=== PATIENT | male | born 1950 | race Caucasian/White ===

== ENCOUNTER 2017-02-10 16:08 | Inpatient (IN) | payer MEDICARE, OTHER ==
[2017-02-10] MEDS ORDERED: Sodium Chloride 0.9% 1,000 ML IV ONE (16:38)
--- NOTE | 2017-02-10 16:38 | C.PDOC ---
History Of Present Illness 66 yr old male presents to the ER with 4 day history of productive cough, mild SOB and chills. Patient denies fever, nausea, vomiting, abdominal pain, diarrhea , constipation, weakness or numbness. Reports hx of HTN, DM and CHF and is compliant with "water pill" but does not known last echo. Time Seen by Provider: 02/10/17 16:22 Chief Complaint (Nursing): Chest Pain History Per: Patient History/Exam Limitations: no limitations Onset/Duration Of Symptoms: Days (4) Past Medical History Reviewed: Historical Data, Nursing Documentation, Vital Signs Vital Signs: Last Vital Signs Temp 99.6 F 02/10/17 16:13 Pulse 82 02/10/17 16:13 Resp 20 02/10/17 16:13 BP 148/71 02/10/17 16:13 Pulse Ox 96 02/10/17 17:35 - Medical History PMH: Asthma, HTN, Hypercholesterolemia Surgical History: Coronary Stent Family History: States: No Known Family Hx - Social History Hx Alcohol Use: No Hx Substance Use: No Review Of Systems Except As Marked, All Systems Reviewed And Found Negative. Constitutional: Positive for: Chills. Negative for: Fever Cardiovascular: Positive for: Chest Pain Respiratory: Positive for: Cough (Productive ), Shortness of Breath (Mild) Gastrointestinal: Negative for: Nausea, Vomiting, Abdominal Pain, Diarrhea, Constipation Neurological: Negative for: Weakness, Numbness Physical Exam - Physical Exam Appears: Non-toxic, No Acute Distress Skin: Warm, Dry, No Rash Head: Atraumatic, Normacephalic Oral Mucosa: Dry Throat: Normal, No Erythema, No Exudate, No Drooling Neck: Normal, Normal ROM, Supple Chest: Symmetrical, No Tenderness Cardiovascular: Rhythm Regular, No Murmur Respiratory: Normal Breath Sounds, No Rales, No Rhonchi, No Wheezing Gastrointestinal/Abdominal: Normal Exam, Soft, No Tenderness, No Guarding, No Rebound Extremity: Normal ROM, No Swelling Neurological/Psych: Oriented x3, Normal Speech ED Course And Treatment - Laboratory Results Result Diagrams: 02/10/17 17:09 02/10/17 17:09 O2 Sat by Pulse Oximetry: 96 (RA ) Pulse Ox Interpretation: Normal - Other Rad CXR X-Ray: Viewed By Me, Read By Radiologist Interpretation: HISTORY: fever, cough, chest pain. COMPARISON: None available. TECHNIQUE: Chest PA and lateral. FINDINGS: LUNGS: Moderate interstitial prominence may reflect infection or edema. No focal consolidation. PLEURA: No significant pleural effusion identified. No definite pneumothorax . CARDIOVASCULAR: Heart size appears within normal limits. OSSEOUS STRUCTURES : Degenerative changes. VISUALIZED UPPER ABDOMEN: Unremarkable. OTHER FINDINGS: None. IMPRESSION: Moderate interstitial prominence may reflect infection or edema. Medical Decision Making Medical Decision Making: PLAN: * CXR * VBG * Troponin * CBC * CMP * Aspirin PO * Toradol OVP * Sodium Chloride IV EKG shows NSR at 76bpm with 1st degree AV block, pacs, and t wave changes laterally, unchanged from 11/21/16 5:05PM Cxray concerning for pna ("Moderate interstitial prominence may reflect infection or edema") Patient has elevated wbc and lactate. Does not meet criteria for code sepsis due to no other SIRS criteria. (Normal vitals). Will cover with antibiotics. Will need slow hydration due to concern for edema already seen on cxray. P: trop and bnp. 5:34PM BNP elevated consistent with chf. There appears to be element of chf vs pna. Spoke to PMD Dr. Neumann and he is requesting admission to hospitalist. Spoke to Dr. Alvarado who accepted patient to his service. Disposition - Disposition Disposition: HOSPITALIZED Disposition Time: 17:34 Condition: FAIR Forms: [facility] (Georgian) - Clinical Impression Clinical Impression: Pneumonia, Congestive heart failure - Scribe Statement The provider has reviewed the documentation as recorded by the Kylee Jenkins Provider Attestation: All medical record entries made by the Blayneibevelio were at my direction and personally dictated by me. I have reviewed the chart and agree that the record accurately reflects my personal performance of the history, physical exam, medical decision making, and the department course for this patient. I have also personally directed, reviewed, and agree with the discharge instructions and disposition.
[2017-02-10] MEDS ORDERED: Sodium Chloride 0.9% 1,000 ML ONE (16:56)
--- NOTE | 2017-02-10 17:03 | RAD ---
HISTORY: fever, cough, chest pain COMPARISON: None available. TECHNIQUE: Chest PA and lateral FINDINGS: LUNGS: Moderate interstitial prominence may reflect infection or edema. No focal consolidation. PLEURA: No significant pleural effusion identified. No definite pneumothorax . CARDIOVASCULAR: Heart size appears within normal limits. OSSEOUS STRUCTURES: Degenerative changes. VISUALIZED UPPER ABDOMEN: Unremarkable. OTHER FINDINGS: None. IMPRESSION: Moderate interstitial prominence may reflect infection or edema.
[2017-02-10 17:16] LABS: VENOUS BLOOD GAS BASE EXCESS 1.5 mmol/L (0.0-2.0); VENOUS BLOOD GAS PCO2 46 mmHg (40-60); VENOUS BLOOD PH 7.38 (7.32-7.43)
[2017-02-10 17:18] LABS: BASO # 0.1 K/uL (0.0-0.2); BASO % 0.5 % (0.0-2.0); EOS # 0.1 K/uL (0.0-0.7); EOS % 0.6 % (0.0-4.0); HEMATOCRIT 39.7 % (35.0-51.0); LYMPH # 1.5 K/uL (1.0-4.3); LYMPH % 10.8 % (20.0-40.0); MEAN CORPUSCULAR HEMOGLOBIN 27.2 pg (27.0-31.0); MEAN CORPUSCULAR HGB CONC 32.4 g/dL (33.0-37.0); MEAN PLATELET VOLUME 9.3 fL (7.2-11.7); MONO # 1.2 K/uL (0.0-0.8); MONO % 8.9 % (0.0-10.0); RED CELL DISTRIBUTION WIDTH 14.6 % (11.5-14.5)
[2017-02-10] MEDS ORDERED: Azithromycin 500 MG in Sodium Chloride 0.9% 250 ML IVPB STA (17:23)
[2017-02-10 17:24] LABS: CHLORIDE 99 mmol/L (98-107)
[2017-02-10 17:25] LABS: SODIUM 136 mmol/L (132-148)
[2017-02-10 17:26] LABS: POTASSIUM 4.3 mmol/L (3.6-5.2)
[2017-02-10 17:28] LABS: ALKALINE PHOSPHATASE 73 U/L (38-126); ALT/SGPT 38 U/L (21-72); AST/SGOT 22 U/L (17-59); BILIRUBIN,TOTAL 4.1 mg/dL (0.2-1.3); BLOOD UREA NITROGEN 12 mg/dL (9-20); CARBON DIOXIDE 25 mmol/L (22-30); GFR AFRICAN-AMERICAN > 60; GLUCOSE,RANDOM 273 mg/dL (75-110); TOTAL PROTEIN 7.1 g/dL (6.3-8.3); WHITE BLOOD COUNT 13.7 K/uL (4.8-10.8)
[2017-02-10 17:29] LABS: CALCIUM 9.4 mg/dl (8.6-10.4)
[2017-02-10] MEDS ORDERED: Sodium Chloride 0.9% 500 ML IV ONE (17:32)
[2017-02-10 17:33] LABS: INR 1.3
[2017-02-10] MEDS ORDERED: Azithromycin 500mg/250ML NS 500 MG/250 ML BAG IVPB ONE (17:47)
[2017-02-10] MEDS ORDERED: cefTRIAXone IV 1 gm in Dextros 50 ML IVPB ONE (17:47)
--- NOTE | 2017-02-10 18:20 | CP.PCM.HP ---
<Ulises Kaye - Last Filed: 02/10/17 20:36> History of Present Illness - History of Present Illness History of Present Illness: CC: Cough, fever, short of breath HPI: Patient is a 66 year old male with a history of IDDM, HTN, hyperlipidemia , and asthma is here because he as been complaining of fever, chills, shortness of breath, productive cough for 3-4 days. He was seen by his primary care physician last Saturday and put medication for his stomach though he does not know what medication it is. The only medication he has with him are Amlodapine/ Valsartan combination and Bystolic. He takes insulin at home both during the morning and at night but does not remember the name. He says he has not taking any medication for his recent illness and did not check his temperature at home. He also says that his legs has some swelling but are not that swollen today, he denies any orthopnea. But he does have chest and upper back pain when he coughs. He says he has been coughing up white phlem for the past 3 days. He is mainly [place] speaking, retired, living with his daughter. PMH: see above PSH: cardiac cath over 10 years ago but no stent PFH: denies any family history of cancer or hear disease SH: Lives with daughter, speaks [place], retired, denies any smoking history, etoh use, or illicit drug use. Allergies: NKDA PMD: Dr. Neumann Present on Admission - Present on Admission Any Indicators Present on Admission: No History of DVT/PE: No History of Uncontrolled Diabetes: Yes Urinary Catheter: No Decubitus Ulcer Present: No History Surgical Site Infection Following: None Review of Systems - Review of Systems All systems: reviewed and no additional remarkable complaints except - Constitutional Constitutional: Chills, Fever, Malaise - EENT Eyes: absent: Change in Vision Ears: absent: Dizziness - Cardiovascular Cardiovascular: Chest Pain, Dyspnea, Radiating Pain. absent: Diaphoresis, Palpitations - Respiratory Respiratory: Cough, Dyspnea, Pain with Coughing. absent: Wheezing - Gastrointestinal Gastrointestinal: Bloating. absent: Abdominal Pain, Constipation, Diarrhea, Nausea, Vomiting - Genitourinary Genitourinary: absent: Dysuria - Musculoskeletal Musculoskeletal: absent: Numbness, Tingling - Integumentary Integumentary: Swelling. absent: Wounds, Jaundice - Neurological Neurological: absent: Numbness, Headaches - Endocrine Endocrine: absent: Fatigue, Palpitations Past Patient History - Past Social History Smoking Status: Never Smoked - CARDIAC Hx Hypercholesterolemia: Yes Hx Hypertension: Yes - PULMONARY Hx Asthma: Yes - ENDOCRINE/METABOLIC Hx Endocrine Disorders: Yes Hx Diabetes Mellitus Type 2: Yes - GENITOURINARY/GYNECOLOGICAL Hx Genitourinary Disorders: Yes Hx Prostate Cancer: Yes - PSYCHIATRIC Hx Substance Use: No - SURGICAL HISTORY Hx Coronary Stent: Yes - ANESTHESIA Hx Anesthesia: Yes Hx Anesthesia Reactions: No Meds Allergies/Adverse Reactions: Allergies Allergy/AdvReac Type Severity Reaction Status Date / Time No Known Allergies Allergy Verified 02/10/17 16:15 Physical Exam - Constitutional Appears: Non-toxic, No Acute Distress - Eye Exam Eye Exam: Normal appearance Pupil Exam: NORMAL ACCOMODATION - ENT Exam ENT Exam: Mucous Membranes Moist - Neck Exam Neck exam: Positive for: Normal Inspection - Respiratory Exam Respiratory Exam: Rales. absent: Chest Wall Tenderness, Clear to Auscultation Bilateral, Rhonchi, Wheezes - Cardiovascular Exam Cardiovascular Exam: REGULAR RHYTHM, JVD, RRR, +S1, +S2. absent: Diastolic murmur, Gallop, Rubs, Systolic Murmur - GI/Abdominal Exam GI & Abdominal Exam: Normal Bowel Sounds. absent: Soft, Tenderness - Extremities Exam Extremities exam: Positive for: pedal edema (plus 1 right greater than left). Negative for: calf tenderness, normal inspection - Back Exam Back exam: NORMAL INSPECTION. absent: CVA tenderness (L), CVA tenderness (R) - Neurological Exam Neurological exam: Alert, Oriented x3 - Psychiatric Exam Psychiatric exam: Normal Affect, Normal Mood - Skin Skin Exam: Diaphoretic, Warm Additional comments: Skin is hot Results - Vital Signs Recent Vital Signs: Last Vital Signs Temp 99.6 F 02/10/17 16:13 Pulse 79 02/10/17 18:06 Resp 26 H 02/10/17 18:06 BP 147/83 02/10/17 18:06 Pulse Ox 98 02/10/17 18:06 - Labs Result Diagrams: 02/10/17 17:09 02/10/17 17:09 Assessment & Plan (1) Pneumonia Assessment and Plan: Patient admitted to inpatient. He has an ifiltrate on CXR, with a white count of 13.7 with left shift He is septic with a lactic acid of 3.2. IV Rocepin and Zirthromax. Blood, urine, and sputum cultures. Repeat latic acid in 4 hours. Follow up morning cbc. Status: Acute Priority: High (2) Sepsis Assessment and Plan: Lactic acid of 3.2. he has a white count, tachypenic, and a source of infection. Repeat lactic acid in 4 hours. Tylenol 650mg given. Status: Acute (3) Congestive heart failure Assessment and Plan: Patient is also fluid overloaded with pitting edma, JVD, and BNP elevated at 3550. Will get an echo and also cardiac enzymes Q6H x2. Monitor patient on tele. He does have a history of HTN. Patient reports a echo 4-5 years ago that was normal. 20mg of IV lasix given. Status: Suspected Priority: High (4) HTN (hypertension) Assessment and Plan: continue Bystolic 20mg, Amlodapine 10mg, and will given Losartan 100mg daily. Status: Chronic Priority: Medium (5) IDDM (insulin dependent diabetes mellitus) Assessment and Plan: sliding scale insulin with accu checks, follow up Hbg 1C. Will call pharmacy tomorrow to get accurate medication list. Status: Chronic Priority: Medium (6) Hyperlipidemia Assessment and Plan: Call pharmacy to get accurate medication, follow up lipid panel. Status: Chronic Priority: Medium (7) Asthma Assessment and Plan: Duoneb 3ml Q6H Status: Chronic Priority: Medium (8) Prophylactic measure Assessment and Plan: Heparin 5000 units sc q12h no SCDs due to lower extremity swelling pepcid 20mg bid Status: Acute <Delano Alvarado - Last Filed: 02/18/17 14:18> Results - Vital Signs Recent Vital Signs: Last Vital Signs Temp 97.5 F L 02/14/17 08:04 Pulse 73 02/14/17 08:04 Resp 18 02/14/17 08:04 BP 159/73 H 02/14/17 08:04 Pulse Ox 100 02/14/17 08:04 - Labs Result Diagrams: 02/14/17 07:17 02/14/17 07:17 Attending/Attestation - Attestation I have personally seen and examined this patient.: Yes I have fully participated in the care of the patient.: Yes I have reviewed all pertinent clinical information: Yes Notes (Text): 02/18/17 14:18 Patient was seen and examined at bedside with the resident at the time of admission I discussed the plan of care with the resident I agree with the history and physical and assessment/plan documented by the resident.
[2017-02-10] MEDS ORDERED: Albuterol-Ipratrop 3 mg / 0.5 (3 ml) UD ONE (21:11)
[2017-02-10] MEDS: Albuterol-Ipratrop 3 mg / 0.5 (3 ml) UD INH SCH (21:14)
[2017-02-10] MEDS ORDERED: (Novolin R) Insulin Human Regular 100 units/ml vial ONE (22:03)
[2017-02-10] MEDS: (Novolin R) Insulin Human Regular 100 units/ml vial SC SCH (22:04)
[2017-02-11 03:42] LABS: BASO # 0.1 K/uL (0.0-0.2); BASO % 0.7 % (0.0-2.0); EOS # 0.2 K/uL (0.0-0.7); EOS % 1.1 % (0.0-4.0); HEMATOCRIT 40.5 % (35.0-51.0); LYMPH # 1.4 K/uL (1.0-4.3); LYMPH % 9.5 % (20.0-40.0); MEAN CELL VOLUME 83.8 fL (80.0-94.0); MEAN CORPUSCULAR HEMOGLOBIN 27.1 pg (27.0-31.0); MEAN CORPUSCULAR HGB CONC 32.4 g/dL (33.0-37.0); MEAN PLATELET VOLUME 9.1 fL (7.2-11.7); MONO # 1.3 K/uL (0.0-0.8); MONO % 8.5 % (0.0-10.0); PLATELET COUNT 250 K/uL (130-400); RED CELL DISTRIBUTION WIDTH 14.3 % (11.5-14.5); WHITE BLOOD COUNT 14.7 K/uL (4.8-10.8)
[2017-02-11 04:23] LABS: CHLORIDE 100 mmol/L (98-107)
[2017-02-11 04:24] LABS: POTASSIUM 3.5 mmol/L (3.6-5.2); SODIUM 137 mmol/L (132-148)
[2017-02-11 04:25] LABS: CHOLESTEROL 155 mg/dL (0-199)
[2017-02-11 04:26] LABS: ALKALINE PHOSPHATASE 76 U/L (38-126); ALT/SGPT 32 U/L (21-72); AST/SGOT 21 U/L (17-59); BILIRUBIN,TOTAL 3.7 mg/dL (0.2-1.3); BLOOD UREA NITROGEN 13 mg/dL (9-20); CARBON DIOXIDE 24 mmol/L (22-30); GFR AFRICAN-AMERICAN > 60; GLUCOSE,RANDOM 225 mg/dL (75-110); TOTAL PROTEIN 6.9 g/dL (6.3-8.3)
[2017-02-11 04:27] LABS: CALCIUM 9.1 mg/dl (8.6-10.4)
[2017-02-11 04:43] LABS: T4 6.28 ug/dL (5.5-11.0)
[2017-02-11 04:57] LABS: THYROID STIMULATING HORMONE 0.77 mIU/L (0.46-4.68)
[2017-02-11 06:02] LABS: EOSINOPHIL 1 % (0-4); NEUTROPHIL 78 % (50-75); TOTAL CELLS COUNTED 100
[2017-02-11] MEDS ORDERED: (Novolin R) Insulin Human Regular 100 units/ml vial ONE ×2 (09:40→11:41)
[2017-02-11] MEDS: (Novolin R) Insulin Human Regular 100 units/ml vial SC SCH ×4 (09:41→22:05)
[2017-02-11] MEDS ORDERED: Magnesium Oxide 400 mg Tab UD PO ONE (10:30)
[2017-02-11] MEDS ORDERED: cefTRIAXone IV 1 gm in Dextros 0 ML IVPB ONE (10:43)
[2017-02-11] MEDS: Albuterol-Ipratrop 3 mg / 0.5 (3 ml) UD INH SCH ×3 (10:50→22:42)
[2017-02-11] MEDS ORDERED: Albuterol-Ipratrop 3 mg / 0.5 (3 ml) UD ONE ×2 (10:58→13:54)
--- NOTE | 2017-02-11 11:28 | CP.PCM.PN ---
<Coleman Sr - Last Filed: 02/11/17 17:50> Subjective - Date & Time of Evaluation Date of Evaluation: 02/11/17 Time of Evaluation: 10:00 - Subjective Subjective: PGY-[address] Esau Cortes Patient seen and examined at bedside. Patient reports poor appetite not having eaten for the last two days as well as bloating and constipation. Patient has not had a BM since 3 days ago. Patient complaining of cough but denies subjective fevers, chills, headache, dizziness, chest pain, SOB, abdominal pain , dysuria. Objective - Vital Signs/Intake and Output Vital Signs (last 24 hours): Temp Pulse Resp BP Pulse Ox 99.6 F 75 15 142/68 95 02/10/17 16:13 02/11/17 09:33 02/11/17 09:33 02/11/17 09:33 02/11/17 09:33 - Medications Medications: Current Medications Acetaminophen (Tylenol 325mg Tab) 650 mg PO Q6 PRN PRN Reason: Fever >100.4 F Albuterol/Ipratropium (Duoneb 3 Mg/0.5 Mg (3 Ml) Ud) 3 ml INH RQ6 [facility] Last Admin: 02/10/17 21:14 Dose: 3 ml Amlodipine Besylate (Norvasc) 10 mg PO DAILY [facility] Last Admin: 02/11/17 10:50 Dose: 10 mg Docusate Sodium (Colace) 100 mg PO BID [facility] Last Admin: 02/11/17 10:50 Dose: 100 mg Famotidine (Pepcid) 20 mg PO BID [facility] Last Admin: 02/11/17 10:49 Dose: 20 mg Heparin Sodium (Porcine) (Heparin) 5,000 units SC Q12 [facility] Last Admin: 02/11/17 10:49 Dose: 5,000 units Azithromycin 500 mg/ Sodium (Chloride) 250 mls @ 250 mls/hr IVPB DAILY [facility] Ceftriaxone Sodium 1 gm/ (Sodium Chloride) 100 mls @ 100 mls/hr IVPB DAILY [facility] Last Admin: 02/11/17 10:50 Dose: 100 mls/hr Insulin Human Regular (Novolin R) 0 unit SC ACHS [facility] PRN Reason: Protocol Last Admin: 02/11/17 09:41 Dose: 4 unit Losartan Potassium (Cozaar) 50 mg PO DAILY [facility] Last Admin: 02/11/17 10:50 Dose: 50 mg Nebivolol (Bystolic) 20 mg PO DAILY [facility] Last Admin: 02/11/17 10:50 Dose: 20 mg - Labs Labs: 02/11/17 03:40 02/11/17 03:40 PT 14.2 SECONDS (9.7-12.2) H 02/10/17 17:09 INR 1.3 02/10/17 17:09 APTT 35 SECONDS (21-34) H 02/10/17 17:09 - Constitutional Appears: No Acute Distress - Head Exam Head Exam: ATRAUMATIC, NORMAL INSPECTION, NORMOCEPHALIC - Eye Exam Eye Exam: EOMI, PERRL - ENT Exam ENT Exam: Mucous Membranes Moist - Respiratory Exam Additional comments: Coarse breath sounds bilaterally - Cardiovascular Exam Cardiovascular Exam: REGULAR RHYTHM, +S1, +S2 - GI/Abdominal Exam GI & Abdominal Exam: Distended, Soft, Normal Bowel Sounds. absent: Tenderness - Extremities Exam Extremities Exam: absent: Pedal Edema, Tenderness Additional comments: Missing the thumb of his right hand - Neurological Exam Neurological Exam: Alert, Awake, Oriented x3 - Skin Skin Exam: Dry, Intact, Normal Color, Warm Assessment and Plan - Assessment and Plan (Free Text) Plan: Pneumonia He has an infiltrate on CXR, with a white count of 13.7 with left shift at time of admission. Also had a lactic acid of 3.2. IV Rocephin and Azithromycin. F/u blood, urine, and sputum cultures. Dr. Arriaga (ID) consulted. Help appreciated. Sepsis Lactic acid of 3.2. he has a white count, tachypenic, and a source of infection. Repeat Lactate 1.7 Tylenol 650mg prn Congestive heart failure BNP elevated at 3550. Given IV lasix in the ED Dr. Mae director advertising consulted. Help appreciated. Hypertension Bystolic 20mg PO daily Amlodapine 10mg PO daily Losartan 50 mg daily HCTZ 12.5 mg PO daily History of Coronary Artery Disease s/p stent placement Aspirin 81 mg PO daily Plavix 75 mg PO daily IDDM (insulin dependent diabetes mellitus) RISS Hgb 13.1 Hyperlipidemia Lipid Panel WNL Welchol not on formulary--converted to Questran packet PO BID Lipitor not on formulary--converted to Crestor 20 mg PO HS Asthma Duoneb 3ml Q6H prn History of Prostate Cancer Dr. Jamil follows outpatient. Most recent PSA 0.2 Flomax 0.4 mg PO daily Prophylactic measure Heparin 5000 units sc q12h no SCDs due to lower extremity swelling pepcid 20mg bid Home Medications per pharmacy: Protonix 40 mg PO daily Welchol 625 mg 3 tabs PO BID Asa 81 mg PO daily Plavix 75 mg PO daily HCTZ 12.5 mg PO daily Vitamin D 13123 Units once weekly ProaAir 2 puffs Q4H prn Lipitor 40 mg PO HS Levemir 40 units BID Humalog 24 units TID Flomax 0.4 mg PO daily Bystolic 20 mg PO daily Amlodipine/Valsartan 10/320 mg PO daily 02/11: Resident spoken with PMD Dr. Neumann. Patient has history of CAD s/p stent x1. Patient also has history of prostate cancer being managed by Dr. Jamil, though Dr. Neumann is unconcerned given the patient's most recent PSA of 0.[address] Ryan Sr PGY-1 <Esau Cortes - Last Filed: 02/11/17 19:50> Objective - Vital Signs/Intake and Output Vital Signs (last 24 hours): Temp Pulse Resp BP Pulse Ox 97.5 F L 78 20 115/57 L 100 02/11/17 16:36 02/11/17 16:36 02/11/17 16:36 02/11/17 16:36 02/11/17 16:36 - Medications Medications: Current Medications Acetaminophen (Tylenol 325mg Tab) 650 mg PO Q6 PRN PRN Reason: Fever >100.4 F Albuterol/Ipratropium (Duoneb 3 Mg/0.5 Mg (3 Ml) Ud) 3 ml INH RQ6 [facility] Last Admin: 02/11/17 14:00 Dose: 3 ml Amlodipine Besylate (Norvasc) 10 mg PO DAILY [facility] Aspirin (Aspirin Chewable) 81 mg PO DAILY [facility] Last Admin: 02/11/17 14:19 Dose: 81 mg Cholestyramine Resin (Questran) 4 gm PO BID [facility] Clopidogrel Bisulfate (Plavix) 75 mg PO DAILY [facility] Last Admin: 02/11/17 14:20 Dose: 75 mg Docusate Sodium (Colace) 100 mg PO BID [facility] Last Admin: 02/11/17 18:01 Dose: 100 mg Famotidine (Pepcid) 20 mg PO BID [facility] Last Admin: 02/11/17 18:01 Dose: 20 mg Heparin Sodium (Porcine) (Heparin) 5,000 units SC Q12 [facility] Last Admin: 02/11/17 10:49 Dose: 5,000 units Hydrochlorothiazide (Microzide) 12.5 mg PO DAILY [facility] Azithromycin 500 mg/ Sodium (Chloride) 250 mls @ 250 mls/hr IVPB DAILY [facility] Last Admin: 02/11/17 11:43 Dose: 250 mls/hr Ceftriaxone Sodium 1 gm/ (Sodium Chloride) 100 mls @ 100 mls/hr IVPB DAILY [facility] Last Admin: 02/11/17 10:50 Dose: 100 mls/hr Insulin Detemir (Levemir) 40 unit SC BID [facility] Last Admin: 02/11/17 18:05 Dose: 40 unit Insulin Human Regular (Novolin R) 0 unit SC ACHS [facility] PRN Reason: Protocol Last Admin: 02/11/17 18:01 Dose: 4 unit Losartan Potassium (Cozaar) 100 mg PO DAILY [facility] Nebivolol (Bystolic) 20 mg PO DAILY [facility] Pneumococcal Polyvalent Vaccine (Pneumovax 23 Vaccine) 0.5 ml IM .ONCE ONE Stop: 02/12/17 10:01 Rosuvastatin Calcium (Crestor) 20 mg PO HS [facility] Tamsulosin HCl (Flomax) 0.4 mg PO DAILY [facility] Last Admin: 02/11/17 16:14 Dose: 0.4 mg - Labs Labs: 02/11/17 03:40 02/11/17 03:40 PT 14.2 SECONDS (9.7-12.2) H 02/10/17 17:09 INR 1.3 02/10/17 17:09 APTT 35 SECONDS (21-34) H 02/10/17 17:09 Attending/Attestation - Attestation I have personally seen and examined this patient.: Yes I have fully participated in the care of the patient.: Yes I have reviewed all pertinent clinical information, including history, physical exam and plan: Yes Notes (Text): 02/11/17 19:50 Patient was seen and examined at 10 AM in the ER Bed #3 02/11/17 Exam, Assesment and Plan were thoroughly gone over with the Resident. Esau Cortes D.O.
[2017-02-11] MEDS: Azithromycin 500 MG in Sodium Chloride 0.9% 250 ML IVPB SCH (11:43)
--- NOTE | 2017-02-11 12:10 | CP.PCM.CON ---
History of Present Illness - History of Present Illness History of Present Illness: 66 year old male with a history of IDDM, HTN, hyperlipidemia, and asthma is here because he as been complaining of fever, chills, shortness of breath, productive cough for 3-4 days. He was seen by his primary care physician last Saturday and put medication for his stomach though he does not know what medication it is. The only medication he has with him are Amlodapine/Valsartan combination and Bystolic. He takes insulin at home both during the morning and at night but does not remember the name. He says he has not taking any medication for his recent illness and did not check his temperature at home. He also says that his legs has some swelling but are not that swollen today, he denies any orthopnea. But he does have chest and upper back pain when he coughs. He says he has been coughing up white phlem for the past 3 days. He is mainly French speaking, retired, living with his daughter. PMH: see above PSH: cardiac cath over 10 years ago but no stent PFH: denies any family history of cancer or hear disease SH: Lives with daughter, speaks French, retired, denies any smoking history, etoh use, or illicit drug use. Review of Systems - Constitutional Constitutional: As Per HPI - EENT Eyes: absent: As Per HPI, Blind Spots, Blurred Vision, Change in Vision, Decreased Night Vision, Diplopia, Discharge, Dry Eye, Exophthalmos, Floaters, Irritation, Itchy Eyes, Loss of Peripheral Vision, Pain, Photophobia, Requires Corrective Lenses, Sees Flashes, Spots in Vision, Tunnel Vision, Other Visual Disturbances, Loss of Vision, Other Ears: absent: As Per HPI, Decreased Hearing, Ear Discharge, Ear Pain, Tinnitus, Abnormal Hearing, Disequilibrium, Dizziness, Other Nose/Mouth/Throat: absent: As Per HPI, Epistaxis, Nasal Congestion, Nasal Discharge, Nasal Obstruction, Nasal Trauma, Nose Pain, Post Nasal Drip, Sinus Pain, Sinus Pressure, Bleeding Gums, Change in Voice, Dental Pain, Dry Mouth, Dysphagia, Halitosis, Hoarsness, Lip Swelling, Mouth Lesions, Mouth Pain, Odynophagia, Sore Throat, Throat Swelling, Tongue Swelling, Facial Pain, Neck Pain, Neck Mass, Other - Cardiovascular Cardiovascular: As Per HPI - Respiratory Respiratory: As Per HPI - Genitourinary Genitourinary: absent: As Per HPI, Change in Urinary Stream, Difficulty Urinating, Dysuria, Flank Pain, Hematuria, Pyuria, Nocturia, Urinary Incontinence, Urinary Frequency, Urinary Hesitance, Urinary Urgency, Voiding Freq/Small Amts, Freq UTI, Hx Renal/Bladder Calculi, Hx /Renal Surgery, Bladder Distension, Other - Musculoskeletal Musculoskeletal: absent: As Per HPI, Abnormal Gait, Arthralgias, Atrophy, Back Pain, Deformity, Joint Swelling, Limited Range of Motion, Loss of Height, Muscle Cramps, Muscle Weakness, Myalgias, Neck Pain, Numbness, Radiating Pain into Limb, Stiffness, Tingling, Other - Integumentary Integumentary: absent: As Per HPI, Acne, Alopecia, Bleeding Lesions, Change in Hair, Change in Nails, Change in Pigmentation, Changing Lesions, Dry Skin, Erythema, Furuncle, Hirsutism, Lesions, New Lesions, Non-Healing Lesions, Photosensitivity, Pruritus, Rash, Skin Pain, Skin Ulcer, Sores, Striae, Swelling , Unusual Bruising, Wounds, Jaundice, Other - Neurological Neurological: absent: As Per HPI, Abnormal Gait, Abnormal Hearing, Abnormal Movements, Abnormal Speech, Behavioral Changes, Burning Sensations, Confusion, Convulsions, Disequilibrium, Dizziness, Numbness, Focal Weakness, Frequent Falls , Headaches, Lack of Coordination, Loss of Vision, Memory Loss, Paresthesias, Radicular Pain, Restless Legs, Sensory Deficit, Syncope, Tingling, Tremor, Vertigo, Weakness, Other Visual Disturbances, Other - Psychiatric Psychiatric: absent: As Per HPI, Abnormal Sleep Pattern, Anhedonia, Anxiety, Auditory Hallucinations, Behavioral Changes, Change in Appetite, Change in Libido, Confusion, Depression, Difficulty Concentrating, Hallucinations, Homicidal Ideation, Hopelessness, Irritability, Memory Loss, Mood Swings, Panic Attacks, Paranoia, Suicidal Ideation, Visual Hallucinations, Tactile Hallucinations, Other - Endocrine Endocrine: absent: As Per HPI, Change in Body Appearance, Change in Libido, Cold Intolorance, Deepening of Voice, Excessive Sweating, Fatigue, Flushing, Heat Intolorance, Increase in Ring/Shoe/Hat Size, Palpitations, Polydipsia, Polyphagia, Polyuria, Other - Hematologic/Lymphatic Hematologic: absent: As Per HPI, Easy Bleeding, Easy Bruising, Lymphadenopathy, Other Past Patient History - Past Social History Smoking Status: Never Smoked - CARDIAC Hx Hypercholesterolemia: Yes Hx Hypertension: Yes - PULMONARY Hx Asthma: Yes - ENDOCRINE/METABOLIC Hx Endocrine Disorders: Yes Hx Diabetes Mellitus Type 2: Yes - GENITOURINARY/GYNECOLOGICAL Hx Genitourinary Disorders: Yes Hx Prostate Cancer: Yes - PSYCHIATRIC Hx Substance Use: No - SURGICAL HISTORY Hx Coronary Stent: Yes - ANESTHESIA Hx Anesthesia: Yes Hx Anesthesia Reactions: No Meds Allergies/Adverse Reactions: Allergies Allergy/AdvReac Type Severity Reaction Status Date / Time No Known Allergies Allergy Verified 02/10/17 16:15 - Medications Medications: Current Medications Acetaminophen (Tylenol 325mg Tab) 650 mg PO Q6 PRN PRN Reason: Fever >100.4 F Albuterol/Ipratropium (Duoneb 3 Mg/0.5 Mg (3 Ml) Ud) 3 ml INH RQ6 [facility] Last Admin: 02/10/17 21:14 Dose: 3 ml Amlodipine Besylate (Norvasc) 10 mg PO DAILY [facility] Last Admin: 02/11/17 10:50 Dose: 10 mg Docusate Sodium (Colace) 100 mg PO BID [facility] Last Admin: 02/11/17 10:50 Dose: 100 mg Famotidine (Pepcid) 20 mg PO BID [facility] Last Admin: 02/11/17 10:49 Dose: 20 mg Heparin Sodium (Porcine) (Heparin) 5,000 units SC Q12 [facility] Last Admin: 02/11/17 10:49 Dose: 5,000 units Azithromycin 500 mg/ Sodium (Chloride) 250 mls @ 250 mls/hr IVPB DAILY [facility] Last Admin: 02/11/17 11:43 Dose: 250 mls/hr Ceftriaxone Sodium 1 gm/ (Sodium Chloride) 100 mls @ 100 mls/hr IVPB DAILY [facility] Last Admin: 02/11/17 10:50 Dose: 100 mls/hr Insulin Human Regular (Novolin R) 0 unit SC ACHS [facility] PRN Reason: Protocol Last Admin: 02/11/17 11:38 Dose: 6 unit Losartan Potassium (Cozaar) 50 mg PO DAILY [facility] Last Admin: 02/11/17 10:50 Dose: 50 mg Nebivolol (Bystolic) 20 mg PO DAILY [facility] Last Admin: 02/11/17 10:50 Dose: 20 mg Physical Exam - Constitutional Appears: Non-toxic, Cachectic, Chronically Ill - Head Exam Head Exam: NORMOCEPHALIC - Eye Exam Eye Exam: PERRL. absent: Scleral icterus - ENT Exam ENT Exam: Mucous Membranes Dry, Normal External Ear Exam - Neck Exam Neck exam: Negative for: Lymphadenopathy - Respiratory Exam Respiratory Exam: Decreased Breath Sounds, Rhonchi - Cardiovascular Exam Cardiovascular Exam: REGULAR RHYTHM, +S1, +S2 - GI/Abdominal Exam GI & Abdominal Exam: Diminished Bowel Sounds, Soft. absent: Tenderness - Rectal Exam Rectal Exam: Deferred - Exam Exam: NORMAL INSPECTION - Back Exam Back exam: absent: CVA tenderness (L), CVA tenderness (R) - Neurological Exam Neurological exam: Alert, CN II-XII Intact, Oriented x3, Reflexes Normal - Psychiatric Exam Psychiatric exam: Normal Mood - Skin Skin Exam: Dry Results - Vital Signs Recent Vital Signs: Last Vital Signs Temp 99.6 F 02/10/17 16:13 Pulse 75 02/11/17 09:33 Resp 15 02/11/17 09:33 BP 142/68 02/11/17 09:33 Pulse Ox 95 02/11/17 09:33 - Labs Result Diagrams: 02/13/17 06:55 02/13/17 06:55 Labs: Laboratory Results - last 24 hr 02/10/17 02/10/17 02/10/17 18:29 21:17 21:17 WBC RBC Hgb Hct MCV MCH MCHC RDW Plt Count MPV Neut % (Auto) Lymph % (Auto) [place] % (Auto) Eos % (Auto) Baso % (Auto) Neut # Lymph # [place] # Eos # Baso # Neutrophils % (Manual) Band Neutrophils % Lymphocytes % (Manual) Monocytes % (Manual) Eosinophils % (Manual) Platelet Estimate Sodium Potassium Chloride Carbon Dioxide Anion Gap BUN Creatinine Est GFR ( Amer) Est GFR (Non-Af Amer) POC Glucose (mg/dL) Random Glucose Hemoglobin A1c Lactic Acid 1.7 Calcium Total Bilirubin AST ALT Alkaline Phosphatase Total Creatine Kinase 75 CK-MB (Mass) 1.37 Troponin I, Quant 0.0860 Total Protein Albumin Globulin Albumin/Globulin Ratio Triglycerides Cholesterol LDL Cholesterol Direct HDL Cholesterol Thyroxine (T4) TSH 3rd Generation Influenza Typ A,B (EIA) Negative for flu a/b Ur L.pneumophila Ag 02/10/17 02/11/17 02/11/17 21:23 03:31 03:40 WBC 14.7 H RBC 4.83 Hgb 13.1 Hct 40.5 MCV 83.8 MCH 27.1 MCHC 32.4 L RDW 14.3 Plt Count 250 MPV 9.1 Neut % (Auto) 80.2 H Lymph % (Auto) 9.5 L [place] % (Auto) 8.5 Eos % (Auto) 1.1 Baso % (Auto) 0.7 Neut # 11.8 H Lymph # 1.4 [place] # 1.3 H Eos # 0.2 Baso # 0.1 Neutrophils % (Manual) 78 H Band Neutrophils % 1 Lymphocytes % (Manual) 10 L Monocytes % (Manual) 10 Eosinophils % (Manual) 1 Platelet Estimate Normal Sodium Potassium Chloride Carbon Dioxide Anion Gap BUN Creatinine Est GFR ( Amer) Est GFR (Non-Af Amer) POC Glucose (mg/dL) 320 H Random Glucose Hemoglobin A1c Lactic Acid Calcium Total Bilirubin AST ALT Alkaline Phosphatase Total Creatine Kinase 93 CK-MB (Mass) 1.32 Troponin I, Quant 0.0850 Total Protein Albumin Globulin Albumin/Globulin Ratio Triglycerides Cholesterol LDL Cholesterol Direct HDL Cholesterol Thyroxine (T4) TSH 3rd Generation Influenza Typ A,B (EIA) Ur L.pneumophila Ag 02/11/17 02/11/17 02/11/17 03:40 06:00 07:13 WBC RBC Hgb Hct MCV MCH MCHC RDW Plt Count MPV Neut % (Auto) Lymph % (Auto) [place] % (Auto) Eos % (Auto) Baso % (Auto) Neut # Lymph # [place] # Eos # Baso # Neutrophils % (Manual) Band Neutrophils % Lymphocytes % (Manual) Monocytes % (Manual) Eosinophils % (Manual) Platelet Estimate Sodium 137 Potassium 3.5 L Chloride 100 Carbon Dioxide 24 Anion Gap 17 BUN 13 Creatinine 0.9 Est GFR ( Amer) > 60 Est GFR (Non-Af Amer) > 60 POC Glucose (mg/dL) Random Glucose 225 H Hemoglobin A1c 13.1 H Lactic Acid Calcium 9.1 Total Bilirubin 3.7 H AST 21 ALT 32 Alkaline Phosphatase 76 Total Creatine Kinase CK-MB (Mass) Troponin I, Quant Total Protein 6.9 Albumin 3.5 Globulin 3.5 Albumin/Globulin Ratio 1.0 Triglycerides 100 Cholesterol 155 LDL Cholesterol Direct 87 HDL Cholesterol 33 Thyroxine (T4) 6.28 TSH 3rd Generation 0.77 Influenza Typ A,B (EIA) Ur L.pneumophila Ag Negative 02/11/17 02/11/17 09:36 11:36 WBC RBC Hgb Hct MCV MCH MCHC RDW Plt Count MPV Neut % (Auto) Lymph % (Auto) [place] % (Auto) Eos % (Auto) Baso % (Auto) Neut # Lymph # [place] # Eos # Baso # Neutrophils % (Manual) Band Neutrophils % Lymphocytes % (Manual) Monocytes % (Manual) Eosinophils % (Manual) Platelet Estimate Sodium Potassium Chloride Carbon Dioxide Anion Gap BUN Creatinine Est GFR ( Amer) Est GFR (Non-Af Amer) POC Glucose (mg/dL) 258 H 330 H Random Glucose Hemoglobin A1c Lactic Acid Calcium Total Bilirubin AST ALT Alkaline Phosphatase Total Creatine Kinase CK-MB (Mass) Troponin I, Quant Total Protein Albumin Globulin Albumin/Globulin Ratio Triglycerides Cholesterol LDL Cholesterol Direct HDL Cholesterol Thyroxine (T4) TSH 3rd Generation Influenza Typ A,B (EIA) Ur L.pneumophila Ag Assessment & Plan (1) Pneumonia Status: Acute Priority: High (2) Sepsis Status: Acute (3) Asthma Status: Chronic Priority: Medium (4) IDDM (insulin dependent diabetes mellitus) Status: Chronic Priority: Medium
--- NOTE | 2017-02-11 15:00 | CARD ---
APPROVED REPORT EXAM: Two-dimensional and M-mode echocardiogram with Doppler and color Doppler. Other Information Quality : GoodRhythm : NSR INDICATION Dyspnea Diastolic Congestive Heart Failure pneumonia; feve; sepsis RISK FACTORS Hypertension 2D DIMENSIONS IVSd1.5 (0.7-1.1cm)Aortic Root (2D)3.3 (2.0-3.7cm) LVDd4.6 (3.9-5.9cm)LVOT Diameter2.2 (1.8-2.4cm) PWd1.0 (0.7-1.1cm)LVDs2.8 (2.5-4.0cm) FS (%) 38.5 %LVEF (%)68.9 (>50%) M-Mode DIMENSIONS RVDd2.85 (2.1-3.2cm)Left Atrium (MM)5.00 (2.5-4.0cm) IVSd1.35 (0.7-1.1cm)Aortic Root2.85 (2.2-3.7cm) LVDd4.62 (4.0-5.6cm)Aortic Cusp Exc.2.08 (1.5-2.0cm) PWd1.46 (0.7-1.1cm)FS (%) 36 % LVDs2.95 (2.0-3.8cm)LVEF (%)66 (>50%) Mitral Valve MV E Oqouivph95.3cm/sMV A Pcwwpgsi11.3cm/sE/A ratio1.3 TDI E/Lateral E'0.0E/Medial E'0.0 Tricuspid Valve TR Peak [id number]/sTR Peak [id number] LEFT VENTRICLE There is moderate concentric left ventricular hypertrophy. The left ventricular systolic function is normal. The left ventricular ejection fraction is within the normal range. There is normal LV segmental wall motion. Transmitral Doppler flow pattern is Grade II-pseudonormal filling dynamics. RIGHT VENTRICLE The right ventricle is normal size. The right ventricular systolic function is normal. ATRIA The left atrium is moderately dilated. The right atrium is mildly dilated. AORTIC VALVE The aortic valve is normal in structure. No aortic regurgitation is present. MITRAL VALVE The mitral valve is normal in structure. Mitral regurgitation is trace to mild. TRICUSPID VALVE The tricuspid valve is normal in structure. There is moderate tricuspid regurgitation. Right ventricular systolic pressure is estimated at 45-50 mmHg. There is moderate pulmonary hypertension. PULMONIC VALVE The pulmonary valve is normal in structure. There is mild pulmonic valvular regurgitation. GREAT VESSELS The aortic root is normal in size. The IVC is normal in size and collapses >50% with inspiration. PERICARDIAL EFFUSION There is no pericardial effusion. <Conclusion> There is moderate concentric left ventricular hypertrophy. The left ventricular systolic function is normal. Moderate left ventricular diastolic dysfuntion. Transmitral Doppler flow pattern is Grade II-pseudonormal filling dynamics. The right ventricular systolic function is normal. Bi-atrial enlargement. Mitral regurgitation is trace to mild. There is moderate pulmonary hypertension. Right ventricular systolic pressure is estimated at 45-50 mmHg. There is no pericardial effusion.
[2017-02-11] MEDS: Insulin Detemir 100 units/ml Vial (Levemir) SC SCH (18:05)
[2017-02-11] MEDS: Cholestyramine 4 gm/Pkt UD PO SCH (21:12)
--- NOTE | 2017-02-11 23:16 | CON ---
CARDIOLOGY CONSULTATION REASON FOR CONSULTATION: Abnormal EKG. HISTORY OF PRESENT ILLNESS: The patient is 66-year-old male who has history of hypertension and diabetes mellitus as well as hyperlipidemia and history of bronchial asthma. He presented because of fever, chills, shortness of breath, and productive cough for the past 4 days and was advised by his medical doctor to come to the emergency room. The patient reports occasional dizziness, but no syncope. The patient is unaware of any prior cardiac history in the past and he denies any chest pain at this time. The patient has questionable history of congestive heart failure and was on water pill for it. At this time, the patient does report generalized weakness. SOCIAL HISTORY: Nonsmoker, nondrinker. MEDICATIONS: Zithromax 500 mg intravenously daily, Bystolic 20 mg daily, Rocephin 1 g intravenously daily, Colace 100 mg twice a day, Cozaar 50 mg once a day, albuterol inhaler, heparin 5000 units subcutaneously twice a day, Norvasc 10 mg once a day, Pepcid 20 mg p.o. twice a day. HOME MEDICATIONS: Included Bystolic 20 mg daily. PHYSICAL EXAMINATION GENERAL: The patient is a middle-aged male, who does not appear to be in any distress. VITAL SIGNS: Blood pressure 142/68, heart rate 75, temperature 99.6. HEENT: Normocephalic. CHEST: Minimal rhonchi. HEART: S1, S2, regular. ABDOMEN: Soft. EXTREMITIES: No edema. LABORATORY DATA: SMA-7; sodium 137, potassium 3.5, chloride 100, CO2 of 24, glucose 225, BUN 13, creatinine 0.9. INR is 1.3, PTT 35. Hemoglobin and hematocrit 13.1 and 40.5, white count and platelet count of 14.7 and 250,000. EKG revealed sinus rhythm, Mobitz I second-degree AV block, heart rate is 65. Nonspecific lateral T-wave changes. Two sets of troponins are negative. ProBNP 3360. Venous Doppler of lower extremity was performed and report is still pending. Chest x-ray revealed mild CHF. No cardiomegaly noted. ASSESSMENT: 1. Mobitz I second-degree atrioventricular block could be related to the patient's beta reginaldo therapy actually he is taking at home. 2. Consider underlying and congestive heart failure. 3. Rule out bilateral pneumonia. 4. Uncontrolled diabetes mellitus. RECOMMENDATIONS: Discontinue Bystolic, continue IV Zithromax and Rocephin. The patient has received Lasix in the emergency room 20 mg intravenously. I will review echocardiograph study performed today and schedule the patient for 24 hours Holter monitor. Hayden Mae MD
[2017-02-12] MEDS: Albuterol-Ipratrop 3 mg / 0.5 (3 ml) UD INH SCH ×4 (01:01→19:56)
[2017-02-12 06:30] LABS: ALKALINE PHOSPHATASE 60 U/L (38-126); ALT/SGPT 32 U/L (21-72); AST/SGOT 19 U/L (17-59); BILIRUBIN,TOTAL 2.3 mg/dL (0.2-1.3); BLOOD UREA NITROGEN 14 mg/dL (9-20); CALCIUM 9.4 mg/dl (8.6-10.4); CARBON DIOXIDE 23 mmol/L (22-30); CHLORIDE 100 mmol/L (98-107); GFR AFRICAN-AMERICAN > 60; GLUCOSE,RANDOM 183 mg/dL (75-110); MAGNESIUM 1.9 mg/dL (1.6-2.3); PHOSPHOROUS 3.6 mg/dL (2.5-4.5); POTASSIUM 3.5 mmol/L (3.6-5.2); SODIUM 134 mmol/L (132-148); TOTAL PROTEIN 6.2 g/dL (6.3-8.3)
[2017-02-12 06:38] LABS: BASO % 0.4 % (0.0-2.0); EOS # 0.3 K/uL (0.0-0.7); EOS % 2.9 % (0.0-4.0); HEMATOCRIT 36.8 % (35.0-51.0); LYMPH # 1.9 K/uL (1.0-4.3); LYMPH % 18.7 % (20.0-40.0); MEAN CELL VOLUME 83.1 fL (80.0-94.0); MEAN CORPUSCULAR HEMOGLOBIN 27.7 pg (27.0-31.0); MEAN CORPUSCULAR HGB CONC 33.4 g/dL (33.0-37.0); MEAN PLATELET VOLUME 9.4 fL (7.2-11.7); MONO # 0.8 K/uL (0.0-0.8); MONO % 7.6 % (0.0-10.0); RED CELL DISTRIBUTION WIDTH 14.1 % (11.5-14.5); WHITE BLOOD COUNT 10.3 K/uL (4.8-10.8)
--- NOTE | 2017-02-12 07:46 | CP.PCM.PN ---
Subjective - Date & Time of Evaluation Date of Evaluation: 02/12/17 Time of Evaluation: 06:50 - Subjective Subjective: PGY-[address] Esau Cortes Patient seen and examined at bedside. Patient reports feeling better than yesterday. Patient still intermittently coughing up white phlegm. Patient complains of slight dizziness and weakness. Patient denies fevers, chills, headache, chest pain, SOB, abdominal pain, dysuria. Patient still has not had a BM as of this morning. Objective - Vital Signs/Intake and Output Vital Signs (last 24 hours): Temp Pulse Resp BP Pulse Ox 98.5 F 76 20 147/86 95 02/12/17 04:00 02/12/17 04:00 02/12/17 04:00 02/12/17 04:00 02/12/17 00:25 Intake and Output: 02/12/17 02/12/17 06:59 18:59 Intake Total 110 Output Total 600 Balance -490 - Medications Medications: Current Medications Acetaminophen (Tylenol 325mg Tab) 650 mg PO Q6 PRN PRN Reason: Fever >100.4 F Albuterol/Ipratropium (Duoneb 3 Mg/0.5 Mg (3 Ml) Ud) 3 ml INH RQ6 [facility] Last Admin: 02/12/17 07:24 Dose: 3 ml Amlodipine Besylate (Norvasc) 10 mg PO DAILY [facility] Aspirin (Aspirin Chewable) 81 mg PO DAILY [facility] Last Admin: 02/11/17 14:19 Dose: 81 mg Cholestyramine Resin (Questran) 4 gm PO BID [facility] Last Admin: 02/11/17 21:12 Dose: 4 gm Clopidogrel Bisulfate (Plavix) 75 mg PO DAILY [facility] Last Admin: 02/11/17 14:20 Dose: 75 mg Docusate Sodium (Colace) 100 mg PO BID [facility] Last Admin: 02/11/17 18:01 Dose: 100 mg Famotidine (Pepcid) 20 mg PO BID [facility] Last Admin: 02/11/17 18:01 Dose: 20 mg Heparin Sodium (Porcine) (Heparin) 5,000 units SC Q12 [facility] Last Admin: 02/11/17 21:12 Dose: 5,000 units Hydrochlorothiazide (Microzide) 12.5 mg PO DAILY [facility] Azithromycin 500 mg/ Sodium (Chloride) 250 mls @ 250 mls/hr IVPB DAILY [facility] Last Admin: 02/11/17 11:43 Dose: 250 mls/hr Ceftriaxone Sodium 1 gm/ (Sodium Chloride) 100 mls @ 100 mls/hr IVPB DAILY [facility] Last Admin: 02/11/17 10:50 Dose: 100 mls/hr Insulin Detemir (Levemir) 40 unit SC BID [facility] Last Admin: 02/11/17 18:05 Dose: 40 unit Insulin Human Regular (Novolin R) 0 unit SC ACHS [facility] PRN Reason: Protocol Last Admin: 02/11/17 22:05 Dose: Not Given Losartan Potassium (Cozaar) 100 mg PO DAILY [facility] Nebivolol (Bystolic) 20 mg PO DAILY [facility] Pneumococcal Polyvalent Vaccine (Pneumovax 23 Vaccine) 0.5 ml IM .ONCE ONE Stop: 02/12/17 10:01 Potassium Chloride (K-Dur 20 Meq Er Tab) 20 meq PO DAILY [facility] Rosuvastatin Calcium (Crestor) 20 mg PO HS [facility] Last Admin: 02/11/17 21:12 Dose: 20 mg Tamsulosin HCl (Flomax) 0.4 mg PO DAILY [facility] Last Admin: 02/11/17 16:14 Dose: 0.4 mg - Labs Labs: 02/12/17 06:12 02/12/17 06:12 PT 14.2 SECONDS (9.7-12.2) H 02/10/17 17:09 INR 1.3 02/10/17 17:09 APTT 35 SECONDS (21-34) H 02/10/17 17:09 - Constitutional Appears: No Acute Distress - Head Exam Head Exam: ATRAUMATIC, NORMAL INSPECTION, NORMOCEPHALIC - Eye Exam Eye Exam: EOMI, PERRL - ENT Exam ENT Exam: Mucous Membranes Moist - Respiratory Exam Respiratory Exam: Clear to Ausculation Bilateral. absent: Rales, Rhonchi, Wheezes - Cardiovascular Exam Cardiovascular Exam: Irregular Rhythm (dropped beats noted on auscultation and pulse checking), +S1, +S2 - GI/Abdominal Exam GI & Abdominal Exam: Distended, Soft, Normal Bowel Sounds. absent: Tenderness - Extremities Exam Extremities Exam: absent: Pedal Edema, Tenderness - Neurological Exam Neurological Exam: Alert, Awake, Oriented x3 - Skin Skin Exam: Dry, Intact, Normal Color, Warm Assessment and Plan - Assessment and Plan (Free Text) Plan: Pneumonia He has an infiltrate on CXR, with a white count of 13.7 with left shift at time of admission. Also had a lactic acid of 3.2. IV Rocephin and Azithromycin. F/u blood, urine, and sputum cultures. Dr. Arriaga (ID) consulted. Help appreciated. Sepsis Lactic acid of 3.2. he has a white count, tachypenic, and a source of infection. Repeat Lactate 1.7 Tylenol 650mg prn Congestive heart failure BNP elevated at 3550. 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 Help appreciated. Hypertension Bystolic 20mg PO daily Discontinued 02/12 Amlodapine 10mg PO daily Losartan 50 mg daily HCTZ 12.5 mg PO daily History of Coronary Artery Disease s/p stent placement Aspirin 81 mg PO daily Plavix 75 mg PO daily IDDM (insulin dependent diabetes mellitus) Uncontrolled diabetic per Dr. Neumann (PMD) RISS Home med-Levemir 40 units BID Hgb 13.1 Hyperlipidemia Lipid Panel WNL Welchol not on formulary--converted to Questran packet PO BID Lipitor not on formulary--converted to Crestor 20 mg PO HS Asthma Duoneb 3ml Q6H prn History of Prostate Cancer Dr. Jamil follows outpatient. Most recent PSA 0.2 Flomax 0.4 mg PO daily Prophylactic measure Heparin 5000 units sc q12h no SCDs due to lower extremity swelling pepcid 20mg bid 02/11: Resident spoken with PMD Dr. Neumann. Patient has history of CAD s/p stent x1. Patient also has history of prostate cancer being managed by Dr. Jamil, though Dr. Neumann is unconcerned given the patient's most recent PSA of 0.2 02/12: Resident noted bradycardia on telemetry for patient overnight. Patient's heart rate was running in the 40s with a couple of episodes where it dropped down to 38. Patient was sleeping during these times. Dr. Mae was made aware and recommended discontinuing home medication Bystolic. He will also schedule the patient for a 24 hour Holter monitor. Case DW Dr. Ryan Sr PGY-1
[2017-02-12] MEDS: (Novolin R) Insulin Human Regular 100 units/ml vial SC SCH ×4 (08:01→21:40)
[2017-02-12] MEDS: Insulin Detemir 100 units/ml Vial (Levemir) SC SCH ×2 (09:28→18:32)
[2017-02-12] MEDS: Potassium Chloride 20 mEq ER Tab PO SCH (09:28)
[2017-02-12] MEDS: Cholestyramine 4 gm/Pkt UD PO SCH ×2 (09:29→18:33)
[2017-02-12] MEDS: Azithromycin 500 MG in Sodium Chloride 0.9% 250 ML IVPB SCH (09:30)
[2017-02-12] MEDS ORDERED: Pneumococcal 23-Valent Vaccine IM ONE (10:00)
--- NOTE | 2017-02-12 12:06 | VASCLAB ---
PROCEDURE: Lower Extremity Venous Duplex Exam. HISTORY: Pain in limb, rule out dvt PRIORS: Last venous duplex exam 12/07/2011,normal. TECHNIQUE: Bilateral common femoral, femoral, popliteal and posterior tibial, peroneal and great saphenous veins were evaluated. Flow was assessed with color Doppler, compressibility, assessment of phasic flow and augmentation response. Report prepared by DELL Gayle FINDINGS: RIGHT: 1. Common Femoral Vein: 1.1. Compressibility - Fully compressible: Thrombus - None : Flow - Phasic: Augmentation -Normal: Reflux - None. 2. Femoral Vein: 2.1. Compressibility - Fully compressible: Thrombus - None : Flow - Phasic: Augmentation -Normal: Reflux - None. 3. Popliteal Vein: 3.1. Compressibility - Fully compressible: Thrombus - None : Flow - Phasic: Augmentation -Normal: Reflux - None. 4. Posterior Tibial Vein: 4.1. Compressibility - Fully compressible: Thrombus - None: Flow - Phasic: Augmentation -Normal: Reflux - None. 5. Peroneal Vein: 5.1. Compressibility - Fully compressible: Thrombus - None: Flow - Phasic: Augmentation -Normal: Reflux - None. 6. Great Saphenous Vein: 6.1. Compressibility - Fully compressible: Thrombus - None: Flow - Phasic: Augmentation - Normal: Reflux - None. LEFT: 1. Common Femoral Vein: 1.1. Compressibility - Fully compressible: Thrombus - None: Flow - Phasic: Augmentation -Normal: Reflux - None. 2. Femoral Vein: 2.1. Compressibility - Fully compressible: Thrombus - None: Flow - Phasic: Augmentation -Normal: Reflux - None. 3. Popliteal Vein: 3.1. Compressibility - Fully compressible: Thrombus - None : Flow - Phasic: Augmentation -Normal: Reflux - None. 4. Posterior Tibial Vein: 4.1. Compressibility - Fully compressible: Thrombus - None: Flow - Phasic: Augmentation -Normal: Reflux - None. 5. Peroneal Vein: 5.1. Compressibility - Fully compressible: Thrombus - None: Flow - Phasic: Augmentation -Normal: Reflux - None. 6. Great Saphenous Vein: 6.1. Compressibility - Fully compressible: Thrombus - None: Flow - Phasic: Augmentation - Normal: Reflux - None. OTHER FINDINGS: Right: None significant. Left: None significant. IMPRESSION: Right: No evidence of deep or superficial vein thrombosis of the right lower extremity. Normal valve function noted of the right side. Left: No evidence of deep or superficial vein thrombosis of the left lower extremity. Normal valve function noted of the left side.
--- NOTE | 2017-02-12 18:50 | CARD ---
APPROVED REPORT EKG Measurement Heart [id number] CT 336P31 [id number] <Conclusion> Sinus rhythm with blocked premature atrial complexes terminating 2nd degree AV block Type I in a group beating fashion. Left atrial enlargement. T wave abnormality, nonspecific. Abnormal ECG
--- NOTE | 2017-02-12 20:08 | CARD ---
APPROVED REPORT EKG Measurement Heart [id number] [place] 240P35 [id number] <Conclusion> Sinus rhythm with sinus arrhythmia with 1st degree AV block Nonspecific T wave abnormality Prolonged QT Abnormal ECG
--- NOTE | 2017-02-12 23:09 | PN ---
DATE: SUBJECTIVE: The patient is still complaining of weakness. He reports sharp right subcostal chest pain. PHYSICAL EXAMINATION: VITAL SIGNS: Blood pressure 142/77, heart rate 63, temperature 98.1, respirations 20. HEENT: Head is normocephalic. CHEST: Clear. HEART: S1 and S2 regular. EXTREMITIES: No edema. LABORATORY DATA: SMA-7 is within normal limits, except for glucose of 183 and potassium 3.5. White count, platelet count, hemoglobin, and hematocrit today are within normal limits. Blood culture is negative after 48 hours. Venous Doppler of lower extremities, no evidence for DVT. Echocardiography study revealed marked concentric LVH with normal systolic function, moderate diastolic dysfunction, biatrial enlargement, and moderate pulmonary hypertension. ASSESSMENT: 1. Mobitz I second-degree atrioventricular block. 2. Diabetes mellitus. 3. Consider underlying pneumonia, as well as right pleuritic chest pain. RECOMMENDATIONS: Case was discussed with chief medical technologist. Continue IV Zithromax and IV Rocephin. Continue aspirin 81 mg once a day, Cozaar 200 mg once a day, subcutaneous heparin 5000 units twice a day. Obtain repeat chest x-ray. Discontinue Bystolic. Hayden Mae MD
[2017-02-13] MEDS: Albuterol-Ipratrop 3 mg / 0.5 (3 ml) UD INH SCH ×4 (01:07→19:03)
[2017-02-13 07:14] LABS: BASO % 0.5 % (0.0-2.0); EOS # 0.3 K/uL (0.0-0.7); EOS % 5.2 % (0.0-4.0); HEMATOCRIT 37.5 % (35.0-51.0); LYMPH # 1.7 K/uL (1.0-4.3); LYMPH % 24.5 % (20.0-40.0); MEAN CELL VOLUME 83.8 fL (80.0-94.0); MEAN CORPUSCULAR HEMOGLOBIN 27.8 pg (27.0-31.0); MEAN CORPUSCULAR HGB CONC 33.1 g/dL (33.0-37.0); MEAN PLATELET VOLUME 8.9 fL (7.2-11.7); MONO # 0.6 K/uL (0.0-0.8); MONO % 9.1 % (0.0-10.0); NRBC % 0.1 % (0.0-2.0); RED CELL DISTRIBUTION WIDTH 14.5 % (11.5-14.5); WHITE BLOOD COUNT 6.7 K/uL (4.8-10.8)
[2017-02-13] MEDS: (Novolin R) Insulin Human Regular 100 units/ml vial SC SCH ×4 (07:43→23:27)
[2017-02-13 07:58] LABS: CHLORIDE 104 mmol/L (98-107); POTASSIUM 3.4 mmol/L (3.6-5.2); SODIUM 138 mmol/L (132-148)
[2017-02-13 08:00] LABS: BILIRUBIN,TOTAL 1.1 mg/dL (0.2-1.3); GFR AFRICAN-AMERICAN > 60
[2017-02-13 08:01] LABS: ALB/GLOB RATIO 0.9 (1.0-2.1); ALKALINE PHOSPHATASE 66 U/L (38-126); ALT/SGPT 31 U/L (21-72); AST/SGOT 25 U/L (17-59); BLOOD UREA NITROGEN 15 mg/dL (9-20); CARBON DIOXIDE 24 mmol/L (22-30); GLUCOSE,RANDOM 73 mg/dL (75-110); PHOSPHOROUS 5.4 mg/dL (2.5-4.5); TOTAL PROTEIN 6.5 g/dL (6.3-8.3)
[2017-02-13 08:02] LABS: CALCIUM 9.6 mg/dl (8.6-10.4)
[2017-02-13] MEDS: Potassium Chloride 20 mEq ER Tab PO SCH (09:31)
[2017-02-13] MEDS: Cholestyramine 4 gm/Pkt UD PO SCH ×2 (09:33→17:56)
[2017-02-13] MEDS: Azithromycin 500 MG in Sodium Chloride 0.9% 250 ML IVPB SCH (09:36)
[2017-02-13] MEDS ORDERED: Bisacodyl 5mg EC Tab PO ONE (10:22)
--- NOTE | 2017-02-13 10:27 | CP.PCM.PN ---
<Coleman Sr - Last Filed: 02/13/17 17:21> Subjective - Date & Time of Evaluation Date of Evaluation: 02/13/17 Time of Evaluation: 07:10 - Subjective Subjective: PGY-[address] Esau Cortes Patient seen and examined at bedside. Patient complaining of feeling weak. Patient is still coughing intermittently but says that it has improved. Patient' s breathing has also improved. Patient denies fevers, chills, headache, dizziness, chest pain, SOB, abdominal pain, dysuria. Patient is still constipated. Objective - Vital Signs/Intake and Output Vital Signs (last 24 hours): Temp Pulse Resp BP Pulse Ox 97.7 F 68 18 121/69 100 02/13/17 08:16 02/13/17 08:16 02/13/17 08:16 02/13/17 08:16 02/13/17 08:16 Intake and Output: 02/13/17 02/13/17 06:59 18:59 Intake Total 120 Output Total 400 Balance -280 - Medications Medications: Current Medications Acetaminophen (Tylenol 325mg Tab) 650 mg PO Q6 PRN PRN Reason: Fever >100.4 F Last Admin: 02/12/17 21:26 Dose: 650 mg Albuterol/Ipratropium (Duoneb 3 Mg/0.5 Mg (3 Ml) Ud) 3 ml INH RQ6 [facility] Last Admin: 02/13/17 07:05 Dose: 3 ml Amlodipine Besylate (Norvasc) 10 mg PO DAILY [facility] Last Admin: 02/13/17 09:32 Dose: 10 mg Aspirin (Aspirin Chewable) 81 mg PO DAILY [facility] Last Admin: 02/13/17 09:32 Dose: 81 mg Bisacodyl (Dulcolax) 5 mg PO ONCE ONE Stop: 02/13/17 10:23 Cholestyramine Resin (Questran) 4 gm PO BID [facility] Last Admin: 02/13/17 09:33 Dose: 4 gm Clopidogrel Bisulfate (Plavix) 75 mg PO DAILY [facility] Last Admin: 02/13/17 09:31 Dose: 75 mg Docusate Sodium (Colace) 100 mg PO BID [facility] Last Admin: 02/13/17 09:31 Dose: 100 mg Famotidine (Pepcid) 20 mg PO BID [facility] Last Admin: 02/13/17 09:37 Dose: 20 mg Heparin Sodium (Porcine) (Heparin) 5,000 units SC Q12 [facility] Last Admin: 02/13/17 09:32 Dose: 5,000 units Hydrochlorothiazide (Microzide) 12.5 mg PO DAILY [facility] Last Admin: 02/13/17 09:31 Dose: 12.5 mg Azithromycin 500 mg/ Sodium (Chloride) 250 mls @ 250 mls/hr IVPB DAILY [facility] Last Admin: 02/13/17 09:36 Dose: 250 mls/hr Ceftriaxone Sodium 1 gm/ (Sodium Chloride) 100 mls @ 100 mls/hr IVPB DAILY [facility] Last Admin: 02/13/17 09:36 Dose: 100 mls/hr Insulin Detemir (Levemir) 40 unit SC BID [facility] Last Admin: 02/12/17 18:32 Dose: 40 unit Insulin Human Regular (Novolin R) 0 unit SC ACHS [facility] PRN Reason: Protocol Last Admin: 02/13/17 07:43 Dose: Not Given Losartan Potassium (Cozaar) 100 mg PO DAILY [facility] Last Admin: 02/13/17 09:31 Dose: 100 mg Potassium Chloride (K-Dur 20 Meq Er Tab) 20 meq PO DAILY [facility] Last Admin: 02/13/17 09:31 Dose: 20 meq Rosuvastatin Calcium (Crestor) 20 mg PO HS [facility] Last Admin: 02/12/17 21:27 Dose: 20 mg Tamsulosin HCl (Flomax) 0.4 mg PO DAILY [facility] Last Admin: 02/13/17 09:31 Dose: 0.4 mg - Labs Labs: 02/13/17 06:55 02/13/17 06:55 PT 14.2 SECONDS (9.7-12.2) H 02/10/17 17:09 INR 1.3 02/10/17 17:09 APTT 35 SECONDS (21-34) H 02/10/17 17:09 - Constitutional Appears: No Acute Distress - Head Exam Head Exam: ATRAUMATIC, NORMAL INSPECTION, NORMOCEPHALIC - Eye Exam Eye Exam: EOMI, PERRL - ENT Exam ENT Exam: Mucous Membranes Moist - Respiratory Exam Respiratory Exam: Clear to Ausculation Bilateral. absent: Rales, Rhonchi, Wheezes - Cardiovascular Exam Cardiovascular Exam: REGULAR RHYTHM, +S1, +S2 - GI/Abdominal Exam GI & Abdominal Exam: Soft, Normal Bowel Sounds. absent: Tenderness - Extremities Exam Extremities Exam: absent: Pedal Edema, Tenderness Additional comments: Missing the thumb of his right hand - Neurological Exam Neurological Exam: Alert, Awake, Oriented x3 - Skin Skin Exam: Dry, Intact, Normal Color, Warm Assessment and Plan - Assessment and Plan (Free Text) Plan: Pneumonia He has an infiltrate on CXR, with a white count of 13.7 with left shift at time of admission. Also had a lactic acid of 3.2. IV Rocephin and Azithromycin. F/u blood, urine, and sputum cultures. Dr. Arriaga (ID) consulted. Help appreciated. Sepsis Lactic acid of 3.2. he has a white count, tachypenic, and a source of infection. Repeat Lactate 1.7 Tylenol 650mg prn Congestive heart failure BNP elevated at 3550. Given IV lasix in the ED Dr. Mae buildings and grounds coordinator consulted. Help appreciated. He noted Mobitz type 2 heart block on EKG. Hypertension Bystolic 20mg PO daily Discontinued 02/12 Amlodapine 10mg PO daily Losartan 50 mg daily HCTZ 12.5 mg PO daily History of Coronary Artery Disease s/p stent placement Aspirin 81 mg PO daily Plavix 75 mg PO daily IDDM (insulin dependent diabetes mellitus) Uncontrolled diabetic per Dr. Neumann (PMD) RISS Home med-Levemir 40 units BID Hgb 13.1 Hyperlipidemia Lipid Panel WNL Welchol not on formulary--converted to Questran packet PO BID Lipitor not on formulary--converted to Crestor 20 mg PO HS Asthma Duoneb 3ml Q6H prn History of Prostate Cancer Dr. Jamil follows outpatient. Most recent PSA 0.2 Flomax 0.4 mg PO daily Prophylactic measure Heparin 5000 units sc q12h no SCDs due to lower extremity swelling pepcid 20mg bid 02/11: Resident spoken with PMD Dr. Neumann. Patient has history of CAD s/p stent x1. Patient also has history of prostate cancer being managed by Dr. Jamil, though Dr. Neumann is unconcerned given the patient's most recent PSA of 0.2 02/12: Resident noted bradycardia on telemetry for patient overnight. Patient's heart rate was running in the 40s with a couple of episodes where it dropped down to 38. Patient was sleeping during these times. Dr. Mae was made aware and recommended discontinuing home medication Bystolic. He will also schedule the patient for a 24 hour Holter monitor. 02/13: Patient had BM after given 1 time dose of Dulcolax. Patient continues to be afebrile and cultures continue to be negative so far. Case DW Dr. Ryan Sr PGY-1 <Esau Cortes - Last Filed: 02/13/17 19:03> Objective - Vital Signs/Intake and Output Vital Signs (last 24 hours): Temp Pulse Resp BP Pulse Ox 98.3 F 68 20 147/79 98 02/13/17 15:30 02/13/17 15:30 02/13/17 15:30 02/13/17 15:30 02/13/17 15:30 Intake and Output: 02/13/17 02/13/17 06:59 18:59 Intake Total 120 Output Total 400 Balance -280 - Medications Medications: Current Medications Acetaminophen (Tylenol 325mg Tab) 650 mg PO Q6 PRN PRN Reason: Fever >100.4 F Last Admin: 02/12/17 21:26 Dose: 650 mg Albuterol/Ipratropium (Duoneb 3 Mg/0.5 Mg (3 Ml) Ud) 3 ml INH RQ6 [facility] Last Admin: 02/13/17 13:25 Dose: 3 ml Amlodipine Besylate (Norvasc) 10 mg PO DAILY [facility] Last Admin: 02/13/17 09:32 Dose: 10 mg Aspirin (Aspirin Chewable) 81 mg PO DAILY [facility] Last Admin: 02/13/17 09:32 Dose: 81 mg Cholestyramine Resin (Questran) 4 gm PO BID [facility] Last Admin: 02/13/17 17:56 Dose: 4 gm Clopidogrel Bisulfate (Plavix) 75 mg PO DAILY [facility] Last Admin: 02/13/17 09:31 Dose: 75 mg Docusate Sodium (Colace) 100 mg PO BID [facility] Last Admin: 02/13/17 17:56 Dose: 100 mg Famotidine (Pepcid) 20 mg PO BID [facility] Last Admin: 02/13/17 09:37 Dose: 20 mg Heparin Sodium (Porcine) (Heparin) 5,000 units SC Q12 [facility] Last Admin: 02/13/17 09:32 Dose: 5,000 units Azithromycin 500 mg/ Sodium (Chloride) 250 mls @ 250 mls/hr IVPB DAILY [facility] Last Admin: 02/13/17 09:36 Dose: 250 mls/hr Ceftriaxone Sodium 1 gm/ (Sodium Chloride) 100 mls @ 100 mls/hr IVPB DAILY [facility] Last Admin: 02/13/17 09:36 Dose: 100 mls/hr Insulin Detemir (Levemir) 40 unit SC BID [facility] Last Admin: 02/13/17 17:56 Dose: 40 unit Insulin Human Regular (Novolin R) 0 unit SC ACHS [facility] PRN Reason: Protocol Last Admin: 02/13/17 17:57 Dose: Not Given Losartan Potassium (Cozaar) 100 mg PO DAILY [facility] Last Admin: 02/13/17 09:31 Dose: 100 mg Potassium Chloride (K-Dur 20 Meq Er Tab) 20 meq PO DAILY [facility] Last Admin: 02/13/17 09:31 Dose: 20 meq Rosuvastatin Calcium (Crestor) 20 mg PO HS [facility] Last Admin: 02/12/17 21:27 Dose: 20 mg Tamsulosin HCl (Flomax) 0.4 mg PO DAILY [facility] Last Admin: 02/13/17 09:31 Dose: 0.4 mg - Labs Labs: 02/13/17 06:55 02/13/17 06:55 PT 14.2 SECONDS (9.7-12.2) H 02/10/17 17:09 INR 1.3 02/10/17 17:09 APTT 35 SECONDS (21-34) H 02/10/17 17:09 Attending/Attestation - Attestation I have personally seen and examined this patient.: Yes I have fully participated in the care of the patient.: Yes I have reviewed all pertinent clinical information, including history, physical exam and plan: Yes Notes (Text): Patient was seen and examined at 2 PM 02/13/17 Upon FULL ROS: Moved his bowels today after the Dulcolax Right Upper Back pain from laying in the hospital bed In addition to the Exam above: Respiratory: faint bibasilar rails on inspiration Assessements: RLL Pneumonia: Azithromycing, Ceftriaxone Sepsis likely secondary to Pneumonia: Blood Culture 02/10/17 is negative to date , Sputum Culture 02/10/17 is negative Diastolic Heart Failure: as per 2D Echo (please see full report), Venous Dopplers LE negative Mobitz Type I Heart Block: will need outpatient Holter Monitor. Home medication of Bystolic was discontinued Hx CAD S/P Stent: ASA, Plavix HTN: Losartan, Norvasc, HCTZ IDDM: Levemir 40 units SC AM and PM, RISS ACHS HLD: Cholestyramine, Crestor Asthma: Duoneb PRN Hx BPH with Prostate CA: Flomax, F/U Dr. Jamil upon discharge Hx Low Vitamin D: follow up level 02/14/17 Constipation: had a bowel movement today with Dulcolax Hypokalemia: 40 mEQ KCl x 1 dose given today 02/13/17. Medicine Team will likely discharge patient morning 02/14/17 as long as no fevers and blood culture continues to be negative. Esau Cortes D.O.
[2017-02-13] MEDS: Insulin Detemir 100 units/ml Vial (Levemir) SC SCH ×2 (10:29→17:56)
--- NOTE | 2017-02-13 10:53 | RAD ---
HISTORY: pneumonia COMPARISON: Chest radiographs 02/10/2017 TECHNIQUE: Chest PA and lateral FINDINGS: LUNGS: Technique is different without prominence of the reticular markings previously shown. Limited atelectasis or infiltrate seen at the inferior right lung zone with a small nodular density or nipple shadow seen in the left base. No left-sided infiltrate. No pleural effusion bilaterally. Cardiomediastinal silhouette appears unremarkable including tracheal position. No pulmonary vascular derangement. No pneumothorax. PLEURA: As above. CARDIOVASCULAR: Normal. OSSEOUS STRUCTURES: No significant abnormalities. VISUALIZED UPPER ABDOMEN: Normal. OTHER FINDINGS: None. IMPRESSION: Limited patchy density or atelectasis seen at the inferior right lung zone medially with none on the left. No pleural effusion bilaterally. Small nodular densities seen at the inferior left lung zone versus nipple shadow at the 8th intercostal space. Repeat chest radiograph with nipple markers is advised or chest CT.
[2017-02-13] MEDS ORDERED: Potassium Chloride 20 mEq ER Tab PO ONE (13:00)
--- NOTE | 2017-02-13 14:06 | CARD ---
APPROVED REPORT EKG Measurement Heart [id number] [place] 312P44 [id number] <Conclusion> Sinus rhythm with 1st degree AV block with blocked premature atrial complexes T wave abnormality, consider lateral ischemia Abnormal ECG
[2017-02-13] MEDS ORDERED: Iodixanol 320 MG/ML 100 ML BOTTLE IV ONE (16:41)
--- NOTE | 2017-02-13 19:04 | CP.PCM.PN ---
Subjective - Date & Time of Evaluation Date of Evaluation: 02/13/17 Time of Evaluation: 07:00 - Subjective Subjective: LESS COUGH NO FEVER Objective - Vital Signs/Intake and Output Vital Signs (last 24 hours): Temp Pulse Resp BP Pulse Ox 98.3 F 68 20 147/79 98 02/13/17 15:30 02/13/17 15:30 02/13/17 15:30 02/13/17 15:30 02/13/17 15:30 - Medications Medications: Current Medications Acetaminophen (Tylenol 325mg Tab) 650 mg PO Q6 PRN PRN Reason: Fever >100.4 F Last Admin: 02/12/17 21:26 Dose: 650 mg Albuterol/Ipratropium (Duoneb 3 Mg/0.5 Mg (3 Ml) Ud) 3 ml INH RQ6 [facility] Last Admin: 02/13/17 13:25 Dose: 3 ml Amlodipine Besylate (Norvasc) 10 mg PO DAILY [facility] Last Admin: 02/13/17 09:32 Dose: 10 mg Aspirin (Aspirin Chewable) 81 mg PO DAILY [facility] Last Admin: 02/13/17 09:32 Dose: 81 mg Cholestyramine Resin (Questran) 4 gm PO BID [facility] Last Admin: 02/13/17 17:56 Dose: 4 gm Clopidogrel Bisulfate (Plavix) 75 mg PO DAILY [facility] Last Admin: 02/13/17 09:31 Dose: 75 mg Docusate Sodium (Colace) 100 mg PO BID [facility] Last Admin: 02/13/17 17:56 Dose: 100 mg Famotidine (Pepcid) 20 mg PO BID [facility] Last Admin: 02/13/17 09:37 Dose: 20 mg Heparin Sodium (Porcine) (Heparin) 5,000 units SC Q12 [facility] Last Admin: 02/13/17 09:32 Dose: 5,000 units Azithromycin 500 mg/ Sodium (Chloride) 250 mls @ 250 mls/hr IVPB DAILY [facility] Last Admin: 02/13/17 09:36 Dose: 250 mls/hr Ceftriaxone Sodium 1 gm/ (Sodium Chloride) 100 mls @ 100 mls/hr IVPB DAILY [facility] Last Admin: 02/13/17 09:36 Dose: 100 mls/hr Insulin Detemir (Levemir) 40 unit SC BID [facility] Last Admin: 02/13/17 17:56 Dose: 40 unit Insulin Human Regular (Novolin R) 0 unit SC ACHS [facility] PRN Reason: Protocol Last Admin: 02/13/17 17:57 Dose: Not Given Losartan Potassium (Cozaar) 100 mg PO DAILY [facility] Last Admin: 02/13/17 09:31 Dose: 100 mg Potassium Chloride (K-Dur 20 Meq Er Tab) 20 meq PO DAILY [facility] Last Admin: 02/13/17 09:31 Dose: 20 meq Rosuvastatin Calcium (Crestor) 20 mg PO HS [facility] Last Admin: 02/12/17 21:27 Dose: 20 mg Tamsulosin HCl (Flomax) 0.4 mg PO DAILY [facility] Last Admin: 02/13/17 09:31 Dose: 0.4 mg - Labs Labs: 02/13/17 06:55 02/13/17 06:55 PT 14.2 SECONDS (9.7-12.2) H 02/10/17 17:09 INR 1.3 02/10/17 17:09 APTT 35 SECONDS (21-34) H 02/10/17 17:09 - Constitutional Appears: Non-toxic - Head Exam Head Exam: NORMOCEPHALIC - Eye Exam Eye Exam: PERRL - ENT Exam ENT Exam: Mucous Membranes Dry - Neck Exam Neck Exam: absent: Lymphadenopathy - Respiratory Exam Respiratory Exam: Decreased Breath Sounds - Cardiovascular Exam Cardiovascular Exam: REGULAR RHYTHM - GI/Abdominal Exam GI & Abdominal Exam: Distended, Soft - Rectal Exam Rectal Exam: Deferred - Exam Exam: NORMAL INSPECTION - Extremities Exam Extremities Exam: absent: Pedal Edema - Back Exam Back Exam: absent: CVA tenderness (L), CVA tenderness (R) Assessment and Plan (1) Pneumonia Status: Acute (2) Sepsis Status: Acute
--- NOTE | 2017-02-13 21:19 | CT ---
EXAM: CT Angiography Chest With Intravenous Contrast CLINICAL HISTORY: 66 years old, male; Pain and signs and symptoms; Shortness of breath and tachypnea; Chest pain and chest pressure; Type not specified; Additional info: R/O pe TECHNIQUE: Axial computed tomographic angiography images of the chest with intravenous contrast using pulmonary embolism protocol. All CT scans at this facility use one or more dose reduction techniques, viz.: automated exposure control; ma/kV adjustment per patient size (including targeted exams where dose is matched to indication; i.e. head); or iterative reconstruction technique. MIP reconstructed images were created and reviewed. Coronal and sagittal reformatted images were created and reviewed. CONTRAST: 100 mL of visipaque 320 administered intravenously. COMPARISON: No relevant prior studies available. FINDINGS: Pulmonary arteries: Contrast timing is not adequate for complete assessment for pulmonary arterial embolism. No central pulmonary arterial thrombus visualized. Aorta: Atherosclerosis. No acute findings. No thoracic aortic aneurysm. Lungs: No mass. No consolidation. Pleural space: Moderate right effusion. Small left effusion. Bilateral atelectasis. No pneumothorax. Heart: No cardiomegaly. Fluid in pericardial recess. No evidence of RV dysfunction. Bones: No acute fracture. Degenerative changes. Lymph nodes: Shotty nodes. Thickening of the distal esophageal wall/minimal hiatal hernia. Gynecomastia. IMPRESSION: Moderate right effusion. Small left effusion. Bilateral atelectasis. Contrast timing is not adequate for complete assessment for pulmonary arterial embolism. No central pulmonary arterial thrombus visualized. Thickening of the distal esophageal wall/minimal hiatal hernia. Gynecomastia. Additional details/findings as above. Correlate clinically. Followup as warranted.
[2017-02-14] MEDS: Albuterol-Ipratrop 3 mg / 0.5 (3 ml) UD INH SCH ×3 (01:02→13:30)
--- NOTE | 2017-02-14 04:27 | PN ---
DATE: SUBJECTIVE: The patient feels better today. He is experiencing sharp right-sided lower chest pain. PHYSICAL EXAMINATION: VITAL SIGNS: Blood pressure 121/69, heart rate 68, temperature 97.7, respirations 18. HEENT: Normocephalic. CHEST: Clear. HEART: S1 and S2. Regular. EXTREMITIES: No edema. LABORATORY DATA: White count, hemoglobin, hematocrit, and platelet count are within normal limits today. SMA-7 is within normal limit except for potassium 3.4 and glucose of 73. Today's chest x-rays unremarkable except for prominent bronchovascular markings bilaterally. EKG yesterday revealed sinus rhythm with sinus arrhythmia and first degree AV block. Blood culture is negative after 48 hours. ASSESSMENT: 1. Sharp right-sided chest pain, rule out pulmonary infection. 2. Hypertension. 3. Diabetes mellitus. 4. Improved second degree AV block. The patient is currently on first degree AV block. RECOMMENDATIONS: Continue current IV Rocephin, IV Zithromax. Continue Cozaar, Crestor, subcutaneous heparin and K-Dur. Discontinue hydrochlorothiazide. Obtain chest CT angio to rule pulmonary embolism. Hayden Mae MD
[2017-02-14 07:48] LABS: BASO # 0.1 K/uL (0.0-0.2); BASO % 1.1 % (0.0-2.0); EOS # 0.4 K/uL (0.0-0.7); HEMATOCRIT 35.4 % (35.0-51.0); LYMPH # 1.2 K/uL (1.0-4.3); LYMPH % 19.1 % (20.0-40.0); MEAN CELL VOLUME 83.2 fL (80.0-94.0); MEAN CORPUSCULAR HEMOGLOBIN 27.7 pg (27.0-31.0); MEAN CORPUSCULAR HGB CONC 33.3 g/dL (33.0-37.0); MONO # 0.5 K/uL (0.0-0.8); RED CELL DISTRIBUTION WIDTH 14.2 % (11.5-14.5); WHITE BLOOD COUNT 6.5 K/uL (4.8-10.8)
[2017-02-14 08:06] VITALS: BP 159/73; PULSE 73; RESP 18; TEMP 97.5; O2SAT 100
[2017-02-14 08:11] LABS: CHLORIDE 105 mmol/L (98-107)
[2017-02-14 08:12] LABS: POTASSIUM 4.2 mmol/L (3.6-5.2); SODIUM 138 mmol/L (132-148)
[2017-02-14 08:14] LABS: ALB/GLOB RATIO 0.9 (1.0-2.1); ALKALINE PHOSPHATASE 72 U/L (38-126); ALT/SGPT 30 U/L (21-72); AST/SGOT 23 U/L (17-59); BILIRUBIN,TOTAL 0.7 mg/dL (0.2-1.3); BLOOD UREA NITROGEN 15 mg/dL (9-20); CARBON DIOXIDE 22 mmol/L (22-30); GFR AFRICAN-AMERICAN > 60; GLUCOSE,RANDOM 103 mg/dL (75-110); PHOSPHOROUS 4.6 mg/dL (2.5-4.5); TOTAL PROTEIN 6.7 g/dL (6.3-8.3)
[2017-02-14 08:15] LABS: CALCIUM 9.9 mg/dl (8.6-10.4)
[2017-02-14] MEDS: (Novolin R) Insulin Human Regular 100 units/ml vial SC SCH ×2 (08:20→12:46)
[2017-02-14] MEDS: Cholestyramine 4 gm/Pkt UD PO SCH (10:03)
[2017-02-14] MEDS: Potassium Chloride 20 mEq ER Tab PO SCH (10:04)
[2017-02-14] MEDS: Insulin Detemir 100 units/ml Vial (Levemir) SC SCH (10:09)
--- NOTE | 2017-02-14 10:58 | CP.PCM.PN ---
Subjective - Date & Time of Evaluation Date of Evaluation: 02/14/17 Time of Evaluation: 10:30 - Subjective Subjective: Patient was seen and examined at 10:30 AM 02/14/17 Upon FULL ROS: Moved his bowels yesterday after the Dulcolax Right Upper Back pain from laying in the hospital bed but this is better after having him walk 10 laps around the hospital floor every 2 hours while awake since yesterday In addition to the Exam above: Respiratory: faint bibasilar rails on inspiration Assessements: RLL Pneumonia: Azithromycing, Ceftriaxone and will discharge on Avelox 400 mg PO 1x/day for 7 more days Sepsis likely secondary to Pneumonia: Blood Culture 02/10/17 is negative to date , Sputum Culture 02/10/17 is negative Diastolic Heart Failure: as per 2D Echo (please see full report), Venous Dopplers LE negative Mobitz Type I Heart Block: will need outpatient Holter Monitor. Home medication of Bystolic was discontinued Hx CAD S/P Stent: ASA, Plavix HTN: Losartan, Norvasc, HCTZ IDDM: Levemir 40 units SC AM and PM, RISS ACHS HLD: Cholestyramine, Crestor Asthma: Duoneb PRN Hx BPH with Prostate CA: Flomax, F/U Dr. Jamil upon discharge Hx Low Vitamin D: level is 44 therefore his 50,000 units will be discontinued Constipation: had a bowel movement today with Dulcolax Hypokalemia: resolved Patient has no fever. Vitals are stable. He feels better than when he came in. Cultures are negative to date. He is stable for discharge. The following instructions will need to be provided to patient in Swedish upon discharge: 1). Please schedule follow up with your Primary Care Physician Dr. Neumann to take place in the next [address] Neumann you will need the following: Referral for [employer] so that you can have a Holter Monitor placed for further evaluation of your Mobitz Type I Heart Rhythm Referral for Urologist Dr. Jamil for your history of Prostate Cancer 2). DO NOT TAKE the following home medications: Bystolic Vitamin D 3). You were given prescriptions for the following medication and please use as directed: Avelox 400 mg, 1 tablet by mouth 1x/day, Disp #7, NO refills Plavix 75 mg, 1 tablet by mouth 1x/day, Disp #30, NO refills Valsartan/Amlodipine 10/320 mg , 1 tablet by mouth 1x/day (dinner), Disp #30, NO refills HCTZ 12.5 mg, 1 tablet by mouth 1x/day (breakfast), Disp #30, NO refills Levemir 40 Units subcutaneous 2x/day (breakfast and dinner), Disp 10 ml vial, NO refills Humalog 24 Units subcutaneous 3x/day with meals (breakfast, lunch, dinner), Disp 10 ml vial, NO refills Welchol 625 mg, 3 tablets by mouth 2x/day (breakfast and dinner), Disp #60, NO refills Flomax 0.4 mg, 1 tablet by mouth 1x/day, Disp #30, NO refills Atorvastatin 40 mg, 1 tablet by mouth 1x/day (dinner), Disp #30, NO refills Colace 100 mg, 1 tablet by mouth 2x/day, Disp #60, NO refills Dulcolax 5 mg, 1 tablet by mouth 1x/day ONLY NEEDED if no bowel movement in 3 days, Disp #10, NO refills 4). You may purchase the following medications without a prescription and please take as directed: Aspirin 81 mg, 1 tablet by mouth 1x/day Multivitamin 1 tablet by mouth 1x/day 5). Please take care and be well. Esau gao D.O. Objective - Vital Signs/Intake and Output Vital Signs (last 24 hours): Temp Pulse Resp BP Pulse Ox 97.5 F L 73 18 159/73 H 100 02/14/17 08:04 02/14/17 08:04 02/14/17 08:04 02/14/17 08:04 02/14/17 08:04 Intake and Output: 02/14/17 02/14/17 06:59 18:59 Output Total 600 Balance -600 - Medications Medications: Current Medications Acetaminophen (Tylenol 325mg Tab) 650 mg PO Q6 PRN PRN Reason: Fever >100.4 F Last Admin: 02/13/17 20:56 Dose: 650 mg Albuterol/Ipratropium (Duoneb 3 Mg/0.5 Mg (3 Ml) Ud) 3 ml INH RQ6 [facility] Last Admin: 02/14/17 06:57 Dose: 3 ml Amlodipine Besylate (Norvasc) 10 mg PO DAILY [facility] Last Admin: 02/14/17 10:03 Dose: 10 mg Aspirin (Aspirin Chewable) 81 mg PO DAILY [facility] Last Admin: 02/14/17 10:03 Dose: 81 mg Cholestyramine Resin (Questran) 4 gm PO BID [facility] Last Admin: 02/14/17 10:03 Dose: 4 gm Clopidogrel Bisulfate (Plavix) 75 mg PO DAILY [facility] Last Admin: 02/14/17 10:03 Dose: 75 mg Docusate Sodium (Colace) 100 mg PO BID [facility] Last Admin: 02/14/17 10:04 Dose: 100 mg Famotidine (Pepcid) 20 mg PO BID [facility] Last Admin: 02/14/17 10:04 Dose: 20 mg Heparin Sodium (Porcine) (Heparin) 5,000 units SC Q12 [facility] Last Admin: 02/14/17 10:04 Dose: 5,000 units Azithromycin 500 mg/ Sodium (Chloride) 250 mls @ 250 mls/hr IVPB DAILY [facility] Last Admin: 02/13/17 09:36 Dose: 250 mls/hr Ceftriaxone Sodium 1 gm/ (Sodium Chloride) 100 mls @ 100 mls/hr IVPB DAILY [facility] Last Admin: 02/14/17 10:02 Dose: 100 mls/hr Insulin Detemir (Levemir) 40 unit SC BID [facility] Last Admin: 02/14/17 10:09 Dose: 40 unit Insulin Human Regular (Novolin R) 0 unit SC ACHS [facility] PRN Reason: Protocol Last Admin: 02/14/17 08:20 Dose: Not Given Losartan Potassium (Cozaar) 100 mg PO DAILY [facility] Last Admin: 02/14/17 10:08 Dose: 100 mg Potassium Chloride (K-Dur 20 Meq Er Tab) 20 meq PO DAILY [facility] Last Admin: 02/14/17 10:04 Dose: 20 meq Rosuvastatin Calcium (Crestor) 20 mg PO HS [facility] Last Admin: 02/13/17 21:00 Dose: 20 mg Tamsulosin HCl (Flomax) 0.4 mg PO DAILY [facility] Last Admin: 02/14/17 10:04 Dose: 0.4 mg - Labs Labs: 02/14/17 07:17 02/14/17 07:17 PT 14.2 SECONDS (9.7-12.2) H 02/10/17 17:09 INR 1.3 02/10/17 17:09 APTT 35 SECONDS (21-34) H 02/10/17 17:09
--- NOTE | 2017-02-14 11:27 | CP.PCM.DIS ---
Provider - Provider Date of Admission: 02/10/17 18:22 Attending physician: Delano Alvarado MD Time Spent in preparation of Discharge (in minutes): 31 Hospital Course - Lab Results Lab Results: Micro Results 02/10/17 20:26 Sputum Gram Stain - Final 02/10/17 20:26 Sputum Sputum Culture - Final NORMAL ORAL DAVID Most Recent Lab Values WBC 6.5 K/uL (4.8-10.8) 02/14/17 07:17 RBC 4.26 Mil/uL (4.40-5.90) L 02/14/17 07:17 Hgb 11.8 g/dL (12.0-18.0) L 02/14/17 07:17 Hct 35.4 % (35.0-51.0) 02/14/17 07:17 MCV 83.2 fL (80.0-94.0) 02/14/17 07:17 MCH 27.7 pg (27.0-31.0) 02/14/17 07: MCHC 33.3 g/dL (33.0-37.0) 02/14/17 07:17 RDW 14.2 % (11.5-14.5) 02/14/17 07:17 Plt Count 323 K/uL (130-400) 02/14/17 07:17 MPV 9.0 fL (7.2-11.7) 02/14/17 07:17 Neut % (Auto) 65.8 % (50.0-75.0) 02/14/17 07:17 Lymph % (Auto) 19.1 % (20.0-40.0) L 02/14/17 07:17 Knott % (Auto) 8.0 % (0.0-10.0) 02/14/17 07:17 Eos % (Auto) 6.0 % (0.0-4.0) H 02/14/17 07:17 Baso % (Auto) 1.1 % (0.0-2.0) 02/14/17 07:17 Neut # 4.3 K/uL (1.8-7.0) 02/14/17 07:17 Lymph # 1.2 K/uL (1.0-4.3) 02/14/17 07:17 Knott # 0.5 K/uL (0.0-0.8) 02/14/17 07:17 Eos # 0.4 K/uL (0.0-0.7) 02/14/17 07:17 Baso # 0.1 K/uL (0.0-0.2) 02/14/17 07:17 Neutrophils % (Manual) 78 % (50-75) H 02/11/17 03:40 Band Neutrophils % 1 % (0-2) 02/11/17 03:40 Lymphocytes % (Manual) 10 % (20-40) L 02/11/17 03:40 Monocytes % (Manual) 10 % (0-10) 02/11/17 03:40 Eosinophils % (Manual) 1 % (0-4) 02/11/17 03:40 Platelet Estimate Normal (NORMAL) 02/11/17 03:40 PT 14.2 SECONDS (9.7-12.2) H 02/10/17 17:09 INR 1.3 02/10/17 17:09 APTT 35 SECONDS (21-34) H 02/10/17 17:09 pO2 19 mm/Hg (30-55) L 02/10/17 17:10 VBG pH 7.38 (7.32-7.43) 02/10/17 17:10 VBG pCO2 46 mmHg (40-60) 02/10/17 17:10 VBG HCO3 24.2 mmol/L 02/10/17 17:10 VBG Total CO2 28.6 mmol/L (22-28) H 02/10/17 17:10 VBG O2 Sat (Calc) 33.0 % (40-65) L 02/10/17 17:10 VBG Base Excess 1.5 mmol/L (0.0-2.0) 02/10/17 17:10 VBG Potassium 3.9 mmol/L (3.6-5.2) 02/10/17 17:10 Sodium 138.0 mmol/l (132-148) 02/10/17 17:10 Chloride 102.0 mmol/L (98-107) 02/10/17 17:10 Glucose 294 mg/dl (75-110) H 02/10/17 17:10 Lactate 3.2 mmol/L (0.7-2.1) H 02/10/17 17:10 FiO2 21.0 % 02/10/17 17:10 Sodium 138 mmol/L (132-148) 02/14/17 07:17 Potassium 4.2 mmol/L (3.6-5.2) 02/14/17 07:17 Chloride 105 mmol/L (98-107) 02/14/17 07:17 Carbon Dioxide 22 mmol/L (22-30) 02/14/17 07:17 Anion Gap 15 (10-20) 02/14/17 07:17 BUN 15 mg/dL (9-20) 02/14/17 07:17 Creatinine 1.0 MG/DL (0.8-1.5) 02/14/17 07:17 Est GFR ( Amer) > 60 02/14/17 07:17 Est GFR (Non-Af Amer) > 60 02/14/17 07:17 POC Glucose (mg/dL) 113 mg/dL (65-110) H 02/14/17 06:14 Random Glucose 103 mg/dL (75-110) 02/14/17 07:17 Hemoglobin A1c 13.1 % (4.2-6.5) H 02/11/17 07:13 Lactic Acid 1.7 mmol/L (0.7-2.1) 02/10/17 21:17 Calcium 9.9 mg/dl (8.6-10.4) 02/14/17 07:17 Phosphorus 4.6 mg/dL (2.5-4.5) H 02/14/17 07:17 Magnesium 2.0 mg/dL (1.6-2.3) 02/14/17 07:17 Total Bilirubin 0.7 mg/dL (0.2-1.3) 02/14/17 07:17 AST 23 U/L (17-59) 02/14/17 07:17 ALT 30 U/L (21-72) 02/14/17 07:17 Alkaline Phosphatase 72 U/L (38-126) 02/14/17 07:17 Total Creatine Kinase 93 U/L (55-170) 02/11/17 03:31 CK-MB (Mass) 1.32 ng/mL (0.0-3.38) 02/11/17 03:31 Troponin I 0.0770 ng/mL (0.00-0.120) 02/10/17 17:09 Troponin I, Quant 0.0850 ng/mL (0.00-0.120) 02/11/17 03:31 NT-Pro-B Natriuret Pep 3350 pg/mL (0-900) H 02/10/17 17:09 Total Protein 6.7 g/dL (6.3-8.3) 02/14/17 07:17 Albumin 3.2 g/dL (3.5-5.0) L 02/14/17 07:17 Globulin 3.5 gm/dL (2.2-3.9) 02/14/17 07:17 Albumin/Globulin Ratio 0.9 (1.0-2.1) L 02/14/17 07:17 Triglycerides 100 mg/dL (0-149) 02/11/17 03:40 Cholesterol 155 mg/dL (0-199) 02/11/17 03:40 LDL Cholesterol Direct 87 mg/dL (0-129) 02/11/17 03:40 HDL Cholesterol 33 mg/dL (30-70) 02/11/17 03:40 25-OH Vitamin D Total 44.5 NG/ML (30.0-100.0) 02/14/17 07:17 Thyroxine (T4) 6.28 ug/dL (5.5-11.0) 02/11/17 03:40 TSH 3rd Generation 0.77 mIU/L (0.46-4.68) 02/11/17 03:40 Venous Blood Potassium 3.9 mmol/L (3.6-5.2) 02/10/17 17:10 Influenza Typ A,B (EIA) Negative for flu a/b (NEGATIVE) 02/10/17 18:29 Ur L.pneumophila Ag Negative (NEGATIVE) 02/11/17 06:00 Mycoplasma pneumon IgM Negative (NEGATIVE) 02/10/17 18:22 - Hospital Course Hospital Course: On admission: "Patient is a 66 year old male with a history of IDDM, HTN, hyperlipidemia, and asthma is here because he as been complaining of fever, chills, shortness of breath, productive cough for 3-4 days. He was seen by his primary care physician last Saturday and put medication for his stomach though he does not know what medication it is. The only medication he has with him are Amlodapine/ Valsartan combination and Bystolic. He takes insulin at home both during the morning and at night but does not remember the name. He says he has not taking any medication for his recent illness and did not check his temperature at home. He also says that his legs has some swelling but are not that swollen today, he denies any orthopnea. But he does have chest and upper back pain when he coughs. He says he has been coughing up white phlem for the past 3 days. He is mainly British speaking, retired, living with his daughter." Hospital Course: Patient admitted for pneumonia and met SIRS criteria on admission. Dr. Mae (regulator operator) consulted for history of CHF. BNP was elevated 3350. Dr. Mae determined based on EKG that the patient had a Mobitz Type 1 Heart Block. This will need to be monitored as an outpatient. Echocardiogram revealed LVEF 68%. There is Diastolic dysfunction. Patient had community acquired pneumonia and was treated with Azithromycin and Rocephin. Patient discharged on Avelox 400 mg PO daily for 7 days. Patient was constipated but finally had BM on the day prior to discharge. PT recommended Home PT but patient refused. 1). Please schedule follow up with your Primary Care Physician Dr. Neumann to take place in the next [address] Neumann you will need the following: Referral for [employer] so that you can have a Holter Monitor placed for further evaluation of your Mobitz Type I Heart Rhythm Referral for Urologist Dr. Jamil for your history of Prostate Cancer 2). DO NOT TAKE the following home medications: Bystolic Vitamin D 3). You were given prescriptions for the following medication and please use as directed: Avelox 400 mg, 1 tablet by mouth 1x/day, Disp #7, NO refills Plavix 75 mg, 1 tablet by mouth 1x/day, Disp #30, NO refills Valsartan/Amlodipine 10/320 mg , 1 tablet by mouth 1x/day (dinner), Disp #30, NO refills HCTZ 12.5 mg, 1 tablet by mouth 1x/day (breakfast), Disp #30, NO refills Levemir 40 Units subcutaneous 2x/day (breakfast and dinner), Disp 10 ml vial, NO refills Humalog 24 Units subcutaneous 3x/day with meals (breakfast, lunch, dinner), Disp 10 ml vial, NO refills Welchol 625 mg, 3 tablets by mouth 2x/day (breakfast and dinner), Disp #60, NO refills Flomax 0.4 mg, 1 tablet by mouth 1x/day, Disp #30, NO refills Atorvastatin 40 mg, 1 tablet by mouth 1x/day (dinner), Disp #30, NO refills Colace 100 mg, 1 tablet by mouth 2x/day, Disp #60, NO refills Dulcolax 5 mg, 1 tablet by mouth 1x/day ONLY NEEDED if no bowel movement in 3 days, Disp #10, NO refills 4). You may purchase the following medications without a prescription and please take as directed: Aspirin 81 mg, 1 tablet by mouth 1x/day Multivitamin 1 tablet by mouth 1x/day 5) If there are any emergency symptoms, please return to the emergency room. 6). Please take care and be well. 1). Por favor, programe el seguimiento con boyd Mdico de Atencin Primaria Dr. Neumann que tendr lugar en los prximos [address] A travs del [address] Neumann necesitar lo siguiente: Referencia para Cardilogo para que usted pueda tener un Monitor Holter colocado para john evaluacin adicional de boyd Mobitz Tipo I ritmo cardaco Referencia para el urlogo Dr. Jamil por boyd historia de cncer de prstata 2). NO DANIELITO los siguientes medicamentos en el hogar: Bystolic Vitamina D 3). Le dieron recetas para el siguiente medicamento y por favor use vern se le indic: Avelox 400 mg, 1 comprimido por va oral 1x / da, Disp # 7, NO recambios Plavix 75 mg, 1 comprimido por va oral 1x / da, Disp # 30, NO recambios Valsartan / Amlodipine 10/320 mg, 1 tableta por va oral 1x / da (machine leather trimmer), Disp # 30, NO recambios HCTZ 12,5 mg, 1 comprimido por va oral 1x / da (desayuno), Disp # 30, NO recambios Levemir 40 Unidades subcutnea 2x / da (desayuno y zeeshan), Disp vial de 10 ml, NO recambios Humalog 24 Unidades subcutnea 3x / da con las comidas (desayuno, almuerzo, machine leather trimmer), Disp vial de 10 ml, NO recambios Welchol 625 mg, 3 tabletas por va oral 2x / da (desayuno y zeeshan), Disp # 60, NO recambios Flomax 0,4 mg, 1 comprimido por va oral 1x / da, Disp # 30, NO recambios Atorvastatina 40 mg, 1 tableta por va oral 1x / da (zeeshan), Disp # 30, NO recambios Colace 100 mg, 1 tableta por va oral 2x / da, Disp # 60, NO recambios Dulcolax 5 mg, 1 tableta por va oral 1x / da SOLAMENTE VERN SE NECESITA si no hay evacuacin intestinal en 3 huggins, Disp # 10, NO recambios 4). Usted puede comprar los siguientes medicamentos sin receta y por favor tome vern se indica: Aspirina 81 mg, 1 comprimido por va oral 1x / da Multivitamin 1 tabletas por va oral 1x / da 5) Si hay algn sntoma de emergencia, por favor regrese a la eric de emergencias. 6). Por favor, cudate y mary ananda. - Date & Time of H&P Date of H&P: 02/14/17 Time of H&P: 10:00 Discharge Exam - Head Exam Head Exam: ATRAUMATIC, NORMAL INSPECTION, NORMOCEPHALIC - Eye Exam Eye Exam: EOMI, PERRL - ENT Exam ENT Exam: Mucous Membranes Moist - Respiratory Exam Respiratory Exam: Clear to PA & Lateral. absent: Rales, Rhonchi, Wheezes - Cardiovascular Exam Cardiovascular Exam: REGULAR RHYTHM, +S1, +S2 - GI/Abdominal Exam GI & Abdominal Exam: Normal Bowel Sounds, Soft. absent: Tenderness - Extremities Exam Extremities exam: pedal pulses present - Neurological Exam Neurological exam: Alert, CN II-XII Intact, Oriented x3 - Skin Skin Exam: Dry, Intact, Normal Color, Warm Discharge Plan - Discharge Medications Prescriptions: Albuterol Sulfate [Proair Hfa] 2 puff IH Q4 PRN #1 inh PRN Reason: Shortness Of Breath Amlodipine/Valsartan [Amlodipine-Valsartan 10-320 mg] 1 tab PO DAILY #30 Aspirin [Ecotrin] 81 mg PO DAILY #30 Atorvastatin [Lipitor] 40 mg PO DAILY #30 Bisacodyl [Dulcolax] 5 mg PO ONCE PRN #10 ect PRN Reason: Constipation Clopidogrel [Plavix] 75 mg PO DAILY #30 Colesevelam HCl [Welchol] 625 mg PO DAILY #180 Docusate [Colace] 100 mg PO BID #30 cap Hydrochlorothiazide [Microzide] 12.5 mg PO DAILY 30 Days Insulin Detemir [Levemir] 40 unit SC BID #1 vial Insulin Lispro [Humalog (Insulin Lispro)] 24 unit SQ TIDAC #1 vial Moxifloxacin [Avelox] 400 mg PO DAILY #7 tab Tamsulosin [Flomax] 0.4 mg PO DAILY 30 Days - Follow Up Plan Condition: STABLE Disposition: HOME/ ROUTINE Instructions: Moxifloxacin (By mouth), Heart Failure (DC), Asthma (DC), Heart Healthy Diet (DC), Diabetic Foot Care (DC), Basic Carbohydrate Counting (DC), Meal Planning with the Plate Method (DC), Meal Planning with Diabetes Exchanges (DC), Sepsis (GEN), Hypertension (DC), Pneumonia (DC), Hyperlipidemia (DC) Additional Instructions: 1). Please schedule follow up with your Primary Care Physician Dr. Neumann to take place in the next [address] Neumann you will need the following: Referral for [employer] so that you can have a Holter Monitor placed for further evaluation of your Mobitz Type I Heart Rhythm Referral for Urologist Dr. Jamil for your history of Prostate Cancer 2). DO NOT TAKE the following home medications: Bystolic Vitamin D 3). You were given prescriptions for the following medication and please use as directed: Avelox 400 mg, 1 tablet by mouth 1x/day, Disp #7, NO refills Plavix 75 mg, 1 tablet by mouth 1x/day, Disp #30, NO refills Valsartan/Amlodipine 10/320 mg , 1 tablet by mouth 1x/day (dinner), Disp #30, NO refills HCTZ 12.5 mg, 1 tablet by mouth 1x/day (breakfast), Disp #30, NO refills Levemir 40 Units subcutaneous 2x/day (breakfast and dinner), Disp 10 ml vial, NO refills Humalog 24 Units subcutaneous 3x/day with meals (breakfast, lunch, dinner), Disp 10 ml vial, NO refills Welchol 625 mg, 3 tablets by mouth 2x/day (breakfast and dinner), Disp #60, NO refills Flomax 0.4 mg, 1 tablet by mouth 1x/day, Disp #30, NO refills Atorvastatin 40 mg, 1 tablet by mouth 1x/day (dinner), Disp #30, NO refills Colace 100 mg, 1 tablet by mouth 2x/day, Disp #60, NO refills Dulcolax 5 mg, 1 tablet by mouth 1x/day ONLY NEEDED if no bowel movement in 3 days, Disp #10, NO refills 4). You may purchase the following medications without a prescription and please take as directed: Aspirin 81 mg, 1 tablet by mouth 1x/day Multivitamin 1 tablet by mouth 1x/day 5) If there are any emergency symptoms, please return to the emergency room. 6). Please take care and be well. 1). Por favor, programe el seguimiento con boyd Mdico de Atencin Primaria Dr. Neumann que tendr lugar en los prximos [address] A travs del [address] Neumann necesitar lo siguiente: Referencia para Cardilogo para que usted pueda tener un Monitor Holter colocado para john evaluacin adicional de boyd Mobitz Tipo I ritmo cardaco Referencia para el urlogo Dr. Jamil por boyd historia de cncer de prstata 2). NO DANIELITO los siguientes medicamentos en el hogar: Bystolic Vitamina D 3). Le dieron recetas para el siguiente medicamento y por favor use vern se le indic: Avelox 400 mg, 1 comprimido por va oral 1x / da, Disp # 7, NO recambios Plavix 75 mg, 1 comprimido por va oral 1x / da, Disp # 30, NO recambios Valsartan / Amlodipine 10/320 mg, 1 tableta por va oral 1x / da (machine leather trimmer), Disp # 30, NO recambios HCTZ 12,5 mg, 1 comprimido por va oral 1x / da (desayuno), Disp # 30, NO recambios Levemir 40 Unidades subcutnea 2x / da (desayuno y machine leather trimmer), Disp vial de 10 ml, NO recambios Humalog 24 Unidades subcutnea 3x / da con las comidas (desayuno, almuerzo, zeeshan), Disp vial de 10 ml, NO recambios Welchol 625 mg, 3 tabletas por va oral 2x / da (desayuno y machine leather trimmer), Disp # 60, NO recambios Flomax 0,4 mg, 1 comprimido por va oral 1x / da, Disp # 30, NO recambios Atorvastatina 40 mg, 1 tableta por va oral 1x / da (zeeshan), Disp # 30, NO recambios Colace 100 mg, 1 tableta por va oral 2x / da, Disp # 60, NO recambios Dulcolax 5 mg, 1 tableta por va oral 1x / da SOLAMENTE VERN SE NECESITA si no hay evacuacin intestinal en 3 huggins, Disp # 10, NO recambios 4). Usted puede comprar los siguientes medicamentos sin receta y por favor tome vern se indica: Aspirina 81 mg, 1 comprimido por va oral 1x / da Multivitamin 1 tabletas por va oral 1x / da 5) Si hay algn sntoma de emergencia, por favor regrese a la eric de emergencias. 6). Por favor, cudate y mary ananda. Referrals: Bob Neumann MD [Staff Provider] -
[2017-02-14] MEDS: Azithromycin 500 MG in Sodium Chloride 0.9% 250 ML IVPB SCH (12:05)
--- NOTE | 2017-02-14 16:29 | PCM.HF ---
Heart Failure Core Measure - Heart Failure Ejection Fraction: 40 % or Greater LETI Inhibitor Prescribed: No Contraindication/Reason for not providing: ARB provided instead Beta-Nato Prescribed: None (Mobitz Type 1 Heart Block) Contraindication/Reason for not providing: Mobitz Type 1 Heart Block Angiotensin II Receptor Nato Prescribed: Yes
--- NOTE | 2017-02-15 03:15 | PN ---
DATE: SUBJECTIVE: The patient's shortness of breath and right-sided pleuritic chest pain has improved. PHYSICAL EXAMINATION: VITAL SIGNS: Blood pressure 159/73, heart rate 73, temperature 97.5, and respirations 18. HEENT: Normocephalic. CHEST: Symmetrical breath sounds over the right base. HEART: S1 and S2 regular. EXTREMITIES: No edema. LABORATORY DATA: A 24-hours Holter monitor report reveals sinus rhythm with first-degree A-V block and blocked APCs. Chest x-ray performed yesterday, limited patchy density or atelectasis at the inferior right lung zone. No pleural effusion bilaterally. Small nodular densities seen in the inferior left lung zone versus nipple shadow. Repeat chest radiograph with nipple markers identifies old chest CT. ASSESSMENT: 1. Pleuritic chest pain. 2. Mobitz I second-degree atriovenous block, which has resolved. 3. Uncontrolled diabetes mellitus. RECOMMENDATIONS: Continue current IV Rocephin and IV Zithromax. Continue Cozaar, Crestor, and subcutaneous heparin. Chest CT angio, there is a small left effusion, no further cardiac workup is indicated. Hayden Mae MD
--- NOTE | 2017-02-18 16:46 | PCM.HF ---
Heart Failure Core Measure - Heart Failure Ejection Fraction: 40 % or Greater Left Ventricular Function to be assessed after discharge: No LETI Inhibitor Prescribed: No Contraindication/Reason for not providing: ARB instead Beta-Nato Prescribed: None Contraindication/Reason for not providing: Mobitz type 1 heart block Angiotensin II Receptor Nato Prescribed: Yes AnticoagulationTherapy for Atrial Fibrillation/Atrialflutter: No Contraindication/Reason for not providing: not in Afib/flutter Aldosterone Antagonist Prescribed: No Contraindication/Reason for not providing: not in active CHF Hydralazine Nitrate Prescribed: No Contraindication/Reason for not providing: unwarranted. not in active CHF Implantable Cardioverter Defibrillator Therapy: No Contraindication/Reason for not providing: not indicated at present time. cleared for discharge by cardiology. Cardiac Resynchronization Therapy Prescribed: No Contraindication/Reason for not providing: not indicated. - Follow up Will be discharged to: Home Follow Up Date (must be within 7 days from discharge): 02/21/17 (Follow up with PMD within 7 days. This date is the upper limit of the 7 days. Follow up is supposed to be before the date listed here.) Follow Up Time: 09:00
--- NOTE | 2017-03-09 18:47 | PN ---
DATE: I was notified about the echo results by Dr. Heber Nogueira that the patient has Mobitz I with at times periods of 2:1 conduction. I did review the Holter study, which was completed on 02/14/2017, the minimum heart rate was 35, maximum heart rate was 87, average heart rate 63. The periods of 2:1 were noticed on the last strip. It happened into ventricular beats after 4 atrial beats. The heart rate at that time was 65. My last note on 02/17/2017, which was after the completion of the Holter study, I recommended Mobitz 2nd degree block, which had resolved by then. At this time, no further action is taken. The patient was taken off beta-reginaldo therapy at that time. Hayden Mae MD
== END 2017-02-14 15:50 | disposition home or self-care (01) | DRG 871 ==
LOC: C.ER 16:08 → C.9E 17:45 → OBSVTOIN 18:22 → C.6T 02-11 14:13
PROVIDERS: ADMIT Internal Medicine; ATTEND Internal Medicine
DX: A41.9 Sepsis, unspecified organism (principal); J18.9 Pneumonia, unspecified organism; I11.0 Hypertensive heart disease with heart failure; I50.9 Heart failure, unspecified; E11.65 Type 2 diabetes mellitus with hyperglycemia; I44.1 Atrioventricular block, second degree; J45.909 Unspecified asthma, uncomplicated; E78.00 Pure hypercholesterolemia, unspecified; E87.6 Hypokalemia; I25.10 Atherosclerotic heart disease of native coronary artery without angina pectoris; N40.0 Benign prostatic hyperplasia without lower urinary tract symptoms; Z79.4 Long term (current) use of insulin; Z79.82 Long term (current) use of aspirin; Z85.46 Personal history of malignant neoplasm of prostate; Z95.5 Presence of coronary angioplasty implant and graft

== ENCOUNTER 2017-09-06 11:07 | Emergency (ER) | payer MEDICARE, OTHER ==
[2017-09-06 11:12] VITALS: BMI 29.2
--- NOTE | 2017-09-06 11:45 | C.PDOC ---
History Of Present Illness 67-year-old male, PMHx includes Diabetes, Hypertension, Hypercholesterolemia and Asthma, presents to the emergency department with complaints of shortness of breath x4 days. Patient states he is using his nebulizer treatment at home with minimal relief. Patient reports pain in back with coughing. Denies vomiting , fever, chills, dizziness, headache, chest pain or any other associated symptoms. No other complaints at this time. Time Seen by Provider: 09/06/17 11:33 Chief Complaint (Nursing): Cough, Cold, Congestion History Per: Patient History/Exam Limitations: no limitations Onset/Duration Of Symptoms: Days (4) Current Symptoms Are (Timing): Still Present Past Medical History Reviewed: Historical Data, Nursing Documentation, Vital Signs Vital Signs: Last Vital Signs Temp 97.4 F L 09/06/17 13:56 Pulse 51 L 09/06/17 13:56 Resp 20 09/06/17 13:56 BP 167/73 H 09/06/17 13:56 Pulse Ox 99 09/06/17 23:00 - Medical History PMH: Asthma, HTN, Hypercholesterolemia Surgical History: Coronary Stent Family History: States: No Known Family Hx - Social History Hx Alcohol Use: No Hx Substance Use: No - Immunization History Hx Tetanus Toxoid Vaccination: No Hx Influenza Vaccination: Yes Hx Pneumococcal Vaccination: No Review Of Systems Except As Marked, All Systems Reviewed And Found Negative. Constitutional: Negative for: Fever, Chills, Malaise Cardiovascular: Negative for: Chest Pain, Palpitations Respiratory: Positive for: Cough, Shortness of Breath. Negative for: Wheezing Musculoskeletal: Positive for: Back Pain Skin: Negative for: Rash Physical Exam - Physical Exam Appears: Non-toxic, No Acute Distress Skin: Normal Color, Warm, Dry, No Rash Head: Atraumatic, Normacephalic Eye(s): bilateral: PERRL Nose: Normal, No Flaring, No Discharge Oral Mucosa: Moist Lips: Normal Appearing Neck: Normal ROM, Supple Chest: Symmetrical Cardiovascular: Rhythm Regular, No Murmur Respiratory: No Decreased Breath Sounds, No Accessory Muscle Use, No Rales, Rhonchi (Scattered), No Wheezing, Other (Speaking in full sentences. Intemrittent cough) Gastrointestinal/Abdominal: Normal Exam, Soft, No Tenderness Back: Normal Inspection, No CVA Tenderness Extremity: Normal ROM, No Deformity, No Swelling Neurological/Psych: Oriented x3, Normal Speech, Normal Motor, Normal Sensation Gait: Steady ED Course And Treatment O2 Sat by Pulse Oximetry: 99 (RA) Pulse Ox Interpretation: Normal Medical Decision Making Medical Decision Making: On re-exam the patient reports improvement of symptoms. Lungs are CTA, heart is RRR, abdomen is soft, non-tender and tolerating PO well. Ambulatory in the ED with steady gait. Follow up with the medical doctor within 1-2 days. Return if worsened. Disposition - Disposition Referrals: Bob Neumann MD [Staff Provider] - Disposition: HOME/ ROUTINE Disposition Time: 13:53 Condition: FAIR Additional Instructions: Follow up with the medical doctor within 1-2 days. Return if worsened. Prescriptions: Azithromycin [Zithromax] 250 mg PO DAILY #4 tab Loratadine [Claritin] 10 mg PO DAILY #10 tab predniSONE [Prednisone] 20 mg PO BID #10 tab Instructions: Acute Bronchitis Forms: [facility] (Upper Sorbian) Print Language: BELARUSIAN - Clinical Impression Clinical Impression: Bronchitis - Scribe Statement The provider has reviewed the documentation as recorded by the Scribe (Jessa Orona) All medical record entries made by the Scribe were at my direction and personally dictated by me. I have reviewed the chart and agree that the record accurately reflects my personal performance of the history, physical exam, medical decision making, and the department course for this patient. I have also personally directed, reviewed, and agree with the discharge instructions and disposition.
[2017-09-06] MEDS: Albuterol-Ipratrop 3 mg / 0.5 (3 ml) UD IH SCH ×2 (12:22→12:43)
[2017-09-06] MEDS ORDERED: Albuterol-Ipratrop 3 mg / 0.5 (3 ml) UD ONE (12:28)
--- NOTE | 2017-09-06 13:43 | RAD ---
HISTORY: cough, fever COMPARISON: Chest x-ray performed 02/13/17 TECHNIQUE: Chest PA and lateral FINDINGS: LUNGS: Patchy right lower lobe pneumonia. Please note that chest x-ray has limited sensitivity for the detection of pulmonary masses. PLEURA: No significant pleural effusion identified. No definite pneumothorax . CARDIOVASCULAR: Heart size appears top normal. Atherosclerotic calcifications. OSSEOUS STRUCTURES: Degenerative changes. VISUALIZED UPPER ABDOMEN: Unremarkable. OTHER FINDINGS: None. IMPRESSION: Patchy right lower lobe pneumonia.
[2017-09-06 13:56] VITALS: BP 167/73; PULSE 51; RESP 20; TEMP 97.4
[2017-09-06 14:05] VITALS: O2SAT 99
== END 2017-09-06 14:11 | disposition home or self-care (01) ==
LOC: C.ER 11:07
DX: J40 Bronchitis, not specified as acute or chronic (principal)

== ENCOUNTER 2017-09-10 12:01 | Observation (INO) | payer MEDICARE, OTHER ==
[2017-09-10 12:02] VITALS: BMI 29.2
[2017-09-10] MEDS ORDERED: ceFAZolin IV 1 gm in Dextrose 1 GM/50 ML BAG IVPB ONE (13:41)
[2017-09-10] MEDS ORDERED: Thrombin Topical 5,000 Int Units Spray Kit ONE (13:41)
[2017-09-10] MEDS ORDERED: Lidocaine 2% Inj (20ml) ONE ×2 (13:41→15:46)
--- NOTE | 2017-09-10 13:54 | C.PDOC ---
History Of Present Illness [id number], is sent to the emergency department by Dr Keenan secondary to abnormal heart rhythm. Patient admits to intermittent dizziness. Denies chest pain, nausea/vomiting, shortness of breath. Patients EKG in office revealed a complete heart block. Time Seen by Provider: 09/10/17 13:35 Chief Complaint (Nursing): Chest Pain History Per: Patient History/Exam Limitations: no limitations Onset/Duration Of Symptoms: Days Current Symptoms Are (Timing): Still Present Past Medical History Reviewed: Historical Data, Nursing Documentation, Vital Signs Vital Signs: Last Vital Signs Temp 98.3 F 09/10/17 16:30 Pulse 62 09/10/17 18:00 Resp 13 09/10/17 18:00 BP 139/73 09/10/17 18:00 Pulse Ox 100 09/10/17 18:21 - Medical History PMH: Asthma, HTN, Hypercholesterolemia Surgical History: Coronary Stent Family History: States: No Known Family Hx - Social History Hx Alcohol Use: No Hx Substance Use: No - Immunization History Hx Tetanus Toxoid Vaccination: No Hx Influenza Vaccination: Yes Hx Pneumococcal Vaccination: No Review Of Systems Except As Marked, All Systems Reviewed And Found Negative. Constitutional: Negative for: Fever Cardiovascular: Negative for: Chest Pain, Palpitations Respiratory: Negative for: Shortness of Breath Gastrointestinal: Negative for: Nausea, Vomiting Musculoskeletal: Negative for: Neck Pain, Back Pain Neurological: Positive for: Dizziness. Negative for: Weakness, Numbness, Headache Physical Exam - Physical Exam Appears: Non-toxic, No Acute Distress Skin: Normal Color, Warm, Dry, No Diaphoretic, No Rash Head: Normacephalic Eye(s): bilateral: PERRL Nose: Normal Oral Mucosa: Moist Lips: Normal Appearing Neck: Normal ROM Chest: Symmetrical Cardiovascular: Rhythm Irregular, Murmur (2/6 diastolic) Respiratory: Normal Breath Sounds, No Accessory Muscle Use Gastrointestinal/Abdominal: Normal Exam, Bowel Sounds Extremity: Normal ROM, No Deformity, No Swelling Neurological/Psych: Oriented x3, Normal Speech ED Course And Treatment - Laboratory Results Result Diagrams: 09/10/17 13:51 09/10/17 14:46 O2 Sat by Pulse Oximetry: 100 (RA) Pulse Ox Interpretation: Normal Medical Decision Making Medical Decision Making: Case discussed with Dr Neumann, who states to admit patient to Dr Ryan Cortes, notified. Case discussed with Dr Keenan and Dr Rogers. Dr Rogers states he will take patient to admit for pacemaker insertion. Disposition Discussed With Dr.: Esau Cortes Doctor Will See Patient In The: Hospital Counseled Patient/Family Regarding: Studies Performed, Diagnosis - Disposition Disposition: HOSPITALIZED Disposition Time: 13:50 Condition: FAIR - Clinical Impression Clinical Impression: Heart block atrioventricular - Scribe Statement The provider has reviewed the documentation as recorded by the Scribe (Jessa Orona) All medical record entries made by the Scribe were at my direction and personally dictated by me. I have reviewed the chart and agree that the record accurately reflects my personal performance of the history, physical exam, medical decision making, and the department course for this patient. I have also personally directed, reviewed, and agree with the discharge instructions and disposition.
[2017-09-10 13:57] LABS: BASO # 0.1 K/uL (0.0-0.2); BASO % 1.1 % (0.0-2.0); EOS # 0.3 K/uL (0.0-0.7); EOS % 2.6 % (0.0-4.0); HEMOGLOBIN 13.3 g/dL (12.0-18.0); LYMPH # 2.3 K/uL (1.0-4.3); LYMPH % 21.7 % (20.0-40.0); MEAN CELL VOLUME 85.7 fL (80.0-94.0); MEAN CORPUSCULAR HEMOGLOBIN 27.8 pg (27.0-31.0); MEAN CORPUSCULAR HGB CONC 32.4 g/dL (33.0-37.0); MEAN PLATELET VOLUME 9.3 fL (7.2-11.7); MONO # 1.1 K/uL (0.0-0.8); MONO % 10.5 % (0.0-10.0); NEUT # 6.9 K/uL (1.8-7.0); NEUT % 64.1 % (50.0-75.0); NRBC % 0.1 % (0.0-2.0); RBC 4.77 Mil/uL (4.40-5.90); RED CELL DISTRIBUTION WIDTH 14.2 % (11.5-14.5); WHITE BLOOD COUNT 10.7 K/uL (4.8-10.8)
--- NOTE | 2017-09-10 14:02 | RAD ---
PROCEDURE: CHEST RADIOGRAPH, 1 VIEW HISTORY: Chest pain COMPARISON: 09/06/2017. FINDINGS: LUNGS: The lungs are well inflated and clear. No focal consolidation. PLEURA: No pneumothorax or pleural fluid seen. CARDIOVASCULAR: Normal. OSSEOUS STRUCTURES: No significant abnormalities. VISUALIZED UPPER ABDOMEN: Normal. OTHER FINDINGS: None. IMPRESSION: No active pulmonary disease.
[2017-09-10 14:05] LABS: INR 1.2; PROTHROMBIN TIME 13.5 SECONDS (9.7-12.2)
--- NOTE | 2017-09-10 14:32 | CP.PCM.HP ---
History of Present Illness - History of Present Illness History of Present Illness: HPI 67M presents to ER because he saw Dr. Keenan one week ago and had some tests done. Patient said Dr. Rogers called patient and stated patient needed to go to the ER. Patient went directly to OR from ER for pacemaker placement because of third degree heart block. Patient denies chest pain, shortness of breath, diarrhea, constipation. Patient was placed on Holter monitor 2 weeks ago and wore the holter for 1 week. Patient was found to have 3rd degree heart block noted on holter monitor. In ED patient showed 2nd degree heart block, Type 2. Patient seen again in PACU post procedure and patient states he does not have an advanced directive. Family members were spoken to at bedside and stated they don't know why he's taking prednisone or claritin and does not know his code status. Patient's family states he missed a step and broke his right leg yesterday. They're unsure of what kind of fracture, but they stated he needs to follow up on October 04. witnessed walking and weight bearing on the right foot but is aware that he was instructed not to weight bear on this right lower extremity. PMH: HTN, IDDM, hyperlipidemia, and asthma, CAD with stent placement (see previous discharge summary) PSH: none Family History: Denies family history of cancer of heart disease. Social history: Lives with daughter, speaks [place] Citizen, retired, denies any smoking history, ETOH use, or illicit drug use. PMD: Dr. Neumann Code status: unknown Present on Admission - Present on Admission Any Indicators Present on Admission: No History of DVT/PE: No History of Uncontrolled Diabetes: No Urinary Catheter: No Decubitus Ulcer Present: No Past Patient History - Infectious Disease Hx of Infectious Diseases: None - Past Social History Smoking Status: Never Smoked - CARDIAC Hx Hypercholesterolemia: Yes Hx Hypertension: Yes - PULMONARY Hx Asthma: Yes - HEENT Hx Cataracts: Yes Hx Glaucoma: Yes - ENDOCRINE/METABOLIC Hx Endocrine Disorders: Yes Hx Diabetes Mellitus Type 2: Yes - MUSCULOSKELETAL/RHEUMATOLOGICAL Hx Falls: No - GENITOURINARY/GYNECOLOGICAL Hx Genitourinary Disorders: Yes Hx Prostate Cancer: Yes - PSYCHIATRIC Hx Substance Use: No - SURGICAL HISTORY Hx Coronary Stent: Yes - ANESTHESIA Hx Anesthesia: Yes Hx Anesthesia Reactions: No Meds Allergies/Adverse Reactions: Allergies Allergy/AdvReac Type Severity Reaction Status Date / Time No Known Allergies Allergy Verified 09/10/17 12:28 Physical Exam - Head Exam Head Exam: ATRAUMATIC, NORMAL INSPECTION, NORMOCEPHALIC - Eye Exam Eye Exam: EOMI, Normal appearance Pupil Exam: NORMAL ACCOMODATION, PERRL - ENT Exam ENT Exam: Mucous Membranes Moist, Normal Exam - Neck Exam Neck exam: Positive for: Full Rom. Negative for: Thyromegaly - Respiratory Exam Respiratory Exam: Clear to Auscultation Bilateral, NORMAL BREATHING PATTERN - Cardiovascular Exam Cardiovascular Exam: Bradycardia, +S1, +S2 - GI/Abdominal Exam GI & Abdominal Exam: Normal Bowel Sounds, Soft. absent: Organomegaly - Extremities Exam Extremities exam: Positive for: normal capillary refill. Negative for: full ROM , pedal edema Additional comments: patient has a broken right leg which he broke yesterday when he fell his right leg was wrapped below the knee. Sridhar wrapped bandage is dirty and signs of weight bearing is noted on soles of right foot. - Back Exam Back exam: FULL ROM, NORMAL INSPECTION - Neurological Exam Neurological exam: CN II-XII Intact, Oriented x3 Additional comments: patient has a broken right leg which he broke yesterday when he fell Results - Vital Signs Recent Vital Signs: Last Vital Signs Temp 98.0 F 09/10/17 14:11 Pulse 76 09/10/17 14:11 Resp 18 09/10/17 14:11 BP 176/89 H 09/10/17 14:11 Pulse Ox 100 09/10/17 14:29 - Labs Result Diagrams: 09/10/17 13:51 09/10/17 14:46 Labs: Laboratory Results - last 24 hr 09/10/17 09/10/17 13:51 13:51 WBC 10.7 D RBC 4.77 Hgb 13.3 Hct 40.9 MCV 85.7 D MCH 27.8 MCHC 32.4 L RDW 14.2 Plt Count 343 MPV 9.3 Neut % (Auto) 64.1 Lymph % (Auto) 21.7 [place] % (Auto) 10.5 H Eos % (Auto) 2.6 Baso % (Auto) 1.1 Neut # (Auto) 6.9 Lymph # (Auto) 2.3 [place] # (Auto) 1.1 H Eos # (Auto) 0.3 Baso # (Auto) 0.1 PT 13.5 H INR 1.2 APTT 33 Assessment & Plan - Assessment and Plan (Free Text) Assessment: Third Degree AV Block s/p pacemaker placement s/p pacemaker POD #0, 09/10/17 Cefzolin 1gm x [address] Sue Keenan Recent Right leg fracture CAD with Stent ASA Plavix DM2 Lispro 24 u ACHS Levemir 40u SC BID Accucheck ACHS hypoglycemic protocol History of HTN HCTZ 12.5mg POQD amlodipine 10mg PO QD Valsartan 320mg POQD Hx hyperlipidemia Welchol 625mg POQD, not available in pharmacy Crestor 20mg POQD Hx asthma albuterol Hx of BPH and Prostate CA Flomax 0.4mg POQD Hx of low Vitamin D Prophylaxis Pepcid 20mg BID Heparin 5000 u SC Q12H Heart Healthy Diet 2gm Na Low Carb diet Yandy Storey DO PGY1 - Date & Time Date: 09/10/17 Time: 15:53
[2017-09-10] MEDS ORDERED: (Novolin R) Insulin Human Regular 100 units/ml vial SC ONE (14:42)
[2017-09-10] MEDS ORDERED: (Novolin R) Insulin Human Regular 100 units/ml vial IV ONE (14:44)
--- NOTE | 2017-09-10 14:55 | CP.PCM.CON ---
<Yobani Ortega - Last Filed: 09/10/17 16:42> History of Present Illness - History of Present Illness History of Present Illness: PGY2 Cardiology Consult Note for Dr. Keenan This 67yo Male with PMHx of IDDM, HTN, hyperlipidemia, asthma, BPH - presents to the ED after being diagnosed with 3rd degree heart block on Holter Monitor by Dr. Bernstein / Dr. Keenan. He was instructed to come to the ED, for emergent placement of PPM with Dr. Rogers in the OR. While in the ED, his EKG showed a 2nd Degree Type2 Heart block. Patient admits to intermittent dizziness. He denies f/c, chest pain, SOB, n/v, d/c, or any additional acute complaints. He is a poor historian and could not confirm which medications he takes at home. I reviewed his medications as documented in the EMR from prior visits, and he could not confirm doses. His sister was at bedside during our conversation. PMD: Dr. Neumann Cardio: Dr. Bernstein PMHx: IDDM, HTN, hyperlipidemia, asthma, BPH, CHF (diastolic) PSHx: cardiac cath over 10 years ago but no stent Meds: see EMR (pt does not recal meds, states he is on "many") FamHx: denies any family history of cancer or hear disease SocHx: Lives with daughter, speaks Portuguese, retired, denies any smoking history , etoh use, or illicit drug use. Review of Systems: -Gen: No fever, No chills, No headache, No lethargy, No weakness. -HEENT: +dizziness (intermittent), No change in vision, No change in hearing, No sore throat, No dysphagia, No nasal congestion, No mucous. -Cardio: No chest pain, No palpitations, No lower extremity edema, No orthopnea. -Resp: No cough, No dyspnea, No hemoptysis, No wheezing, No pain on inspiration. -GI: No abdominal pain, No nausea/vomiting, No diarrhea/constipation, No hematochezia, No hematemesis. -: No dysuria, +urinary freq (BPH), No incontinence, No hematuria, No change in urinary stream. -MSK: No back pain, No muscle weakness, No radiating pain. -Skin: No itching, No rash, No lesions. -Neuro: No confusion, No numbness, No tingling, No focal weakness, No radicular pain, No syncope. -Psych: No anxiety, No depression, No H/I, No S/I, No hallucinations. Past Patient History - Infectious Disease Hx of Infectious Diseases: None - Past Social History Smoking Status: Never Smoked - CARDIAC Hx Hypercholesterolemia: Yes Hx Hypertension: Yes - PULMONARY Hx Asthma: Yes - HEENT Hx Cataracts: Yes Hx Glaucoma: Yes - ENDOCRINE/METABOLIC Hx Endocrine Disorders: Yes Hx Diabetes Mellitus Type 2: Yes - MUSCULOSKELETAL/RHEUMATOLOGICAL Hx Falls: No - GENITOURINARY/GYNECOLOGICAL Hx Genitourinary Disorders: Yes Hx Prostate Cancer: Yes - PSYCHIATRIC Hx Substance Use: No - SURGICAL HISTORY Hx Coronary Stent: Yes - ANESTHESIA Hx Anesthesia: Yes Hx Anesthesia Reactions: No Meds Allergies/Adverse Reactions: Allergies Allergy/AdvReac Type Severity Reaction Status Date / Time No Known Allergies Allergy Verified 09/10/17 12:28 - Medications Medications: Current Medications Bacitracin 50,000 unit/ Sodium (Chloride) 1,000 mls @ 1,000 mls/hr IR .Q1H [place] PRN Reason: Protocol Stop: 09/10/17 14:59 Insulin Aspart (Novolog) 24 unit SC TIDAC [facility] Insulin Detemir (Levemir) 40 unit SC BID [facility] Insulin Human Regular (Novolin R) 6 unit IV ONCE ONE Stop: 09/10/17 14:45 Tamsulosin HCl (Flomax) 0.4 mg PO DAILY [facility] Physical Exam - Additional Findings Additional findings: - Constitutional Appears: Non-toxic, No Acute Distress - Eye Exam Eye Exam: Normal appearance Pupil Exam: NORMAL ACCOMODATION - ENT Exam ENT Exam: Mucous Membranes Moist - Neck Exam Neck exam: Positive for: Normal Inspection - Respiratory Exam Respiratory Exam: Clear to Auscultation Bilateral. absent: Chest Wall Tenderness, Rhonchi, Wheezes - Cardiovascular Exam Cardiovascular Exam: REGULAR RHYTHM, +S1, +S2. absent: Diastolic murmur, Gallop , Rubs, Systolic Murmur - GI/Abdominal Exam GI & Abdominal Exam: Normal Bowel Sounds. absent: Soft, Tenderness - Extremities Exam Extremities exam: Negative for: calf tenderness, pedal edema Note: R leg wrapped below the knee 2/2 fracture yesterday s/p fall - Back Exam Back exam: NORMAL INSPECTION. absent: CVA tenderness (L), CVA tenderness (R) - Neurological Exam Neurological exam: Alert, Oriented x3 - Psychiatric Exam Psychiatric exam: Normal Affect, Normal Mood - Skin Skin Exam: Dry, Intact, Warm Results - Vital Signs Recent Vital Signs: Last Vital Signs Temp 98.0 F 09/10/17 14:11 Pulse 76 09/10/17 14:11 Resp 18 09/10/17 14:11 BP 176/89 H 09/10/17 14:11 Pulse Ox 100 09/10/17 14:41 - Labs Result Diagrams: 09/10/17 13:51 09/10/17 14:46 Labs: Laboratory Results - last 24 hr 09/10/17 09/10/17 09/10/17 13:43 13:51 13:51 WBC 10.7 D RBC 4.77 Hgb 13.3 Hct 40.9 MCV 85.7 D MCH 27.8 MCHC 32.4 L RDW 14.2 Plt Count 343 MPV 9.3 Neut % (Auto) 64.1 Lymph % (Auto) 21.7 [place] % (Auto) 10.5 H Eos % (Auto) 2.6 Baso % (Auto) 1.1 Neut # (Auto) 6.9 Lymph # (Auto) 2.3 [place] # (Auto) 1.1 H Eos # (Auto) 0.3 Baso # (Auto) 0.1 PT 13.5 H INR 1.2 APTT 33 POC Glucose (mg/dL) 335 H Assessment & Plan - Assessment and Plan (Free Text) Assessment: 3rd Degree Heart Block 09/10: s/p PPM with atrial/ventricular pacing - POD #0 (09/10/17) Patient stopped home Plavix 75mg 6 days ago in anticipation of the procedure -Pt placed on Holter moniotr 2 weeks ago, worn for 1 week. -3rd degree heart block noted on holter monitor -in ED, patient in 2nd degree heart block, Type 2 -Scheduled for OR with Dr. Rogers for PPM Hypertension BP 209/86 -> 176/89. He did not take any medications this morning. Resume home HTN medications as needed, although pt unsure of his current meds Patient previously discharged on the following medications on 02/14/17: Valsartan/Amlodipine 10/320 mg PO qD (PM) HCTZ 12.5 mg PO qD (AM) Case Discussed with Dr. Shlomo Ortega, PGY2 - Date & Time Date: 09/10/17 Time: 14:51 <Maximino Keenan - Last Filed: 09/11/17 09:06> Meds - Medications Medications: Current Medications Albuterol (Ventolin Hfa 90 Mcg/Actuation (8 G)) 2 puff IH Q4 PRN PRN Reason: Shortness of Breath Amlodipine Besylate (Norvasc) 10 mg PO DAILY [facility] Aspirin (Ecotrin) 81 mg PO DAILY [facility] Clopidogrel Bisulfate (Plavix) 75 mg PO DAILY [facility] Famotidine (Pepcid) 20 mg PO DAILY [facility] Heparin Sodium (Porcine) (Heparin) 5,000 units SC Q12 [facility] Last Admin: 09/10/17 22:23 Dose: 5,000 units Hydrochlorothiazide (Microzide) 12.5 mg PO DAILY [facility] Cefazolin Sodium/Dextrose (Ancef Iv 1 Gm Duplex) 1 gm in 50 mls @ 100 mls/hr IVPB Q8H [place] PRN Reason: Protocol Stop: 09/11/17 14:29 Last Admin: 09/11/17 06:10 Dose: 100 mls/hr Insulin Aspart (Novolog) 24 unit SC TIDAC [facility] Last Admin: 09/11/17 07:58 Dose: Not Given Insulin Detemir (Levemir) 40 unit SC Q12 [facility] Last Admin: 09/10/17 22:24 Dose: 40 unit Losartan Potassium (Cozaar) 100 mg PO DAILY [facility] Oxycodone/Acetaminophen (Percocet 5/325 Mg Tab) 2 tab PO Q6H PRN PRN Reason: Pain, moderate (4-7) Stop: 09/13/17 16:49 Rosuvastatin Calcium (Crestor) 20 mg PO HS [facility] Last Admin: 09/10/17 22:37 Dose: 20 mg Tamsulosin HCl (Flomax) 0.4 mg PO DAILY [facility] Results - Vital Signs Recent Vital Signs: Last Vital Signs Temp 98.1 F 09/11/17 08:09 Pulse 74 09/11/17 08:09 Resp 20 09/11/17 08:09 BP 179/87 H 09/11/17 08:09 Pulse Ox 97 09/11/17 08:09 - Labs Result Diagrams: 09/10/17 13:51 03/20/18 14:46 Labs: Laboratory Results - last 24 hr 09/10/17 09/10/17 09/10/17 13:43 13:51 13:51 WBC 10.7 D RBC 4.77 Hgb 13.3 Hct 40.9 MCV 85.7 D MCH 27.8 MCHC 32.4 L RDW 14.2 Plt Count 343 MPV 9.3 Neut % (Auto) 64.1 Lymph % (Auto) 21.7 [place] % (Auto) 10.5 H Eos % (Auto) 2.6 Baso % (Auto) 1.1 Neut # (Auto) 6.9 Lymph # (Auto) 2.3 [place] # (Auto) 1.1 H Eos # (Auto) 0.3 Baso # (Auto) 0.1 PT 13.5 H INR 1.2 APTT 33 Sodium Potassium Chloride Carbon Dioxide Anion Gap BUN Creatinine Est GFR ( Amer) Est GFR (Non-Af Amer) POC Glucose (mg/dL) 335 H Random Glucose Calcium 09/10/17 09/10/17 09/10/17 14:46 16:32 21:31 WBC RBC Hgb Hct MCV MCH MCHC RDW Plt Count MPV Neut % (Auto) Lymph % (Auto) [place] % (Auto) Eos % (Auto) Baso % (Auto) Neut # (Auto) Lymph # (Auto) [place] # (Auto) Eos # (Auto) Baso # (Auto) PT INR APTT Sodium 136 Potassium 3.9 Chloride 99 Carbon Dioxide 23 Anion Gap 18 BUN 16 Creatinine 0.9 Est GFR ( Amer) > 60 Est GFR (Non-Af Amer) > 60 POC Glucose (mg/dL) 333 H 226 H Random Glucose 419 H* D Calcium 9.4 09/11/17 06:38 WBC RBC Hgb Hct MCV MCH MCHC RDW Plt Count MPV Neut % (Auto) Lymph % (Auto) [place] % (Auto) Eos % (Auto) Baso % (Auto) Neut # (Auto) Lymph # (Auto) [place] # (Auto) Eos # (Auto) Baso # (Auto) PT INR APTT Sodium Potassium Chloride Carbon Dioxide Anion Gap BUN Creatinine Est GFR ( Amer) Est GFR (Non-Af Amer) POC Glucose (mg/dL) 130 H Random Glucose Calcium Assessment & Plan - Assessment and Plan (Free Text) Plan: Patient seen and evaluated personally by me Plan of care d/w the resident and as documented
[2017-09-10 15:10] LABS: BLOOD UREA NITROGEN 16 mg/dL (9-20); CALCIUM 9.4 mg/dl (8.6-10.4); GFR AFRICAN-AMERICAN > 60; GFR NON-AFRICAN AMERICAN > 60
[2017-09-10] MEDS: Bacitracin 50,000 UNIT in Sodium Chloride 0.9% Irrig 1,000 ML IR SCH ×2 (15:30→15:50)
[2017-09-10] MEDS ORDERED: Iohexol 240 (50 ml) ONE (15:39)
--- NOTE | 2017-09-10 16:39 | PCM.OP ---
Operative Report - Operative Report Date of Surgery/Procedure: 09/10/17 Time of Surgery/Procedure: 16:25 Surgeon: gustavo riley Anesthesia/Sedation: MAC Pre-Operative Diagnosis: High grade AV block Post-Operative Diagnosis: High grade AV block Indication for Surgery: Symptomatic AV block Operative Findings: Mr. Griggs was referred from Dr. Espinoza Office for a possible pacemaker. Seen by Dr. Keenan in the ER and an EP consult was called in for a possible permanent pacemaker. Holter monitor at Dr. Espinoza office for dizziness documented second degree high grade and intermittent third degree AV block. Past medical history significant for hypertension diabetes coronary artery disease. EKG this AM showed a second degree AV block. Procedures options and risks were discussed with patient via a [place] interpretor (RN); he verbalized understanding and expressed assent. Procedure/Operation Description: He was brought to the OR in a post-absorptive state. 2 gram cefazolin was administred for prophylaxis. The left pectoral region was prepped and cleansed in the usual fashion. R2 pacing pads oxygen and blood pressure and rhythm were monitored. The axillary vein was cannulated adn guide wires placed, twice after 1% lidocaine was administred 2 cm inferior to the clavicle. A pocket was then created with blunt dissection. Next 6 Fr. sheaths were placed over the guide wires and a [address] Anand ([id number]) and a [address] Anand (2088TC-52) pacing leads were placed in the right atrial appendage and the right ventricular apex respectively. Next the leads were sutured to the pectoral muscle and the pocket was cleansed with antibiotic solution and hemostasis ensured. Next the pacemaker generator ([employer] Anand [id number] serial [id number] ) was introduced in the field connected to the leads and placed in the pocket. The pocket was then closed in layers with 2 O vicryl and skin oneyda. The skin was dressed with Telfa and tegaderm. Pressure dressing and a sling were then placed. Estimated Blood Loss: 5 cc Complications: None Discharge & Condition: Stable. would continue with ancef 1 gm eight hourly x three doses. Chest X-ray to rule out pneumothorax. Continue with arm sling x 3 days. DC home in AM if stable. Wound check on saturday
[2017-09-10] MEDS ORDERED: Oxycodone/Acetaminophen 5/325 mg Tab PO PRN (16:48)
--- NOTE | 2017-09-10 17:07 | RAD ---
PROCEDURE: Intraoperative Fluoroscopy. HISTORY: THIRD DEGREE HEARTBLOCK FINDINGS: Fluoroscopic assistance was provided for pacemaker placement. Please refer to the operative report from OMAR Mayer, , MD KASSY. Total exam DLP: (mGy) 56.70
[2017-09-10] MEDS ORDERED: Albuterol HFA 90 mcg/actuation (8 g) IH PRN (17:48)
[2017-09-10] MEDS: ceFAZolin IV 1 gm in Dextrose 1 GM/50 ML BAG IVPB SCH (22:21)
[2017-09-10] MEDS: Insulin Detemir 100 units/ml Vial (Levemir) SC SCH (22:24)
[2017-09-11] MEDS: ceFAZolin IV 1 gm in Dextrose 1 GM/50 ML BAG IVPB SCH ×2 (06:10→14:22)
[2017-09-11] MEDS: (Novolog) Insulin Aspart, Recombinant 100 u/ml 10 ml vial SC SCH ×3 (07:58→17:00)
--- NOTE | 2017-09-11 08:31 | RAD ---
HISTORY: S/P PACEMAKER INSERTION COMPARISON: 09/10/2017 FINDINGS: LUNGS: The lungs are well inflated. There is mild pulmonary venous congestion. PLEURA: No significant pleural effusion identified, no pneumothorax apparent. CARDIOVASCULAR: There is interval placement of a left-sided dual lead transvenous permanent pacing device with leads terminating in the right atrium and right ventricle. There is persistent mild cardiomegaly. OSSEOUS STRUCTURES: No significant abnormalities. VISUALIZED UPPER ABDOMEN: Normal. OTHER FINDINGS: None. IMPRESSION: Interval placement of left-sided dual lead transvenous permanent pacing device with leads terminating in the right atrium and right ventricle. Persistent mild cardiomegaly and pulmonary venous congestion.
--- NOTE | 2017-09-11 08:50 | CP.PCM.PN ---
Objective - Vital Signs/Intake and Output Vital Signs (last 24 hours): Temp Pulse Resp BP Pulse Ox 98.1 F 74 20 179/87 H 97 09/11/17 08:09 09/11/17 08:09 09/11/17 08:09 09/11/17 08:09 09/11/17 08:09 Intake and Output: 09/11/17 09/11/17 06:59 18:59 Intake Total 170 Output Total 750 Balance -580 - Medications Medications: Current Medications Albuterol (Ventolin Hfa 90 Mcg/Actuation (8 G)) 2 puff IH Q4 PRN PRN Reason: Shortness of Breath Amlodipine Besylate (Norvasc) 10 mg PO DAILY [facility] Aspirin (Ecotrin) 81 mg PO DAILY [facility] Clopidogrel Bisulfate (Plavix) 75 mg PO DAILY [facility] Famotidine (Pepcid) 20 mg PO DAILY [facility] Heparin Sodium (Porcine) (Heparin) 5,000 units SC Q12 [facility] Last Admin: 09/10/17 22:23 Dose: 5,000 units Hydrochlorothiazide (Microzide) 12.5 mg PO DAILY [facility] Cefazolin Sodium/Dextrose (Ancef Iv 1 Gm Duplex) 1 gm in 50 mls @ 100 mls/hr IVPB Q8H [facility] PRN Reason: Protocol Stop: 09/11/17 14:29 Last Admin: 09/11/17 06:10 Dose: 100 mls/hr Insulin Aspart (Novolog) 24 unit SC TIDAC [facility] Last Admin: 09/11/17 07:58 Dose: Not Given Insulin Detemir (Levemir) 40 unit SC Q12 [facility] Last Admin: 09/10/17 22:24 Dose: 40 unit Losartan Potassium (Cozaar) 100 mg PO DAILY [facility] Oxycodone/Acetaminophen (Percocet 5/325 Mg Tab) 2 tab PO Q6H PRN PRN Reason: Pain, moderate (4-7) Stop: 09/13/17 16:49 Rosuvastatin Calcium (Crestor) 20 mg PO HS [facility] Last Admin: 09/10/17 22:37 Dose: 20 mg Tamsulosin HCl (Flomax) 0.4 mg PO DAILY [facility] - Labs Labs: 09/10/17 13:51 09/10/17 14:46 PT 13.5 SECONDS (9.7-12.2) H 09/10/17 13:51 INR 1.2 09/10/17 13:51 APTT 33 SECONDS (21-34) 09/10/17 13:51 Assessment and Plan - Assessment and Plan (Free Text) Assessment: Third Degree AV Block s/p pacemaker placement EP Dr. Rogers consulted s/p pacemaker POD #1, 09/10/17 * Discharge in AM 09/11/17 if stable * Wound check on Saturday09/16/[address] Keenan consulted Cefazolin 1gm x 3 bags Percocet 2 tab PO Q6H PRN for pain relief CXR post procedure shows NO pneumothorax. Shows pacing device. Mild cardiomegaly and pulmonary venous congestion. Recent Right leg fracture CAD with Stent ASA 81mg PO QD Plavix 75mg PO QD Crestor 20mg PO HS DM2 Lispro 24 u ACHS Levemir 40u SC BID Accucheck ACHS hypoglycemic protocol Hx HTN HCTZ 12.5mg PO QD amlodipine 10mg PO QD Valsartan 320mg PO QD (giving Losartan 100mg PO QD as substitute) Hx hyperlipidemia Welchol 625mg PO QD, not available in pharmacy Crestor 20mg PO QD Hx asthma albuterol HFA 2 puff IH Q4H PRN Hx of BPH and Prostate CA Flomax 0.4mg PO QD Hx of low Vitamin D Prophylaxis Pepcid 20mg BID Heparin 5000 u SC Q12H Heart Healthy Diet 2gm Na Low Carb diet
[2017-09-11] MEDS: Insulin Detemir 100 units/ml Vial (Levemir) SC SCH ×2 (09:27→21:49)
[2017-09-11] MEDS ORDERED: COLESEVELAM HCL 625 MG PO SCH (10:00)
[2017-09-11 11:05] LABS: BASO % 0.4 % (0.0-2.0); EOS # 0.3 K/uL (0.0-0.7); EOS % 3.4 % (0.0-4.0); HEMOGLOBIN 12.4 g/dL (12.0-18.0); LYMPH # 2.1 K/uL (1.0-4.3); LYMPH % 22.2 % (20.0-40.0); MEAN CELL VOLUME 85.5 fL (80.0-94.0); MEAN CORPUSCULAR HGB CONC 32.8 g/dL (33.0-37.0); MEAN PLATELET VOLUME 9.1 fL (7.2-11.7); MONO # 0.9 K/uL (0.0-0.8); MONO % 9.7 % (0.0-10.0); NEUT % 64.3 % (50.0-75.0); RBC 4.41 Mil/uL (4.40-5.90); RED CELL DISTRIBUTION WIDTH 14.1 % (11.5-14.5); WHITE BLOOD COUNT 9.3 K/uL (4.8-10.8)
[2017-09-11 11:30] LABS: ALBUMIN 3.2 g/dL (3.5-5.0); ALT/SGPT 56 U/L (21-72); AST/SGOT 26 U/L (17-59); BLOOD UREA NITROGEN 14 mg/dL (9-20); CALCIUM 8.9 mg/dl (8.6-10.4); GFR AFRICAN-AMERICAN > 60; GFR NON-AFRICAN AMERICAN > 60
--- NOTE | 2017-09-11 11:48 | CP.PCM.PN ---
<Yobani Ortega - Last Filed: 09/11/17 11:44> Subjective - Date & Time of Evaluation Date of Evaluation: 09/11/17 Time of Evaluation: 07:30 - Subjective Subjective: PGY2 Cardiology Progress Note for Dr. Keenan Patient seen and examined at bedside. No acute distress. Spoke with patient at length. Plan is for him to followup with Dr. Bernstein, his mounted police, this Saturday morning. Dr. Keenan will speak with Dr. Bernstein. Otherwise, the pt denies any chest pain, SOB, dizziness, n/v, or any additional complaints. Objective - Vital Signs/Intake and Output Vital Signs (last 24 hours): Temp Pulse Resp BP Pulse Ox 98.1 F 76 20 177/86 H 97 09/11/17 08:09 09/11/17 09:24 09/11/17 08:09 09/11/17 09:24 09/11/17 08:09 Intake and Output: 09/11/17 09/11/17 06:59 18:59 Intake Total 170 Output Total 750 Balance -580 - Medications Medications: Current Medications Albuterol (Ventolin Hfa 90 Mcg/Actuation (8 G)) 2 puff IH Q4 PRN PRN Reason: Shortness of Breath Amlodipine Besylate (Norvasc) 10 mg PO DAILY [facility] Last Admin: 09/11/17 09:26 Dose: 10 mg Aspirin (Ecotrin) 81 mg PO DAILY [facility] Last Admin: 09/11/17 09:26 Dose: 81 mg Clopidogrel Bisulfate (Plavix) 75 mg PO DAILY [facility] Last Admin: 09/11/17 09:26 Dose: 75 mg Famotidine (Pepcid) 20 mg PO DAILY [facility] Last Admin: 09/11/17 09:26 Dose: 20 mg Heparin Sodium (Porcine) (Heparin) 5,000 units SC Q12 [facility] Last Admin: 09/11/17 09:30 Dose: 5,000 units Hydrochlorothiazide (Microzide) 12.5 mg PO DAILY [facility] Last Admin: 09/11/17 09:26 Dose: 12.5 mg Cefazolin Sodium/Dextrose (Ancef Iv 1 Gm Duplex) 1 gm in 50 mls @ 100 mls/hr IVPB Q8H [facility] PRN Reason: Protocol Stop: 09/11/17 14:29 Last Admin: 09/11/17 06:10 Dose: 100 mls/hr Insulin Aspart (Novolog) 24 unit SC TIDAC [facility] Last Admin: 09/11/17 07:58 Dose: Not Given Insulin Detemir (Levemir) 40 unit SC Q12 [facility] Last Admin: 09/11/17 09:27 Dose: Not Given Losartan Potassium (Cozaar) 100 mg PO DAILY [facility] Last Admin: 09/11/17 09:26 Dose: 100 mg Oxycodone/Acetaminophen (Percocet 5/325 Mg Tab) 2 tab PO Q6H PRN PRN Reason: Pain, moderate (4-7) Stop: 09/13/17 16:49 Rosuvastatin Calcium (Crestor) 20 mg PO HS [facility] Last Admin: 09/10/17 22:37 Dose: 20 mg Tamsulosin HCl (Flomax) 0.4 mg PO DAILY [facility] Last Admin: 09/11/17 09:26 Dose: 0.4 mg - Labs Labs: 09/11/17 11:00 09/11/17 11:00 PT 13.5 SECONDS (9.7-12.2) H 09/10/17 13:51 INR 1.2 09/10/17 13:51 APTT 33 SECONDS (21-34) 09/10/17 13:51 - Additional Findings Additional findings: - Constitutional Appears: Non-toxic, No Acute Distress - Eye Exam Eye Exam: Normal appearance Pupil Exam: NORMAL ACCOMODATION - ENT Exam ENT Exam: Mucous Membranes Moist - Neck Exam Neck exam: Positive for: Normal Inspection - Respiratory Exam Respiratory Exam: Clear to Auscultation Bilateral. absent: Chest Wall Tenderness, Rhonchi, Wheezes - Cardiovascular Exam Cardiovascular Exam: REGULAR RHYTHM, +S1, +S2. absent: Diastolic murmur, Gallop , Rubs, Systolic Murmur Note: L chest wall bandages CDI, PPM in place. - GI/Abdominal Exam GI & Abdominal Exam: Normal Bowel Sounds. absent: Soft, Tenderness - Extremities Exam Extremities exam: Negative for: calf tenderness, pedal edema Note: R leg wrapped below the knee 2/2 fracture yesterday s/p fall R thump amputation - Back Exam Back exam: NORMAL INSPECTION. absent: CVA tenderness (L), CVA tenderness (R) - Neurological Exam Neurological exam: Alert, Oriented x3 - Psychiatric Exam Psychiatric exam: Normal Affect, Normal Mood - Skin Skin Exam: Dry, Intact, Warm Assessment and Plan - Assessment and Plan (Free Text) Assessment: 3rd Degree Heart Block 09/11: s/p PPM with atrial/ventricular pacing - POD #1 (09/10/17) Patient will followup with his mounted police, Dr. Bernstein, this Saturday in the AM. -Patient stopped home Plavix 75mg 6 days ago in anticipation of the procedure -Pt placed on Holter moniotr 2 weeks ago, worn for 1 week. -3rd degree heart block noted on holter monitor -in ED, patient in 2nd degree heart block, Type 2 -Scheduled for OR with Dr. Rogers for PPM Hypertension 09/11: BP elevated at 179/87. Resume home meds Norvasc 10mg PO qD; Losartan 100mg PO qD; HCTZ 12.5mg PO qD BP 209/86 -> 176/89. He did not take any medications this morning. Resume home HTN medications as needed, although pt unsure of his current meds Patient previously discharged on the following medications on 02/14/17: Valsartan/Amlodipine 320/10 mg PO qD (PM) HCTZ 12.5 mg PO qD (AM) Case Discussed with Dr. Shlomo Ortega, PGY2 <Maximino Keenan - Last Filed: 09/11/17 19:49> Objective - Vital Signs/Intake and Output Vital Signs (last 24 hours): Temp Pulse Resp BP Pulse Ox 98.7 F 75 18 168/88 H 96 09/11/17 15:31 09/11/17 17:30 09/11/17 15:31 09/11/17 15:31 09/11/17 15:31 Intake and Output: 09/11/17 09/12/17 18:59 06:59 Intake Total 250 Output Total 250 Balance 0 - Medications Medications: Current Medications Albuterol (Ventolin Hfa 90 Mcg/Actuation (8 G)) 2 puff IH Q4 PRN PRN Reason: Shortness of Breath Amlodipine Besylate (Norvasc) 10 mg PO DAILY [facility] Last Admin: 09/11/17 09:26 Dose: 10 mg Aspirin (Ecotrin) 81 mg PO DAILY [facility] Last Admin: 09/11/17 09:26 Dose: 81 mg Clopidogrel Bisulfate (Plavix) 75 mg PO DAILY [facility] Last Admin: 09/11/17 09:26 Dose: 75 mg Famotidine (Pepcid) 20 mg PO DAILY [facility] Last Admin: 09/11/17 09:26 Dose: 20 mg Heparin Sodium (Porcine) (Heparin) 5,000 units SC Q12 [facility] Last Admin: 09/11/17 09:30 Dose: 5,000 units Hydrochlorothiazide (Microzide) 12.5 mg PO DAILY [facility] Last Admin: 09/11/17 09:26 Dose: 12.5 mg Insulin Aspart (Novolog) 24 unit SC TIDAC [facility] Last Admin: 09/11/17 17:00 Dose: Not Given Insulin Detemir (Levemir) 40 unit SC Q12 [facility] Last Admin: 09/11/17 09:27 Dose: Not Given Losartan Potassium (Cozaar) 100 mg PO DAILY [facility] Last Admin: 09/11/17 09:26 Dose: 100 mg Oxycodone/Acetaminophen (Percocet 5/325 Mg Tab) 2 tab PO Q6H PRN PRN Reason: Pain, moderate (4-7) Stop: 09/13/17 16:49 Rosuvastatin Calcium (Crestor) 20 mg PO HS [facility] Last Admin: 09/10/17 22:37 Dose: 20 mg Tamsulosin HCl (Flomax) 0.4 mg PO DAILY [facility] Last Admin: 09/11/17 09:26 Dose: 0.4 mg - Labs Labs: 09/11/17 11:00 09/11/17 11:00 PT 13.5 SECONDS (9.7-12.2) H 09/10/17 13:51 INR 1.2 09/10/17 13:51 APTT 33 SECONDS (21-34) 09/10/17 13:51 Assessment and Plan - Assessment and Plan (Free Text) Plan: Patient s/p PPM for Complete Heart Block Stable F/U Dr. Bernstein in 1 week for cardiology
[2017-09-11] MEDS ORDERED: Potassium Chloride 20 mEq ER Tab PO ONE (12:45)
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
--- NOTE | 2017-09-11 23:31 | CARD ---
APPROVED REPORT EKG Measurement Heart [id number] <Conclusion> Sinus rhythm with 2nd degree AV block (Mobitz II) Nonspecific T wave abnormality Abnormal ECG
[2017-09-12 00:41] VITALS: RESP 20
[2017-09-12 07:20] LABS: BASO # 0.1 K/uL (0.0-0.2); BASO % 0.7 % (0.0-2.0); EOS # 0.4 K/uL (0.0-0.7); EOS % 4.3 % (0.0-4.0); HEMOGLOBIN 13.4 g/dL (12.0-18.0); LYMPH % 22.7 % (20.0-40.0); MEAN CELL VOLUME 84.4 fL (80.0-94.0); MEAN CORPUSCULAR HEMOGLOBIN 28.4 pg (27.0-31.0); MEAN CORPUSCULAR HGB CONC 33.6 g/dL (33.0-37.0); MEAN PLATELET VOLUME 8.5 fL (7.2-11.7); MONO # 0.9 K/uL (0.0-0.8); MONO % 10.6 % (0.0-10.0); NEUT # 5.4 K/uL (1.8-7.0); NEUT % 61.7 % (50.0-75.0); NRBC % 0.1 % (0.0-2.0); RBC 4.73 Mil/uL (4.40-5.90); RED CELL DISTRIBUTION WIDTH 13.8 % (11.5-14.5); WHITE BLOOD COUNT 8.8 K/uL (4.8-10.8)
[2017-09-12] MEDS: (Novolog) Insulin Aspart, Recombinant 100 u/ml 10 ml vial SC SCH (07:29)
[2017-09-12 07:38] LABS: ALBUMIN 3.3 g/dL (3.5-5.0); ALT/SGPT 44 U/L (21-72); AST/SGOT 24 U/L (17-59); BLOOD UREA NITROGEN 12 mg/dL (9-20); CALCIUM 9.1 mg/dl (8.6-10.4); GFR AFRICAN-AMERICAN > 60; GFR NON-AFRICAN AMERICAN > 60
--- NOTE | 2017-09-12 08:18 | CP.PCM.PCO ---
Physician Communication Note - Physician Communication Note Physician Communication Note: Please see above
[2017-09-12 08:20] VITALS: BP 180/87; TEMP 98.1; O2SAT 99
[2017-09-12] MEDS: Insulin Detemir 100 units/ml Vial (Levemir) SC SCH (10:23)
[2017-09-12 11:34] VITALS: PULSE 86
== END 2017-09-12 11:10 | disposition home or self-care (01) ==
LOC: C.ER 12:01 → C.6T 13:48
PROVIDERS: ADMIT Family Medicine; ATTEND Family Medicine
DX: I44.2 Atrioventricular block, complete (principal); I25.10 Atherosclerotic heart disease of native coronary artery without angina pectoris; I11.0 Hypertensive heart disease with heart failure; I50.32 Chronic diastolic (congestive) heart failure; E78.5 Hyperlipidemia, unspecified; N40.0 Benign prostatic hyperplasia without lower urinary tract symptoms; E11.59 Type 2 diabetes mellitus with other circulatory complications; Z79.4 Long term (current) use of insulin; Z85.46 Personal history of malignant neoplasm of prostate; Z95.5 Presence of coronary angioplasty implant and graft
CPT/HCPCS: 33208; 36415; 71045; 80048; 80053; 82948; 83735; 84100; 85025; 85610; 85730; 93005; 96372; 97116; 97162; 99285; C1785; C1898; G0378; G8978; G8979; J0360; J0690; J1644; J3010

== ENCOUNTER 2017-09-22 08:01 | Inpatient (IN) | payer MEDICARE, OTHER ==
[2017-09-22 08:01] VITALS: BMI 29.2
[2017-09-22] MEDS: Albuterol-Ipratrop 3 mg / 0.5 (3 ml) UD IH SCH ×2 (08:50→09:15)
[2017-09-22 09:11] LABS: BASO # 0.1 K/uL (0.0-0.2); BASO % 0.6 % (0.0-2.0); EOS # 0.2 K/uL (0.0-0.7); EOS % 1.9 % (0.0-4.0); HEMOGLOBIN 12.7 g/dL (12.0-18.0); LYMPH # 0.8 K/uL (1.0-4.3); MEAN CELL VOLUME 85.3 fL (80.0-94.0); MEAN CORPUSCULAR HEMOGLOBIN 28.2 pg (27.0-31.0); MEAN CORPUSCULAR HGB CONC 33.1 g/dL (33.0-37.0); MEAN PLATELET VOLUME 8.8 fL (7.2-11.7); MONO # 0.7 K/uL (0.0-0.8); MONO % 6.7 % (0.0-10.0); NEUT # 8.3 K/uL (1.8-7.0); NEUT % 82.8 % (50.0-75.0); PLATELET COUNT 275 K/uL (130-400); RED CELL DISTRIBUTION WIDTH 13.6 % (11.5-14.5)
[2017-09-22] MEDS ORDERED: Albuterol-Ipratrop 3 mg / 0.5 (3 ml) UD ONE (09:17)
--- NOTE | 2017-09-22 09:18 | C.PDOC ---
History Of Present Illness 67-year-old male, PMHx includes CAD, Hypertension, Asthma, presents to the emergency department with complaints of cough. Patient reports that over the past week has been experiencing cough associated with yellow/green sputum and shortness of breath intermittently. Patient reports two day duration of increasing dyspnea on exertion and associated subjective fever. Patient was recently discharged from hospital and diagnosed with third degree heart block, and had a pacemaker placed. Denies nausea, vomiting, diarrhea, abdominal pain, back pain, travel. Time Seen by Provider: 09/22/17 08:13 Chief Complaint (Nursing): Cough, Cold, Congestion History Per: Patient History/Exam Limitations: no limitations Onset/Duration Of Symptoms: Days Current Symptoms Are (Timing): Still Present Severity: Moderate Past Medical History Reviewed: Historical Data, Nursing Documentation, Vital Signs Vital Signs: Last Vital Signs Temp 98.1 F 09/22/17 12:16 Pulse 90 09/22/17 13:08 Resp 20 09/22/17 12:51 BP 172/86 H 09/22/17 12:35 Pulse Ox 96 09/22/17 13:16 - Medical History PMH: Asthma, HTN, Hypercholesterolemia Surgical History: Coronary Stent (x4), Pacemaker Family History: States: No Known Family Hx - Social History Hx Alcohol Use: No Hx Substance Use: No - Immunization History Hx Tetanus Toxoid Vaccination: No Hx Influenza Vaccination: Yes Hx Pneumococcal Vaccination: No Review Of Systems Except As Marked, All Systems Reviewed And Found Negative. Constitutional: Positive for: Fever Respiratory: Positive for: Cough, Shortness of Breath, SOB with Excertion Gastrointestinal: Negative for: Vomiting Musculoskeletal: Negative for: Back Pain Skin: Negative for: Rash Neurological: Negative for: Weakness, Numbness, Headache, Dizziness Physical Exam - Physical Exam Appears: Non-toxic, No Acute Distress Skin: Normal Color, Warm, Dry, No Rash Head: Normacephalic Eye(s): bilateral: PERRL Nose: Normal Oral Mucosa: Moist Lips: Normal Appearing Throat: No Erythema, No Exudate Neck: Normal ROM Chest: Symmetrical, No Tenderness, Other (Left upper chest, pacemaker) Cardiovascular: Rhythm Regular, No Murmur Respiratory: No Decreased Breath Sounds, No Accessory Muscle Use Gastrointestinal/Abdominal: Bowel Sounds, Soft, No Tenderness, No Guarding, No Rebound, No Hernia Back: Normal Inspection, No CVA Tenderness Extremity: Normal ROM, No Tenderness, No Swelling Neurological/Psych: Oriented x3, Normal Speech, Normal Motor Gait: Steady ED Course And Treatment - Laboratory Results Result Diagrams: 09/22/17 09:04 09/22/17 09:04 O2 Sat by Pulse Oximetry: 96 (RA) Pulse Ox Interpretation: Normal Medical Decision Making Medical Decision Making: Old records reviewed, the patient was last seen in the Ed on 08/31/17 for irregular heart beat, diagnosed with heart block, and a pacemaker was placed. Plan: * EKG * CMP * CBC * Chest X-Ray * Duoneb On re-exam, the patient reports that he feels the same. Pulse ox is 92-94% on RA which is low normal. CXr shows infiltrate on the right mid-lower lobes. Blood cultures ordered and sent. The case was discussed with Dr. Roberson ( hospitalist) who agrees to admit the patient to telemetry Disposition - Disposition Disposition: HOSPITALIZED Disposition Time: 10:30 Condition: STABLE - Clinical Impression Clinical Impression: Pneumonia - Scribe Statement The provider has reviewed the documentation as recorded by the Scribe (Jessa Orona) All medical record entries made by the Scribe were at my direction and personally dictated by me. I have reviewed the chart and agree that the record accurately reflects my personal performance of the history, physical exam, medical decision making, and the department course for this patient. I have also personally directed, reviewed, and agree with the discharge instructions and disposition.
[2017-09-22 09:47] LABS: ALBUMIN 3.7 g/dL (3.5-5.0); ALT/SGPT 67 U/L (21-72); AST/SGOT 41 U/L (17-59); BLOOD UREA NITROGEN 18 mg/dL (9-20); CALCIUM 9.6 mg/dl (8.6-10.4); GFR AFRICAN-AMERICAN > 60; GFR NON-AFRICAN AMERICAN > 60
[2017-09-22] MEDS ORDERED: Sodium Chloride 0.9% 1,000 ML IV ONE (09:56)
[2017-09-22 10:11] LABS: EOSINOPHIL 1 % (0-4); LYMPHOCYTE 12 % (20-40); MONOCYTE 8 % (0-10); NEUTROPHIL 79 % (50-75); PLATELET ESTIMATE NORMAL (NORMAL); TOTAL CELLS COUNTED 100
[2017-09-22] MEDS ORDERED: cefTRIAXone IV 1 gm in Dextros 50 ML IV ONE (10:23)
[2017-09-22] MEDS ORDERED: Cefepime 1 GM in Sodium Chloride 0.9% 50 ML IVPB ONE (10:25)
[2017-09-22] MEDS ORDERED: Piperacillin/Tazobact 3.375 gm 100 ML IV STA (10:26)
[2017-09-22] MEDS ORDERED: Vancomycin 1 GM 1 GM/250 ML BAG IV SCH (10:30)
[2017-09-22] MEDS ORDERED: Iodixanol 320 MG/ML 100 ML BOTTLE IV ONE (10:33)
[2017-09-22] MEDS ORDERED: Piperacillin/Tazobact 3.375 gm 100 ML IVPB ONE (10:39)
[2017-09-22 10:40] LABS: INR 1.1; PROTHROMBIN TIME 12.6 SECONDS (9.7-12.2)
[2017-09-22] MEDS ORDERED: Cefepime IV 1 gm in Dextrose 1 GM/50 ML BAG IVPB ONE (10:45)
--- NOTE | 2017-09-22 11:01 | CP.PCM.PN ---
Subjective - Date & Time of Evaluation Date of Evaluation: 09/22/17 Time of Evaluation: 10:58 - Subjective Subjective: CC: cough and fever H&P Patient presents to ED for productive cough x3 days and fever x 1 day. Per Daughter at bedside, patient hasn't been walking around because he has a broken right leg which he is to follow up with Ortho 10/04. Patient also states he feels shortness of breath when he tries to move around (non-weightbearing). Patient denies sick contacts. Patient admits to dizziness, sinus pressure, headache, SOB. Patient denies sore throat, hemoptysis, hearing changes, tinnitus , ear pain, chest pain, diarrhea, constipation, numbness, weakness. PMH: HTN, IDDM, hyperlipidemia, and asthma, CAD with stent placement (see previous discharge summary), Pacemaker (09/10/17, last visit) PSH: none Family History: Denies family history of cancer of heart disease. Social history: Lives with daughter, speaks Macedonian, retired, denies any smoking history, ETOH use, or illicit drug use. PMD: Dr. Neumann Code status: unknown Objective - Vital Signs/Intake and Output Vital Signs (last 24 hours): Temp Pulse Resp BP Pulse Ox 98.2 F 92 H 16 173/82 H 96 09/22/17 08:06 09/22/17 10:07 09/22/17 10:07 09/22/17 10:07 09/22/17 10:28 - Medications Medications: Current Medications Vancomycin HCl (Vancomycin 1gm In Normal Saline Addvantage) 1 gm in 250 mls @ 166.667 mls/hr IV STAT NORMAN PRN Reason: Protocol Cefepime HCl (Maxipime Iv 1 Gm Premix) 1 gm in 50 mls @ 100 mls/hr IVPB ONCE ONE PRN Reason: Protocol Stop: 09/22/17 11:14 Last Admin: 09/22/17 10:54 Dose: 100 mls/hr - Labs Labs: 09/22/17 09:04 09/22/17 09:04 PT 12.6 SECONDS (9.7-12.2) H 09/22/17 10:28 INR 1.1 09/22/17 10:28 APTT 33 SECONDS (21-34) 09/22/17 10:28
--- NOTE | 2017-09-22 11:45 | CP.PCM.HP ---
<Yandy Storey - Last Filed: 09/22/17 16:00> History of Present Illness - History of Present Illness History of Present Illness: CC: cough and fever H&P Patient presents to ED for productive cough x3 days and fever x 1 day. Per Daughter at bedside, patient hasn't been walking around because he has a broken right leg which he is to follow up with Ortho 10/04. Patient was admitted 09/10 for pacemaker placement because of third degree heart block. Patient had no issues after leaving the hospital until 3 days ago. Patient also states he feels shortness of breath when he tries to move around (Patient remains non- weightbearing but has to maneuver to go to the bathroom). Patient denies sick contacts. Patient admits to dizziness, sinus pressure, headache, SOB. Patient denies sore throat, hemoptysis, hearing changes, tinnitus, ear pain, chest pain , diarrhea, constipation, numbness, weakness. PMH: HTN, IDDM, hyperlipidemia, and asthma, CAD with stent placement (see previous discharge summary), Pacemaker d/t third degree heart block (09/10/17, last visit) PSH: none Family History: Denies family history of cancer of heart disease. Social history: Lives with daughter, speaks Georgian, retired, denies any smoking history, ETOH use, or illicit drug use. PMD: Dr. Neumann Code status: unknown Present on Admission - Present on Admission Any Indicators Present on Admission: No History of DVT/PE: No History of Uncontrolled Diabetes: No Urinary Catheter: No Decubitus Ulcer Present: No Review of Systems - Constitutional Constitutional: As Per HPI, Fever. absent: Anorexia, Chills, Weight Gain, Weight Loss - EENT Eyes: absent: Blurred Vision, Change in Vision, Dry Eye, Loss of Vision Ears: Dizziness. absent: Decreased Hearing, Ear Discharge, Ear Pain, Tinnitus, Abnormal Hearing Nose/Mouth/Throat: Sinus Pain. absent: Epistaxis, Nasal Congestion, Nasal Discharge, Mouth Pain, Odynophagia, Sore Throat, Neck Mass - Cardiovascular Cardiovascular: absent: Chest Pain, Chest Pain at Rest, Chest Pain with Activity , Pedal Edema, Radiating Pain - Respiratory Respiratory: Cough, Dyspnea, Dyspnea on Exertion. absent: Hemoptysis, Wheezing , Snoring, Stridor - Gastrointestinal Gastrointestinal: absent: Abdominal Pain, Change in Bowel Habits, Fecal Incontinence, Hematemesis, Hematochezia, Loose Stools, Melena - Genitourinary Genitourinary: As Per HPI. absent: Difficulty Urinating, Dysuria, Hematuria, Nocturia - Musculoskeletal Musculoskeletal: Abnormal Gait (right leg fracture), Limited Range of Motion. absent: Back Pain, Loss of Height - Neurological Neurological: absent: Abnormal Hearing, Abnormal Movements, Tremor, Vertigo, Weakness - Psychiatric Psychiatric: As Per HPI. absent: Abnormal Sleep Pattern, Anxiety - Endocrine Endocrine: absent: Fatigue, Flushing, Palpitations, Polydipsia, Polyphagia, Polyuria - Hematologic/Lymphatic Hematologic: absent: Easy Bleeding, Easy Bruising Past Patient History - Infectious Disease Hx of Infectious Diseases: None - Past Social History Smoking Status: Never Smoked - CARDIAC Hx Hypercholesterolemia: Yes Hx Hypertension: Yes Hx Pacemaker: Yes - PULMONARY Hx Asthma: Yes - HEENT Hx HEENT Problems: Yes Hx Cataracts: Yes Hx Glaucoma: Yes - ENDOCRINE/METABOLIC Hx Endocrine Disorders: Yes Hx Diabetes Mellitus Type 2: Yes - MUSCULOSKELETAL/RHEUMATOLOGICAL Hx Falls: No - GENITOURINARY/GYNECOLOGICAL Hx Genitourinary Disorders: Yes Hx Prostate Cancer: Yes - PSYCHIATRIC Hx Substance Use: No - SURGICAL HISTORY Hx Coronary Stent: Yes (x4) - ANESTHESIA Hx Anesthesia: Yes Hx Anesthesia Reactions: No Meds Allergies/Adverse Reactions: Allergies Allergy/AdvReac Type Severity Reaction Status Date / Time No Known Allergies Allergy Verified 09/10/17 12:28 Physical Exam - Constitutional Appears: Well, No Acute Distress - Head Exam Head Exam: ATRAUMATIC, NORMAL INSPECTION, NORMOCEPHALIC - Eye Exam Eye Exam: EOMI, Normal appearance Pupil Exam: NORMAL ACCOMODATION, PERRL - ENT Exam ENT Exam: Mucous Membranes Moist, Normal Exam - Neck Exam Neck exam: Positive for: Full Rom. Negative for: Tenderness, Thyromegaly - Respiratory Exam Respiratory Exam: Clear to Auscultation Bilateral, Rales, NORMAL BREATHING PATTERN. absent: Decreased Breath Sounds - Cardiovascular Exam Cardiovascular Exam: REGULAR RHYTHM, +S1, +S2. absent: Bradycardia, Tachycardia - GI/Abdominal Exam GI & Abdominal Exam: Normal Bowel Sounds, Soft. absent: Tenderness - Extremities Exam Extremities exam: Negative for: pedal edema Additional comments: right leg in cast no pitting edema noted on visible right lower extremity no pitting edema of left lower extremity - Back Exam Back exam: FULL ROM, NORMAL INSPECTION. absent: paraspinal tenderness, vertebral tenderness - Neurological Exam Neurological exam: Alert, CN II-XII Intact, Normal Gait, Oriented x3 - Psychiatric Exam Psychiatric exam: Normal Affect, Normal Mood - Skin Skin Exam: Dry, Normal Color, Warm Additional comments: left anterior chest has site of pacemaker placement Results - Vital Signs Recent Vital Signs: Last Vital Signs Temp 99.8 F H 09/22/17 11:26 Pulse 95 H 09/22/17 11:26 Resp 16 09/22/17 11:26 BP 145/90 09/22/17 11:26 Pulse Ox 96 09/22/17 11:41 - Labs Result Diagrams: 09/22/17 09:04 09/22/17 09:04 Labs: Laboratory Results - last 24 hr 09/22/17 09/22/17 09/22/17 09:04 09:04 10:16 WBC 10.0 RBC 4.50 Hgb 12.7 Hct 38.4 MCV 85.3 MCH 28.2 MCHC 33.1 RDW 13.6 Plt Count 275 MPV 8.8 Neut % (Auto) 82.8 H Lymph % (Auto) 8.0 L [place] % (Auto) 6.7 Eos % (Auto) 1.9 Baso % (Auto) 0.6 Neut # (Auto) 8.3 H Lymph # (Auto) 0.8 L [place] # (Auto) 0.7 Eos # (Auto) 0.2 Baso # (Auto) 0.1 Neutrophils % (Manual) 79 H Lymphocytes % (Manual) 12 L Monocytes % (Manual) 8 Eosinophils % (Manual) 1 Platelet Estimate Normal RBC Morphology Normal PT INR APTT D-Dimer, Quantitative Sodium 136 Potassium 4.2 Chloride 97 L Carbon Dioxide 25 Anion Gap 19 BUN 18 Creatinine 0.9 Est GFR ( Amer) > 60 Est GFR (Non-Af Amer) > 60 Random Glucose 416 H* D Calcium 9.6 Total Bilirubin 1.5 H AST 41 ALT 67 Alkaline Phosphatase 114 Troponin I Total Protein 7.3 Albumin 3.7 Globulin 3.6 Albumin/Globulin Ratio 1.0 Influenza Typ A,B (EIA) Negative for flu a/b 09/22/17 09/22/17 10:28 10:28 WBC RBC Hgb Hct MCV MCH MCHC RDW Plt Count MPV Neut % (Auto) Lymph % (Auto) [place] % (Auto) Eos % (Auto) Baso % (Auto) Neut # (Auto) Lymph # (Auto) [place] # (Auto) Eos # (Auto) Baso # (Auto) Neutrophils % (Manual) Lymphocytes % (Manual) Monocytes % (Manual) Eosinophils % (Manual) Platelet Estimate RBC Morphology PT 12.6 H INR 1.1 APTT 33 D-Dimer, Quantitative 504 H Sodium Potassium Chloride Carbon Dioxide Anion Gap BUN Creatinine Est GFR ( Amer) Est GFR (Non-Af Amer) Random Glucose Calcium Total Bilirubin AST ALT Alkaline Phosphatase Troponin I 0.0850 Total Protein Albumin Globulin Albumin/Globulin Ratio Influenza Typ A,B (EIA) Assessment & Plan - Assessment and Plan (Free Text) Assessment: HAP PNA v CHF CTA Chest no PE, bilateral pleural effusion and atelectasis f/u legionella Ag Urine f/u Mycoplasma Pneumonia f/u Rapid Strep f/u BNP f/u doppler b/L LE ddimer 504 Lasix 40mg IVP BID duoneb 2 puff IH Q4H PRN Vancomycin 1gm Q12H Zosyn 3.375 gm Q6H history of Third Degree AV Block s/p pacemaker placement 09/10/[address] Rogers, Dr. Keenan saw patient last visit telemetry Recent Right leg fracture Follow up on [place] 04 with [place] [facility] [place] with Stent ASA 81mg PO QD Plavix 75mg PO QD Crestor 20mg PO HS DM2 Levemir 40u SC BID Lispro 24 u SQ TIDAC Accucheck ACHS hypoglycemic protocol Hx HTN Apresoline 10mg POQID HCTZ 12.5mg PO QD amlodipine 10mg PO QD Valsartan 320mg PO QD (giving Losartan 100mg PO QD as substitute) Hx hyperlipidemia Welchol 625mg PO QD, not available in pharmacy Rosuvastatin Calcium 20mg PO QHS Hx asthma duoneb 2 puff IH Q4H PRN Claritin 10mg PO QD Hx of BPH and Prostate CA Flomax 0.4mg PO QD Hx of low Vitamin D Prophylaxis Pepcid 20mg BID Heparin 5000 u SC Q8H Heart Healthy Diet Low Carb diet Fever: Tylenol Bedside commode PT/OT discussed with Dr. Roberson - Date & Time Date: 09/22/17 Time: 13:43 <Borker,Alea V - Last Filed: 09/22/17 16:23> Results - Vital Signs Recent Vital Signs: Last Vital Signs Temp 98.1 F 09/22/17 12:16 Pulse 90 09/22/17 13:08 Resp 20 09/22/17 12:51 BP 172/86 H 09/22/17 12:35 Pulse Ox 96 09/22/17 13:20 - Labs Result Diagrams: 09/22/17 09:04 09/22/17 09:04 Labs: Laboratory Results - last 24 hr 09/22/17 09/22/17 09/22/17 09:04 09:04 10:16 WBC 10.0 RBC 4.50 Hgb 12.7 Hct 38.4 MCV 85.3 MCH 28.2 MCHC 33.1 RDW 13.6 Plt Count 275 MPV 8.8 Neut % (Auto) 82.8 H Lymph % (Auto) 8.0 L [place] % (Auto) 6.7 Eos % (Auto) 1.9 Baso % (Auto) 0.6 Neut # (Auto) 8.3 H Lymph # (Auto) 0.8 L [place] # (Auto) 0.7 Eos # (Auto) 0.2 Baso # (Auto) 0.1 Neutrophils % (Manual) 79 H Lymphocytes % (Manual) 12 L Monocytes % (Manual) 8 Eosinophils % (Manual) 1 Platelet Estimate Normal RBC Morphology Normal PT INR APTT D-Dimer, Quantitative Sodium 136 Potassium 4.2 Chloride 97 L Carbon Dioxide 25 Anion Gap 19 BUN 18 Creatinine 0.9 Est GFR ( Amer) > 60 Est GFR (Non-Af Amer) > 60 Random Glucose 416 H* D Calcium 9.6 Total Bilirubin 1.5 H AST 41 ALT 67 Alkaline Phosphatase 114 Troponin I NT-Pro-B Natriuret Pep 2710 H Total Protein 7.3 Albumin 3.7 Globulin 3.6 Albumin/Globulin Ratio 1.0 Influenza Typ A,B (EIA) Negative for flu a/b 09/22/17 09/22/17 10:28 10:28 WBC RBC Hgb Hct MCV MCH MCHC RDW Plt Count MPV Neut % (Auto) Lymph % (Auto) [place] % (Auto) Eos % (Auto) Baso % (Auto) Neut # (Auto) Lymph # (Auto) [place] # (Auto) Eos # (Auto) Baso # (Auto) Neutrophils % (Manual) Lymphocytes % (Manual) Monocytes % (Manual) Eosinophils % (Manual) Platelet Estimate RBC Morphology PT 12.6 H INR 1.1 APTT 33 D-Dimer, Quantitative 504 H Sodium Potassium Chloride Carbon Dioxide Anion Gap BUN Creatinine Est GFR ( Amer) Est GFR (Non-Af Amer) Random Glucose Calcium Total Bilirubin AST ALT Alkaline Phosphatase Troponin I 0.0850 NT-Pro-B Natriuret Pep Total Protein Albumin Globulin Albumin/Globulin Ratio Influenza Typ A,B (EIA) Attending/Attestation - Attestation I have personally seen and examined this patient.: Yes I have fully participated in the care of the patient.: Yes I have reviewed all pertinent clinical information: Yes Notes (Text): Patient seen, examined and case discussed with day-time resident. Patient reports 3 day history of productive, white phylgem cough, shortness of breathe which did not improve which prompted him to come to the hospital. patient was recently hospitalized for abnormal Holter noting 3rd degree heart block, prompting pacemaker placement about two weeks ago. Patient could not take his medications this morning including his hypertensive medications and insulin but the coughing woke him up this morning. Discussed with ED, order for d-dimer, probnp, ruled out for flu, and for CT angio. Patient's Well criteria: 4 (immobilization from right leg fracture, recent surgery procedure), PE is plausible choice, and d-dimer was elevated. Reviewed CT Chest negative for PE, noting bilateral pleural effusion and atelectasis (official report available in the chart). Discussed admitting orders with the resident including: Cardiology: patient sees Dr Bernstein as outpatient was followed by Dr Keenan last admission Assessment/Plan 1) Pneumona, healthcare associated pneumonia * Monitor on telemetry * Risk factor: recently in the hospital in the past 90 days * Ordered for Legionella, Mycoplasma Pneumonaie, Rapid Strep * Ruled out influenza * elevated probnp * Dimer 504 * Start Lasix 40mg IVP BID * Duoneb 2 puff IH Q4H scheduled * Start Vancomycin 1gm Q12H and Zosyn 3.375 gm Q6H for empiric antibiotic coverage * CT Chest (09/22/17): no evidence of acute central pulmonary embolus. Nodular opacities seen throughout the upper lobes bilaterally as well as right middle lobe. Bilateral effusions and bibasilar atelectasis right greater than left. * Incentive spirometry 2) Diastolic Heart Failure Pulmonary Hypertension History of Third Degree AV Block s/p pacemaker placement * 09/10/[address] Rogers, Dr. Keenan saw patient last visit * Site: no erythema, no pain on palpation, mild swelling * Echocardiogram (02/11/17): moderate concentric left ventricular hypertrophy. left ventricular systolic function is normal. Moderate left ventricular diastolic dysfunction. Grade II-pseudonormal filling dynamics. Right ventricular systolic function is normal. b-atrial enlargement. mild regurgitation is trace to mild. Moderate pulmonary hypertension. Right ventricular systolic presssure is estimated at 4-550mmg Hg. No percardial effusion. * Will recheck echo * elevated probnp 3) Recent Right leg fracture * [place] [facility] [place], leg was casted in the ED and he was told ollow up on October 04 with [place]o [place] [facility] [place] Patient reports he was told not to walk, which he has except when he needs to go to the bathroom 4) CAD with Stent * ASA 81mg PO QDaily * Plavix 75mg PO QDaily * Crestor 20mg PO HS 5) History of DM2 * Elevated sugar this morning-->he missed his morning dose. * Levemir 40u SC BID * Lispro 24 u SQ TIDAC * Accucheck ACHS * hypoglycemic protocol * check a1c, and lipid panel 6) History of Hypertension * Hydralazine 10mg PO QID * HCTZ 12.5mg PO QDaily * Amlodipine 10mg PO QDaily * Valsartan 320mg PO QDaily not available on hospital formulary (giving Losartan 100mg PO QD as substitute) 7) Hx hyperlipidemia * Welchol 625mg PO QD, not available in pharmacy * Rosuvastatin Calcium 20mg PO QHS 8) Hx asthma * duoneb 2 puff IH Q4H scheduled * Claritin 10mg PO QD 9) Hx of BPH and Prostate CA * Flomax 0.4mg PO QD 10)Hx of low Vitamin D 11) Prophylaxis * Pepcid 20mg BID * Heparin 5000 u SC Q8H * Heart Healthy Diet Low Carb diet * Fever: Tylenol * Bedside commode * PT/OT eval
--- NOTE | 2017-09-22 11:47 | RAD ---
PROCEDURE: CHEST RADIOGRAPH, 1 VIEW HISTORY: Cough and fever COMPARISON: Comparison chest dated 09/10/2017. FINDINGS: LUNGS: Mild central pulmonary vascular congestive changes are again seen with more confluent opacities in the lower lung zones felt to represent representing alveolar-type infiltrates PLEURA: Tiny bilateral effusions not excluded. CARDIOVASCULAR: Heart appears upper limits of normal/borderline enlarged. No change bipolar pacemaker/defibrillator re- demonstrated are metallic clips overlying the left upper thorax adjacent to the superior margin of the pacemaker. OSSEOUS STRUCTURES: No significant abnormalities. VISUALIZED UPPER ABDOMEN: Normal. OTHER FINDINGS: None. IMPRESSION: Mild central pulmonary vascular congestive changes are again seen with more confluent opacities in the lower lung zones felt to represent representing alveolar-type infiltrates. Questionable tiny bilateral effusions See above discussion for additional details and findings
[2017-09-22] MEDS ORDERED: Albuterol-Ipratrop 3 mg / 0.5 (3 ml) UD INH STA (11:58)
[2017-09-22] MEDS ORDERED: Dextrose 50% SYRINGE Inj (50 ml) IV PRN (12:09)
[2017-09-22] MEDS ORDERED: Glucagon Recombinant 1 mg Inj IM PRN (12:09)
--- NOTE | 2017-09-22 12:48 | CT ---
PROCEDURE: CT Chest with contrast (Pulmonary Angiogram) HISTORY: SOB, cough, r/o PE COMPARISON: Comparison made with CTA chest 02/13/2017 TECHNIQUE: Axial computed tomography images were obtained of the chest in the pulmonary arterial phase of enhancement. Coronal and sagittal reformatted images were created and reviewed. Intravenous contrast dose: 100 cc Visipaque contrast material. Radiation dose: Total exam DLP = 549.85 mGy-cm. This CT exam was performed using one or more of the following dose reduction techniques: Automated exposure control, adjustment of the mA and/or kV according to patient size, and/or use of iterative reconstruction technique. FINDINGS: PULMONARY ARTERIES: The visualized pulmonary trunk, right and left main, lobar, segmental and proximal appear patent. No definitive large central filling defects seen to suggest acute central pulmonary embolus. Note that the distal branches are poorly seen particularly in the lower lung garcia due to bilateral effusions and bibasilar atelectasis right greater than left. Pulmonary trunk measures approximately 2.9 cm. AORTA: Ascending thoracic aorta measures approximately 3.0 cm and descending thoracic aorta measures approximately 2.5 cm. LUNGS: Small bilateral effusions and bibasilar atelectasis right greater than left. Nodular opacities are seen throughout the left upper and right upper lobes as well as middle lobe. PLEURAL SPACES: Unremarkable. No effusion or pneumothorax the and. HEART: Heart size is upper limits of normal. No significant pericardial effusion. The right atrium appears dilated. LYMPH NODES: Few small nonspecific mediastinal and hilar lymph nodes are present. Central airways are midline and patent. No large central endoluminal lesions. There is a small hiatal hernia. BONES, CHEST WALL: Minor multilevel degenerative spondylosis of the thoracic spine. Minor bilateral gynecomastia changes are present. . OTHER FINDINGS: There appears to be a tiny calcification along the anterior superior margin of the hepatic surface. IMPRESSION: No evidence of acute central pulmonary embolus. Nodular opacities seen throughout the upper lobes bilaterally as well as right middle lobe. Bilateral effusions and bibasilar atelectasis right greater than left. At
[2017-09-22] MEDS: Albuterol-Ipratrop 3 mg / 0.5 (3 ml) UD INH SCH ×3 (13:03→19:45)
[2017-09-22 14:20] LABS: B-TYPE NATRIURETIC PEPTIDE 2710 pg/mL (0-900)
[2017-09-22] MEDS: (Novolog) Insulin Aspart, Recombinant 100 u/ml 10 ml vial SC SCH (16:32)
[2017-09-22] MEDS: Piperacill/Tazo 3.375gm in Dex 3.375 GM/50 ML BAG IVPB SCH ×2 (16:32→21:27)
[2017-09-22 17:16] LABS: CK-MB 0.89 ng/mL (0.0-3.38); TROPONIN I 0.111 ng/mL (0.00-0.120)
[2017-09-22] MEDS: guaiFENesin 600 mg ER Tab PO SCH (17:17)
[2017-09-22] MEDS: Saccharomyces Boulardi 250 mg Cap PO SCH (17:17)
[2017-09-22] MEDS: Insulin Detemir 100 units/ml Vial (Levemir) SC SCH (17:18)
[2017-09-22 17:24] LABS: LEGIONELLA AG URINE NEGATIVE (NEGATIVE)
[2017-09-22 17:31] LABS: MYCOPLASMA PNEUMONIAE IGM NEGATIVE (NEGATIVE)
[2017-09-22] MEDS ORDERED: MethylPREDNISolone 40 mg Vial IVP STA (17:39)
[2017-09-22] MEDS: (Novolin R) Insulin Human Regular 100 units/ml vial SC SCH (21:28)
[2017-09-22] MEDS: Vancomycin 1 gm/NS 200 ml 1 GM/200 ML BAG IVPB SCH (23:06)
[2017-09-22 23:24] LABS: CK-MB 0.95 ng/mL (0.0-3.38); TROPONIN I 0.141 ng/mL (0.00-0.120)
--- NOTE | 2017-09-22 23:27 | CP.PCM.CON ---
History of Present Illness - History of Present Illness History of Present Illness: Patient seen and evaluated H/O heart block s/p PPM Admitted for pneumonia PPM site healthy Will follow Past Patient History - Infectious Disease Hx of Infectious Diseases: None - Past Medical History & Family History Past Medical History?: Yes - Past Social History Smoking Status: Never Smoked - CARDIAC Hx Hypercholesterolemia: Yes Hx Hypertension: Yes Hx Pacemaker: Yes - PULMONARY Hx Asthma: Yes - NEUROLOGICAL Hx Neurological Disorder: No - HEENT Hx HEENT Problems: Yes Hx Cataracts: Yes Hx Glaucoma: Yes - RENAL Hx Chronic Kidney Disease: No - ENDOCRINE/METABOLIC Hx Endocrine Disorders: Yes Hx Diabetes Mellitus Type 2: Yes - HEMATOLOGICAL/ONCOLOGICAL Hx Blood Disorders: No - INTEGUMENTARY Hx Dermatological Problems: No - MUSCULOSKELETAL/RHEUMATOLOGICAL Hx Falls: No - GASTROINTESTINAL Hx Gastrointestinal Disorders: No - GENITOURINARY/GYNECOLOGICAL Hx Genitourinary Disorders: Yes Hx Prostate Cancer: Yes - PSYCHIATRIC Hx Substance Use: No - SURGICAL HISTORY Hx Coronary Stent: Yes (x4) - ANESTHESIA Hx Anesthesia: Yes Hx Anesthesia Reactions: No Meds Allergies/Adverse Reactions: Allergies Allergy/AdvReac Type Severity Reaction Status Date / Time No Known Allergies Allergy Verified 09/10/17 12:28 - Medications Medications: Current Medications Acetaminophen (Tylenol 325mg Tab) 650 mg PO Q6 PRN PRN Reason: Fever >100.4 F Last Admin: 09/22/17 17:16 Dose: 650 mg Albuterol/Ipratropium (Duoneb 3 Mg/0.5 Mg (3 Ml) Ud) 3 ml INH RQ4 [facility] Last Admin: 09/22/17 19:45 Dose: 3 ml Amlodipine Besylate (Norvasc) 10 mg PO DAILY [facility] Aspirin (Ecotrin) 81 mg PO DAILY [facility] Last Admin: 09/22/17 12:44 Dose: 81 mg Clopidogrel Bisulfate (Plavix) 75 mg PO DAILY [facility] Last Admin: 09/22/17 12:44 Dose: 75 mg Dextrose (Dextrose 50% Inj) 0 ml IV STAT PRN; Protocol PRN Reason: Hypoglycemia Protocol Dextrose (Glutose 15) 0 gm PO ONCE PRN; Protocol PRN Reason: Hypoglycemia Protocol Famotidine (Pepcid) 20 mg PO BID [facility] Last Admin: 09/22/17 17:17 Dose: 20 mg Furosemide (Lasix) 40 mg IVP BID [facility] Last Admin: 09/22/17 17:18 Dose: 40 mg Glucagon (Glucagen Diagnostic Kit) 0 mg IM STAT PRN; Protocol PRN Reason: Hypoglycemia Protocol Guaifenesin (Mucinex La) 600 mg PO BID [facility] Last Admin: 09/22/17 17:17 Dose: 600 mg Heparin Sodium (Porcine) (Heparin) 5,000 units SC Q8 [facility] Last Admin: 09/22/17 21:27 Dose: 5,000 units Hydralazine HCl (Apresoline) 10 mg PO QID [facility] Last Admin: 09/22/17 21:26 Dose: 10 mg Hydrochlorothiazide (Microzide) 12.5 mg PO DAILY [facility] Vancomycin HCl (Vancomycin 1gm In Normal Saline Addvantage) 1 gm in 250 mls @ 166.667 mls/hr IV STAT [facility] PRN Reason: Protocol Piperacillin Sod/Tazobactam Sod (Zosyn 3.375 Gm Iv Premix) 3.375 gm in 50 mls @ 100 mls/hr IVPB Q6H [facility] PRN Reason: Protocol Stop: 09/29/17 16:01 Last Admin: 09/22/17 21:27 Dose: 100 mls/hr Vancomycin/Sodium Chloride (Vancomycin 1 Gm/Ns 200 Ml) 1 gm in 200 mls @ 133 mls/hr IVPB Q12H [facility] PRN Reason: Protocol Stop: 09/29/17 22:31 Last Admin: 09/22/17 23:06 Dose: 133 mls/hr Dextrose (Dextrose 5% In Water 1000 Ml) 1,000 mls @ 0 mls/hr IV .Q0M PRN; Protocol; Per Protocol PRN Reason: Hypoglycemia Protocol Insulin Aspart (Novolog) 24 unit SC TIDAC [facility] Last Admin: 09/22/17 16:32 Dose: 24 unit Insulin Detemir (Levemir) 40 unit SC BID [facility] Last Admin: 09/22/17 17:18 Dose: 40 unit Insulin Human Regular (Novolin R) 0 unit SC ACHS [facility] PRN Reason: Protocol Last Admin: 09/22/17 21:28 Dose: Not Given Loratadine (Claritin) 10 mg PO DAILY [facility] Losartan Potassium (Cozaar) 100 mg PO DAILY [facility] Rosuvastatin Calcium (Crestor) 20 mg PO HS [facility] Last Admin: 09/22/17 21:26 Dose: 20 mg Saccharomyces Boulardii (Florastor) 250 mg PO BID [facility] Last Admin: 09/22/17 17:17 Dose: 250 mg Tamsulosin HCl (Flomax) 0.4 mg PO DAILY [facility] Results - Vital Signs Recent Vital Signs: Last Vital Signs Temp 99.1 F 09/22/17 18:16 Pulse 101 H 09/22/17 15:55 Resp 20 09/22/17 15:05 BP 168/77 H 09/22/17 17:18 Pulse Ox 97 09/22/17 15:05 - Labs Result Diagrams: 09/22/17 09:04 09/22/17 09:04 Labs: Laboratory Results - last 24 hr 09/22/17 09/22/17 09/22/17 09:04 09:04 10:16 WBC 10.0 RBC 4.50 Hgb 12.7 Hct 38.4 MCV 85.3 MCH 28.2 MCHC 33.1 RDW 13.6 Plt Count 275 MPV 8.8 Neut % (Auto) 82.8 H Lymph % (Auto) 8.0 L [place] % (Auto) 6.7 Eos % (Auto) 1.9 Baso % (Auto) 0.6 Neut # (Auto) 8.3 H Lymph # (Auto) 0.8 L [place] # (Auto) 0.7 Eos # (Auto) 0.2 Baso # (Auto) 0.1 Neutrophils % (Manual) 79 H Lymphocytes % (Manual) 12 L Monocytes % (Manual) 8 Eosinophils % (Manual) 1 Platelet Estimate Normal RBC Morphology Normal PT INR APTT D-Dimer, Quantitative Sodium 136 Potassium 4.2 Chloride 97 L Carbon Dioxide 25 Anion Gap 19 BUN 18 Creatinine 0.9 Est GFR ( Amer) > 60 Est GFR (Non-Af Amer) > 60 POC Glucose (mg/dL) Random Glucose 416 H* D Calcium 9.6 Total Bilirubin 1.5 H AST 41 ALT 67 Alkaline Phosphatase 114 Total Creatine Kinase CK-MB (Mass) Troponin I NT-Pro-B Natriuret Pep 2710 H Total Protein 7.3 Albumin 3.7 Globulin 3.6 Albumin/Globulin Ratio 1.0 Influenza Typ A,B (EIA) Negative for flu a/b Ur L.pneumophila Ag Mycoplasma pneumon IgM Grp A Beta Strep Ag 09/22/17 09/22/17 09/22/17 10:28 10:28 16:20 WBC RBC Hgb Hct MCV MCH MCHC RDW Plt Count MPV Neut % (Auto) Lymph % (Auto) [place] % (Auto) Eos % (Auto) Baso % (Auto) Neut # (Auto) Lymph # (Auto) [place] # (Auto) Eos # (Auto) Baso # (Auto) Neutrophils % (Manual) Lymphocytes % (Manual) Monocytes % (Manual) Eosinophils % (Manual) Platelet Estimate RBC Morphology PT 12.6 H INR 1.1 APTT 33 D-Dimer, Quantitative 504 H Sodium Potassium Chloride Carbon Dioxide Anion Gap BUN Creatinine Est GFR ( Amer) Est GFR (Non-Af Amer) POC Glucose (mg/dL) 498 H* Random Glucose Calcium Total Bilirubin AST ALT Alkaline Phosphatase Total Creatine Kinase CK-MB (Mass) Troponin I 0.0850 NT-Pro-B Natriuret Pep Total Protein Albumin Globulin Albumin/Globulin Ratio Influenza Typ A,B (EIA) Ur L.pneumophila Ag Mycoplasma pneumon IgM Grp A Beta Strep Ag 09/22/17 09/22/17 09/22/17 16:22 16:41 16:43 WBC RBC Hgb Hct MCV MCH MCHC RDW Plt Count MPV Neut % (Auto) Lymph % (Auto) [place] % (Auto) Eos % (Auto) Baso % (Auto) Neut # (Auto) Lymph # (Auto) [place] # (Auto) Eos # (Auto) Baso # (Auto) Neutrophils % (Manual) Lymphocytes % (Manual) Monocytes % (Manual) Eosinophils % (Manual) Platelet Estimate RBC Morphology PT INR APTT D-Dimer, Quantitative Sodium Potassium Chloride Carbon Dioxide Anion Gap BUN Creatinine Est GFR ( Amer) Est GFR (Non-Af Amer) POC Glucose (mg/dL) 403 H* Random Glucose Calcium Total Bilirubin AST ALT Alkaline Phosphatase Total Creatine Kinase 134 CK-MB (Mass) 0.89 Troponin I 0.1110 NT-Pro-B Natriuret Pep Total Protein Albumin Globulin Albumin/Globulin Ratio Influenza Typ A,B (EIA) Ur L.pneumophila Ag Negative Mycoplasma pneumon IgM Negative Grp A Beta Strep Ag 09/22/17 09/22/17 17:36 22:53 WBC RBC Hgb Hct MCV MCH MCHC RDW Plt Count MPV Neut % (Auto) Lymph % (Auto) [place] % (Auto) Eos % (Auto) Baso % (Auto) Neut # (Auto) Lymph # (Auto) [place] # (Auto) Eos # (Auto) Baso # (Auto) Neutrophils % (Manual) Lymphocytes % (Manual) Monocytes % (Manual) Eosinophils % (Manual) Platelet Estimate RBC Morphology PT INR APTT D-Dimer, Quantitative Sodium Potassium Chloride Carbon Dioxide Anion Gap BUN Creatinine Est GFR ( Amer) Est GFR (Non-Af Amer) POC Glucose (mg/dL) Random Glucose Calcium Total Bilirubin AST ALT Alkaline Phosphatase Total Creatine Kinase 254 H CK-MB (Mass) 0.95 Troponin I 0.1410 H* NT-Pro-B Natriuret Pep Total Protein Albumin Globulin Albumin/Globulin Ratio Influenza Typ A,B (EIA) Ur L.pneumophila Ag Mycoplasma pneumon IgM Grp A Beta Strep Ag Negative
[2017-09-23] MEDS: Albuterol-Ipratrop 3 mg / 0.5 (3 ml) UD INH SCH ×6 (01:42→19:56)
[2017-09-23] MEDS: Piperacill/Tazo 3.375gm in Dex 3.375 GM/50 ML BAG IVPB SCH ×4 (03:59→22:41)
[2017-09-23 08:07] LABS: BASO % 0.1 % (0.0-2.0); HEMOGLOBIN 12.8 g/dL (12.0-18.0); LYMPH # 0.6 K/uL (1.0-4.3); LYMPH % 5.7 % (20.0-40.0); MEAN CELL VOLUME 85.1 fL (80.0-94.0); MEAN CORPUSCULAR HEMOGLOBIN 28.4 pg (27.0-31.0); MEAN CORPUSCULAR HGB CONC 33.4 g/dL (33.0-37.0); MEAN PLATELET VOLUME 9.1 fL (7.2-11.7); MONO # 0.3 K/uL (0.0-0.8); MONO % 2.9 % (0.0-10.0); NEUT # 10.2 K/uL (1.8-7.0); NEUT % 91.3 % (50.0-75.0); PLATELET COUNT 305 K/uL (130-400); RBC 4.51 Mil/uL (4.40-5.90); RED CELL DISTRIBUTION WIDTH 13.5 % (11.5-14.5); WHITE BLOOD COUNT 11.2 K/uL (4.8-10.8)
[2017-09-23 08:10] LABS: ALBUMIN 3.4 g/dL (3.5-5.0); ALT/SGPT 55 U/L (21-72); AST/SGOT 38 U/L (17-59); BLOOD UREA NITROGEN 19 mg/dL (9-20); CALCIUM 9.4 mg/dl (8.6-10.4); GFR AFRICAN-AMERICAN > 60; GFR NON-AFRICAN AMERICAN > 60; HDL CHOLESTEROL 38 mg/dL (30-70)
[2017-09-23] MEDS: (Novolog) Insulin Aspart, Recombinant 100 u/ml 10 ml vial SC SCH ×3 (08:33→17:49)
[2017-09-23] MEDS: (Novolin R) Insulin Human Regular 100 units/ml vial SC SCH ×4 (08:33→22:40)
[2017-09-23 08:45] LABS: LDL CHOLESTEROL 136 mg/dL (0-129)
[2017-09-23] MEDS: Insulin Detemir 100 units/ml Vial (Levemir) SC SCH ×2 (09:38→18:00)
[2017-09-23] MEDS: guaiFENesin 600 mg ER Tab PO SCH ×2 (09:39→17:48)
[2017-09-23 09:57] LABS: BANDS 5 % (0-2); LYMPHOCYTE 7 % (20-40); MONOCYTE 1 % (0-10); NEUTROPHIL 87 % (50-75); PLATELET ESTIMATE NORMAL (NORMAL); TOTAL CELLS COUNTED 100
[2017-09-23 09:58] LABS: OVALOCYTES SLIGHT
[2017-09-23] MEDS: Saccharomyces Boulardi 250 mg Cap PO SCH ×2 (11:51→17:47)
[2017-09-23] MEDS: Vancomycin 1 gm/NS 200 ml 1 GM/200 ML BAG IVPB SCH ×2 (11:51→22:42)
--- NOTE | 2017-09-23 11:54 | CARD ---
APPROVED REPORT EKG Measurement Heart [id number] <Conclusion> Atrial-sensed ventricular-paced rhythm with prolonged AV conduction Abnormal ECG
--- NOTE | 2017-09-23 13:49 | CP.PCM.PN ---
<Yobani Ortega - Last Filed: 09/23/17 16:06> Subjective - Date & Time of Evaluation Date of Evaluation: 09/23/17 Time of Evaluation: 09:45 - Subjective Subjective: PGY2 Cardiology progress note for Dr. Keenan Patient seen and examined at bedside. Patient recently hospitalized on 09/10 for 3rd degree heart block s/p PPM insertion with Dr. Rogers. Currently c/o cough 2/ 2 pneumonia. Denies chest pain, SOB, LE edema, or dizziness. R foot is wrapped 2 /2 recent fracture. 12-point ROS otherwise negative. Objective - Vital Signs/Intake and Output Vital Signs (last 24 hours): Temp Pulse Resp BP Pulse Ox 97.6 F 116 H 20 163/85 H 98 09/23/17 08:42 09/23/17 08:42 09/23/17 08:42 09/23/17 10:08 09/23/17 08:42 Intake and Output: 09/23/17 09/23/17 06:59 18:59 Intake Total 50 Balance 50 - Medications Medications: Current Medications Acetaminophen (Tylenol 325mg Tab) 650 mg PO Q6 PRN PRN Reason: Fever >100.4 F Last Admin: 09/22/17 17:16 Dose: 650 mg Albuterol/Ipratropium (Duoneb 3 Mg/0.5 Mg (3 Ml) Ud) 3 ml INH RQ4 [facility] Last Admin: 09/23/17 13:09 Dose: 3 ml Amlodipine Besylate (Norvasc) 10 mg PO DAILY [facility] Last Admin: 09/23/17 09:29 Dose: 10 mg Aspirin (Ecotrin) 81 mg PO DAILY [facility] Last Admin: 09/23/17 09:38 Dose: 81 mg Clopidogrel Bisulfate (Plavix) 75 mg PO DAILY [facility] Last Admin: 09/23/17 09:38 Dose: 75 mg Dextrose (Dextrose 50% Inj) 0 ml IV STAT PRN; Protocol PRN Reason: Hypoglycemia Protocol Dextrose (Glutose 15) 0 gm PO ONCE PRN; Protocol PRN Reason: Hypoglycemia Protocol Famotidine (Pepcid) 20 mg PO BID [facility] Last Admin: 09/23/17 09:39 Dose: 20 mg Furosemide (Lasix) 40 mg IVP BID [facility] Last Admin: 09/23/17 10:08 Dose: 40 mg Glucagon (Glucagen Diagnostic Kit) 0 mg IM STAT PRN; Protocol PRN Reason: Hypoglycemia Protocol Guaifenesin (Mucinex La) 600 mg PO BID [facility] Last Admin: 09/23/17 09:39 Dose: 600 mg Heparin Sodium (Porcine) (Heparin) 5,000 units SC Q8 [facility] Last Admin: 09/23/17 05:19 Dose: 5,000 units Hydralazine HCl (Apresoline) 10 mg PO QID [facility] Last Admin: 09/23/17 09:38 Dose: 10 mg Hydrochlorothiazide (Microzide) 12.5 mg PO DAILY [facility] Last Admin: 09/23/17 09:39 Dose: 12.5 mg Piperacillin Sod/Tazobactam Sod (Zosyn 3.375 Gm Iv Premix) 3.375 gm in 50 mls @ 100 mls/hr IVPB Q6H [facility] PRN Reason: Protocol Stop: 09/29/17 16:01 Last Admin: 09/23/17 09:37 Dose: 100 mls/hr Vancomycin/Sodium Chloride (Vancomycin 1 Gm/Ns 200 Ml) 1 gm in 200 mls @ 133 mls/hr IVPB Q12H [facility] PRN Reason: Protocol Stop: 09/29/17 22:31 Last Admin: 09/23/17 11:51 Dose: 133 mls/hr Dextrose (Dextrose 5% In Water 1000 Ml) 1,000 mls @ 0 mls/hr IV .Q0M PRN; Protocol; Per Protocol PRN Reason: Hypoglycemia Protocol Insulin Aspart (Novolog) 24 unit SC TIDAC [facility] Last Admin: 09/23/17 11:48 Dose: Not Given Insulin Detemir (Levemir) 40 unit SC BID [facility] Last Admin: 09/23/17 09:38 Dose: 40 unit Insulin Human Regular (Novolin R) 0 unit SC ACHS [facility] PRN Reason: Protocol Last Admin: 09/23/17 11:48 Dose: Not Given Loratadine (Claritin) 10 mg PO DAILY [facility] Last Admin: 09/23/17 09:39 Dose: 10 mg Losartan Potassium (Cozaar) 100 mg PO DAILY [facility] Last Admin: 09/23/17 09:39 Dose: 100 mg Rosuvastatin Calcium (Crestor) 20 mg PO HS [facility] Last Admin: 09/22/17 21:26 Dose: 20 mg Saccharomyces Boulardii (Florastor) 250 mg PO BID [facility] Last Admin: 09/23/17 11:51 Dose: 250 mg Tamsulosin HCl (Flomax) 0.4 mg PO DAILY [facility] Last Admin: 09/23/17 09:38 Dose: 0.4 mg - Labs Labs: 09/23/17 08:13 09/23/17 07:47 PT 12.6 SECONDS (9.7-12.2) H 09/22/17 10:28 INR 1.1 09/22/17 10:28 APTT 33 SECONDS (21-34) 09/22/17 10:28 - Additional Findings Additional findings: - Constitutional Appears: Well, No Acute Distress - Head Exam Head Exam: ATRAUMATIC, NORMAL INSPECTION - Eye Exam Eye Exam: EOMI, Normal appearance - ENT Exam ENT Exam: Mucous Membranes Moist, Normal Exam - Neck Exam Neck exam: Positive for: Full Rom. Negative for: Tenderness, Thyromegaly - Respiratory Exam Respiratory Exam: Clear to Auscultation Bilateral, Rales (mild), NORMAL BREATHING PATTERN. absent: Decreased Breath Sounds - Cardiovascular Exam Cardiovascular Exam: REGULAR RHYTHM, +S1, +S2. absent: Bradycardia, Tachycardia Note: Left chest wall, PPM site is CDI - GI/Abdominal Exam GI & Abdominal Exam: Normal Bowel Sounds, Soft. absent: Tenderness - Extremities Exam Extremities exam: Negative for: pedal edema Additional comments: right leg in cast, no pitting edema evident - Neurological Exam Neurological exam: Alert, CN II-XII Intact, Normal Gait, Oriented x3 - Psychiatric Exam Psychiatric exam: Normal Affect, Normal Mood - Skin Skin Exam: Dry, Normal Color, Warm Assessment and Plan - Assessment and Plan (Free Text) Assessment: 3rd Degree Heart Block s/p PPM PPM placed on 09/[address] Rogers Admitted for pneumonia PPM site healthy, CDI CAD with Stent ASA 81mg PO QD Plavix 75mg PO QD Crestor 20mg PO HS Hx HTN Apresoline 10mg POQID HCTZ 12.5mg PO QD amlodipine 10mg PO QD Valsartan 320mg PO QD (giving Losartan 100mg PO QD as substitute) Hx hyperlipidemia Welchol 625mg PO QD, not available in pharmacy Rosuvastatin Calcium 20mg PO QHS Case discussed with Dr. Shlomo Ortega, PGY2 <Maximino Keenan - Last Filed: 09/23/17 23:00> Objective - Vital Signs/Intake and Output Vital Signs (last 24 hours): Temp Pulse Resp BP Pulse Ox 98.1 F 91 H 20 160/94 H 95 09/23/17 15:00 09/23/17 17:30 09/23/17 15:00 09/23/17 17:48 09/23/17 15:00 Intake and Output: 09/23/17 09/24/17 18:59 06:59 Intake Total 580 Balance 580 - Medications Medications: Current Medications Acetaminophen (Tylenol 325mg Tab) 650 mg PO Q6 PRN PRN Reason: Fever >100.4 F Last Admin: 09/22/17 17:16 Dose: 650 mg Albuterol/Ipratropium (Duoneb 3 Mg/0.5 Mg (3 Ml) Ud) 3 ml INH RQ4 [facility] Last Admin: 09/23/17 19:56 Dose: 3 ml Amlodipine Besylate (Norvasc) 10 mg PO DAILY [facility] Last Admin: 09/23/17 09:29 Dose: 10 mg Aspirin (Ecotrin) 81 mg PO DAILY [facility] Last Admin: 09/23/17 09:38 Dose: 81 mg Clopidogrel Bisulfate (Plavix) 75 mg PO DAILY [facility] Last Admin: 09/23/17 09:38 Dose: 75 mg Dextrose (Dextrose 50% Inj) 0 ml IV STAT PRN; Protocol PRN Reason: Hypoglycemia Protocol Dextrose (Glutose 15) 0 gm PO ONCE PRN; Protocol PRN Reason: Hypoglycemia Protocol Famotidine (Pepcid) 20 mg PO BID [facility] Last Admin: 09/23/17 17:49 Dose: 20 mg Furosemide (Lasix) 40 mg IVP BID [facility] Last Admin: 09/23/17 17:48 Dose: 40 mg Glucagon (Glucagen Diagnostic Kit) 0 mg IM STAT PRN; Protocol PRN Reason: Hypoglycemia Protocol Guaifenesin (Mucinex La) 600 mg PO BID [facility] Last Admin: 09/23/17 17:48 Dose: 600 mg Heparin Sodium (Porcine) (Heparin) 5,000 units SC Q8 [facility] Last Admin: 09/23/17 22:02 Dose: 5,000 units Hydralazine HCl (Apresoline) 10 mg PO QID [facility] Last Admin: 09/23/17 22:02 Dose: 10 mg Hydrochlorothiazide (Microzide) 12.5 mg PO DAILY [facility] Last Admin: 09/23/17 09:39 Dose: 12.5 mg Piperacillin Sod/Tazobactam Sod (Zosyn 3.375 Gm Iv Premix) 3.375 gm in 50 mls @ 100 mls/hr IVPB Q6H [facility] PRN Reason: Protocol Stop: 09/29/17 16:01 Last Admin: 09/23/17 22:41 Dose: 100 mls/hr Vancomycin/Sodium Chloride (Vancomycin 1 Gm/Ns 200 Ml) 1 gm in 200 mls @ 133 mls/hr IVPB Q12H [facility] PRN Reason: Protocol Stop: 09/29/17 22:31 Last Admin: 09/23/17 22:42 Dose: 133 mls/hr Dextrose (Dextrose 5% In Water 1000 Ml) 1,000 mls @ 0 mls/hr IV .Q0M PRN; Protocol; Per Protocol PRN Reason: Hypoglycemia Protocol Insulin Aspart (Novolog) 24 unit SC TIDAC [facility] Last Admin: 09/23/17 17:49 Dose: Not Given Insulin Detemir (Levemir) 40 unit SC BID [facility] Last Admin: 09/23/17 18:00 Dose: Not Given Insulin Human Regular (Novolin R) 0 unit SC ACHS [facility] PRN Reason: Protocol Last Admin: 09/23/17 22:40 Dose: Not Given Loratadine (Claritin) 10 mg PO DAILY [facility] Last Admin: 09/23/17 09:39 Dose: 10 mg Losartan Potassium (Cozaar) 100 mg PO DAILY [facility] Last Admin: 09/23/17 09:39 Dose: 100 mg Rosuvastatin Calcium (Crestor) 20 mg PO HS [facility] Last Admin: 09/23/17 22:01 Dose: 20 mg Saccharomyces Boulardii (Florastor) 250 mg PO BID [facility] Last Admin: 09/23/17 17:47 Dose: 250 mg Tamsulosin HCl (Flomax) 0.4 mg PO DAILY [facility] Last Admin: 09/23/17 09:38 Dose: 0.4 mg - Labs Labs: 09/23/17 08:13 09/23/17 07:47 PT 12.6 SECONDS (9.7-12.2) H 09/22/17 10:28 INR 1.1 09/22/17 10:28 APTT 33 SECONDS (21-34) 09/22/17 10:28 Assessment and Plan - Assessment and Plan (Free Text) Plan: Patient seen and evaluated personally by me Plan of care d/w the resident and as documented
--- NOTE | 2017-09-23 15:57 | VASCLAB ---
PROCEDURE: Lower Extremity Venous Duplex Exam. HISTORY: Dyspnea PRIORS: None. TECHNIQUE: Bilateral common femoral, femoral, popliteal and posterior tibial, peroneal and great saphenous veins were evaluated. Flow was assessed with color Doppler, compressibility, assessment of phasic flow and augmentation response. Report prepared by BETTY Jin, RVT FINDINGS: RIGHT: 1. Common Femoral Vein: 1.1. Compressibility - Fully compressible: Thrombus - None : Flow - Phasic: Augmentation -Normal: Reflux - None. 2. Femoral Vein: 2.1. Compressibility - Fully compressible: Thrombus - None : Flow - Phasic: Augmentation -Normal: Reflux - None. 3. Popliteal Vein: 3.1. Compressibility - Fully compressible: Thrombus - None : Flow - Phasic: Augmentation -Normal: Reflux - None. 4. Posterior Tibial Vein: 4.1. Compressibility - : Thrombus - : Flow - : Augmentation -: Reflux - . 5. Peroneal Vein: 5.1. Compressibility - : Thrombus - : Flow - : Augmentation -: Reflux - . 6. Great Saphenous Vein: 6.1. Compressibility - Fully compressible: Thrombus - None: Flow - Phasic: Augmentation - Normal: Reflux - None. LEFT: 1. Common Femoral Vein: 1.1. Compressibility - Fully compressible: Thrombus - None: Flow - Phasic: Augmentation -Normal: Reflux - None. 2. Femoral Vein: 2.1. Compressibility - Fully compressible: Thrombus - None: Flow - Phasic: Augmentation -Normal: Reflux - None. 3. Popliteal Vein: 3.1. Compressibility - Fully compressible: Thrombus - None : Flow - Phasic: Augmentation -Normal: Reflux - None. 4. Posterior Tibial Vein: 4.1. Compressibility - Fully compressible: Thrombus - None: Flow - Phasic: Augmentation -Normal: Reflux - None. 5. Peroneal Vein: 5.1. Compressibility - Fully compressible: Thrombus - None: Flow - Phasic: Augmentation -Normal: Reflux - None. 6. Great Saphenous Vein: 6.1. Compressibility - Fully compressible: Thrombus - None: Flow - Phasic: Augmentation - Normal: Reflux - None. OTHER FINDINGS: Right: Due cast on the lower leg, the peroneal and posterior tibial vein are not visualized. Left: None significant. IMPRESSION: Right: No evidence of deep or superficial vein thrombosis of the right lower extremity. Normal valve function noted of the right side. Left: No evidence of deep or superficial vein thrombosis of the left lower extremity. Normal valve function noted of the left side.
--- NOTE | 2017-09-23 16:37 | CP.PCM.PN ---
Subjective - Date & Time of Evaluation Date of Evaluation: 09/23/17 Time of Evaluation: 16:34 - Subjective Subjective: PGY-[address] Arita. No acute events noted overnight. Patient was resting comfortably in bed. Right foot still in case. He denied chest pain and shortness of breath. He stated he had cough with yellow sputum production. Otherwise he did not offer any complaints. Objective - Vital Signs/Intake and Output Vital Signs (last 24 hours): Temp Pulse Resp BP Pulse Ox 97.6 F 80 20 146/72 98 09/23/17 08:42 09/23/17 14:18 09/23/17 08:42 09/23/17 14:18 09/23/17 08:42 Intake and Output: 09/23/17 09/23/17 06:59 18:59 Intake Total 50 580 Balance 50 580 - Medications Medications: Current Medications Acetaminophen (Tylenol 325mg Tab) 650 mg PO Q6 PRN PRN Reason: Fever >100.4 F Last Admin: 09/22/17 17:16 Dose: 650 mg Albuterol/Ipratropium (Duoneb 3 Mg/0.5 Mg (3 Ml) Ud) 3 ml INH RQ4 [facility] Last Admin: 09/23/17 16:06 Dose: 3 ml Amlodipine Besylate (Norvasc) 10 mg PO DAILY [facility] Last Admin: 09/23/17 09:29 Dose: 10 mg Aspirin (Ecotrin) 81 mg PO DAILY [facility] Last Admin: 09/23/17 09:38 Dose: 81 mg Clopidogrel Bisulfate (Plavix) 75 mg PO DAILY [facility] Last Admin: 09/23/17 09:38 Dose: 75 mg Dextrose (Dextrose 50% Inj) 0 ml IV STAT PRN; Protocol PRN Reason: Hypoglycemia Protocol Dextrose (Glutose 15) 0 gm PO ONCE PRN; Protocol PRN Reason: Hypoglycemia Protocol Famotidine (Pepcid) 20 mg PO BID [facility] Last Admin: 09/23/17 09:39 Dose: 20 mg Furosemide (Lasix) 40 mg IVP BID [facility] Last Admin: 09/23/17 10:08 Dose: 40 mg Glucagon (Glucagen Diagnostic Kit) 0 mg IM STAT PRN; Protocol PRN Reason: Hypoglycemia Protocol Guaifenesin (Mucinex La) 600 mg PO BID [facility] Last Admin: 09/23/17 09:39 Dose: 600 mg Heparin Sodium (Porcine) (Heparin) 5,000 units SC Q8 [facility] Last Admin: 09/23/17 14:19 Dose: 5,000 units Hydralazine HCl (Apresoline) 10 mg PO QID [facility] Last Admin: 09/23/17 14:19 Dose: 10 mg Hydrochlorothiazide (Microzide) 12.5 mg PO DAILY [facility] Last Admin: 09/23/17 09:39 Dose: 12.5 mg Piperacillin Sod/Tazobactam Sod (Zosyn 3.375 Gm Iv Premix) 3.375 gm in 50 mls @ 100 mls/hr IVPB Q6H [facility] PRN Reason: Protocol Stop: 09/29/17 16:01 Last Admin: 09/23/17 09:37 Dose: 100 mls/hr Vancomycin/Sodium Chloride (Vancomycin 1 Gm/Ns 200 Ml) 1 gm in 200 mls @ 133 mls/hr IVPB Q12H [facility] PRN Reason: Protocol Stop: 09/29/17 22:31 Last Admin: 09/23/17 11:51 Dose: 133 mls/hr Dextrose (Dextrose 5% In Water 1000 Ml) 1,000 mls @ 0 mls/hr IV .Q0M PRN; Protocol; Per Protocol PRN Reason: Hypoglycemia Protocol Insulin Aspart (Novolog) 24 unit SC TIDAC [facility] Last Admin: 09/23/17 11:48 Dose: Not Given Insulin Detemir (Levemir) 40 unit SC BID [facility] Last Admin: 09/23/17 09:38 Dose: 40 unit Insulin Human Regular (Novolin R) 0 unit SC ACHS [facility] PRN Reason: Protocol Last Admin: 09/23/17 11:48 Dose: Not Given Loratadine (Claritin) 10 mg PO DAILY [facility] Last Admin: 09/23/17 09:39 Dose: 10 mg Losartan Potassium (Cozaar) 100 mg PO DAILY [facility] Last Admin: 09/23/17 09:39 Dose: 100 mg Rosuvastatin Calcium (Crestor) 20 mg PO HS [facility] Last Admin: 09/22/17 21:26 Dose: 20 mg Saccharomyces Boulardii (Florastor) 250 mg PO BID [facility] Last Admin: 09/23/17 11:51 Dose: 250 mg Tamsulosin HCl (Flomax) 0.4 mg PO DAILY [facility] Last Admin: 09/23/17 09:38 Dose: 0.4 mg - Labs Labs: 09/23/17 08:13 09/23/17 07:47 PT 12.6 SECONDS (9.7-12.2) H 09/22/17 10:28 INR 1.1 09/22/17 10:28 APTT 33 SECONDS (21-34) 09/22/17 10:28 - Additional Findings Additional findings: - Constitutional Appears: Well, No Acute Distress - Head Exam Head Exam: ATRAUMATIC, NORMAL INSPECTION, NORMOCEPHALIC - Eye Exam Eye Exam: EOMI, Normal appearance Pupil Exam: NORMAL ACCOMODATION, PERRL - ENT Exam ENT Exam: Mucous Membranes Moist, Normal Exam - Neck Exam Neck exam: Positive for: Full Rom. Negative for: Tenderness, Thyromegaly - Respiratory Exam Respiratory Exam: Rales, NORMAL BREATHING PATTERN. absent: Decreased Breath Sounds - Cardiovascular Exam Cardiovascular Exam: REGULAR RHYTHM, +S1, +S2. absent: Bradycardia, Tachycardia - GI/Abdominal Exam GI & Abdominal Exam: Normal Bowel Sounds, Soft. absent: Tenderness - Extremities Exam Extremities exam: Negative for: pedal edema Additional comments: right leg in cast no pitting edema noted on visible right lower extremity no pitting edema of left lower extremity - Back Exam Back exam: FULL ROM, NORMAL INSPECTION. absent: paraspinal tenderness, vertebral tenderness - Neurological Exam Neurological exam: Alert, CN II-XII Intact, Normal Gait, Oriented x3 - Psychiatric Exam Psychiatric exam: Normal Affect, Normal Mood - Skin Skin Exam: Dry, Normal Color, Warm Additional comments: left anterior chest has site of pacemaker placement Assessment and Plan - Assessment and Plan (Free Text) Assessment: 1) Pneumona, healthcare associated pneumonia * Monitor on telemetry * Risk factor: recently in the hospital in the past 90 days * Ordered for Legionella, Mycoplasma Pneumonaie, Rapid Strep * Ruled out influenza * elevated probnp * Dimer 504 * Start Lasix 40mg IVP BID * Duoneb 2 puff IH Q4H scheduled * Start Vancomycin 1gm Q12H and Zosyn 3.375 gm Q6H for empiric antibiotic coverage * CT Chest (09/22/17): no evidence of acute central pulmonary embolus. Nodular opacities seen throughout the upper lobes bilaterally as well as right middle lobe. Bilateral effusions and bibasilar atelectasis right greater than left. * Incentive spirometry 2) Diastolic Heart Failure Pulmonary Hypertension History of Third Degree AV Block s/p pacemaker placement * 09/10/[address] Rogers, Dr. Keenan saw patient last visit * Site: no erythema, no pain on palpation, mild swelling * Echocardiogram (02/11/17): moderate concentric left ventricular hypertrophy. left ventricular systolic function is normal. Moderate left ventricular diastolic dysfunction. Grade II-pseudonormal filling dynamics. Right ventricular systolic function is normal. b-atrial enlargement. mild regurgitation is trace to mild. Moderate pulmonary hypertension. Right ventricular systolic presssure is estimated at 4-550mmg Hg. No percardial effusion. * Will recheck echo * elevated probnp 3) Recent Right leg fracture * [place] [facility], leg was casted in the ED and he was told ollow up on October 04 with ortho at [facility] * Patient reports he was told not to walk, which he has except when he needs to go to the bathroom 4) CAD with Stent * ASA 81mg PO QDaily * Plavix 75mg PO QDaily * Crestor 20mg PO HS 5) History of DM2 * Elevated sugar this morning-->he missed his morning dose. * Levemir 40u SC BID * Lispro 24 u SQ TIDAC * Accucheck ACHS * hypoglycemic protocol * check a1c, and lipid panel 6) History of Hypertension * Hydralazine 10mg PO QID * HCTZ 12.5mg PO QDaily * Amlodipine 10mg PO QDaily * Valsartan 320mg PO QDaily not available on hospital formulary (giving Losartan 100mg PO QD as substitute) 7) Hx hyperlipidemia * Welchol 625mg PO QD, not available in pharmacy * Rosuvastatin Calcium 20mg PO QHS 8) Hx asthma * duoneb 2 puff IH Q4H scheduled * Claritin 10mg PO QD 9) Hx of BPH and Prostate CA * Flomax 0.4mg PO QD 10)Hx of low Vitamin D 11) Prophylaxis * Pepcid 20mg BID * Heparin 5000 u SC Q8H * Heart Healthy Diet Low Carb diet * Fever: Tylenol * Bedside commode * PT/OT eval
[2017-09-24] MEDS: Albuterol-Ipratrop 3 mg / 0.5 (3 ml) UD INH SCH ×6 (00:41→19:50)
[2017-09-24] MEDS: Piperacill/Tazo 3.375gm in Dex 3.375 GM/50 ML BAG IVPB SCH ×4 (03:39→21:43)
[2017-09-24 07:12] LABS: BASO % 0.5 % (0.0-2.0); EOS % 0.3 % (0.0-4.0); HEMOGLOBIN 12.5 g/dL (12.0-18.0); LYMPH # 1.9 K/uL (1.0-4.3); LYMPH % 24.5 % (20.0-40.0); MEAN CELL VOLUME 84.7 fL (80.0-94.0); MEAN CORPUSCULAR HEMOGLOBIN 27.9 pg (27.0-31.0); MEAN CORPUSCULAR HGB CONC 32.9 g/dL (33.0-37.0); MEAN PLATELET VOLUME 8.9 fL (7.2-11.7); MONO # 0.6 K/uL (0.0-0.8); MONO % 7.2 % (0.0-10.0); NEUT # 5.3 K/uL (1.8-7.0); NEUT % 67.5 % (50.0-75.0); RBC 4.5 Mil/uL (4.40-5.90); RED CELL DISTRIBUTION WIDTH 13.6 % (11.5-14.5); WHITE BLOOD COUNT 7.9 K/uL (4.8-10.8)
[2017-09-24 07:52] LABS: ALBUMIN 3.3 g/dL (3.5-5.0); ALT/SGPT 41 U/L (21-72); AST/SGOT 64 U/L (17-59); BLOOD UREA NITROGEN 21 mg/dL (9-20); CALCIUM 9.1 mg/dl (8.6-10.4); GFR AFRICAN-AMERICAN > 60; GFR NON-AFRICAN AMERICAN 51
[2017-09-24] MEDS: (Novolin R) Insulin Human Regular 100 units/ml vial SC SCH ×4 (07:58→21:01)
[2017-09-24] MEDS: (Novolog) Insulin Aspart, Recombinant 100 u/ml 10 ml vial SC SCH ×3 (07:59→17:09)
[2017-09-24] MEDS: Saccharomyces Boulardi 250 mg Cap PO SCH ×2 (09:33→18:18)
[2017-09-24] MEDS: guaiFENesin 600 mg ER Tab PO SCH ×2 (09:34→18:18)
[2017-09-24] MEDS: Insulin Detemir 100 units/ml Vial (Levemir) SC SCH ×2 (09:34→17:09)
[2017-09-24] MEDS: Potassium Chloride 20 mEq/15 ml LIQ UD PO SCH ×2 (10:55→13:18)
--- NOTE | 2017-09-24 11:14 | CARD ---
APPROVED REPORT EKG Measurement Heart [id number] <Conclusion> Atrial-sensed ventricular-paced rhythm Abnormal ECG
--- NOTE | 2017-09-24 11:38 | CP.PCM.PN ---
<Yobani Ortega - Last Filed: 09/24/17 15:56> Subjective - Date & Time of Evaluation Date of Evaluation: 09/24/17 Time of Evaluation: 07:30 - Subjective Subjective: PGY2 Cardiology progress note for Dr. Keenan Patient seen and examined at bedside. Patient recently hospitalized on 09/10 for 3rd degree heart block s/p PPM insertion with Dr. Rogers. C/o persistent cough 2/ 2 pneumonia. Denies chest pain, SOB, LE edema, or dizziness. R foot is wrapped 2 /2 recent fracture. 12-point ROS otherwise negative. Objective - Vital Signs/Intake and Output Vital Signs (last 24 hours): Temp Pulse Resp BP Pulse Ox 97.7 F 79 20 157/83 H 97 09/24/17 08:28 09/24/17 08:28 09/24/17 08:28 09/24/17 09:33 09/24/17 08:28 - Medications Medications: Current Medications Acetaminophen (Tylenol 325mg Tab) 650 mg PO Q6 PRN PRN Reason: Fever >100.4 F Last Admin: 09/24/17 00:31 Dose: 650 mg Albuterol/Ipratropium (Duoneb 3 Mg/0.5 Mg (3 Ml) Ud) 3 ml INH RQ4 [facility] Last Admin: 09/24/17 07:19 Dose: 3 ml Amlodipine Besylate (Norvasc) 10 mg PO DAILY [facility] Last Admin: 09/24/17 09:34 Dose: 10 mg Aspirin (Ecotrin) 81 mg PO DAILY [facility] Last Admin: 09/24/17 09:33 Dose: 81 mg Clopidogrel Bisulfate (Plavix) 75 mg PO DAILY [facility] Last Admin: 09/24/17 09:33 Dose: 75 mg Dextrose (Dextrose 50% Inj) 0 ml IV STAT PRN; Protocol PRN Reason: Hypoglycemia Protocol Dextrose (Glutose 15) 0 gm PO ONCE PRN; Protocol PRN Reason: Hypoglycemia Protocol Famotidine (Pepcid) 20 mg PO BID [facility] Last Admin: 09/24/17 09:34 Dose: 20 mg Furosemide (Lasix) 40 mg IVP BID [facility] Last Admin: 09/24/17 09:33 Dose: 40 mg Glucagon (Glucagen Diagnostic Kit) 0 mg IM STAT PRN; Protocol PRN Reason: Hypoglycemia Protocol Guaifenesin (Mucinex La) 600 mg PO BID [facility] Last Admin: 09/24/17 09:34 Dose: 600 mg Heparin Sodium (Porcine) (Heparin) 5,000 units SC Q8 [facility] Last Admin: 09/24/17 05:31 Dose: 5,000 units Hydralazine HCl (Apresoline) 10 mg PO QID [facility] Last Admin: 09/24/17 09:31 Dose: 10 mg Hydrochlorothiazide (Microzide) 12.5 mg PO DAILY [facility] Last Admin: 09/24/17 09:34 Dose: 12.5 mg Piperacillin Sod/Tazobactam Sod (Zosyn 3.375 Gm Iv Premix) 3.375 gm in 50 mls @ 100 mls/hr IVPB Q6H [facility] PRN Reason: Protocol Stop: 09/29/17 16:01 Last Admin: 09/24/17 10:55 Dose: 100 mls/hr Vancomycin/Sodium Chloride (Vancomycin 1 Gm/Ns 200 Ml) 1 gm in 200 mls @ 133 mls/hr IVPB Q12H [facility] PRN Reason: Protocol Stop: 09/29/17 22:31 Last Admin: 09/23/17 22:42 Dose: 133 mls/hr Dextrose (Dextrose 5% In Water 1000 Ml) 1,000 mls @ 0 mls/hr IV .Q0M PRN; Protocol; Per Protocol PRN Reason: Hypoglycemia Protocol Potassium Chloride (Potassium Chloride 10 Meq/100 Ml) 10 meq in 100 mls @ 100 mls/hr IVPB ONCE ONE Stop: 09/24/17 13:59 Insulin Aspart (Novolog) 24 unit SC TIDAC [facility] Last Admin: 09/24/17 07:59 Dose: 24 unit Insulin Detemir (Levemir) 40 unit SC BID [facility] Last Admin: 09/24/17 09:34 Dose: 40 unit Insulin Human Regular (Novolin R) 0 unit SC ACHS [facility] PRN Reason: Protocol Last Admin: 09/24/17 07:58 Dose: 3 unit Loratadine (Claritin) 10 mg PO DAILY [facility] Last Admin: 09/24/17 09:32 Dose: 10 mg Losartan Potassium (Cozaar) 100 mg PO DAILY [facility] Last Admin: 09/24/17 09:33 Dose: 100 mg Potassium Chloride (Potassium Chloride Oral Soln) 40 meq PO Q4H [facility] Stop: 09/24/17 13:46 Last Admin: 09/24/17 10:55 Dose: 40 meq Rosuvastatin Calcium (Crestor) 20 mg PO HS [facility] Last Admin: 09/23/17 22:01 Dose: 20 mg Saccharomyces Boulardii (Florastor) 250 mg PO BID [facility] Last Admin: 09/24/17 09:33 Dose: 250 mg Tamsulosin HCl (Flomax) 0.4 mg PO DAILY [facility] Last Admin: 09/24/17 09:33 Dose: 0.4 mg - Labs Labs: 09/24/17 06:58 09/24/17 06:58 PT 12.6 SECONDS (9.7-12.2) H 09/22/17 10:28 INR 1.1 09/22/17 10:28 APTT 33 SECONDS (21-34) 09/22/17 10:28 - Additional Findings Additional findings: - Constitutional Appears: Well, No Acute Distress - Head Exam Head Exam: ATRAUMATIC, NORMAL INSPECTION - Eye Exam Eye Exam: EOMI, Normal appearance - ENT Exam ENT Exam: Mucous Membranes Moist, Normal Exam - Neck Exam Neck exam: Positive for: Full Rom. Negative for: Tenderness, Thyromegaly - Respiratory Exam Respiratory Exam: Rales (diffuse), Wheezes, NORMAL BREATHING PATTERN. absent: Decreased Breath Sounds, Rhonchi - Cardiovascular Exam Cardiovascular Exam: REGULAR RHYTHM, +S1, +S2. absent: Bradycardia, Tachycardia Note: Left chest wall, PPM site is CDI - GI/Abdominal Exam GI & Abdominal Exam: Normal Bowel Sounds, Soft. absent: Tenderness - Extremities Exam Extremities exam: Negative for: pedal edema Additional comments: right leg in cast, no pitting edema evident - Neurological Exam Neurological exam: Alert, CN II-XII Intact, Normal Gait, Oriented x3 - Psychiatric Exam Psychiatric exam: Normal Affect, Normal Mood - Skin Skin Exam: Dry, Normal Color, Warm Assessment and Plan - Assessment and Plan (Free Text) Assessment: 3rd Degree Heart Block s/p PPM 09/24: patient is stable, no chest pain or SOB. PPM placed on 09/[address] Rogers Admitted for pneumonia PPM site healthy, CDI CAD with Stent ASA 81mg PO QD Plavix 75mg PO QD Crestor 20mg PO HS Hx HTN /: BP fluctuates 130's/60 to 170's/80. Currently 142/65 If BP continues to cross into 160's, increase to Hydralazine 20mg PO QID Apresoline 10mg POQID HCTZ 12.5mg PO QD amlodipine 10mg PO QD Valsartan 320mg PO QD (giving Losartan 100mg PO QD as substitute) Hx hyperlipidemia Welchol 625mg PO QD, not available in pharmacy Rosuvastatin Calcium 20mg PO QHS Case discussed with Dr. Shlomo Ortega, PGY2 <Maximino Keenan - Last Filed: 09/24/17 23:45> Objective - Vital Signs/Intake and Output Vital Signs (last 24 hours): Temp Pulse Resp BP Pulse Ox 97.2 F L 82 20 149/83 98 09/24/17 15:00 09/24/17 21:43 09/24/17 15:00 09/24/17 21:43 09/24/17 15:00 Intake and Output: 09/24/17 09/25/17 18:59 06:59 Intake Total 500 Balance 500 - Medications Medications: Current Medications Acetaminophen (Tylenol 325mg Tab) 650 mg PO Q6 PRN PRN Reason: Fever >100.4 F Last Admin: 09/24/17 00:31 Dose: 650 mg Albuterol/Ipratropium (Duoneb 3 Mg/0.5 Mg (3 Ml) Ud) 3 ml INH RQ4 [facility] Last Admin: 09/24/17 19:50 Dose: 3 ml Amlodipine Besylate (Norvasc) 10 mg PO DAILY [facility] Last Admin: 09/24/17 09:34 Dose: 10 mg Aspirin (Ecotrin) 81 mg PO DAILY [facility] Last Admin: 09/24/17 09:33 Dose: 81 mg Clopidogrel Bisulfate (Plavix) 75 mg PO DAILY [facility] Last Admin: 09/24/17 09:33 Dose: 75 mg Dextrose (Dextrose 50% Inj) 0 ml IV STAT PRN; Protocol PRN Reason: Hypoglycemia Protocol Dextrose (Glutose 15) 0 gm PO ONCE PRN; Protocol PRN Reason: Hypoglycemia Protocol Famotidine (Pepcid) 20 mg PO BID [facility] Last Admin: 09/24/17 18:18 Dose: 20 mg Furosemide (Lasix) 40 mg IVP BID [facility] Last Admin: 09/24/17 18:19 Dose: 40 mg Glucagon (Glucagen Diagnostic Kit) 0 mg IM STAT PRN; Protocol PRN Reason: Hypoglycemia Protocol Guaifenesin (Mucinex La) 600 mg PO BID [facility] Last Admin: 09/24/17 18:18 Dose: 600 mg Heparin Sodium (Porcine) (Heparin) 5,000 units SC Q8 [facility] Last Admin: 09/24/17 21:44 Dose: 5,000 units Hydralazine HCl (Apresoline) 10 mg PO QID [facility] Last Admin: 09/24/17 21:44 Dose: 10 mg Hydrochlorothiazide (Microzide) 12.5 mg PO DAILY [facility] Last Admin: 09/24/17 09:34 Dose: 12.5 mg Piperacillin Sod/Tazobactam Sod (Zosyn 3.375 Gm Iv Premix) 3.375 gm in 50 mls @ 100 mls/hr IVPB Q6H [facility] PRN Reason: Protocol Stop: 09/29/17 16:01 Last Admin: 09/24/17 21:43 Dose: 100 mls/hr Dextrose (Dextrose 5% In Water 1000 Ml) 1,000 mls @ 0 mls/hr IV .Q0M PRN; Protocol; Per Protocol PRN Reason: Hypoglycemia Protocol Insulin Aspart (Novolog) 12 unit SC TIDAC [facility] Insulin Detemir (Levemir) 20 unit SC BID [facility] Insulin Human Regular (Novolin R) 0 unit SC ACHS [facility] PRN Reason: Protocol Last Admin: 09/24/17 21:01 Dose: Not Given Loratadine (Claritin) 10 mg PO DAILY [facility] Last Admin: 09/24/17 09:32 Dose: 10 mg Losartan Potassium (Cozaar) 100 mg PO DAILY [facility] Last Admin: 09/24/17 09:33 Dose: 100 mg Rosuvastatin Calcium (Crestor) 20 mg PO HS [facility] Last Admin: 09/24/17 21:44 Dose: 20 mg Saccharomyces Boulardii (Florastor) 250 mg PO BID [facility] Last Admin: 09/24/17 18:18 Dose: 250 mg Tamsulosin HCl (Flomax) 0.4 mg PO DAILY [facility] Last Admin: 09/24/17 09:33 Dose: 0.4 mg - Labs Labs: 09/24/17 06:58 09/24/17 06:58 PT 12.6 SECONDS (9.7-12.2) H 09/22/17 10:28 INR 1.1 09/22/17 10:28 APTT 33 SECONDS (21-34) 09/22/17 10:28 Assessment and Plan - Assessment and Plan (Free Text) Plan: Patient seen and evaluated Plan of care d/w the front loader residential driver and as documented
[2017-09-24] MEDS: Vancomycin 1 gm/NS 200 ml 1 GM/200 ML BAG IVPB SCH (12:30)
[2017-09-24 14:29] LABS: ARTERIAL BLOOD GAS HCO3 24.4 mmol/L (21-28); ARTERIAL BLOOD GAS HEMOGLOBIN 12.1 g/dL (11.7-17.4); ARTERIAL BLOOD GAS PCO2 34 mm/Hg (35-45); ARTERIAL BLOOD GAS PH 7.44 (7.35-7.45); ARTERIAL BLOOD GAS PO2 75 mm/Hg (80-100)
[2017-09-24 14:30] LABS: ARTERIAL BLOOD GAS O2 SAT 97.6 % (95-98); ARTERIAL BLOOD GAS TCO2 24.1 mmol/L (22-28)
[2017-09-24 14:31] LABS: ABG ALLEN TEST POS; ARTERIAL BLOOD GAS FIO2 28 %
[2017-09-24] MEDS ORDERED: Dextrose 50% VIAL Inj (50 ml) IV ONE (15:20)
[2017-09-24] MEDS ORDERED: Dextrose 50% SYRINGE Inj (50 ml) IV STA (15:23)
--- NOTE | 2017-09-24 16:26 | CP.PCM.CON ---
History of Present Illness - History of Present Illness History of Present Illness: reason for consultation: cough and shortness of breath 67-year-old male with hypertension, diabetes, asthma, coronary artery disease status post stent placement, status post permanent pacemaker for third degree heart block placed recently presented to emergency room with productive cough and fever. CAT scan of the chest showed small bilateral pleural effusions and atelectasis. Patient admits to dizziness, sinus pressure, headache, SOB. Patient denies sore throat, hemoptysis, hearing changes, tinnitus, ear pain, chest pain, diarrhea, constipation, numbness, weakness. PMH: HTN, IDDM, hyperlipidemia, and asthma, CAD with stent placement (see previous discharge summary), Pacemaker d/t third degree heart block (09/10/17, last visit) PSH: none Family History: Denies family history of cancer of heart disease. Social history: Lives with daughter, speaks Czech, retired, denies any smoking history, ETOH use, or illicit drug use. Review of Systems - Review of Systems All systems: reviewed and no additional remarkable complaints except (cough and fever) Past Patient History - Infectious Disease Hx of Infectious Diseases: None - Past Medical History & Family History Past Medical History?: Yes - Past Social History Smoking Status: Never Smoked - CARDIAC Hx Cardiac Disorders: Yes (CAD,PACEMAKER) Hx Hypercholesterolemia: Yes Hx Hypertension: Yes - PULMONARY Hx Asthma: Yes - NEUROLOGICAL Hx Neurological Disorder: No - HEENT Hx HEENT Problems: Yes Hx Cataracts: Yes Hx Glaucoma: Yes - RENAL Hx Chronic Kidney Disease: No - ENDOCRINE/METABOLIC Hx Diabetes Mellitus Type 2: Yes - HEMATOLOGICAL/ONCOLOGICAL Hx Blood Disorders: No - INTEGUMENTARY Hx Dermatological Problems: No - MUSCULOSKELETAL/RHEUMATOLOGICAL Hx Falls: No - GASTROINTESTINAL Hx Gastrointestinal Disorders: No - GENITOURINARY/GYNECOLOGICAL Hx Genitourinary Disorders: Yes Hx Prostate Cancer: Yes - PSYCHIATRIC Hx Substance Use: No - SURGICAL HISTORY Hx Coronary Stent: Yes (x4) - ANESTHESIA Hx Anesthesia: Yes Hx Anesthesia Reactions: No Meds Allergies/Adverse Reactions: Allergies Allergy/AdvReac Type Severity Reaction Status Date / Time No Known Allergies Allergy Verified 09/10/17 12:28 - Medications Medications: Current Medications Acetaminophen (Tylenol 325mg Tab) 650 mg PO Q6 PRN PRN Reason: Fever >100.4 F Last Admin: 09/24/17 00:31 Dose: 650 mg Albuterol/Ipratropium (Duoneb 3 Mg/0.5 Mg (3 Ml) Ud) 3 ml INH RQ4 [facility] Last Admin: 09/24/17 11:51 Dose: 3 ml Amlodipine Besylate (Norvasc) 10 mg PO DAILY [facility] Last Admin: 09/24/17 09:34 Dose: 10 mg Aspirin (Ecotrin) 81 mg PO DAILY [facility] Last Admin: 09/24/17 09:33 Dose: 81 mg Clopidogrel Bisulfate (Plavix) 75 mg PO DAILY [facility] Last Admin: 09/24/17 09:33 Dose: 75 mg Dextrose (Dextrose 50% Inj) 0 ml IV STAT PRN; Protocol PRN Reason: Hypoglycemia Protocol Dextrose (Glutose 15) 0 gm PO ONCE PRN; Protocol PRN Reason: Hypoglycemia Protocol Famotidine (Pepcid) 20 mg PO BID [facility] Last Admin: 09/24/17 09:34 Dose: 20 mg Furosemide (Lasix) 40 mg IVP BID [facility] Last Admin: 09/24/17 09:33 Dose: 40 mg Glucagon (Glucagen Diagnostic Kit) 0 mg IM STAT PRN; Protocol PRN Reason: Hypoglycemia Protocol Guaifenesin (Mucinex La) 600 mg PO BID [facility] Last Admin: 09/24/17 09:34 Dose: 600 mg Heparin Sodium (Porcine) (Heparin) 5,000 units SC Q8 [facility] Last Admin: 09/24/17 13:16 Dose: 5,000 units Hydralazine HCl (Apresoline) 10 mg PO QID [facility] Last Admin: 09/24/17 13:16 Dose: 10 mg Hydrochlorothiazide (Microzide) 12.5 mg PO DAILY [facility] Last Admin: 09/24/17 09:34 Dose: 12.5 mg Piperacillin Sod/Tazobactam Sod (Zosyn 3.375 Gm Iv Premix) 3.375 gm in 50 mls @ 100 mls/hr IVPB Q6H [facility] PRN Reason: Protocol Stop: 09/29/17 16:01 Last Admin: 09/24/17 10:55 Dose: 100 mls/hr Vancomycin/Sodium Chloride (Vancomycin 1 Gm/Ns 200 Ml) 1 gm in 200 mls @ 133 mls/hr IVPB Q12H [facility] PRN Reason: Protocol Stop: 09/29/17 22:31 Last Admin: 04/03/18 12:30 Dose: 133 mls/hr Dextrose (Dextrose 5% In Water 1000 Ml) 1,000 mls @ 0 mls/hr IV .Q0M PRN; Protocol; Per Protocol PRN Reason: Hypoglycemia Protocol Insulin Aspart (Novolog) 24 unit SC TIDAC [facility] Last Admin: 09/24/17 12:30 Dose: 24 unit Insulin Detemir (Levemir) 40 unit SC BID [facility] Last Admin: 09/24/17 09:34 Dose: 40 unit Insulin Human Regular (Novolin R) 0 unit SC ACHS [facility] PRN Reason: Protocol Last Admin: 09/24/17 12:29 Dose: Not Given Loratadine (Claritin) 10 mg PO DAILY [facility] Last Admin: 09/24/17 09:32 Dose: 10 mg Losartan Potassium (Cozaar) 100 mg PO DAILY [facility] Last Admin: 09/24/17 09:33 Dose: 100 mg Rosuvastatin Calcium (Crestor) 20 mg PO HS [facility] Last Admin: 09/23/17 22:01 Dose: 20 mg Saccharomyces Boulardii (Florastor) 250 mg PO BID [facility] Last Admin: 09/24/17 09:33 Dose: 250 mg Tamsulosin HCl (Flomax) 0.4 mg PO DAILY [facility] Last Admin: 09/24/17 09:33 Dose: 0.4 mg Physical Exam - Head Exam Head Exam: ATRAUMATIC, NORMOCEPHALIC - Eye Exam Eye Exam: Normal appearance - ENT Exam ENT Exam: Mucous Membranes Moist - Neck Exam Neck exam: Positive for: Normal Inspection - Respiratory Exam Respiratory Exam: Clear to Auscultation Bilateral - Cardiovascular Exam Cardiovascular Exam: REGULAR RHYTHM Results - Vital Signs Recent Vital Signs: Last Vital Signs Temp 97.2 F L 09/24/17 15:00 Pulse 93 H 09/24/17 15:00 Resp 20 09/24/17 15:00 BP 142/65 09/24/17 15:00 Pulse Ox 98 09/24/17 15:00 - Labs Result Diagrams: 09/24/17 06:58 09/24/17 06:58 Labs: Laboratory Results - last 24 hr 09/22/17 09/23/17 09/23/17 10:40 16:24 21:08 WBC RBC Hgb Hct MCV MCH MCHC RDW Plt Count MPV Neut % (Auto) Lymph % (Auto) Miller % (Auto) Eos % (Auto) Baso % (Auto) Neut # (Auto) Lymph # (Auto) Miller # (Auto) Eos # (Auto) Baso # (Auto) pCO2 34 L pO2 75 L HCO3 24.4 ABG pH 7.44 ABG Total CO2 24.1 ABG O2 Saturation 97.6 ABG Base Excess -0.6 ABG Hemoglobin 12.1 ABG Carboxyhemoglobin 2.0 H Robert Test Pos Hgb O2 Saturation 97.6 FiO2 28 Crit Value Called To Gillian burnett Crit Value Called By Jonas cm manager of care Crit Value Read Back Gillian burnett Blood Gas Notified Time 1042 Sodium Potassium Chloride Carbon Dioxide Anion Gap BUN Creatinine Est GFR ( Amer) Est GFR (Non-Af Amer) POC Glucose (mg/dL) 197 H 237 H Random Glucose Calcium Phosphorus Magnesium Total Bilirubin AST ALT Alkaline Phosphatase Total Protein Albumin Globulin Albumin/Globulin Ratio Procalcitonin Vancomycin Trough HIV 1&2 Antibody Screen 09/23/17 09/24/17 09/24/17 22:49 06:34 06:58 WBC 7.9 RBC 4.50 Hgb 12.5 Hct 38.1 MCV 84.7 MCH 27.9 MCHC 32.9 L RDW 13.6 Plt Count 311 MPV 8.9 Neut % (Auto) 67.5 Lymph % (Auto) 24.5 Miller % (Auto) 7.2 Eos % (Auto) 0.3 Baso % (Auto) 0.5 Neut # (Auto) 5.3 Lymph # (Auto) 1.9 Miller # (Auto) 0.6 Eos # (Auto) 0.0 Baso # (Auto) 0.0 pCO2 pO2 HCO3 ABG pH ABG Total CO2 ABG O2 Saturation ABG Base Excess ABG Hemoglobin ABG Carboxyhemoglobin Robert Test Hgb O2 Saturation FiO2 Crit Value Called To Crit Value Called By Crit Value Read Back Blood Gas Notified Time Sodium Potassium Chloride Carbon Dioxide Anion Gap BUN Creatinine Est GFR ( Amer) Est GFR (Non-Af Amer) POC Glucose (mg/dL) 237 H Random Glucose Calcium Phosphorus Magnesium Total Bilirubin AST ALT Alkaline Phosphatase Total Protein Albumin Globulin Albumin/Globulin Ratio Procalcitonin Vancomycin Trough 13.9 H HIV 1&2 Antibody Screen 09/24/17 09/24/17 09/24/17 06:58 06:58 11:54 WBC RBC Hgb Hct MCV MCH MCHC RDW Plt Count MPV Neut % (Auto) Lymph % (Auto) Miller % (Auto) Eos % (Auto) Baso % (Auto) Neut # (Auto) Lymph # (Auto) Miller # (Auto) Eos # (Auto) Baso # (Auto) pCO2 pO2 HCO3 ABG pH ABG Total CO2 ABG O2 Saturation ABG Base Excess ABG Hemoglobin ABG Carboxyhemoglobin Robert Test Hgb O2 Saturation FiO2 Crit Value Called To Crit Value Called By Crit Value Read Back Blood Gas Notified Time Sodium 137 Potassium 3.2 L Chloride 99 Carbon Dioxide 27 Anion Gap 15 BUN 21 H Creatinine 1.4 Est GFR ( Amer) > 60 Est GFR (Non-Af Amer) 51 POC Glucose (mg/dL) 111 H Random Glucose 242 H Calcium 9.1 Phosphorus 4.9 H Magnesium 2.2 Total Bilirubin 1.2 AST 64 H D ALT 41 Alkaline Phosphatase 85 Total Protein 6.6 Albumin 3.3 L Globulin 3.3 Albumin/Globulin Ratio 1.0 Procalcitonin 0.10 L Vancomycin Trough HIV 1&2 Antibody Screen 09/24/17 09/24/17 09/24/17 13:54 15:16 15:22 WBC RBC Hgb Hct MCV MCH MCHC RDW Plt Count MPV Neut % (Auto) Lymph % (Auto) Miller % (Auto) Eos % (Auto) Baso % (Auto) Neut # (Auto) Lymph # (Auto) Miller # (Auto) Eos # (Auto) Baso # (Auto) pCO2 pO2 HCO3 ABG pH ABG Total CO2 ABG O2 Saturation ABG Base Excess ABG Hemoglobin ABG Carboxyhemoglobin Robert Test Hgb O2 Saturation FiO2 Crit Value Called To Crit Value Called By Crit Value Read Back Blood Gas Notified Time Sodium Potassium Chloride Carbon Dioxide Anion Gap BUN Creatinine Est GFR ( Amer) Est GFR (Non-Af Amer) POC Glucose (mg/dL) 23 L* 198 H Random Glucose Calcium Phosphorus Magnesium Total Bilirubin AST ALT Alkaline Phosphatase Total Protein Albumin Globulin Albumin/Globulin Ratio Procalcitonin Vancomycin Trough HIV 1&2 Antibody Screen Negative Assessment & Plan (1) Bronchitis Status: Acute Comment: pneumonia unlikely. Normal pro calcitonin level and chest x-ray consistent with bibasilar small effusions and atelectasis. Continue antibiotics. Consider to stop vancomycin. Nebulizer treatment. Cardiology workup (2) Congestive heart failure Status: Suspected Priority: High
--- NOTE | 2017-09-24 17:30 | CP.PCM.PN ---
Subjective - Date & Time of Evaluation Date of Evaluation: 09/24/17 Time of Evaluation: 17:19 - Subjective Subjective: PGY-[address] Arita. Febrile overnight responded to tylenol. Patient stated he did not feel well - he stated he had fever overnight and that he felt fatigued. Right foot still in case. He denied chest pain and shortness of breath. He stated he had cough with yellow sputum production. Otherwise he did not offer any complaints. Objective - Vital Signs/Intake and Output Vital Signs (last 24 hours): Temp Pulse Resp BP Pulse Ox 97.2 F L 74 20 142/65 98 09/24/17 15:00 09/24/17 16:00 09/24/17 15:00 09/24/17 15:00 09/24/17 15:00 - Medications Medications: Current Medications Acetaminophen (Tylenol 325mg Tab) 650 mg PO Q6 PRN PRN Reason: Fever >100.4 F Last Admin: 09/24/17 00:31 Dose: 650 mg Albuterol/Ipratropium (Duoneb 3 Mg/0.5 Mg (3 Ml) Ud) 3 ml INH RQ4 [facility] Last Admin: 09/24/17 16:24 Dose: 3 ml Amlodipine Besylate (Norvasc) 10 mg PO DAILY [facility] Last Admin: 09/24/17 09:34 Dose: 10 mg Aspirin (Ecotrin) 81 mg PO DAILY [facility] Last Admin: 09/24/17 09:33 Dose: 81 mg Clopidogrel Bisulfate (Plavix) 75 mg PO DAILY [facility] Last Admin: 09/24/17 09:33 Dose: 75 mg Dextrose (Dextrose 50% Inj) 0 ml IV STAT PRN; Protocol PRN Reason: Hypoglycemia Protocol Dextrose (Glutose 15) 0 gm PO ONCE PRN; Protocol PRN Reason: Hypoglycemia Protocol Famotidine (Pepcid) 20 mg PO BID [facility] Last Admin: 09/24/17 09:34 Dose: 20 mg Furosemide (Lasix) 40 mg IVP BID [facility] Last Admin: 09/24/17 09:33 Dose: 40 mg Glucagon (Glucagen Diagnostic Kit) 0 mg IM STAT PRN; Protocol PRN Reason: Hypoglycemia Protocol Guaifenesin (Mucinex La) 600 mg PO BID [facility] Last Admin: 09/24/17 09:34 Dose: 600 mg Heparin Sodium (Porcine) (Heparin) 5,000 units SC Q8 [facility] Last Admin: 09/24/17 13:16 Dose: 5,000 units Hydralazine HCl (Apresoline) 10 mg PO QID [facility] Last Admin: 09/24/17 13:16 Dose: 10 mg Hydrochlorothiazide (Microzide) 12.5 mg PO DAILY [facility] Last Admin: 09/24/17 09:34 Dose: 12.5 mg Piperacillin Sod/Tazobactam Sod (Zosyn 3.375 Gm Iv Premix) 3.375 gm in 50 mls @ 100 mls/hr IVPB Q6H [facility] PRN Reason: Protocol Stop: 09/29/17 16:01 Last Admin: 09/24/17 10:55 Dose: 100 mls/hr Vancomycin/Sodium Chloride (Vancomycin 1 Gm/Ns 200 Ml) 1 gm in 200 mls @ 133 mls/hr IVPB Q12H [facility] PRN Reason: Protocol Stop: 09/29/17 22:31 Last Admin: 09/24/17 12:30 Dose: 133 mls/hr Dextrose (Dextrose 5% In Water 1000 Ml) 1,000 mls @ 0 mls/hr IV .Q0M PRN; Protocol; Per Protocol PRN Reason: Hypoglycemia Protocol Insulin Aspart (Novolog) 24 unit SC TIDAC [facility] Last Admin: 09/24/17 17:09 Dose: Not Given Insulin Detemir (Levemir) 40 unit SC BID [facility] Last Admin: 09/24/17 17:09 Dose: Not Given Insulin Human Regular (Novolin R) 0 unit SC ACHS [facility] PRN Reason: Protocol Last Admin: 09/24/17 17:09 Dose: Not Given Loratadine (Claritin) 10 mg PO DAILY [facility] Last Admin: 09/24/17 09:32 Dose: 10 mg Losartan Potassium (Cozaar) 100 mg PO DAILY [facility] Last Admin: 09/24/17 09:33 Dose: 100 mg Rosuvastatin Calcium (Crestor) 20 mg PO HS [facility] Last Admin: 09/23/17 22:01 Dose: 20 mg Saccharomyces Boulardii (Florastor) 250 mg PO BID [facility] Last Admin: 09/24/17 09:33 Dose: 250 mg Tamsulosin HCl (Flomax) 0.4 mg PO DAILY [facility] Last Admin: 09/24/17 09:33 Dose: 0.4 mg - Labs Labs: 09/24/17 06:58 09/24/17 06:58 PT 12.6 SECONDS (9.7-12.2) H 09/22/17 10:28 INR 1.1 09/22/17 10:28 APTT 33 SECONDS (21-34) 09/22/17 10:28 - Additional Findings Additional findings: - Constitutional Appears: Well, No Acute Distress - Head Exam Head Exam: ATRAUMATIC, NORMAL INSPECTION, NORMOCEPHALIC - Eye Exam Eye Exam: EOMI, Normal appearance Pupil Exam: NORMAL ACCOMODATION, PERRL - ENT Exam ENT Exam: Mucous Membranes Moist, Normal Exam - Neck Exam Neck exam: Positive for: Full Rom. Negative for: Tenderness, Thyromegaly - Respiratory Exam Respiratory Exam: Rales, NORMAL BREATHING PATTERN. absent: Decreased Breath Sounds - Cardiovascular Exam Cardiovascular Exam: REGULAR RHYTHM, +S1, +S2. absent: Bradycardia, Tachycardia - GI/Abdominal Exam GI & Abdominal Exam: Normal Bowel Sounds, Soft. absent: Tenderness - Extremities Exam Extremities exam: Negative for: pedal edema Additional comments: right leg in cast no pitting edema noted on visible right lower extremity no pitting edema of left lower extremity - Back Exam Back exam: FULL ROM, NORMAL INSPECTION. absent: paraspinal tenderness, vertebral tenderness - Neurological Exam Neurological exam: Alert, CN II-XII Intact, Normal Gait, Oriented x3 - Psychiatric Exam Psychiatric exam: Normal Affect, Normal Mood - Skin Skin Exam: Dry, Normal Color, Warm Additional comments: left anterior chest has site of pacemaker placement Assessment and Plan - Assessment and Plan (Free Text) Assessment: 1) Pneumona, healthcare associated pneumonia * Pulmonary consult, Dr Beach * pneumonia unlikely. Normal pro calcitonin level and chest x-ray consistent with bibasilar small effusions and atelectasis. Continue antibiotics. Consider to stop vancomycin. Nebulizer treatment. Cardiology workup * Monitor on telemetry * Risk factor: recently in the hospital in the past 90 days * Legionella, Mycoplasma Pneumonaie, Rapid Strep, procalcitonin, HIV, Group A Beta Strep, Flu, all NEGATIVE * F/U quantiferon Gold * elevated probnp 2710 * Dimer 504 * Start Lasix 40mg IVP BID * Duoneb 2 puff IH Q4H scheduled * Zosyn 3.375 gm Q6H for empiric antibiotic coverage * DISCONTINUED Vancomycin 1gm Q12H and * CT Chest (09/22/17): no evidence of acute central pulmonary embolus. Nodular opacities seen throughout the upper lobes bilaterally as well as right middle lobe. Bilateral effusions and bibasilar atelectasis right greater than left. * Incentive spirometry 2) Diastolic Heart Failure Pulmonary Hypertension History of Third Degree AV Block s/p pacemaker placement * 09/10/[address] Rogers, Dr. Keenan saw patient last visit * Site: no erythema, no pain on palpation, mild swelling * Echocardiogram (02/11/17): moderate concentric left ventricular hypertrophy. left ventricular systolic function is normal. Moderate left ventricular diastolic dysfunction. Grade II-pseudonormal filling dynamics. Right ventricular systolic function is normal. b-atrial enlargement. mild regurgitation is trace to mild. Moderate pulmonary hypertension. Right ventricular systolic presssure is estimated at 4-550mmg Hg. No percardial effusion. * Will recheck echo, pending offical read * elevated probnp 2710 3) Recent Right leg fracture * Patient was seen and evaluated at [facility] for initial encounter in the ED, leg was casted in the ED and he was told ollow up on October 04 with ortho [address] [facility] * Patient reports he was told not to walk, which he has except when he needs to go to the bathroom 4) CAD with Stent * ASA 81mg PO QDaily * Plavix 75mg PO QDaily * Crestor 20mg PO HS 5) History of DM2 * Elevated sugar this morning-->he missed his morning dose. * Levemir 40u SC BID * Lispro 24 u SQ TIDAC * Accucheck ACHS * hypoglycemic protocol * check a1c, and * lipid panel - LDL 136, Cholesterol 202, otherwise normal 6) History of Hypertension * Hydralazine 10mg PO QID * HCTZ 12.5mg PO QDaily * Amlodipine 10mg PO QDaily * Valsartan 320mg PO QDaily not available on hospital formulary (giving Losartan 100mg PO QD as substitute) 7) Hx hyperlipidemia * Welchol 625mg PO QD, not available in pharmacy * Rosuvastatin Calcium 20mg PO QHS 8) Hx asthma * duoneb 2 puff IH Q4H scheduled * Claritin 10mg PO QD 9) Hx of BPH and Prostate CA * Flomax 0.4mg PO QD 10)Hx of low Vitamin D 11) Prophylaxis * Pepcid 20mg BID * Heparin 5000 u SC Q8H * Heart Healthy Diet Low Carb diet * Fever: Tylenol * Bedside commode * PT/OT eval
[2017-09-25] MEDS: Albuterol-Ipratrop 3 mg / 0.5 (3 ml) UD INH SCH ×7 (00:38→23:59)
[2017-09-25] MEDS: Piperacill/Tazo 3.375gm in Dex 3.375 GM/50 ML BAG IVPB SCH ×4 (04:05→21:51)
[2017-09-25 06:52] LABS: BASO % 0.6 % (0.0-2.0); EOS # 0.3 K/uL (0.0-0.7); EOS % 4.5 % (0.0-4.0); HEMOGLOBIN 12.7 g/dL (12.0-18.0); LYMPH # 2.2 K/uL (1.0-4.3); LYMPH % 33.1 % (20.0-40.0); MEAN CELL VOLUME 84.7 fL (80.0-94.0); MEAN CORPUSCULAR HEMOGLOBIN 28.5 pg (27.0-31.0); MEAN CORPUSCULAR HGB CONC 33.6 g/dL (33.0-37.0); MEAN PLATELET VOLUME 8.5 fL (7.2-11.7); MONO # 0.7 K/uL (0.0-0.8); MONO % 10.5 % (0.0-10.0); NEUT # 3.4 K/uL (1.8-7.0); NEUT % 51.3 % (50.0-75.0); RBC 4.47 Mil/uL (4.40-5.90); RED CELL DISTRIBUTION WIDTH 13.5 % (11.5-14.5); WHITE BLOOD COUNT 6.6 K/uL (4.8-10.8)
[2017-09-25 07:17] LABS: ALB/GLOB RATIO 0.9 (1.0-2.1); ALBUMIN 3.2 g/dL (3.5-5.0); ALT/SGPT 49 U/L (21-72); AST/SGOT 58 U/L (17-59); BLOOD UREA NITROGEN 17 mg/dL (9-20); CALCIUM 9.3 mg/dl (8.6-10.4); GFR AFRICAN-AMERICAN > 60; GFR NON-AFRICAN AMERICAN 55
--- NOTE | 2017-09-25 08:45 | CP.PCM.PN ---
Subjective - Date & Time of Evaluation Date of Evaluation: 09/25/17 Time of Evaluation: 08:33 - Subjective Subjective: PGY-[address] Arita. No acute events noted overnight. He remained afebrile overnight. He was seen this AM receiving a nebulizer treatment. He stated he felt better compared to yesterday (when he felt extremely fatigued). He stated he was still short of breath but there was some improvement. He offered no other specific complaints. Objective - Vital Signs/Intake and Output Vital Signs (last 24 hours): Temp Pulse Resp BP Pulse Ox 97.8 F 79 20 145/86 98 09/24/17 23:30 09/25/17 00:00 09/24/17 23:30 09/24/17 23:30 09/24/17 23:30 Intake and Output: 09/25/17 09/25/17 06:59 18:59 Intake Total 760 Output Total 600 Balance 160 - Medications Medications: Current Medications Acetaminophen (Tylenol 325mg Tab) 650 mg PO Q6 PRN PRN Reason: Fever >100.4 F Last Admin: 09/24/17 00:31 Dose: 650 mg Albuterol/Ipratropium (Duoneb 3 Mg/0.5 Mg (3 Ml) Ud) 3 ml INH RQ4 [facility] Last Admin: 09/25/17 05:10 Dose: Not Given Amlodipine Besylate (Norvasc) 10 mg PO DAILY [facility] Last Admin: 09/24/17 09:34 Dose: 10 mg Aspirin (Ecotrin) 81 mg PO DAILY [facility] Last Admin: 09/24/17 09:33 Dose: 81 mg Clopidogrel Bisulfate (Plavix) 75 mg PO DAILY [facility] Last Admin: 09/24/17 09:33 Dose: 75 mg Dextrose (Dextrose 50% Inj) 0 ml IV STAT PRN; Protocol PRN Reason: Hypoglycemia Protocol Dextrose (Glutose 15) 0 gm PO ONCE PRN; Protocol PRN Reason: Hypoglycemia Protocol Famotidine (Pepcid) 20 mg PO BID [facility] Last Admin: 09/24/17 18:18 Dose: 20 mg Furosemide (Lasix) 40 mg IVP BID [facility] Last Admin: 09/24/17 18:19 Dose: 40 mg Glucagon (Glucagen Diagnostic Kit) 0 mg IM STAT PRN; Protocol PRN Reason: Hypoglycemia Protocol Guaifenesin (Mucinex La) 600 mg PO BID [facility] Last Admin: 09/24/17 18:18 Dose: 600 mg Heparin Sodium (Porcine) (Heparin) 5,000 units SC Q8 [facility] Last Admin: 09/25/17 05:22 Dose: 5,000 units Hydralazine HCl (Apresoline) 10 mg PO QID [facility] Last Admin: 09/24/17 21:44 Dose: 10 mg Hydrochlorothiazide (Microzide) 12.5 mg PO DAILY [facility] Last Admin: 09/24/17 09:34 Dose: 12.5 mg Piperacillin Sod/Tazobactam Sod (Zosyn 3.375 Gm Iv Premix) 3.375 gm in 50 mls @ 100 mls/hr IVPB Q6H [facility] PRN Reason: Protocol Stop: 09/29/17 16:01 Last Admin: 09/25/17 04:05 Dose: 100 mls/hr Dextrose (Dextrose 5% In Water 1000 Ml) 1,000 mls @ 0 mls/hr IV .Q0M PRN; Protocol; Per Protocol PRN Reason: Hypoglycemia Protocol Insulin Aspart (Novolog) 12 unit SC TIDAC [facility] Insulin Detemir (Levemir) 20 unit SC BID [facility] Insulin Human Regular (Novolin R) 0 unit SC ACHS [facility] PRN Reason: Protocol Last Admin: 09/24/17 21:01 Dose: Not Given Loratadine (Claritin) 10 mg PO DAILY [facility] Last Admin: 09/24/17 09:32 Dose: 10 mg Losartan Potassium (Cozaar) 100 mg PO DAILY [facility] Last Admin: 09/24/17 09:33 Dose: 100 mg Rosuvastatin Calcium (Crestor) 20 mg PO HS [facility] Last Admin: 09/24/17 21:44 Dose: 20 mg Saccharomyces Boulardii (Florastor) 250 mg PO BID [facility] Last Admin: 09/24/17 18:18 Dose: 250 mg Tamsulosin HCl (Flomax) 0.4 mg PO DAILY [facility] Last Admin: 09/24/17 09:33 Dose: 0.4 mg - Labs Labs: 09/25/17 06:45 09/25/17 06:45 PT 12.6 SECONDS (9.7-12.2) H 09/22/17 10:28 INR 1.1 09/22/17 10:28 APTT 33 SECONDS (21-34) 09/22/17 10:28 - Additional Findings Additional findings: - Constitutional Appears: Well, No Acute Distress - Head Exam Head Exam: ATRAUMATIC, NORMAL INSPECTION, NORMOCEPHALIC - Eye Exam Eye Exam: EOMI, Normal appearance Pupil Exam: NORMAL ACCOMODATION, PERRL - ENT Exam ENT Exam: Mucous Membranes Moist, Normal Exam - Neck Exam Neck exam: Positive for: Full Rom. Negative for: Tenderness, Thyromegaly - Respiratory Exam Respiratory Exam: Rales, NORMAL BREATHING PATTERN. absent: Decreased Breath Sounds - Cardiovascular Exam Cardiovascular Exam: REGULAR RHYTHM, +S1, +S2. absent: Bradycardia, Tachycardia - GI/Abdominal Exam GI & Abdominal Exam: Normal Bowel Sounds, Soft. absent: Tenderness - Extremities Exam Extremities exam: Negative for: pedal edema Additional comments: right leg in cast no pitting edema noted on visible right lower extremity no pitting edema of left lower extremity - Back Exam Back exam: FULL ROM, NORMAL INSPECTION. absent: paraspinal tenderness, vertebral tenderness - Neurological Exam Neurological exam: Alert, CN II-XII Intact, Normal Gait, Oriented x3 - Psychiatric Exam Psychiatric exam: Normal Affect, Normal Mood - Skin Skin Exam: Dry, Normal Color, Warm Additional comments: left anterior chest has site of pacemaker placement Assessment and Plan - Assessment and Plan (Free Text) Assessment: 1) Pneumona, healthcare associated pneumonia * Pulmonary consult, Dr Beach * pneumonia unlikely. Normal pro calcitonin level and chest x-ray consistent with bibasilar small effusions and atelectasis. Continue antibiotics. Consider to stop vancomycin. Nebulizer treatment. Cardiology workup. * Monitor on telemetry * Risk factor: recently in the hospital in the past 90 days * Legionella, Mycoplasma Pneumonaie, Rapid Strep, procalcitonin, HIV, Group A Beta Strep, Flu, ALL NEGATIVE * Blood Cultures 09/22/17 NEGATIVE up to date * F/U quantiferon Gold * elevated probnp 2710 * Dimer 504 * Start Lasix 40mg IVP BID * Duoneb 2 puff IH Q4H scheduled * Zosyn 3.375 gm Q6H for empiric antibiotic coverage * DISCONTINUED Vancomycin 1gm Q12H 09/24/17 * CT Chest (09/22/17): no evidence of acute central pulmonary embolus. Nodular opacities seen throughout the upper lobes bilaterally as well as right middle lobe. Bilateral effusions and bibasilar atelectasis right greater than left. * Incentive spirometry 2) Diastolic Heart Failure Pulmonary Hypertension History of Third Degree AV Block s/p pacemaker placement * 09/10/[address] Rogers, Dr. Keenan saw patient last visit * Site: no erythema, no pain on palpation, mild swelling * Echocardiogram (02/11/17): moderate concentric left ventricular hypertrophy. left ventricular systolic function is normal. Moderate left ventricular diastolic dysfunction. Grade II-pseudonormal filling dynamics. Right ventricular systolic function is normal. b-atrial enlargement. mild regurgitation is trace to mild. Moderate pulmonary hypertension. Right ventricular systolic presssure is estimated at 4-550mmg Hg. No percardial effusion. * Will recheck echo, pending offical read * elevated probnp 2710 3) Recent Right leg fracture * Patient was seen and evaluated at [facility] for initial encounter in the ED, leg was casted in the ED and he was told follow up on October 04 with ortho at [facility] * Patient reports he was told not to walk, which he has except when he needs to go to the bathroom 4) CAD with Stent * ASA 81mg PO QDaily * Plavix 75mg PO QDaily * Crestor 20mg PO HS 5) History of DM2 * Had a hypoglycemic episode 09/24/17 (due to decreased appetite) -> blood sugar 23 -> adjusted short acting and long acting insulin and started on glucerna shake * Levemir 40u SC BID -> 20u SC BID (due to hypoglycemic episode) * Lispro 24 u SQ TIDAC -> 12u SQ TIDAC (due to hypoglycemic episode) * Accucheck ACHS * hypoglycemic protocol * a1c ELEVATED 10.8 * lipid panel - LDL 136, Cholesterol 202, otherwise normal 6) History of Hypertension * Hydralazine 10mg PO QID * HCTZ 12.5mg PO QDaily * Amlodipine 10mg PO QDaily * Valsartan 320mg PO QDaily not available on hospital formulary (giving Losartan 100mg PO QD as substitute) 7) Hx hyperlipidemia * Welchol 625mg PO QD, not available in pharmacy * Rosuvastatin Calcium 20mg PO QHS 8) Hx asthma * duoneb 2 puff IH Q4H scheduled * Claritin 10mg PO QD 9) Hx of BPH and Prostate CA * Flomax 0.4mg PO QD 10)Hx of low Vitamin D 11) Prophylaxis * Pepcid 20mg BID * Heparin 5000 u SC Q8H * Heart Healthy Diet Low Carb diet * Fever: Tylenol * Bedside commode * PT/OT eval
[2017-09-25] MEDS: (Novolin R) Insulin Human Regular 100 units/ml vial SC SCH ×4 (08:52→22:16)
[2017-09-25] MEDS: (Novolog) Insulin Aspart, Recombinant 100 u/ml 10 ml vial SC SCH ×3 (08:54→17:25)
[2017-09-25] MEDS: Insulin Detemir 100 units/ml Vial (Levemir) SC SCH ×2 (09:09→17:24)
[2017-09-25] MEDS: Saccharomyces Boulardi 250 mg Cap PO SCH ×2 (09:10→18:01)
[2017-09-25] MEDS: guaiFENesin 600 mg ER Tab PO SCH ×2 (12:32→18:01)
--- NOTE | 2017-09-25 13:10 | CP.PCM.PN ---
Subjective - Date & Time of Evaluation Date of Evaluation: 09/25/17 Time of Evaluation: 10:00 - Subjective Subjective: Patient seen and examined at bedside. Shortness of breath is slightly improved Wheezing is still present but slightly improved. Afebrile 1. Bronchitis - CXR consistent with bibasilar small effusions and atelectasis - no group A strep - blood cultures prelim no growth - continue abx - normal Pro-calc - continue empiric zosyn - vancomycin discontinued 2. CHF - HCTZ - Lasix Objective - Vital Signs/Intake and Output Vital Signs (last 24 hours): Temp Pulse Resp BP Pulse Ox 98.4 F 81 20 142/83 96 09/25/17 08:47 09/25/17 08:47 09/25/17 08:47 09/25/17 09:13 09/25/17 08:47 Intake and Output: 09/25/17 09/25/17 06:59 18:59 Intake Total 760 Output Total 600 Balance 160 - Medications Medications: Current Medications Acetaminophen (Tylenol 325mg Tab) 650 mg PO Q6 PRN PRN Reason: Fever >100.4 F Last Admin: 09/24/17 00:31 Dose: 650 mg Albuterol/Ipratropium (Duoneb 3 Mg/0.5 Mg (3 Ml) Ud) 3 ml INH RQ4 [facility] Last Admin: 09/25/17 11:16 Dose: 3 ml Amlodipine Besylate (Norvasc) 10 mg PO DAILY [facility] Last Admin: 09/25/17 09:11 Dose: 10 mg Aspirin (Ecotrin) 81 mg PO DAILY [facility] Last Admin: 09/25/17 09:10 Dose: 81 mg Clopidogrel Bisulfate (Plavix) 75 mg PO DAILY [facility] Last Admin: 09/25/17 09:11 Dose: 75 mg Dextrose (Dextrose 50% Inj) 0 ml IV STAT PRN; Protocol PRN Reason: Hypoglycemia Protocol Dextrose (Glutose 15) 0 gm PO ONCE PRN; Protocol PRN Reason: Hypoglycemia Protocol Famotidine (Pepcid) 20 mg PO BID [facility] Last Admin: 09/25/17 09:12 Dose: 20 mg Furosemide (Lasix) 40 mg IVP BID [facility] Last Admin: 09/25/17 09:13 Dose: 40 mg Glucagon (Glucagen Diagnostic Kit) 0 mg IM STAT PRN; Protocol PRN Reason: Hypoglycemia Protocol Guaifenesin (Mucinex La) 600 mg PO BID [facility] Last Admin: 09/25/17 12:32 Dose: Not Given Heparin Sodium (Porcine) (Heparin) 5,000 units SC Q8 [facility] Last Admin: 09/25/17 05:22 Dose: 5,000 units Hydralazine HCl (Apresoline) 10 mg PO QID [facility] Last Admin: 09/25/17 09:11 Dose: 10 mg Hydrochlorothiazide (Microzide) 12.5 mg PO DAILY [facility] Last Admin: 09/25/17 09:11 Dose: 12.5 mg Piperacillin Sod/Tazobactam Sod (Zosyn 3.375 Gm Iv Premix) 3.375 gm in 50 mls @ 100 mls/hr IVPB Q6H [facility] PRN Reason: Protocol Stop: 09/29/17 16:01 Last Admin: 09/25/17 09:16 Dose: 100 mls/hr Dextrose (Dextrose 5% In Water 1000 Ml) 1,000 mls @ 0 mls/hr IV .Q0M PRN; Protocol; Per Protocol PRN Reason: Hypoglycemia Protocol Insulin Aspart (Novolog) 12 unit SC TIDAC [facility] Last Admin: 09/25/17 12:29 Dose: 12 unit Insulin Detemir (Levemir) 20 unit SC BID [facility] Last Admin: 09/25/17 09:09 Dose: 20 unit Insulin Human Regular (Novolin R) 0 unit SC ACHS [facility] PRN Reason: Protocol Last Admin: 09/25/17 12:29 Dose: 3 unit Loratadine (Claritin) 10 mg PO DAILY [facility] Last Admin: 09/25/17 09:10 Dose: 10 mg Losartan Potassium (Cozaar) 100 mg PO DAILY [facility] Last Admin: 09/25/17 09:11 Dose: 100 mg Rosuvastatin Calcium (Crestor) 20 mg PO HS [facility] Last Admin: 09/24/17 21:44 Dose: 20 mg Saccharomyces Boulardii (Florastor) 250 mg PO BID [facility] Last Admin: 09/25/17 09:10 Dose: 250 mg Tamsulosin HCl (Flomax) 0.4 mg PO DAILY [facility] Last Admin: 09/25/17 09:11 Dose: 0.4 mg - Labs Labs: 09/25/17 06:45 09/25/17 06:45 PT 12.6 SECONDS (9.7-12.2) H 09/22/17 10:28 INR 1.1 09/22/17 10:28 APTT 33 SECONDS (21-34) 09/22/17 10:28 Assessment and Plan (1) Bronchitis Status: Acute (2) Congestive heart failure Status: Suspected
--- NOTE | 2017-09-25 23:28 | CP.PCM.PN ---
Subjective - Date & Time of Evaluation Date of Evaluation: 09/25/17 Time of Evaluation: 08:05 - Subjective Subjective: Patient seen and evaluated Denies chest pain and dyspnea Objective - Vital Signs/Intake and Output Vital Signs (last 24 hours): Temp Pulse Resp BP Pulse Ox 98.0 F 85 20 133/78 99 09/25/17 15:15 09/25/17 16:00 09/25/17 15:15 09/25/17 18:01 09/25/17 15:15 Intake and Output: 09/25/17 09/26/17 18:59 06:59 Intake Total 350 Output Total 400 Balance -50 - Medications Medications: Current Medications Acetaminophen (Tylenol 325mg Tab) 650 mg PO Q6 PRN PRN Reason: Fever >100.4 F Last Admin: 09/24/17 00:31 Dose: 650 mg Albuterol/Ipratropium (Duoneb 3 Mg/0.5 Mg (3 Ml) Ud) 3 ml INH RQ4 [facility] Last Admin: 09/25/17 20:15 Dose: 3 ml Amlodipine Besylate (Norvasc) 10 mg PO DAILY [facility] Last Admin: 09/25/17 09:11 Dose: 10 mg Aspirin (Ecotrin) 81 mg PO DAILY [facility] Last Admin: 09/25/17 09:10 Dose: 81 mg Clopidogrel Bisulfate (Plavix) 75 mg PO DAILY [facility] Last Admin: 09/25/17 09:11 Dose: 75 mg Dextrose (Dextrose 50% Inj) 0 ml IV STAT PRN; Protocol PRN Reason: Hypoglycemia Protocol Dextrose (Glutose 15) 0 gm PO ONCE PRN; Protocol PRN Reason: Hypoglycemia Protocol Famotidine (Pepcid) 20 mg PO BID [facility] Last Admin: 09/25/17 18:00 Dose: 20 mg Furosemide (Lasix) 40 mg IVP BID [facility] Last Admin: 09/25/17 18:01 Dose: 40 mg Glucagon (Glucagen Diagnostic Kit) 0 mg IM STAT PRN; Protocol PRN Reason: Hypoglycemia Protocol Guaifenesin (Mucinex La) 600 mg PO BID [facility] Last Admin: 09/25/17 18:01 Dose: 600 mg Heparin Sodium (Porcine) (Heparin) 5,000 units SC Q8 [facility] Last Admin: 09/25/17 21:50 Dose: 5,000 units Hydralazine HCl (Apresoline) 10 mg PO QID [facility] Last Admin: 09/25/17 21:50 Dose: 10 mg Hydrochlorothiazide (Microzide) 12.5 mg PO DAILY [facility] Last Admin: 09/25/17 09:11 Dose: 12.5 mg Piperacillin Sod/Tazobactam Sod (Zosyn 3.375 Gm Iv Premix) 3.375 gm in 50 mls @ 100 mls/hr IVPB Q6H [facility] PRN Reason: Protocol Stop: 09/29/17 16:01 Last Admin: 09/25/17 21:51 Dose: 100 mls/hr Dextrose (Dextrose 5% In Water 1000 Ml) 1,000 mls @ 0 mls/hr IV .Q0M PRN; Protocol; Per Protocol PRN Reason: Hypoglycemia Protocol Insulin Aspart (Novolog) 12 unit SC TIDAC [facility] Last Admin: 09/25/17 17:25 Dose: Not Given Insulin Detemir (Levemir) 20 unit SC BID [facility] Last Admin: 09/25/17 17:24 Dose: Not Given Insulin Human Regular (Novolin R) 0 unit SC ACHS [facility] PRN Reason: Protocol Last Admin: 09/25/17 22:16 Dose: Not Given Loratadine (Claritin) 10 mg PO DAILY [facility] Last Admin: 09/25/17 09:10 Dose: 10 mg Losartan Potassium (Cozaar) 100 mg PO DAILY [facility] Last Admin: 09/25/17 09:11 Dose: 100 mg Rosuvastatin Calcium (Crestor) 20 mg PO HS [facility] Last Admin: 09/25/17 21:50 Dose: 20 mg Saccharomyces Boulardii (Florastor) 250 mg PO BID [facility] Last Admin: 09/25/17 18:01 Dose: 250 mg Tamsulosin HCl (Flomax) 0.4 mg PO DAILY [facility] Last Admin: 09/25/17 09:11 Dose: 0.4 mg - Labs Labs: 09/25/17 06:45 09/25/17 06:45 PT 12.6 SECONDS (9.7-12.2) H 09/22/17 10:28 INR 1.1 09/22/17 10:28 APTT 33 SECONDS (21-34) 09/22/17 10:28
[2017-09-26] MEDS: Albuterol-Ipratrop 3 mg / 0.5 (3 ml) UD INH SCH ×4 (03:25→15:48)
[2017-09-26] MEDS: Piperacill/Tazo 3.375gm in Dex 3.375 GM/50 ML BAG IVPB SCH ×4 (04:45→22:27)
[2017-09-26 07:09] LABS: BASO % 0.5 % (0.0-2.0); EOS # 0.4 K/uL (0.0-0.7); EOS % 5.5 % (0.0-4.0); HEMOGLOBIN 12.9 g/dL (12.0-18.0); LYMPH # 1.9 K/uL (1.0-4.3); LYMPH % 28.7 % (20.0-40.0); MEAN CELL VOLUME 83.6 fL (80.0-94.0); MEAN CORPUSCULAR HEMOGLOBIN 28.2 pg (27.0-31.0); MEAN CORPUSCULAR HGB CONC 33.8 g/dL (33.0-37.0); MEAN PLATELET VOLUME 8.6 fL (7.2-11.7); MONO # 0.7 K/uL (0.0-0.8); MONO % 10.1 % (0.0-10.0); NEUT # 3.7 K/uL (1.8-7.0); NEUT % 55.2 % (50.0-75.0); RBC 4.55 Mil/uL (4.40-5.90); RED CELL DISTRIBUTION WIDTH 13.5 % (11.5-14.5); WHITE BLOOD COUNT 6.7 K/uL (4.8-10.8)
[2017-09-26] MEDS: (Novolin R) Insulin Human Regular 100 units/ml vial SC SCH ×4 (07:30→22:57)
[2017-09-26] MEDS: (Novolog) Insulin Aspart, Recombinant 100 u/ml 10 ml vial SC SCH ×3 (07:30→22:55)
--- NOTE | 2017-09-26 07:35 | CP.PCM.PN ---
Subjective - Date & Time of Evaluation Date of Evaluation: 09/26/17 Time of Evaluation: 07:00 - Subjective Subjective: PGY-[address] Cortes Patient seen and examined at bedside. No acute events overnight. Patient still complains of coughs and associated shortness of breath. Patient denies having fever, chills, headache, chest pain, abdominal pain, nausea, or vomiting. Objective - Vital Signs/Intake and Output Vital Signs (last 24 hours): Temp Pulse Resp BP Pulse Ox 97.6 F 92 H 20 130/59 L 97 09/25/17 23:05 09/26/17 04:07 09/25/17 23:05 09/25/17 23:05 09/25/17 23:05 Intake and Output: 09/26/17 09/26/17 06:59 18:59 Intake Total 350 Output Total 400 Balance -50 - Medications Medications: Current Medications Acetaminophen (Tylenol 325mg Tab) 650 mg PO Q6 PRN PRN Reason: Fever >100.4 F Last Admin: 09/24/17 00:31 Dose: 650 mg Albuterol/Ipratropium (Duoneb 3 Mg/0.5 Mg (3 Ml) Ud) 3 ml INH RQ4 [facility]S [facility] 234 BEDS AT [facility] Last Admin: 09/26/17 07:24 Dose: 3 ml Amlodipine Besylate (Norvasc) 10 mg PO DAILY [facility]S INCLUDE 234 BEDS AT THE [facility] Last Admin: 09/25/17 09:11 Dose: 10 mg Aspirin (Ecotrin) 81 mg PO DAILY [facility]CLUDE 234 BEDS AT THE [facility] Last Admin: 09/25/17 09:10 Dose: 81 mg Clopidogrel Bisulfate (Plavix) 75 mg PO DAILY [facility]CLUDE 234 BEDS AT THE [facility] Last Admin: 09/25/17 09:11 Dose: 75 mg Dextrose (Dextrose 50% Inj) 0 ml IV STAT PRN; Protocol PRN Reason: Hypoglycemia Protocol Dextrose (Glutose 15) 0 gm PO ONCE PRN; Protocol PRN Reason: Hypoglycemia Protocol Famotidine (Pepcid) 20 mg PO BID [facility]S INCLUDE 234 BEDS AT [facility] Last Admin: 09/25/17 18:00 Dose: 20 mg Furosemide (Lasix) 40 mg IVP BID [facility]S INCLUDE 234 BEDS AT [facility] Last Admin: 09/25/17 18:01 Dose: 40 mg Glucagon (Glucagen Diagnostic Kit) 0 mg IM STAT PRN; Protocol PRN Reason: Hypoglycemia Protocol Guaifenesin (Mucinex La) 600 mg PO BID [facility]S INCLUDE 234 BEDS AT THE [facility] Last Admin: 09/25/17 18:01 Dose: 600 mg Heparin Sodium (Porcine) (Heparin) 5,000 units SC Q8 [facility]S INCLUDE 234 BEDS AT THE [facility] Last Admin: 09/26/17 05:30 Dose: 5,000 units Hydralazine HCl (Apresoline) 10 mg PO QID COUNTS INCLUDE 234 BEDS AT THE [facility] Last Admin: 09/25/17 21:50 Dose: 10 mg Hydrochlorothiazide (Microzide) 12.5 mg PO DAILY [facility]S INCLUDE 234 BEDS AT [facility] Last Admin: 09/25/17 09:11 Dose: 12.5 mg Piperacillin Sod/Tazobactam Sod (Zosyn 3.375 Gm Iv Premix) 3.375 gm in 50 mls @ 100 mls/hr IVPB Q6H COUNTS INCLUDE 234 BEDS AT THE [facility] PRN Reason: Protocol Stop: 09/29/17 16:01 Last Admin: 09/26/17 04:45 Dose: 100 mls/hr Dextrose (Dextrose 5% In Water 1000 Ml) 1,000 mls @ 0 mls/hr IV .Q0M PRN; Protocol; Per Protocol PRN Reason: Hypoglycemia Protocol Insulin Aspart (Novolog) 12 unit SC TIDAC COUNTS INCLUDE 234 BEDS AT [facility] Last Admin: 09/25/17 17:25 Dose: Not Given Insulin Detemir (Levemir) 20 unit SC BID [facility]S INCLUDE 234 BEDS AT [facility] Last Admin: 09/25/17 17:24 Dose: Not Given Insulin Human Regular (Novolin R) 0 unit SC ACHS COUNTS INCLUDE 234 BEDS AT THE [facility] PRN Reason: Protocol Last Admin: 09/25/17 22:16 Dose: Not Given Loratadine (Claritin) 10 mg PO DAILY COUNTS INCLUDE 234 BEDS AT THE [facility] Last Admin: 09/25/17 09:10 Dose: 10 mg Losartan Potassium (Cozaar) 100 mg PO DAILY [facility]S INCLUDE 234 BEDS AT [facility] Last Admin: 09/25/17 09:11 Dose: 100 mg Rosuvastatin Calcium (Crestor) 20 mg PO HS COUNTS INCLUDE 234 BEDS AT THE [facility] Last Admin: 09/25/17 21:50 Dose: 20 mg Saccharomyces Boulardii (Florastor) 250 mg PO BID COUNTS INCLUDE 234 BEDS AT THE [facility] Last Admin: 09/25/17 18:01 Dose: 250 mg Tamsulosin HCl (Flomax) 0.4 mg PO DAILY COUNTS INCLUDE 234 BEDS AT THE [facility] Last Admin: 09/25/17 09:11 Dose: 0.4 mg - Labs Labs: 09/26/17 06:57 09/25/17 06:45 PT 12.6 SECONDS (9.7-12.2) H 09/22/17 10:28 INR 1.1 09/22/17 10:28 APTT 33 SECONDS (21-34) 09/22/17 10:28 - Additional Findings Additional findings: - Constitutional Appears: Well, No Acute Distress - Head Exam Head Exam: ATRAUMATIC, NORMAL INSPECTION, NORMOCEPHALIC - Eye Exam Eye Exam: EOMI, Normal appearance Pupil Exam: NORMAL ACCOMODATION, PERRL - ENT Exam ENT Exam: Mucous Membranes Moist, Normal Exam - Neck Exam Neck exam: Positive for: Full Rom. Negative for: Tenderness, Thyromegaly - Respiratory Exam Respiratory Exam: Rales, NORMAL BREATHING PATTERN. absent: Decreased Breath Sounds - Cardiovascular Exam Cardiovascular Exam: REGULAR RHYTHM, +S1, +S2. absent: Bradycardia, Tachycardia - GI/Abdominal Exam GI & Abdominal Exam: Normal Bowel Sounds, Soft. absent: Tenderness - Extremities Exam Extremities exam: Negative for: pedal edema Additional comments: right leg in cast no pitting edema noted on visible right lower extremity no pitting edema of left lower extremity - Back Exam Back exam: FULL ROM, NORMAL INSPECTION. absent: paraspinal tenderness, vertebral tenderness - Neurological Exam Neurological exam: Alert, CN II-XII Intact, Normal Gait, Oriented x3 - Psychiatric Exam Psychiatric exam: Normal Affect, Normal Mood - Skin Skin Exam: Dry, Normal Color, Warm Additional comments: left anterior chest has site of pacemaker placement Assessment and Plan - Assessment and Plan (Free Text) Assessment: 1) Pneumona, healthcare associated pneumonia * Pulmonary consult, Dr Beach * Likely bronchitits. Normal pro calcitonin level and chest x-ray consistent with bibasilar small effusions and atelectasis. Continue Zosyn. Discontinue vancomycin 09/24/17 * Monitor on telemetry * Risk factor: recently in the hospital in the past 90 days * Legionella, Mycoplasma Pneumonaie, Rapid Strep, procalcitonin, HIV, Group A Beta Strep, Flu, ALL NEGATIVE * Blood Cultures 09/22/17 NEGATIVE up to date * F/U quantiferon Gold, strep pneumoniae Ag * elevated probnp 2710 * Dimer 504 * Duoneb 2 puff IH Q4H scheduled * Tessalon 100mg PO TID * CT Chest (09/22/17): no evidence of acute central pulmonary embolus. Nodular opacities seen throughout the upper lobes bilaterally as well as right middle lobe. Bilateral effusions and bibasilar atelectasis right greater than left. * Incentive spirometry 2) Diastolic Heart Failure Pulmonary Hypertension History of Third Degree AV Block s/p pacemaker placement * 09/10/[address] Rogers, Dr. Keenan saw patient last visit * Site: no erythema, no pain on palpation, mild swelling * Echocardiogram (02/11/17): moderate concentric left ventricular hypertrophy. left ventricular systolic function is normal. Moderate left ventricular diastolic dysfunction. Grade II-pseudonormal filling dynamics. Right ventricular systolic function is normal. b-atrial enlargement. mild regurgitation is trace to mild. Moderate pulmonary hypertension. Right ventricular systolic presssure is estimated at 4-550mmg Hg. No percardial effusion. * Will recheck echo, pending offical read * elevated probnp 2710 * continue HCTZ and lasix 3) Recent Right leg fracture * Patient was seen and evaluated at [facility] for initial encounter in the ED, leg was casted in the ED and he was told follow up on October 04 with ortho at [facility] * Patient reports he was told not to walk, which he has except when he needs to go to the bathroom 4) CAD with Stent * ASA 81mg PO QDaily * Plavix 75mg PO QDaily * Crestor 20mg PO HS 5) History of DM2 * Had a hypoglycemic episode 09/24/17 (due to decreased appetite) -> blood sugar 23 -> adjusted short acting and long acting insulin and started on glucerna shake * Levemir 40u SC BID -> 20u SC BID (due to hypoglycemic episode)-> 30u SC BID * Lispro 24 u SQ TIDAC -> 12u SQ TIDAC (due to hypoglycemic episode) * Accucheck ACHS * hypoglycemic protocol * a1c ELEVATED 10.8 * lipid panel - LDL 136, Cholesterol 202, otherwise normal 6) History of Hypertension * Hydralazine 10mg PO QID * HCTZ 12.5mg PO QDaily * Amlodipine 10mg PO QDaily * Valsartan 320mg PO QDaily not available on hospital formulary (giving Losartan 100mg PO QD as substitute) 7) Hx hyperlipidemia * Welchol 625mg PO QD, not available in pharmacy * Rosuvastatin Calcium 20mg PO QHS 8) Hx asthma * duoneb 2 puff IH Q4H scheduled * Claritin 10mg PO QD 9) Hx of BPH and Prostate CA * Flomax 0.4mg PO QD 10)Hx of low Vitamin D * Outpatient management 11) Prophylaxis * Pepcid 20mg BID * Heparin 5000 u SC Q8H * Heart Healthy Diet Low Carb diet * Fever: Tylenol * Bedside commode * PT/OT eval
[2017-09-26 07:37] LABS: ALB/GLOB RATIO 0.9 (1.0-2.1); ALBUMIN 3.3 g/dL (3.5-5.0); ALT/SGPT 52 U/L (21-72); AST/SGOT 50 U/L (17-59); BLOOD UREA NITROGEN 18 mg/dL (9-20); CALCIUM 9.3 mg/dl (8.6-10.4); GFR AFRICAN-AMERICAN > 60; GFR NON-AFRICAN AMERICAN 55
[2017-09-26] MEDS: guaiFENesin 600 mg ER Tab PO SCH ×2 (09:21→18:05)
[2017-09-26] MEDS: Saccharomyces Boulardi 250 mg Cap PO SCH ×2 (09:21→18:06)
[2017-09-26] MEDS: Insulin Detemir 100 units/ml Vial (Levemir) SC SCH ×3 (09:32→22:27)
[2017-09-26 15:58] LABS: TB ANTIGEN MINUS NIL 0.41 IU/mL
--- NOTE | 2017-09-26 18:13 | CP.PCM.CON ---
History of Present Illness - History of Present Illness History of Present Illness: Patient presents to ED for productive cough x3 days and fever x 1 day. Patient was admitted 09/10 for pacemaker placement because of third degree heart block. Patient had no issues after leaving the hospital until 3 days ago. referred for ID eval for + CXR and + Quant for TB places on Iso- fauzia afb smears cont IV rx for pneumonia PMH: HTN, IDDM, hyperlipidemia, and asthma, CAD with stent placement (see previous discharge summary), Pacemaker d/t third degree heart block (09/10/17, last visit) PSH: none Family History: Denies family history of cancer of heart disease. Social history: Lives with daughter, speaks Greek, retired, denies any smoking history, ETOH use, or illicit drug use. PMD: Dr. Neumann Past Patient History - Infectious Disease Hx of Infectious Diseases: None - Past Medical History & Family History Past Medical History?: Yes - Past Social History Smoking Status: Never Smoked - CARDIAC Hx Cardiac Disorders: Yes (CAD,PACEMAKER) Hx Hypercholesterolemia: Yes Hx Hypertension: Yes - PULMONARY Hx Asthma: Yes - NEUROLOGICAL Hx Neurological Disorder: No - HEENT Hx HEENT Problems: Yes Hx Cataracts: Yes Hx Glaucoma: Yes - RENAL Hx Chronic Kidney Disease: No - ENDOCRINE/METABOLIC Hx Diabetes Mellitus Type 2: Yes - HEMATOLOGICAL/ONCOLOGICAL Hx Blood Disorders: No - INTEGUMENTARY Hx Dermatological Problems: No - MUSCULOSKELETAL/RHEUMATOLOGICAL Hx Falls: No - GASTROINTESTINAL Hx Gastrointestinal Disorders: No - GENITOURINARY/GYNECOLOGICAL Hx Genitourinary Disorders: Yes Hx Prostate Cancer: Yes - PSYCHIATRIC Hx Substance Use: No - SURGICAL HISTORY Hx Coronary Stent: Yes (x4) - ANESTHESIA Hx Anesthesia: Yes Hx Anesthesia Reactions: No Meds Allergies/Adverse Reactions: Allergies Allergy/AdvReac Type Severity Reaction Status Date / Time No Known Allergies Allergy Verified 09/10/17 12:28 - Medications Medications: Current Medications Acetaminophen (Tylenol 325mg Tab) 650 mg PO Q6 PRN PRN Reason: Fever >100.4 F Last Admin: 09/24/17 00:31 Dose: 650 mg Albuterol/Ipratropium (Duoneb 3 Mg/0.5 Mg (3 Ml) Ud) 3 ml INH RQ4 [facility] Last Admin: 09/26/17 15:48 Dose: 3 ml Amlodipine Besylate (Norvasc) 10 mg PO DAILY [facility] Last Admin: 09/26/17 09:21 Dose: 10 mg Aspirin (Ecotrin) 81 mg PO DAILY [facility] Last Admin: 09/26/17 09:22 Dose: 81 mg Benzonatate (Tessalon Perles) 100 mg PO TID [facility] Last Admin: 09/26/17 18:05 Dose: 100 mg Clopidogrel Bisulfate (Plavix) 75 mg PO DAILY [facility] Last Admin: 09/26/17 09:21 Dose: 75 mg Dextrose (Dextrose 50% Inj) 0 ml IV STAT PRN; Protocol PRN Reason: Hypoglycemia Protocol Dextrose (Glutose 15) 0 gm PO ONCE PRN; Protocol PRN Reason: Hypoglycemia Protocol Famotidine (Pepcid) 20 mg PO BID [facility] Last Admin: 09/26/17 18:05 Dose: 20 mg Furosemide (Lasix) 40 mg IVP BID [facility] Last Admin: 09/26/17 18:05 Dose: 40 mg Glucagon (Glucagen Diagnostic Kit) 0 mg IM STAT PRN; Protocol PRN Reason: Hypoglycemia Protocol Guaifenesin (Mucinex La) 600 mg PO BID [facility] Last Admin: 09/26/17 18:05 Dose: 600 mg Heparin Sodium (Porcine) (Heparin) 5,000 units SC Q8 [facility] Last Admin: 09/26/17 13:21 Dose: 5,000 units Hydralazine HCl (Apresoline) 10 mg PO QID [facility] Last Admin: 09/26/17 18:06 Dose: 10 mg Hydrochlorothiazide (Microzide) 12.5 mg PO DAILY [facility] Last Admin: 09/26/17 09:21 Dose: 12.5 mg Piperacillin Sod/Tazobactam Sod (Zosyn 3.375 Gm Iv Premix) 3.375 gm in 50 mls @ 100 mls/hr IVPB Q6H [facility] PRN Reason: Protocol Stop: 09/29/17 16:01 Last Admin: 09/26/17 16:55 Dose: 100 mls/hr Dextrose (Dextrose 5% In Water 1000 Ml) 1,000 mls @ 0 mls/hr IV .Q0M PRN; Protocol; Per Protocol PRN Reason: Hypoglycemia Protocol Insulin Aspart (Novolog) 12 unit SC TIDAC [facility] Last Admin: 09/26/17 11:40 Dose: 12 unit Insulin Detemir (Levemir) 30 unit SC Q12 [facility] Last Admin: 09/26/17 16:18 Dose: Not Given Insulin Human Regular (Novolin R) 0 unit SC ACHS [facility] PRN Reason: Protocol Last Admin: 09/26/17 16:18 Dose: Not Given Loratadine (Claritin) 10 mg PO DAILY [facility] Last Admin: 09/26/17 09:22 Dose: 10 mg Losartan Potassium (Cozaar) 100 mg PO DAILY [facility] Last Admin: 09/26/17 09:21 Dose: 100 mg Rosuvastatin Calcium (Crestor) 20 mg PO HS [facility] Last Admin: 09/25/17 21:50 Dose: 20 mg Saccharomyces Boulardii (Florastor) 250 mg PO BID [facility] Last Admin: 09/26/17 18:06 Dose: 250 mg Tamsulosin HCl (Flomax) 0.4 mg PO DAILY [facility] Last Admin: 09/26/17 09:22 Dose: 0.4 mg Results - Vital Signs Recent Vital Signs: Last Vital Signs Temp 97.2 F L 09/26/17 15:16 Pulse 84 09/26/17 15:16 Resp 20 09/26/17 15:16 BP 115/72 09/26/17 18:05 Pulse Ox 96 09/26/17 15:16 - Labs Result Diagrams: 09/26/17 06:57 09/26/17 06:57 Labs: Laboratory Results - last 24 hr 09/24/17 09/25/17 09/25/17 13:54 19:28 21:17 WBC RBC Hgb Hct MCV MCH MCHC RDW Plt Count MPV Neut % (Auto) Lymph % (Auto) [place] % (Auto) Eos % (Auto) Baso % (Auto) Neut # (Auto) Lymph # (Auto) [place] # (Auto) Eos # (Auto) Baso # (Auto) Sodium Potassium Chloride Carbon Dioxide Anion Gap BUN Creatinine Est GFR ( Amer) Est GFR (Non-Af Amer) POC Glucose (mg/dL) 200 H Random Glucose Calcium Phosphorus Magnesium Total Bilirubin AST ALT Alkaline Phosphatase Total Protein Albumin Globulin Albumin/Globulin Ratio Vancomycin Trough 8.0 TB Test (QFT) Nil 0.31 TB Test Mitogen - Nil 6.53 TB Test TB - Nil 0.41 TB Test (QFT) Positive H 09/26/17 09/26/17 09/26/17 02:18 06:47 06:57 WBC 6.7 RBC 4.55 Hgb 12.9 Hct 38.1 MCV 83.6 MCH 28.2 MCHC 33.8 RDW 13.5 Plt Count 332 MPV 8.6 Neut % (Auto) 55.2 Lymph % (Auto) 28.7 [place] % (Auto) 10.1 H Eos % (Auto) 5.5 H Baso % (Auto) 0.5 Neut # (Auto) 3.7 Lymph # (Auto) 1.9 [place] # (Auto) 0.7 Eos # (Auto) 0.4 Baso # (Auto) 0.0 Sodium Potassium Chloride Carbon Dioxide Anion Gap BUN Creatinine Est GFR ( Amer) Est GFR (Non-Af Amer) POC Glucose (mg/dL) 260 H 251 H Random Glucose Calcium Phosphorus Magnesium Total Bilirubin AST ALT Alkaline Phosphatase Total Protein Albumin Globulin Albumin/Globulin Ratio Vancomycin Trough TB Test (QFT) Nil TB Test Mitogen - Nil TB Test TB - Nil TB Test (QFT) 09/26/17 09/26/17 09/26/17 06:57 08:07 11:41 WBC RBC Hgb Hct MCV MCH MCHC RDW Plt Count MPV Neut % (Auto) Lymph % (Auto) [place] % (Auto) Eos % (Auto) Baso % (Auto) Neut # (Auto) Lymph # (Auto) [place] # (Auto) Eos # (Auto) Baso # (Auto) Sodium 135 Potassium 3.6 Chloride 97 L Carbon Dioxide 28 Anion Gap 15 BUN 18 Creatinine 1.3 Est GFR ( Amer) > 60 Est GFR (Non-Af Amer) 55 POC Glucose (mg/dL) 261 H 239 H Random Glucose 279 H Calcium 9.3 Phosphorus 4.3 Magnesium 2.2 Total Bilirubin 0.7 AST 50 ALT 52 Alkaline Phosphatase 84 Total Protein 6.9 Albumin 3.3 L Globulin 3.5 Albumin/Globulin Ratio 0.9 L Vancomycin Trough TB Test (QFT) Nil TB Test Mitogen - Nil TB Test TB - Nil TB Test (QFT) 09/26/17 15:58 WBC RBC Hgb Hct MCV MCH MCHC RDW Plt Count MPV Neut % (Auto) Lymph % (Auto) [place] % (Auto) Eos % (Auto) Baso % (Auto) Neut # (Auto) Lymph # (Auto) [place] # (Auto) Eos # (Auto) Baso # (Auto) Sodium Potassium Chloride Carbon Dioxide Anion Gap BUN Creatinine Est GFR ( Amer) Est GFR (Non-Af Amer) POC Glucose (mg/dL) 101 Random Glucose Calcium Phosphorus Magnesium Total Bilirubin AST ALT Alkaline Phosphatase Total Protein Albumin Globulin Albumin/Globulin Ratio Vancomycin Trough TB Test (QFT) Nil TB Test Mitogen - Nil TB Test TB - Nil TB Test (QFT)
--- NOTE | 2017-09-26 18:20 | CP.PCM.PN ---
Subjective - Date & Time of Evaluation Date of Evaluation: 09/26/17 Time of Evaluation: 08:40 - Subjective Subjective: Patient seen and examined at bedside. Shortness of breath is slightly improved Wheezing is still present but slightly improved. Afebrile. Patient states he is due to have his surgical oneyda removed. 1. Bronchitis - CXR consistent with bibasilar small effusions and atelectasis - negative group A strep, flu, legionella, mycoplasma or HIV - blood cultures prelim no growth - pro-calcitonin /: not elevated - claritin - continue empiric zosyn - vancomycin discontinued 2. CHF - HCTZ - Lasix Objective - Vital Signs/Intake and Output Vital Signs (last 24 hours): Temp Pulse Resp BP Pulse Ox 97.2 F L 84 20 115/72 96 09/26/17 15:16 09/26/17 15:16 09/26/17 15:16 09/26/17 18:05 09/26/17 15:16 Intake and Output: 09/26/17 09/26/17 06:59 18:59 Intake Total 350 430 Output Total 400 Balance -50 430 - Medications Medications: Current Medications Acetaminophen (Tylenol 325mg Tab) 650 mg PO Q6 PRN PRN Reason: Fever >100.4 F Last Admin: 09/24/17 00:31 Dose: 650 mg Albuterol/Ipratropium (Duoneb 3 Mg/0.5 Mg (3 Ml) Ud) 3 ml INH RQ4 [facility] Last Admin: 09/26/17 15:48 Dose: 3 ml Amlodipine Besylate (Norvasc) 10 mg PO DAILY [facility] Last Admin: 09/26/17 09:21 Dose: 10 mg Aspirin (Ecotrin) 81 mg PO DAILY [facility] Last Admin: 09/26/17 09:22 Dose: 81 mg Benzonatate (Tessalon Perles) 100 mg PO TID [facility] Last Admin: 09/26/17 18:05 Dose: 100 mg Clopidogrel Bisulfate (Plavix) 75 mg PO DAILY [facility] Last Admin: 09/26/17 09:21 Dose: 75 mg Dextrose (Dextrose 50% Inj) 0 ml IV STAT PRN; Protocol PRN Reason: Hypoglycemia Protocol Dextrose (Glutose 15) 0 gm PO ONCE PRN; Protocol PRN Reason: Hypoglycemia Protocol Famotidine (Pepcid) 20 mg PO BID [facility] Last Admin: 09/26/17 18:05 Dose: 20 mg Furosemide (Lasix) 40 mg IVP BID [facility] Last Admin: 09/26/17 18:05 Dose: 40 mg Glucagon (Glucagen Diagnostic Kit) 0 mg IM STAT PRN; Protocol PRN Reason: Hypoglycemia Protocol Guaifenesin (Mucinex La) 600 mg PO BID [facility] Last Admin: 09/26/17 18:05 Dose: 600 mg Heparin Sodium (Porcine) (Heparin) 5,000 units SC Q8 [facility] Last Admin: 09/26/17 13:21 Dose: 5,000 units Hydralazine HCl (Apresoline) 10 mg PO QID [facility] Last Admin: 09/26/17 18:06 Dose: 10 mg Hydrochlorothiazide (Microzide) 12.5 mg PO DAILY [facility] Last Admin: 09/26/17 09:21 Dose: 12.5 mg Piperacillin Sod/Tazobactam Sod (Zosyn 3.375 Gm Iv Premix) 3.375 gm in 50 mls @ 100 mls/hr IVPB Q6H [facility] PRN Reason: Protocol Stop: 09/29/17 16:01 Last Admin: 09/26/17 16:55 Dose: 100 mls/hr Dextrose (Dextrose 5% In Water 1000 Ml) 1,000 mls @ 0 mls/hr IV .Q0M PRN; Protocol; Per Protocol PRN Reason: Hypoglycemia Protocol Insulin Aspart (Novolog) 12 unit SC TIDAC [facility] Last Admin: 09/26/17 11:40 Dose: 12 unit Insulin Detemir (Levemir) 30 unit SC Q12 [facility] Last Admin: 09/26/17 16:18 Dose: Not Given Insulin Human Regular (Novolin R) 0 unit SC ACHS [facility] PRN Reason: Protocol Last Admin: 09/26/17 16:18 Dose: Not Given Loratadine (Claritin) 10 mg PO DAILY [facility] Last Admin: 09/26/17 09:22 Dose: 10 mg Losartan Potassium (Cozaar) 100 mg PO DAILY [facility] Last Admin: 09/26/17 09:21 Dose: 100 mg Rosuvastatin Calcium (Crestor) 20 mg PO HS [facility] Last Admin: 09/25/17 21:50 Dose: 20 mg Saccharomyces Boulardii (Florastor) 250 mg PO BID [facility] Last Admin: 09/26/17 18:06 Dose: 250 mg Tamsulosin HCl (Flomax) 0.4 mg PO DAILY [facility] Last Admin: 09/26/17 09:22 Dose: 0.4 mg - Labs Labs: 09/26/17 06:57 09/26/17 06:57 PT 12.6 SECONDS (9.7-12.2) H 09/22/17 10:28 INR 1.1 09/22/17 10:28 APTT 33 SECONDS (21-34) 09/22/17 10:28 Assessment and Plan (1) Bronchitis Status: Acute (2) Congestive heart failure Status: Suspected
--- NOTE | 2017-09-26 20:27 | CP.PCM.PN ---
Subjective - Date & Time of Evaluation Date of Evaluation: 09/26/17 Time of Evaluation: 14:10 - Subjective Subjective: Patient seen and examined at bedside. Patient recently hospitalized on 09/10 for 3rd degree heart block s/p PPM insertion with Dr. Rogers. C/o persistent cough 2/ 2 pneumonia. Denies chest pain, SOB, LE edema, or dizziness. R foot is wrapped 2 /2 recent fracture. 12-point ROS otherwise negative. Physical Examination - Additional Findings Additional findings: - Constitutional Appears: Well, No Acute Distress - Head Exam Head Exam: ATRAUMATIC, NORMAL INSPECTION - Eye Exam Eye Exam: EOMI, Normal appearance - ENT Exam ENT Exam: Mucous Membranes Moist, Normal Exam - Neck Exam Neck exam: Positive for: Full Rom. Negative for: Tenderness, Thyromegaly - Respiratory Exam Respiratory Exam: Rales (diffuse), Wheezes, NORMAL BREATHING PATTERN. absent: Decreased Breath Sounds, Rhonchi - Cardiovascular Exam Cardiovascular Exam: REGULAR RHYTHM, +S1, +S2. absent: Bradycardia, Tachycardia Note: Left chest wall, PPM site is CDI - GI/Abdominal Exam GI & Abdominal Exam: Normal Bowel Sounds, Soft. absent: Tenderness - Extremities Exam Extremities exam: Negative for: pedal edema Additional comments: right leg in cast, no pitting edema evident - Neurological Exam Neurological exam: Alert, CN II-XII Intact, Normal Gait, Oriented x3 - Psychiatric Exam Psychiatric exam: Normal Affect, Normal Mood - Skin Skin Exam: Dry, Normal Color, Warm Objective - Vital Signs/Intake and Output Vital Signs (last 24 hours): Temp Pulse Resp BP Pulse Ox 97.2 F L 84 20 115/72 96 09/26/17 15:16 09/26/17 15:16 09/26/17 15:16 09/26/17 18:05 09/26/17 15:16 Intake and Output: 09/26/17 09/27/17 18:59 06:59 Intake Total 430 Balance 430 - Medications Medications: Current Medications Acetaminophen (Tylenol 325mg Tab) 650 mg PO Q6 PRN PRN Reason: Fever >100.4 F Last Admin: 09/24/17 00:31 Dose: 650 mg Albuterol/Ipratropium (Duoneb 3 Mg/0.5 Mg (3 Ml) Ud) 3 ml INH RQ4 [facility] Last Admin: 09/26/17 15:48 Dose: 3 ml Amlodipine Besylate (Norvasc) 10 mg PO DAILY [facility] Last Admin: 09/26/17 09:21 Dose: 10 mg Aspirin (Ecotrin) 81 mg PO DAILY [facility] Last Admin: 09/26/17 09:22 Dose: 81 mg Benzonatate (Tessalon Perles) 100 mg PO TID [facility] Last Admin: 09/26/17 18:05 Dose: 100 mg Clopidogrel Bisulfate (Plavix) 75 mg PO DAILY [facility] Last Admin: 09/26/17 09:21 Dose: 75 mg Dextrose (Dextrose 50% Inj) 0 ml IV STAT PRN; Protocol PRN Reason: Hypoglycemia Protocol Dextrose (Glutose 15) 0 gm PO ONCE PRN; Protocol PRN Reason: Hypoglycemia Protocol Famotidine (Pepcid) 20 mg PO BID [facility] Last Admin: 09/26/17 18:05 Dose: 20 mg Furosemide (Lasix) 40 mg IVP BID [facility] Last Admin: 09/26/17 18:05 Dose: 40 mg Glucagon (Glucagen Diagnostic Kit) 0 mg IM STAT PRN; Protocol PRN Reason: Hypoglycemia Protocol Guaifenesin (Mucinex La) 600 mg PO BID [facility] Last Admin: 09/26/17 18:05 Dose: 600 mg Heparin Sodium (Porcine) (Heparin) 5,000 units SC Q8 [facility] Last Admin: 09/26/17 13:21 Dose: 5,000 units Hydralazine HCl (Apresoline) 10 mg PO QID [facility] Last Admin: 09/26/17 18:06 Dose: 10 mg Hydrochlorothiazide (Microzide) 12.5 mg PO DAILY [facility] Last Admin: 09/26/17 09:21 Dose: 12.5 mg Piperacillin Sod/Tazobactam Sod (Zosyn 3.375 Gm Iv Premix) 3.375 gm in 50 mls @ 100 mls/hr IVPB Q6H [facility] PRN Reason: Protocol Stop: 09/29/17 16:01 Last Admin: 09/26/17 16:55 Dose: 100 mls/hr Dextrose (Dextrose 5% In Water 1000 Ml) 1,000 mls @ 0 mls/hr IV .Q0M PRN; Protocol; Per Protocol PRN Reason: Hypoglycemia Protocol Insulin Aspart (Novolog) 12 unit SC TIDAC [facility] Last Admin: 09/26/17 11:40 Dose: 12 unit Insulin Detemir (Levemir) 30 unit SC Q12 [facility] Last Admin: 09/26/17 16:18 Dose: Not Given Insulin Human Regular (Novolin R) 0 unit SC ACHS [facility] PRN Reason: Protocol Last Admin: 09/26/17 16:18 Dose: Not Given Loratadine (Claritin) 10 mg PO DAILY [facility] Last Admin: 09/26/17 09:22 Dose: 10 mg Losartan Potassium (Cozaar) 100 mg PO DAILY [facility] Last Admin: 09/26/17 09:21 Dose: 100 mg Rosuvastatin Calcium (Crestor) 20 mg PO HS [facility] Last Admin: 09/25/17 21:50 Dose: 20 mg Saccharomyces Boulardii (Florastor) 250 mg PO BID [facility] Last Admin: 09/26/17 18:06 Dose: 250 mg Tamsulosin HCl (Flomax) 0.4 mg PO DAILY [facility] Last Admin: 09/26/17 09:22 Dose: 0.4 mg - Labs Labs: 09/26/17 06:57 09/26/17 06:57 PT 12.6 SECONDS (9.7-12.2) H 09/22/17 10:28 INR 1.1 09/22/17 10:28 APTT 33 SECONDS (21-34) 09/22/17 10:28 Assessment and Plan - Assessment and Plan (Free Text) Assessment: 3rd Degree Heart Block s/p PPM 09/24: patient is stable, no chest pain or SOB. PPM placed on 09/[address] Rogers Admitted for pneumonia PPM site healthy, CDI CAD with Stent ASA 81mg PO QD Plavix 75mg PO QD Crestor 20mg PO HS Hx HTN Apresoline 10mg POQID HCTZ 12.5mg PO QD amlodipine 10mg PO QD Valsartan 320mg PO QD (giving Losartan 100mg PO QD as substitute) Hx hyperlipidemia Welchol 625mg PO QD, not available in pharmacy Rosuvastatin Calcium 20mg PO QHS
[2017-09-27] MEDS: Albuterol-Ipratrop 3 mg / 0.5 (3 ml) UD INH SCH ×7 (00:09→23:25)
[2017-09-27] MEDS: Piperacill/Tazo 3.375gm in Dex 3.375 GM/50 ML BAG IVPB SCH ×4 (05:00→21:39)
[2017-09-27 06:46] LABS: BASO % 0.5 % (0.0-2.0); EOS # 0.5 K/uL (0.0-0.7); EOS % 5.6 % (0.0-4.0); HEMOGLOBIN 13.9 g/dL (12.0-18.0); LYMPH # 2.1 K/uL (1.0-4.3); LYMPH % 23.9 % (20.0-40.0); MEAN CELL VOLUME 84.3 fL (80.0-94.0); MEAN CORPUSCULAR HEMOGLOBIN 28.6 pg (27.0-31.0); MEAN CORPUSCULAR HGB CONC 33.9 g/dL (33.0-37.0); MEAN PLATELET VOLUME 8.4 fL (7.2-11.7); MONO # 0.8 K/uL (0.0-0.8); MONO % 9.7 % (0.0-10.0); NEUT # 5.2 K/uL (1.8-7.0); NEUT % 60.3 % (50.0-75.0); RBC 4.85 Mil/uL (4.40-5.90); RED CELL DISTRIBUTION WIDTH 13.6 % (11.5-14.5); WHITE BLOOD COUNT 8.6 K/uL (4.8-10.8)
[2017-09-27 06:51] LABS: ALBUMIN 3.5 g/dL (3.5-5.0); CALCIUM 9.6 mg/dl (8.6-10.4)
--- NOTE | 2017-09-27 07:35 | CP.PCM.PN ---
Subjective - Date & Time of Evaluation Date of Evaluation: 09/27/17 Time of Evaluation: 07:25 - Subjective Subjective: Medicine Progress Note for Dr. Cortes Patient seen and examined at bedside. Patient was placed isolation room due to positive QuantiFeron test yesterday afternoon. Patient still complains of coughs and wheezes. Patient denies fever, chills, headache, chest pain, nausea, vomiting or diarrhea. Objective - Vital Signs/Intake and Output Vital Signs (last 24 hours): Temp Pulse Resp BP Pulse Ox 98.2 F 79 20 140/82 95 09/27/17 00:00 09/27/17 00:00 09/27/17 00:00 09/27/17 00:00 09/27/17 00:00 Intake and Output: 09/27/17 09/27/17 06:59 18:59 Intake Total 150 Output Total 700 Balance -550 - Medications Medications: Current Medications Acetaminophen (Tylenol 325mg Tab) 650 mg PO Q6 PRN PRN Reason: Fever >100.4 F Last Admin: 09/24/17 00:31 Dose: 650 mg Albuterol/Ipratropium (Duoneb 3 Mg/0.5 Mg (3 Ml) Ud) 3 ml INH RQ4 [facility] Last Admin: 09/27/17 07:29 Dose: 3 ml Amlodipine Besylate (Norvasc) 10 mg PO DAILY [facility] Last Admin: 09/26/17 09:21 Dose: 10 mg Aspirin (Ecotrin) 81 mg PO DAILY [facility] Last Admin: 09/26/17 09:22 Dose: 81 mg Benzonatate (Tessalon Perles) 100 mg PO TID [facility] Last Admin: 09/26/17 18:05 Dose: 100 mg Clopidogrel Bisulfate (Plavix) 75 mg PO DAILY [facility] Last Admin: 09/26/17 09:21 Dose: 75 mg Dextrose (Dextrose 50% Inj) 0 ml IV STAT PRN; Protocol PRN Reason: Hypoglycemia Protocol Dextrose (Glutose 15) 0 gm PO ONCE PRN; Protocol PRN Reason: Hypoglycemia Protocol Famotidine (Pepcid) 20 mg PO BID [facility] Last Admin: 09/26/17 18:05 Dose: 20 mg Furosemide (Lasix) 40 mg IVP BID [facility] Last Admin: 09/26/17 18:05 Dose: 40 mg Glucagon (Glucagen Diagnostic Kit) 0 mg IM STAT PRN; Protocol PRN Reason: Hypoglycemia Protocol Guaifenesin (Mucinex La) 600 mg PO BID [facility] Last Admin: 09/26/17 18:05 Dose: 600 mg Heparin Sodium (Porcine) (Heparin) 5,000 units SC Q8 [facility] Last Admin: 09/27/17 06:00 Dose: 5,000 units Hydralazine HCl (Apresoline) 10 mg PO QID [facility] Last Admin: 09/26/17 22:27 Dose: 10 mg Hydrochlorothiazide (Microzide) 12.5 mg PO DAILY [facility] Last Admin: 09/26/17 09:21 Dose: 12.5 mg Piperacillin Sod/Tazobactam Sod (Zosyn 3.375 Gm Iv Premix) 3.375 gm in 50 mls @ 100 mls/hr IVPB Q6H [facility] PRN Reason: Protocol Stop: 09/29/17 16:01 Last Admin: 09/27/17 05:00 Dose: 100 mls/hr Dextrose (Dextrose 5% In Water 1000 Ml) 1,000 mls @ 0 mls/hr IV .Q0M PRN; Protocol; Per Protocol PRN Reason: Hypoglycemia Protocol Insulin Aspart (Novolog) 12 unit SC TIDAC [facility] Last Admin: 09/26/17 22:55 Dose: Not Given Insulin Detemir (Levemir) 30 unit SC Q12 [facility] Last Admin: 09/26/17 22:27 Dose: 30 unit Insulin Human Regular (Novolin R) 0 unit SC ACHS [facility] PRN Reason: Protocol Last Admin: 09/26/17 22:57 Dose: Not Given Loratadine (Claritin) 10 mg PO DAILY [facility] Last Admin: 09/26/17 09:22 Dose: 10 mg Losartan Potassium (Cozaar) 100 mg PO DAILY [facility] Last Admin: 09/26/17 09:21 Dose: 100 mg Rosuvastatin Calcium (Crestor) 20 mg PO HS [facility] Last Admin: 09/26/17 22:26 Dose: 20 mg Saccharomyces Boulardii (Florastor) 250 mg PO BID [facility] Last Admin: 09/26/17 18:06 Dose: 250 mg Tamsulosin HCl (Flomax) 0.4 mg PO DAILY [facility] Last Admin: 09/26/17 09:22 Dose: 0.4 mg - Labs Labs: 09/27/17 06:23 09/27/17 06:23 PT 12.6 SECONDS (9.7-12.2) H 09/22/17 10:28 INR 1.1 09/22/17 10:28 APTT 33 SECONDS (21-34) 09/22/17 10:28 - Additional Findings Additional findings: - Constitutional Appears: Well, No Acute Distress - Head Exam Head Exam: ATRAUMATIC, NORMAL INSPECTION, NORMOCEPHALIC - Eye Exam Eye Exam: EOMI, Normal appearance Pupil Exam: NORMAL ACCOMODATION, PERRL - ENT Exam ENT Exam: Mucous Membranes Moist, Normal Exam - Neck Exam Neck exam: Positive for: Full Rom. Negative for: Tenderness, Thyromegaly - Respiratory Exam Respiratory Exam: Rales, NORMAL BREATHING PATTERN. absent: Decreased Breath Sounds - Cardiovascular Exam Cardiovascular Exam: REGULAR RHYTHM, +S1, +S2. absent: Bradycardia, Tachycardia - GI/Abdominal Exam GI & Abdominal Exam: Normal Bowel Sounds, Soft. absent: Tenderness - Extremities Exam Extremities exam: Negative for: pedal edema Additional comments: right leg in cast no pitting edema noted on visible right lower extremity no pitting edema of left lower extremity - Back Exam Back exam: FULL ROM, NORMAL INSPECTION. absent: paraspinal tenderness, vertebral tenderness - Neurological Exam Neurological exam: Alert, CN II-XII Intact, Normal Gait, Oriented x3 - Psychiatric Exam Psychiatric exam: Normal Affect, Normal Mood - Skin Skin Exam: Dry, Normal Color, Warm Additional comments: left anterior chest has site of pacemaker placement Assessment and Plan - Assessment and Plan (Free Text) Assessment: 1) Pneumona, healthcare associated pneumonia * Pulmonary consult, Dr Beach * Likely bronchitits. Normal pro calcitonin level and chest x-ray consistent with bibasilar small effusions and atelectasis. Continue Zosyn. Discontinue vancomycin 09/24/17 * Monitor on telemetry * Risk factor: recently in the hospital in the past 90 days * Legionella, Mycoplasma Pneumonaie, Rapid Strep, procalcitonin, HIV, Group A Beta Strep, Flu, ALL NEGATIVE * Blood Cultures 09/22/17 NEGATIVE up to date * Quantiferon Gold Positive * Afebrile, no leukocytosis * Isolation room * Follow up series AFB sputum culture * elevated probnp 2710 * Dimer 504 * Duoneb 2 puff IH Q4H scheduled * Tessalon 100mg PO TID * CT Chest (09/22/17): no evidence of acute central pulmonary embolus. Nodular opacities seen throughout the upper lobes bilaterally as well as right middle lobe. Bilateral effusions and bibasilar atelectasis right greater than left. * Incentive spirometry 2) Diastolic Heart Failure Pulmonary Hypertension History of Third Degree AV Block s/p pacemaker placement * 09/10/[address] Rogers, Dr. Keenan saw patient last visit * Site: no erythema, no pain on palpation, mild swelling * Echocardiogram (02/11/17): moderate concentric left ventricular hypertrophy. left ventricular systolic function is normal. Moderate left ventricular diastolic dysfunction. Grade II-pseudonormal filling dynamics. Right ventricular systolic function is normal. b-atrial enlargement. mild regurgitation is trace to mild. Moderate pulmonary hypertension. Right ventricular systolic presssure is estimated at 4-550mmg Hg. No percardial effusion. * Will recheck echo, pending offical read * elevated probnp 2710 * continue HCTZ and lasix 3) Recent Right leg fracture * Patient was seen and evaluated at [facility] for initial encounter in the ED, leg was casted in the ED and he was told follow up on October 04 with ortho at [facility] * Patient reports he was told not to walk, which he has except when he needs to go to the bathroom * Follow up Right lower extremity Xray * Podiatry consult, help appreciated 4) CAD with Stent * ASA 81mg PO QDaily * Plavix 75mg PO QDaily * Crestor 20mg PO HS 5) History of DM2 * Had a hypoglycemic episode 09/24/17 (due to decreased appetite) -> blood sugar 23 -> adjusted short acting and long acting insulin and started on glucerna shake * Levemir 40u SC BID -> 20u SC BID (due to hypoglycemic episode)-> 30u SC BID * Lispro 24 u SQ TIDAC -> 12u SQ TIDAC (due to hypoglycemic episode) * Accucheck ACHS * hypoglycemic protocol * a1c ELEVATED 10.8 * lipid panel - LDL 136, Cholesterol 202, otherwise normal 6) History of Hypertension * Hydralazine 10mg PO QID * HCTZ 12.5mg PO QDaily * Amlodipine 10mg PO QDaily * Valsartan 320mg PO QDaily not available on hospital formulary (giving Losartan 100mg PO QD as substitute) 7) Hx hyperlipidemia * Welchol 625mg PO QD, not available in pharmacy * Rosuvastatin Calcium 20mg PO QHS 8) Hx asthma * duoneb 2 puff IH Q4H scheduled * Claritin 10mg PO QD 9) Hx of BPH and Prostate CA * Flomax 0.4mg PO QD 10)Hx of low Vitamin D * Outpatient management 11) Prophylaxis * Pepcid 20mg BID * Heparin 5000 u SC Q8H * Heart Healthy Diet Low Carb diet * Fever: Tylenol * Bedside commode * PT/OT eval Discussed with attending physician All management per Dr. Cortes
[2017-09-27] MEDS: (Novolin R) Insulin Human Regular 100 units/ml vial SC SCH ×4 (08:07→21:15)
[2017-09-27] MEDS: (Novolog) Insulin Aspart, Recombinant 100 u/ml 10 ml vial SC SCH ×3 (08:36→17:25)
[2017-09-27] MEDS: guaiFENesin 600 mg ER Tab PO SCH ×2 (09:58→17:57)
[2017-09-27] MEDS: Saccharomyces Boulardi 250 mg Cap PO SCH ×2 (09:58→17:57)
[2017-09-27] MEDS: Insulin Detemir 100 units/ml Vial (Levemir) SC SCH ×2 (10:02→21:39)
--- NOTE | 2017-09-27 11:12 | CP.PCM.PN ---
<Yobani Ortega - Last Filed: 09/27/17 13:34> Subjective - Date & Time of Evaluation Date of Evaluation: 09/27/17 Time of Evaluation: 09:30 - Subjective Subjective: PGY2 Cardiology progress note for Dr. Keenan Patient seen and examined at bedside. Patient recently hospitalized on 09/10 for 3rd degree heart block s/p PPM insertion with Dr. Rogers. Denies chest pain, SOB , LE edema, cough or dizziness. R foot is wrapped 2/2 recent fracture. Pt is on droplet precautions 2/2 QFT gold (+) x1; further workup in process. 12-point ROS otherwise negative. Objective - Vital Signs/Intake and Output Vital Signs (last 24 hours): Temp Pulse Resp BP Pulse Ox 98.0 F 83 18 124/78 98 09/27/17 07:45 09/27/17 07:45 09/27/17 07:45 09/27/17 09:58 09/27/17 07:45 Intake and Output: 09/27/17 09/27/17 06:59 18:59 Intake Total 150 Output Total 700 Balance -550 - Medications Medications: Current Medications Acetaminophen (Tylenol 325mg Tab) 650 mg PO Q6 PRN PRN Reason: Fever >100.4 F Last Admin: 09/24/17 00:31 Dose: 650 mg Albuterol/Ipratropium (Duoneb 3 Mg/0.5 Mg (3 Ml) Ud) 3 ml INH RQ4 [facility] Last Admin: 09/27/17 11:05 Dose: 3 ml Amlodipine Besylate (Norvasc) 10 mg PO DAILY [facility] Last Admin: 09/27/17 09:58 Dose: 10 mg Aspirin (Ecotrin) 81 mg PO DAILY [facility] Last Admin: 09/27/17 09:58 Dose: 81 mg Benzonatate (Tessalon Perles) 100 mg PO TID [facility] Last Admin: 09/27/17 10:54 Dose: 100 mg Clopidogrel Bisulfate (Plavix) 75 mg PO DAILY [facility] Last Admin: 09/27/17 09:58 Dose: 75 mg Dextrose (Dextrose 50% Inj) 0 ml IV STAT PRN; Protocol PRN Reason: Hypoglycemia Protocol Dextrose (Glutose 15) 0 gm PO ONCE PRN; Protocol PRN Reason: Hypoglycemia Protocol Famotidine (Pepcid) 20 mg PO BID [facility] Last Admin: 09/27/17 09:58 Dose: 20 mg Furosemide (Lasix) 40 mg IVP BID [facility] Last Admin: 09/27/17 09:58 Dose: 40 mg Glucagon (Glucagen Diagnostic Kit) 0 mg IM STAT PRN; Protocol PRN Reason: Hypoglycemia Protocol Guaifenesin (Mucinex La) 600 mg PO BID [facility] Last Admin: 09/27/17 09:58 Dose: 600 mg Heparin Sodium (Porcine) (Heparin) 5,000 units SC Q8 [facility] Last Admin: 09/27/17 06:00 Dose: 5,000 units Hydralazine HCl (Apresoline) 10 mg PO QID [facility] Last Admin: 09/27/17 09:57 Dose: 10 mg Hydrochlorothiazide (Microzide) 12.5 mg PO DAILY [facility] Last Admin: 09/27/17 10:01 Dose: 12.5 mg Piperacillin Sod/Tazobactam Sod (Zosyn 3.375 Gm Iv Premix) 3.375 gm in 50 mls @ 100 mls/hr IVPB Q6H [facility] PRN Reason: Protocol Stop: 09/29/17 16:01 Last Admin: 09/27/17 09:57 Dose: 100 mls/hr Dextrose (Dextrose 5% In Water 1000 Ml) 1,000 mls @ 0 mls/hr IV .Q0M PRN; Protocol; Per Protocol PRN Reason: Hypoglycemia Protocol Insulin Aspart (Novolog) 12 unit SC TIDAC [facility] Last Admin: 09/27/17 08:36 Dose: 12 unit Insulin Detemir (Levemir) 30 unit SC Q12 [facility] Last Admin: 09/27/17 10:02 Dose: 30 unit Insulin Human Regular (Novolin R) 0 unit SC ACHS [facility] PRN Reason: Protocol Last Admin: 09/27/17 08:07 Dose: Not Given Loratadine (Claritin) 10 mg PO DAILY [facility] Last Admin: 09/27/17 09:57 Dose: 10 mg Losartan Potassium (Cozaar) 100 mg PO DAILY [facility] Last Admin: 09/27/17 09:58 Dose: 100 mg Rosuvastatin Calcium (Crestor) 20 mg PO HS [facility] Last Admin: 09/26/17 22:26 Dose: 20 mg Saccharomyces Boulardii (Florastor) 250 mg PO BID [facility] Last Admin: 09/27/17 09:58 Dose: 250 mg Tamsulosin HCl (Flomax) 0.4 mg PO DAILY [facility] Last Admin: 09/27/17 09:58 Dose: 0.4 mg - Labs Labs: 09/27/17 06:23 09/27/17 06:23 PT 12.6 SECONDS (9.7-12.2) H 09/22/17 10:28 INR 1.1 09/22/17 10:28 APTT 33 SECONDS (21-34) 09/22/17 10:28 - Additional Findings Additional findings: - Constitutional Appears: Well, No Acute Distress - Head Exam Head Exam: ATRAUMATIC, NORMAL INSPECTION, NORMOCEPHALIC - ENT Exam ENT Exam: Mucous Membranes Moist, Normal Exam - Neck Exam Neck exam: Positive for: Full Rom. Negative for: Tenderness, Thyromegaly - Respiratory Exam Respiratory Exam: Rales, NORMAL BREATHING PATTERN. absent: Decreased Breath Sounds - Cardiovascular Exam Cardiovascular Exam: REGULAR RHYTHM, +S1, +S2. absent: Bradycardia, Tachycardia - GI/Abdominal Exam GI & Abdominal Exam: Normal Bowel Sounds, Soft. absent: Tenderness - Extremities Exam Extremities exam: Negative for: pedal edema Additional comments: right leg in cast no pitting edema noted on visible right lower extremity no pitting edema of left lower extremity - Back Exam Back exam: FULL ROM, NORMAL INSPECTION. absent: paraspinal tenderness, vertebral tenderness - Neurological Exam Neurological exam: Alert, CN II-XII Intact, Normal Gait, Oriented x3 - Psychiatric Exam Psychiatric exam: Normal Affect, Normal Mood - Skin Skin Exam: Dry, Normal Color, Warm Additional comments: left anterior chest has site of PPM Assessment and Plan - Assessment and Plan (Free Text) Assessment: 3rd Degree Heart Block s/p PPM 09/24-09/27: patient is stable, no chest pain or SOB. PPM placed on 09/[address] Rogers Admitted for pneumonia PPM site healthy, CDI CAD with Stent ASA 81mg PO QD Plavix 75mg PO QD Crestor 20mg PO HS Hx HTN 09/27: BP WNL. Continue Hydralazine 10mg PO QID 09/24: BP fluctuates 130's/60 to 170's/80. Currently 142/65 If BP continues to cross into 160's, increase to Hydralazine 20mg PO QID Apresoline 10mg POQID HCTZ 12.5mg PO QD amlodipine 10mg PO QD Valsartan 320mg PO QD (giving Losartan 100mg PO QD as substitute) Hx hyperlipidemia Welchol 625mg PO QD, not available in pharmacy Rosuvastatin Calcium 20mg PO QHS Case discussed with Dr. Shlomo Ortega, PGY2 <Maximino Keenan - Last Filed: 09/28/17 10:07> Objective - Vital Signs/Intake and Output Vital Signs (last 24 hours): Temp Pulse Resp BP Pulse Ox 98.0 F 91 H 20 135/79 100 09/27/17 23:30 09/28/17 08:48 09/27/17 23:30 09/27/17 23:30 09/27/17 23:30 Intake and Output: 09/28/17 09/28/17 06:59 18:59 Intake Total 390 Output Total 900 Balance -510 - Medications Medications: Current Medications Acetaminophen (Tylenol 325mg Tab) 650 mg PO Q6 PRN PRN Reason: Fever >100.4 F Last Admin: 09/24/17 00:31 Dose: 650 mg Albuterol/Ipratropium (Duoneb 3 Mg/0.5 Mg (3 Ml) Ud) 3 ml INH RQ4 [facility] Last Admin: 09/28/17 07:34 Dose: 3 ml Amlodipine Besylate (Norvasc) 10 mg PO DAILY [facility] Last Admin: 09/27/17 09:58 Dose: 10 mg Aspirin (Ecotrin) 81 mg PO DAILY [facility] Last Admin: 09/27/17 09:58 Dose: 81 mg Benzonatate (Tessalon Perles) 100 mg PO TID [facility] Last Admin: 09/27/17 17:57 Dose: 100 mg Clopidogrel Bisulfate (Plavix) 75 mg PO DAILY [facility] Last Admin: 09/27/17 09:58 Dose: 75 mg Dextrose (Dextrose 50% Inj) 0 ml IV STAT PRN; Protocol PRN Reason: Hypoglycemia Protocol Dextrose (Glutose 15) 0 gm PO ONCE PRN; Protocol PRN Reason: Hypoglycemia Protocol Famotidine (Pepcid) 20 mg PO BID [facility] Last Admin: 09/27/17 17:57 Dose: 20 mg Furosemide (Lasix) 40 mg IVP BID [facility] Last Admin: 09/27/17 17:57 Dose: 40 mg Glucagon (Glucagen Diagnostic Kit) 0 mg IM STAT PRN; Protocol PRN Reason: Hypoglycemia Protocol Guaifenesin (Mucinex La) 600 mg PO BID [facility] Last Admin: 09/27/17 17:57 Dose: 600 mg Heparin Sodium (Porcine) (Heparin) 5,000 units SC Q8 [facility] Last Admin: 09/28/17 05:56 Dose: 5,000 units Hydralazine HCl (Apresoline) 10 mg PO QID [facility] Last Admin: 09/27/17 21:39 Dose: 10 mg Hydrochlorothiazide (Microzide) 12.5 mg PO DAILY [facility] Last Admin: 09/27/17 10:01 Dose: 12.5 mg Piperacillin Sod/Tazobactam Sod (Zosyn 3.375 Gm Iv Premix) 3.375 gm in 50 mls @ 100 mls/hr IVPB Q6H [facility] PRN Reason: Protocol Stop: 09/29/17 16:01 Last Admin: 09/28/17 04:15 Dose: 100 mls/hr Dextrose (Dextrose 5% In Water 1000 Ml) 1,000 mls @ 0 mls/hr IV .Q0M PRN; Protocol; Per Protocol PRN Reason: Hypoglycemia Protocol Insulin Aspart (Novolog) 12 unit SC TIDAC [facility] Last Admin: 09/28/17 08:30 Dose: 12 unit Insulin Detemir (Levemir) 30 unit SC Q12 [facility] Last Admin: 09/27/17 21:39 Dose: 30 unit Insulin Human Regular (Novolin R) 0 unit SC ACHS [facility] PRN Reason: Protocol Last Admin: 09/28/17 08:32 Dose: 3 unit Loratadine (Claritin) 10 mg PO DAILY [facility] Last Admin: 09/27/17 09:57 Dose: 10 mg Losartan Potassium (Cozaar) 100 mg PO DAILY [facility] Last Admin: 09/27/17 09:58 Dose: 100 mg Rosuvastatin Calcium (Crestor) 20 mg PO HS [facility] Last Admin: 09/27/17 21:38 Dose: 20 mg Saccharomyces Boulardii (Florastor) 250 mg PO BID [facility] Last Admin: 09/27/17 17:57 Dose: 250 mg Tamsulosin HCl (Flomax) 0.4 mg PO DAILY [facility] Last Admin: 09/27/17 09:58 Dose: 0.4 mg - Labs Labs: 09/28/17 06:30 09/28/17 06:30 PT 12.6 SECONDS (9.7-12.2) H 09/22/17 10:28 INR 1.1 09/22/17 10:28 APTT 33 SECONDS (21-34) 09/22/17 10:28 Assessment and Plan - Assessment and Plan (Free Text) Plan: Patient seen and evaluated personally by me Plan of care d/w the medical staff services manager and as documented
--- NOTE | 2017-09-27 15:17 | CP.PCM.PN ---
Subjective - Date & Time of Evaluation Date of Evaluation: 09/27/17 Time of Evaluation: 09:00 - Subjective Subjective: Patient seen and examined at bedside, now on isolation. Shortness of breath is slightly improved, cough also improved. Wheezing is still present but slightly improved. Afebrile. Patient is now on isolation due to positive quantiferon. Surgical oneyda removed yesterday without complications. 1. Bronchitis - CXR consistent with bibasilar small effusions and atelectasis - 09/24 QFT: positive - negative group A strep, flu, legionella, mycoplasma or HIV - blood cultures prelim no growth - pro-calcitonin 09/24: not elevated - claritin - continue empiric zosyn - vancomycin discontinued 2. CHF - HCTZ - Lasix Objective - Vital Signs/Intake and Output Vital Signs (last 24 hours): Temp Pulse Resp BP Pulse Ox 98.0 F 83 18 124/78 98 09/27/17 07:45 09/27/17 07:45 09/27/17 07:45 09/27/17 09:58 09/27/17 07:45 Intake and Output: 09/27/17 09/27/17 06:59 18:59 Intake Total 150 Output Total 700 Balance -550 - Medications Medications: Current Medications Acetaminophen (Tylenol 325mg Tab) 650 mg PO Q6 PRN PRN Reason: Fever >100.4 F Last Admin: 09/24/17 00:31 Dose: 650 mg Albuterol/Ipratropium (Duoneb 3 Mg/0.5 Mg (3 Ml) Ud) 3 ml INH RQ4 [facility] Last Admin: 09/27/17 11:05 Dose: 3 ml Amlodipine Besylate (Norvasc) 10 mg PO DAILY [facility] Last Admin: 09/27/17 09:58 Dose: 10 mg Aspirin (Ecotrin) 81 mg PO DAILY [facility] Last Admin: 09/27/17 09:58 Dose: 81 mg Benzonatate (Tessalon Perles) 100 mg PO TID [facility] Last Admin: 09/27/17 13:43 Dose: 100 mg Clopidogrel Bisulfate (Plavix) 75 mg PO DAILY [facility] Last Admin: 09/27/17 09:58 Dose: 75 mg Dextrose (Dextrose 50% Inj) 0 ml IV STAT PRN; Protocol PRN Reason: Hypoglycemia Protocol Dextrose (Glutose 15) 0 gm PO ONCE PRN; Protocol PRN Reason: Hypoglycemia Protocol Famotidine (Pepcid) 20 mg PO BID [facility] Last Admin: 09/27/17 09:58 Dose: 20 mg Furosemide (Lasix) 40 mg IVP BID [facility] Last Admin: 09/27/17 09:58 Dose: 40 mg Glucagon (Glucagen Diagnostic Kit) 0 mg IM STAT PRN; Protocol PRN Reason: Hypoglycemia Protocol Guaifenesin (Mucinex La) 600 mg PO BID [facility] Last Admin: 09/27/17 09:58 Dose: 600 mg Heparin Sodium (Porcine) (Heparin) 5,000 units SC Q8 [facility] Last Admin: 09/27/17 13:43 Dose: 5,000 units Hydralazine HCl (Apresoline) 10 mg PO QID [facility] Last Admin: 09/27/17 13:43 Dose: 10 mg Hydrochlorothiazide (Microzide) 12.5 mg PO DAILY [facility] Last Admin: 09/27/17 10:01 Dose: 12.5 mg Piperacillin Sod/Tazobactam Sod (Zosyn 3.375 Gm Iv Premix) 3.375 gm in 50 mls @ 100 mls/hr IVPB Q6H [facility] PRN Reason: Protocol Stop: 09/29/17 16:01 Last Admin: 09/27/17 09:57 Dose: 100 mls/hr Dextrose (Dextrose 5% In Water 1000 Ml) 1,000 mls @ 0 mls/hr IV .Q0M PRN; Protocol; Per Protocol PRN Reason: Hypoglycemia Protocol Insulin Aspart (Novolog) 12 unit SC TIDAC [facility] Last Admin: 09/27/17 12:35 Dose: 12 unit Insulin Detemir (Levemir) 30 unit SC Q12 [facility] Last Admin: 09/27/17 10:02 Dose: 30 unit Insulin Human Regular (Novolin R) 0 unit SC ACHS [facility] PRN Reason: Protocol Last Admin: 09/27/17 12:35 Dose: 2 unit Loratadine (Claritin) 10 mg PO DAILY [facility] Last Admin: 09/27/17 09:57 Dose: 10 mg Losartan Potassium (Cozaar) 100 mg PO DAILY [facility] Last Admin: 09/27/17 09:58 Dose: 100 mg Rosuvastatin Calcium (Crestor) 20 mg PO HS [facility] Last Admin: 09/26/17 22:26 Dose: 20 mg Saccharomyces Boulardii (Florastor) 250 mg PO BID [facility] Last Admin: 09/27/17 09:58 Dose: 250 mg Tamsulosin HCl (Flomax) 0.4 mg PO DAILY [facility] Last Admin: 09/27/17 09:58 Dose: 0.4 mg - Labs Labs: 09/27/17 06:23 09/27/17 06:23 PT 12.6 SECONDS (9.7-12.2) H 09/22/17 10:28 INR 1.1 09/22/17 10:28 APTT 33 SECONDS (21-34) 09/22/17 10:28 Assessment and Plan (1) Bronchitis Status: Acute (2) Congestive heart failure Status: Suspected
[2017-09-27 16:53] VITALS: RESP 20
--- NOTE | 2017-09-27 17:51 | CP.PCM.PN ---
Subjective - Date & Time of Evaluation Date of Evaluation: 09/27/17 Time of Evaluation: 11:00 - Subjective Subjective: clinically same Objective - Vital Signs/Intake and Output Vital Signs (last 24 hours): Temp Pulse Resp BP Pulse Ox 98.1 F 88 20 115/72 97 09/27/17 15:30 09/27/17 15:30 09/27/17 15:30 09/27/17 15:30 09/27/17 15:30 Intake and Output: 09/27/17 09/27/17 06:59 18:59 Intake Total 150 Output Total 700 Balance -550 - Medications Medications: Current Medications Acetaminophen (Tylenol 325mg Tab) 650 mg PO Q6 PRN PRN Reason: Fever >100.4 F Last Admin: 09/24/17 00:31 Dose: 650 mg Albuterol/Ipratropium (Duoneb 3 Mg/0.5 Mg (3 Ml) Ud) 3 ml INH RQ4 [facility] Last Admin: 09/27/17 15:39 Dose: 3 ml Amlodipine Besylate (Norvasc) 10 mg PO DAILY [facility] Last Admin: 09/27/17 09:58 Dose: 10 mg Aspirin (Ecotrin) 81 mg PO DAILY [facility] Last Admin: 09/27/17 09:58 Dose: 81 mg Benzonatate (Tessalon Perles) 100 mg PO TID [facility] Last Admin: 09/27/17 13:43 Dose: 100 mg Clopidogrel Bisulfate (Plavix) 75 mg PO DAILY [facility] Last Admin: 09/27/17 09:58 Dose: 75 mg Dextrose (Dextrose 50% Inj) 0 ml IV STAT PRN; Protocol PRN Reason: Hypoglycemia Protocol Dextrose (Glutose 15) 0 gm PO ONCE PRN; Protocol PRN Reason: Hypoglycemia Protocol Famotidine (Pepcid) 20 mg PO BID [facility] Last Admin: 09/27/17 09:58 Dose: 20 mg Furosemide (Lasix) 40 mg IVP BID [facility] Last Admin: 09/27/17 09:58 Dose: 40 mg Glucagon (Glucagen Diagnostic Kit) 0 mg IM STAT PRN; Protocol PRN Reason: Hypoglycemia Protocol Guaifenesin (Mucinex La) 600 mg PO BID [facility] Last Admin: 09/27/17 09:58 Dose: 600 mg Heparin Sodium (Porcine) (Heparin) 5,000 units SC Q8 [facility] Last Admin: 09/27/17 13:43 Dose: 5,000 units Hydralazine HCl (Apresoline) 10 mg PO QID [facility] Last Admin: 09/27/17 13:43 Dose: 10 mg Hydrochlorothiazide (Microzide) 12.5 mg PO DAILY [facility] Last Admin: 09/27/17 10:01 Dose: 12.5 mg Piperacillin Sod/Tazobactam Sod (Zosyn 3.375 Gm Iv Premix) 3.375 gm in 50 mls @ 100 mls/hr IVPB Q6H [facility] PRN Reason: Protocol Stop: 09/29/17 16:01 Last Admin: 09/27/17 09:57 Dose: 100 mls/hr Dextrose (Dextrose 5% In Water 1000 Ml) 1,000 mls @ 0 mls/hr IV .Q0M PRN; Protocol; Per Protocol PRN Reason: Hypoglycemia Protocol Insulin Aspart (Novolog) 12 unit SC TIDAC [facility] Last Admin: 09/27/17 12:35 Dose: 12 unit Insulin Detemir (Levemir) 30 unit SC Q12 [facility] Last Admin: 09/27/17 10:02 Dose: 30 unit Insulin Human Regular (Novolin R) 0 unit SC ACHS [facility] PRN Reason: Protocol Last Admin: 09/27/17 12:35 Dose: 2 unit Loratadine (Claritin) 10 mg PO DAILY [facility] Last Admin: 09/27/17 09:57 Dose: 10 mg Losartan Potassium (Cozaar) 100 mg PO DAILY [facility] Last Admin: 09/27/17 09:58 Dose: 100 mg Rosuvastatin Calcium (Crestor) 20 mg PO HS [facility] Last Admin: 09/26/17 22:26 Dose: 20 mg Saccharomyces Boulardii (Florastor) 250 mg PO BID [facility] Last Admin: 09/27/17 09:58 Dose: 250 mg Tamsulosin HCl (Flomax) 0.4 mg PO DAILY [facility] Last Admin: 09/27/17 09:58 Dose: 0.4 mg - Labs Labs: 09/27/17 06:23 09/27/17 06:23 PT 12.6 SECONDS (9.7-12.2) H 09/22/17 10:28 INR 1.1 09/22/17 10:28 APTT 33 SECONDS (21-34) 09/22/17 10:28 - Constitutional Appears: Well - Head Exam Head Exam: ATRAUMATIC, NORMAL INSPECTION, NORMOCEPHALIC - Eye Exam Eye Exam: EOMI, Normal appearance, PERRL Pupil Exam: NORMAL ACCOMODATION, PERRL - ENT Exam ENT Exam: Mucous Membranes Moist, Normal Exam - Neck Exam Neck Exam: Full ROM, Normal Inspection. absent: Lymphadenopathy - Respiratory Exam Respiratory Exam: Decreased Breath Sounds - Cardiovascular Exam Cardiovascular Exam: REGULAR RHYTHM, +S1, +S2 - GI/Abdominal Exam GI & Abdominal Exam: Soft, Diminished Bowel Sounds - Rectal Exam Rectal Exam: Deferred
--- NOTE | 2017-09-27 17:56 | CP.PCM.PN ---
Subjective - Date & Time of Evaluation Date of Evaluation: 09/27/17 Time of Evaluation: 07:00 - Subjective Subjective: Patient presents to ED for productive cough x3 days and fever x 1 day. Patient was admitted 09/10 for pacemaker placement because of third degree heart block. Patient had no issues after leaving the hospital until 3 days ago. referred for ID eval for + CXR and + Quant for TB places on Iso- afb smears odered cont IV rx for pneumonia Objective - Vital Signs/Intake and Output Vital Signs (last 24 hours): Temp Pulse Resp BP Pulse Ox 98.1 F 88 20 115/72 97 09/27/17 15:30 09/27/17 15:30 09/27/17 15:30 09/27/17 15:30 09/27/17 15:30 Intake and Output: 09/27/17 09/27/17 06:59 18:59 Intake Total 150 Output Total 700 Balance -550 - Medications Medications: Current Medications Acetaminophen (Tylenol 325mg Tab) 650 mg PO Q6 PRN PRN Reason: Fever >100.4 F Last Admin: 09/24/17 00:31 Dose: 650 mg Albuterol/Ipratropium (Duoneb 3 Mg/0.5 Mg (3 Ml) Ud) 3 ml INH RQ4 [facility] Last Admin: 09/27/17 15:39 Dose: 3 ml Amlodipine Besylate (Norvasc) 10 mg PO DAILY [facility] Last Admin: 09/27/17 09:58 Dose: 10 mg Aspirin (Ecotrin) 81 mg PO DAILY [facility] Last Admin: 09/27/17 09:58 Dose: 81 mg Benzonatate (Tessalon Perles) 100 mg PO TID [facility] Last Admin: 09/27/17 13:43 Dose: 100 mg Clopidogrel Bisulfate (Plavix) 75 mg PO DAILY [facility] Last Admin: 09/27/17 09:58 Dose: 75 mg Dextrose (Dextrose 50% Inj) 0 ml IV STAT PRN; Protocol PRN Reason: Hypoglycemia Protocol Dextrose (Glutose 15) 0 gm PO ONCE PRN; Protocol PRN Reason: Hypoglycemia Protocol Famotidine (Pepcid) 20 mg PO BID [facility] Last Admin: 09/27/17 09:58 Dose: 20 mg Furosemide (Lasix) 40 mg IVP BID [facility] Last Admin: 09/27/17 09:58 Dose: 40 mg Glucagon (Glucagen Diagnostic Kit) 0 mg IM STAT PRN; Protocol PRN Reason: Hypoglycemia Protocol Guaifenesin (Mucinex La) 600 mg PO BID [facility] Last Admin: 09/27/17 09:58 Dose: 600 mg Heparin Sodium (Porcine) (Heparin) 5,000 units SC Q8 [facility] Last Admin: 09/27/17 13:43 Dose: 5,000 units Hydralazine HCl (Apresoline) 10 mg PO QID [facility] Last Admin: 09/27/17 13:43 Dose: 10 mg Hydrochlorothiazide (Microzide) 12.5 mg PO DAILY [facility] Last Admin: 09/27/17 10:01 Dose: 12.5 mg Piperacillin Sod/Tazobactam Sod (Zosyn 3.375 Gm Iv Premix) 3.375 gm in 50 mls @ 100 mls/hr IVPB Q6H [facility] PRN Reason: Protocol Stop: 09/29/17 16:01 Last Admin: 09/27/17 09:57 Dose: 100 mls/hr Dextrose (Dextrose 5% In Water 1000 Ml) 1,000 mls @ 0 mls/hr IV .Q0M PRN; Protocol; Per Protocol PRN Reason: Hypoglycemia Protocol Insulin Aspart (Novolog) 12 unit SC TIDAC [facility] Last Admin: 09/27/17 17:25 Dose: Not Given Insulin Detemir (Levemir) 30 unit SC Q12 [facility] Last Admin: 09/27/17 10:02 Dose: 30 unit Insulin Human Regular (Novolin R) 0 unit SC ACHS [facility] PRN Reason: Protocol Last Admin: 09/27/17 17:25 Dose: Not Given Loratadine (Claritin) 10 mg PO DAILY [facility] Last Admin: 09/27/17 09:57 Dose: 10 mg Losartan Potassium (Cozaar) 100 mg PO DAILY [facility] Last Admin: 09/27/17 09:58 Dose: 100 mg Rosuvastatin Calcium (Crestor) 20 mg PO HS [facility] Last Admin: 09/26/17 22:26 Dose: 20 mg Saccharomyces Boulardii (Florastor) 250 mg PO BID [facility] Last Admin: 09/27/17 09:58 Dose: 250 mg Tamsulosin HCl (Flomax) 0.4 mg PO DAILY [facility] Last Admin: 09/27/17 09:58 Dose: 0.4 mg - Labs Labs: 09/27/17 06:23 09/27/17 06:23 PT 12.6 SECONDS (9.7-12.2) H 09/22/17 10:28 INR 1.1 09/22/17 10:28 APTT 33 SECONDS (21-34) 09/22/17 10:28 - Constitutional Appears: Non-toxic, Chronically Ill - Head Exam Head Exam: NORMOCEPHALIC - Eye Exam Eye Exam: PERRL. absent: Scleral icterus - ENT Exam ENT Exam: Mucous Membranes Dry - Neck Exam Neck Exam: absent: Lymphadenopathy - Respiratory Exam Respiratory Exam: Decreased Breath Sounds - Cardiovascular Exam Cardiovascular Exam: REGULAR RHYTHM - GI/Abdominal Exam GI & Abdominal Exam: Distended - Rectal Exam Rectal Exam: Deferred - Exam Exam: NORMAL INSPECTION - Extremities Exam Extremities Exam: absent: Pedal Edema - Back Exam Back Exam: absent: CVA tenderness (L), CVA tenderness (R) - Neurological Exam Neurological Exam: Alert, Awake, Oriented x3 - Psychiatric Exam Psychiatric exam: Depressed - Skin Skin Exam: Dry Assessment and Plan - Assessment and Plan (Free Text) Assessment: cont rx for pneumonia await AFB smears
[2017-09-28] MEDS: Albuterol-Ipratrop 3 mg / 0.5 (3 ml) UD INH SCH ×6 (03:06→23:33)
[2017-09-28] MEDS: Piperacill/Tazo 3.375gm in Dex 3.375 GM/50 ML BAG IVPB SCH ×4 (04:15→21:50)
[2017-09-28 06:50] LABS: ALBUMIN 3.4 g/dL (3.5-5.0); CALCIUM 9.6 mg/dl (8.6-10.4)
[2017-09-28 07:13] LABS: BASO % 0.6 % (0.0-2.0); EOS # 0.4 K/uL (0.0-0.7); EOS % 5.4 % (0.0-4.0); HEMOGLOBIN 13.1 g/dL (12.0-18.0); LYMPH # 2.4 K/uL (1.0-4.3); LYMPH % 29.6 % (20.0-40.0); MEAN CELL VOLUME 84.2 fL (80.0-94.0); MEAN CORPUSCULAR HEMOGLOBIN 28.5 pg (27.0-31.0); MEAN CORPUSCULAR HGB CONC 33.8 g/dL (33.0-37.0); MEAN PLATELET VOLUME 8.8 fL (7.2-11.7); MONO # 0.7 K/uL (0.0-0.8); MONO % 8.4 % (0.0-10.0); NEUT # 4.5 K/uL (1.8-7.0); RBC 4.59 Mil/uL (4.40-5.90); RED CELL DISTRIBUTION WIDTH 13.6 % (11.5-14.5)
--- NOTE | 2017-09-28 08:29 | RAD ---
Right tibia and fibula three views History: History of recent fracture. Injury. Comparison: None available. Findings: Question cortical irregularity at the lateral proximal tibial plateau of the right tibia, nonspecific. If there is concern for osseous injury at this level, correlation with dedicated plain films of the right knee is recommended. Question cortical irregularity along the posterior cortex of the distal tibia on the lateral view. If there is concern for osseous injury at this level, consider further evaluation with dedicated plain films of the ankle and distal tibia. Plantar and dorsal calcaneal spurring. Productive change at level of the syndesmosis at the level of the distal tibia and fibula. Enthesopathic change at the superior bony patella. Impression: Question cortical irregularity at the lateral proximal tibial plateau of the right tibia, nonspecific. If there is concern for osseous injury at this level, correlation with dedicated plain films of the right knee is recommended. Question cortical irregularity along the posterior cortex of the distal tibia on the lateral view. If there is concern for osseous injury at this level, consider further evaluation with dedicated plain films of the ankle and distal tibia. Plantar and dorsal calcaneal spurring. Productive change at level of the syndesmosis at the level of the distal tibia and fibula. Enthesopathic change at the superior bony patella.
[2017-09-28] MEDS: (Novolog) Insulin Aspart, Recombinant 100 u/ml 10 ml vial SC SCH ×3 (08:30→21:30)
[2017-09-28] MEDS: (Novolin R) Insulin Human Regular 100 units/ml vial SC SCH ×4 (08:32→21:31)
[2017-09-28] MEDS: Insulin Detemir 100 units/ml Vial (Levemir) SC SCH ×2 (10:35→21:50)
[2017-09-28] MEDS: guaiFENesin 600 mg ER Tab PO SCH ×2 (10:36→17:46)
[2017-09-28] MEDS: Saccharomyces Boulardi 250 mg Cap PO SCH ×2 (10:36→17:46)
--- NOTE | 2017-09-28 12:09 | CP.PCM.CON ---
History of Present Illness - History of Present Illness History of Present Illness: Podiatry Consult Note - Dr. Martinez 67M PMHX HTN, IDDM, hyperlipidemia, and asthma, CAD with stent placement, s/p pacemaker placement seen and evaluated at bedside for previous RLE fracture. HPI obtained using [employer] toter. Patient states on 09/09/17 he sustained a right ankle fracture, was seen at [facility], and was placed in a splint; was told to be NWB with crutches with follow up on 10/04/17. Patient states he has kept the splint on and intact since initial application at [facility] however admits to bearing weight on his RLE as seen by the moderately dirty/worn plantar aspect of splint. Patient denies any pain to his right ankle at present. Offers no other pedal complaints. Review of Systems - Review of Systems All systems: reviewed and no additional remarkable complaints except (as per HPI ) Past Patient History - Infectious Disease Hx of Infectious Diseases: None - Past Medical History & Family History Past Medical History?: Yes - Past Social History Smoking Status: Never Smoked - CARDIAC Hx Cardiac Disorders: Yes (CAD,PACEMAKER) Hx Hypercholesterolemia: Yes Hx Hypertension: Yes - PULMONARY Hx Asthma: Yes - NEUROLOGICAL Hx Neurological Disorder: No - HEENT Hx HEENT Problems: Yes Hx Cataracts: Yes Hx Glaucoma: Yes - RENAL Hx Chronic Kidney Disease: No - ENDOCRINE/METABOLIC Hx Diabetes Mellitus Type 2: Yes - HEMATOLOGICAL/ONCOLOGICAL Hx Blood Disorders: No - INTEGUMENTARY Hx Dermatological Problems: No - MUSCULOSKELETAL/RHEUMATOLOGICAL Hx Falls: No - GASTROINTESTINAL Hx Gastrointestinal Disorders: No - GENITOURINARY/GYNECOLOGICAL Hx Genitourinary Disorders: Yes Hx Prostate Cancer: Yes - PSYCHIATRIC Hx Substance Use: No - SURGICAL HISTORY Hx Coronary Stent: Yes (x4) - ANESTHESIA Hx Anesthesia: Yes Hx Anesthesia Reactions: No Meds Allergies/Adverse Reactions: Allergies Allergy/AdvReac Type Severity Reaction Status Date / Time No Known Allergies Allergy Verified 09/10/17 12:28 - Medications Medications: Current Medications Acetaminophen (Tylenol 325mg Tab) 650 mg PO Q6 PRN PRN Reason: Fever >100.4 F Last Admin: 09/24/17 00:31 Dose: 650 mg Albuterol/Ipratropium (Duoneb 3 Mg/0.5 Mg (3 Ml) Ud) 3 ml INH RQ4 [facility] Last Admin: 09/28/17 11:42 Dose: 3 ml Amlodipine Besylate (Norvasc) 10 mg PO DAILY [facility] Last Admin: 09/28/17 10:36 Dose: 10 mg Aspirin (Ecotrin) 81 mg PO DAILY [facility] Last Admin: 09/28/17 10:36 Dose: 81 mg Benzonatate (Tessalon Perles) 100 mg PO TID [facility] Last Admin: 09/28/17 10:37 Dose: 100 mg Clopidogrel Bisulfate (Plavix) 75 mg PO DAILY [facility] Last Admin: 09/28/17 10:36 Dose: 75 mg Dextrose (Dextrose 50% Inj) 0 ml IV STAT PRN; Protocol PRN Reason: Hypoglycemia Protocol Dextrose (Glutose 15) 0 gm PO ONCE PRN; Protocol PRN Reason: Hypoglycemia Protocol Famotidine (Pepcid) 20 mg PO BID [facility] Last Admin: 09/28/17 10:36 Dose: 20 mg Furosemide (Lasix) 40 mg IVP BID [facility] Last Admin: 09/28/17 10:38 Dose: 40 mg Glucagon (Glucagen Diagnostic Kit) 0 mg IM STAT PRN; Protocol PRN Reason: Hypoglycemia Protocol Guaifenesin (Mucinex La) 600 mg PO BID [facility] Last Admin: 09/28/17 10:36 Dose: 600 mg Heparin Sodium (Porcine) (Heparin) 5,000 units SC Q8 [facility] Last Admin: 09/28/17 05:56 Dose: 5,000 units Hydralazine HCl (Apresoline) 10 mg PO QID [facility] Last Admin: 09/28/17 10:37 Dose: 10 mg Hydrochlorothiazide (Microzide) 12.5 mg PO DAILY [facility] Last Admin: 09/28/17 10:36 Dose: 12.5 mg Piperacillin Sod/Tazobactam Sod (Zosyn 3.375 Gm Iv Premix) 3.375 gm in 50 mls @ 100 mls/hr IVPB Q6H [facility] PRN Reason: Protocol Stop: 09/29/17 16:01 Last Admin: 09/28/17 04:15 Dose: 100 mls/hr Dextrose (Dextrose 5% In Water 1000 Ml) 1,000 mls @ 0 mls/hr IV .Q0M PRN; Protocol; Per Protocol PRN Reason: Hypoglycemia Protocol Insulin Aspart (Novolog) 12 unit SC TIDAC [facility] Last Admin: 09/28/17 08:30 Dose: 12 unit Insulin Detemir (Levemir) 30 unit SC Q12 [facility] Last Admin: 09/28/17 10:35 Dose: 30 unit Insulin Human Regular (Novolin R) 0 unit SC ACHS [facility] PRN Reason: Protocol Last Admin: 09/28/17 08:32 Dose: 3 unit Loratadine (Claritin) 10 mg PO DAILY [facility] Last Admin: 09/28/17 10:36 Dose: 10 mg Losartan Potassium (Cozaar) 100 mg PO DAILY [facility] Last Admin: 09/28/17 10:36 Dose: 100 mg Rosuvastatin Calcium (Crestor) 20 mg PO HS [facility] Last Admin: 09/27/17 21:38 Dose: 20 mg Saccharomyces Boulardii (Florastor) 250 mg PO BID [facility] Last Admin: 09/28/17 10:36 Dose: 250 mg Tamsulosin HCl (Flomax) 0.4 mg PO DAILY [facility] Last Admin: 09/28/17 10:37 Dose: 0.4 mg Physical Exam - Constitutional Appears: Well, Non-toxic, No Acute Distress - Extremities Exam Additional comments: RLE focused physical exam: VASC: DP and PT pulses palpable 2/4. CFT <3 seconds to all digits x5. Temperature gradient warm to warm. No edema noted. NEURO: Gross sensation diminished. DERM: No open lesions noted, no ecchymosis noted, skin appears diffusely dry. ORTHO: No pain on palpation medial and lateral malleolus; no pain upon tib-fib compression; no pain upon calcaneal squeeze; no pain upon active and passive ankle joint ROM. Muscle strength 5/5 for all dorsiflexors, plantarflexors, inverters, and everters without pain noted. - Neurological Exam Neurological exam: Alert, Oriented x3 - Psychiatric Exam Psychiatric exam: Normal Affect, Normal Mood Results - Vital Signs Recent Vital Signs: Last Vital Signs Temp 98.0 F 09/27/17 23:30 Pulse 91 H 09/28/17 08:48 Resp 20 09/27/17 23:30 BP 132/78 09/28/17 10:38 Pulse Ox 100 09/27/17 23:30 - Labs Result Diagrams: 09/28/17 06:30 09/28/17 06:30 Labs: Laboratory Results - last 24 hr 09/27/17 09/27/17 09/27/17 15:54 19:39 21:11 WBC RBC Hgb Hct MCV MCH MCHC RDW Plt Count MPV Neut % (Auto) Lymph % (Auto) [place] % (Auto) Eos % (Auto) Baso % (Auto) Neut # (Auto) Lymph # (Auto) [place] # (Auto) Eos # (Auto) Baso # (Auto) Sodium Potassium Chloride Carbon Dioxide Anion Gap BUN Creatinine Est GFR ( Amer) Est GFR (Non-Af Amer) POC Glucose (mg/dL) 89 202 H Random Glucose Calcium Phosphorus Magnesium Total Bilirubin AST ALT Alkaline Phosphatase Total Protein Albumin Globulin Albumin/Globulin Ratio Vancomycin Trough < 5.0 L 09/28/17 09/28/17 09/28/17 06:08 06:30 06:30 WBC 8.0 RBC 4.59 Hgb 13.1 Hct 38.6 MCV 84.2 MCH 28.5 MCHC 33.8 RDW 13.6 Plt Count 384 MPV 8.8 Neut % (Auto) 56.0 Lymph % (Auto) 29.6 [place] % (Auto) 8.4 Eos % (Auto) 5.4 H Baso % (Auto) 0.6 Neut # (Auto) 4.5 Lymph # (Auto) 2.4 [place] # (Auto) 0.7 Eos # (Auto) 0.4 Baso # (Auto) 0.0 Sodium 138 Potassium 4.0 Chloride 102 Carbon Dioxide 25 Anion Gap 15 BUN 26 H Creatinine 1.6 H Est GFR ( Amer) 53 Est GFR (Non-Af Amer) 44 POC Glucose (mg/dL) 204 H Random Glucose 195 H Calcium 9.6 Phosphorus 3.9 Magnesium 2.3 Total Bilirubin 0.5 AST 68 H ALT 69 Alkaline Phosphatase 83 Total Protein 6.9 Albumin 3.4 L Globulin 3.5 Albumin/Globulin Ratio 1.0 Vancomycin Trough 09/28/17 11:45 WBC RBC Hgb Hct MCV MCH MCHC RDW Plt Count MPV Neut % (Auto) Lymph % (Auto) [place] % (Auto) Eos % (Auto) Baso % (Auto) Neut # (Auto) Lymph # (Auto) [place] # (Auto) Eos # (Auto) Baso # (Auto) Sodium Potassium Chloride Carbon Dioxide Anion Gap BUN Creatinine Est GFR ( Amer) Est GFR (Non-Af Amer) POC Glucose (mg/dL) 160 H Random Glucose Calcium Phosphorus Magnesium Total Bilirubin AST ALT Alkaline Phosphatase Total Protein Albumin Globulin Albumin/Globulin Ratio Vancomycin Trough Assessment & Plan - Assessment and Plan (Free Text) Assessment: 67M patient with hx of distal fibular fracture, healing/stable Plan: Patient seen and evaluated Discussed with attending, Dr. Martinez RLE XR reviewed: Questionable cortical irregularity along posterior cortex of distal tibia, healing lateral malleolus fx AO splint removed; CAM walker ordered PT consult - patient may be WBAT RLE in CAM walker with the assistance of crutches Advised patient to be strict NWB RLE until CAM walker arrives; patient demonstrates verbal understanding Stable per podiatry standpoint Will sign off at this time, please reconsult if new issues arise
--- NOTE | 2017-09-28 18:11 | CP.PCM.PN ---
Subjective - Date & Time of Evaluation Date of Evaluation: 09/28/17 Time of Evaluation: 11:40 - Subjective Subjective: clinically same Objective - Vital Signs/Intake and Output Vital Signs (last 24 hours): Temp Pulse Resp BP Pulse Ox 98.0 F 91 H 20 133/80 95 09/28/17 15:00 09/28/17 16:36 09/28/17 15:00 09/28/17 17:46 09/28/17 15:00 Intake and Output: 09/28/17 09/28/17 06:59 18:59 Intake Total 390 Output Total 900 Balance -510 - Medications Medications: Current Medications Acetaminophen (Tylenol 325mg Tab) 650 mg PO Q6 PRN PRN Reason: Fever >100.4 F Last Admin: 09/24/17 00:31 Dose: 650 mg Albuterol/Ipratropium (Duoneb 3 Mg/0.5 Mg (3 Ml) Ud) 3 ml INH RQ4 [facility] Last Admin: 09/28/17 15:48 Dose: 3 ml Amlodipine Besylate (Norvasc) 10 mg PO DAILY [facility] Last Admin: 09/28/17 10:36 Dose: 10 mg Aspirin (Ecotrin) 81 mg PO DAILY [facility] Last Admin: 09/28/17 10:36 Dose: 81 mg Benzonatate (Tessalon Perles) 100 mg PO TID [facility] Last Admin: 09/28/17 17:46 Dose: 100 mg Clopidogrel Bisulfate (Plavix) 75 mg PO DAILY [facility] Last Admin: 09/28/17 10:36 Dose: 75 mg Dextrose (Dextrose 50% Inj) 0 ml IV STAT PRN; Protocol PRN Reason: Hypoglycemia Protocol Dextrose (Glutose 15) 0 gm PO ONCE PRN; Protocol PRN Reason: Hypoglycemia Protocol Famotidine (Pepcid) 20 mg PO BID [facility] Last Admin: 09/28/17 17:46 Dose: 20 mg Furosemide (Lasix) 40 mg IVP BID [facility] Last Admin: 09/28/17 17:46 Dose: 40 mg Glucagon (Glucagen Diagnostic Kit) 0 mg IM STAT PRN; Protocol PRN Reason: Hypoglycemia Protocol Guaifenesin (Mucinex La) 600 mg PO BID [facility] Last Admin: 09/28/17 17:46 Dose: 600 mg Heparin Sodium (Porcine) (Heparin) 5,000 units SC Q8 [facility] Last Admin: 09/28/17 14:23 Dose: 5,000 units Hydralazine HCl (Apresoline) 10 mg PO QID [facility] Last Admin: 09/28/17 17:46 Dose: 10 mg Hydrochlorothiazide (Microzide) 12.5 mg PO DAILY [facility] Last Admin: 09/28/17 10:36 Dose: 12.5 mg Piperacillin Sod/Tazobactam Sod (Zosyn 3.375 Gm Iv Premix) 3.375 gm in 50 mls @ 100 mls/hr IVPB Q6H [facility] PRN Reason: Protocol Stop: 09/29/17 16:01 Last Admin: 09/28/17 17:47 Dose: 100 mls/hr Dextrose (Dextrose 5% In Water 1000 Ml) 1,000 mls @ 0 mls/hr IV .Q0M PRN; Protocol; Per Protocol PRN Reason: Hypoglycemia Protocol Insulin Aspart (Novolog) 12 unit SC TIDAC [facility] Last Admin: 09/28/17 12:37 Dose: 12 unit Insulin Detemir (Levemir) 30 unit SC Q12 [facility] Last Admin: 09/28/17 10:35 Dose: 30 unit Insulin Human Regular (Novolin R) 0 unit SC ACHS [facility] PRN Reason: Protocol Last Admin: 09/28/17 12:37 Dose: 2 unit Loratadine (Claritin) 10 mg PO DAILY [facility] Last Admin: 09/28/17 10:36 Dose: 10 mg Losartan Potassium (Cozaar) 100 mg PO DAILY [facility] Last Admin: 09/28/17 10:36 Dose: 100 mg Rosuvastatin Calcium (Crestor) 20 mg PO HS [facility] Last Admin: 09/27/17 21:38 Dose: 20 mg Saccharomyces Boulardii (Florastor) 250 mg PO BID [facility] Last Admin: 09/28/17 17:46 Dose: 250 mg Tamsulosin HCl (Flomax) 0.4 mg PO DAILY [facility] Last Admin: 09/28/17 10:37 Dose: 0.4 mg - Labs Labs: 09/28/17 06:30 09/28/17 06:30 PT 12.6 SECONDS (9.7-12.2) H 09/22/17 10:28 INR 1.1 09/22/17 10:28 APTT 33 SECONDS (21-34) 09/22/17 10:28 - Constitutional Appears: Well - Head Exam Head Exam: ATRAUMATIC, NORMAL INSPECTION, NORMOCEPHALIC - Eye Exam Eye Exam: EOMI, Normal appearance, PERRL Pupil Exam: NORMAL ACCOMODATION, PERRL - ENT Exam ENT Exam: Mucous Membranes Moist, Normal Exam - Neck Exam Neck Exam: Full ROM, Normal Inspection. absent: Lymphadenopathy - Respiratory Exam Respiratory Exam: Decreased Breath Sounds - Cardiovascular Exam Cardiovascular Exam: REGULAR RHYTHM, +S1, +S2 - GI/Abdominal Exam GI & Abdominal Exam: Soft, Diminished Bowel Sounds - Rectal Exam Rectal Exam: Deferred
[2017-09-29] MEDS: Albuterol-Ipratrop 3 mg / 0.5 (3 ml) UD INH SCH ×5 (03:14→20:13)
[2017-09-29] MEDS: Piperacill/Tazo 3.375gm in Dex 3.375 GM/50 ML BAG IVPB SCH ×4 (04:55→22:42)
[2017-09-29 08:15] LABS: BASO % 0.5 % (0.0-2.0); EOS # 0.5 K/uL (0.0-0.7); EOS % 6.2 % (0.0-4.0); HEMOGLOBIN 12.5 g/dL (12.0-18.0); LYMPH # 2.3 K/uL (1.0-4.3); LYMPH % 25.8 % (20.0-40.0); MEAN CELL VOLUME 84.7 fL (80.0-94.0); MEAN CORPUSCULAR HEMOGLOBIN 27.9 pg (27.0-31.0); MEAN CORPUSCULAR HGB CONC 32.9 g/dL (33.0-37.0); MEAN PLATELET VOLUME 8.8 fL (7.2-11.7); MONO # 0.8 K/uL (0.0-0.8); MONO % 9.4 % (0.0-10.0); NEUT # 5.1 K/uL (1.8-7.0); NEUT % 58.1 % (50.0-75.0); RBC 4.5 Mil/uL (4.40-5.90); RED CELL DISTRIBUTION WIDTH 13.7 % (11.5-14.5); WHITE BLOOD COUNT 8.8 K/uL (4.8-10.8)
[2017-09-29 08:19] LABS: ALBUMIN 3.4 g/dL (3.5-5.0); CALCIUM 9.8 mg/dl (8.6-10.4)
[2017-09-29] MEDS: (Novolin R) Insulin Human Regular 100 units/ml vial SC SCH ×4 (08:23→22:42)
[2017-09-29] MEDS: (Novolog) Insulin Aspart, Recombinant 100 u/ml 10 ml vial SC SCH ×3 (08:24→17:49)
[2017-09-29] MEDS: guaiFENesin 600 mg ER Tab PO SCH ×2 (10:27→17:49)
[2017-09-29] MEDS: Saccharomyces Boulardi 250 mg Cap PO SCH ×2 (10:27→17:49)
[2017-09-29] MEDS: Insulin Detemir 100 units/ml Vial (Levemir) SC SCH ×2 (10:28→22:41)
--- NOTE | 2017-09-29 11:12 | CP.PCM.PN ---
Subjective - Date & Time of Evaluation Date of Evaluation: 09/29/17 Time of Evaluation: 10:00 - Subjective Subjective: Medicine Note for Dr. Arita's Service Patient was seen and examined at bedside. Patient continues with productive cough, all AFBs x 3 collected. Patient denies fever, chills, headache, chest pain, nausea, vomiting or diarrhea. Objective - Vital Signs/Intake and Output Vital Signs (last 24 hours): Temp Pulse Resp BP Pulse Ox 97.6 F 73 20 143/80 99 09/29/17 07:00 09/29/17 08:00 09/29/17 07:00 09/29/17 10:30 09/29/17 07:00 Intake and Output: 09/29/17 09/29/17 06:59 18:59 Intake Total 150 Output Total 950 Balance -800 - Medications Medications: Current Medications Acetaminophen (Tylenol 325mg Tab) 650 mg PO Q6 PRN PRN Reason: Fever >100.4 F Last Admin: 09/24/17 00:31 Dose: 650 mg Albuterol/Ipratropium (Duoneb 3 Mg/0.5 Mg (3 Ml) Ud) 3 ml INH RQ4 [facility] Last Admin: 09/29/17 07:22 Dose: 3 ml Amlodipine Besylate (Norvasc) 10 mg PO DAILY [facility] Last Admin: 09/29/17 10:27 Dose: 10 mg Aspirin (Ecotrin) 81 mg PO DAILY [facility] Last Admin: 09/29/17 10:29 Dose: 81 mg Benzonatate (Tessalon Perles) 100 mg PO TID [facility] Last Admin: 09/29/17 10:30 Dose: 100 mg Clopidogrel Bisulfate (Plavix) 75 mg PO DAILY [facility] Last Admin: 09/29/17 10:29 Dose: 75 mg Dextrose (Dextrose 50% Inj) 0 ml IV STAT PRN; Protocol PRN Reason: Hypoglycemia Protocol Dextrose (Glutose 15) 0 gm PO ONCE PRN; Protocol PRN Reason: Hypoglycemia Protocol Famotidine (Pepcid) 20 mg PO BID [facility] Last Admin: 09/29/17 10:27 Dose: 20 mg Furosemide (Lasix) 40 mg IVP BID [facility] Last Admin: 09/29/17 10:30 Dose: 40 mg Glucagon (Glucagen Diagnostic Kit) 0 mg IM STAT PRN; Protocol PRN Reason: Hypoglycemia Protocol Guaifenesin (Mucinex La) 600 mg PO BID [facility] Last Admin: 09/29/17 10:27 Dose: 600 mg Heparin Sodium (Porcine) (Heparin) 5,000 units SC Q8 [facility] Last Admin: 09/29/17 06:22 Dose: 5,000 units Hydralazine HCl (Apresoline) 10 mg PO QID [facility] Last Admin: 09/29/17 10:29 Dose: 10 mg Hydrochlorothiazide (Microzide) 12.5 mg PO DAILY [facility] Last Admin: 09/29/17 10:29 Dose: 12.5 mg Piperacillin Sod/Tazobactam Sod (Zosyn 3.375 Gm Iv Premix) 3.375 gm in 50 mls @ 100 mls/hr IVPB Q6H [facility] PRN Reason: Protocol Stop: 09/29/17 16:01 Last Admin: 09/29/17 10:31 Dose: 100 mls/hr Dextrose (Dextrose 5% In Water 1000 Ml) 1,000 mls @ 0 mls/hr IV .Q0M PRN; Protocol; Per Protocol PRN Reason: Hypoglycemia Protocol Insulin Aspart (Novolog) 12 unit SC TIDAC [facility] Last Admin: 09/29/17 08:24 Dose: 12 unit Insulin Detemir (Levemir) 30 unit SC Q12 [facility] Last Admin: 09/29/17 10:28 Dose: 30 unit Insulin Human Regular (Novolin R) 0 unit SC ACHS [facility] PRN Reason: Protocol Last Admin: 09/29/17 08:23 Dose: 3 unit Loratadine (Claritin) 10 mg PO DAILY [facility] Last Admin: 09/29/17 10:29 Dose: 10 mg Losartan Potassium (Cozaar) 100 mg PO DAILY [facility] Last Admin: 09/29/17 10:27 Dose: 100 mg Rosuvastatin Calcium (Crestor) 20 mg PO HS [facility] Last Admin: 09/28/17 21:49 Dose: 20 mg Saccharomyces Boulardii (Florastor) 250 mg PO BID [facility] Last Admin: 09/29/17 10:27 Dose: 250 mg Tamsulosin HCl (Flomax) 0.4 mg PO DAILY [facility] Last Admin: 09/29/17 10:27 Dose: 0.4 mg - Labs Labs: 09/29/17 07:47 09/29/17 07:47 PT 12.6 SECONDS (9.7-12.2) H 09/22/17 10:28 INR 1.1 09/22/17 10:28 APTT 33 SECONDS (21-34) 09/22/17 10:28 - Additional Findings Additional findings: - Constitutional Appears: Well, No Acute Distress - Head Exam Head Exam: ATRAUMATIC, NORMAL INSPECTION, NORMOCEPHALIC - Eye Exam Eye Exam: EOMI, Normal appearance Pupil Exam: NORMAL ACCOMODATION, PERRL - ENT Exam ENT Exam: Mucous Membranes Moist, Normal Exam - Neck Exam Neck exam: Positive for: Full Rom. Negative for: Tenderness, Thyromegaly - Respiratory Exam Respiratory Exam: Rales, NORMAL BREATHING PATTERN. absent: Decreased Breath Sounds - Cardiovascular Exam Cardiovascular Exam: REGULAR RHYTHM, +S1, +S2. absent: Bradycardia, Tachycardia - GI/Abdominal Exam GI & Abdominal Exam: Normal Bowel Sounds, Soft. absent: Tenderness - Extremities Exam Extremities exam: Negative for: pedal edema Additional comments: right leg in cast no pitting edema noted on visible right lower extremity no pitting edema of left lower extremity - Back Exam Back exam: FULL ROM, NORMAL INSPECTION. absent: paraspinal tenderness, vertebral tenderness - Neurological Exam Neurological exam: Alert, CN II-XII Intact, Normal Gait, Oriented x3 - Psychiatric Exam Psychiatric exam: Normal Affect, Normal Mood - Skin Skin Exam: Dry, Normal Color, Warm Additional comments: left anterior chest has site of pacemaker placement Assessment and Plan - Assessment and Plan (Free Text) Plan: 1) Pneumona, healthcare associated pneumonia * Pulmonary consult, Dr Beach * Likely bronchitits. Normal pro calcitonin level and chest x-ray consistent with bibasilar small effusions and atelectasis. Continue Zosyn. Discontinued vancomycin 09/24/17 * Monitor on telemetry * Risk factor: recently in the hospital in the past 90 days * Legionella, Mycoplasma Pneumonaie, Rapid Strep, procalcitonin, HIV, Group A Beta Strep, Flu, ALL NEGATIVE * Blood Cultures 09/22/17 NEGATIVE up to date * Quantiferon Gold Positive * Afebrile, no leukocytosis * Isolation room * Follow up series AFB sputum culture: 1st AFB negative, pending the following two * elevated probnp 2710 * Duoneb 2 puff IH Q4H scheduled * Tessalon 100mg PO TID * Dimer 504 * CT Chest (09/22/17): no evidence of acute central pulmonary embolus. Nodular opacities seen throughout the upper lobes bilaterally as well as right middle lobe. Bilateral effusions and bibasilar atelectasis right greater than left. * Incentive spirometry 2) Diastolic Heart Failure Pulmonary Hypertension History of Third Degree AV Block s/p pacemaker placement * 09/10/[address] Rogers, Dr. Keenan saw patient last visit * Site: no erythema, no pain on palpation, mild swelling * Echocardiogram (02/11/17): moderate concentric left ventricular hypertrophy. left ventricular systolic function is normal. Moderate left ventricular diastolic dysfunction. Grade II-pseudonormal filling dynamics. Right ventricular systolic function is normal. b-atrial enlargement. mild regurgitation is trace to mild. Moderate pulmonary hypertension. Right ventricular systolic presssure is estimated at 4-550mmg Hg. No percardial effusion. * Will recheck echo, pending offical read * elevated probnp 2710 * continue HCTZ and lasix- HELD lasix due to worsening renal function. monitor and then resume 3) Recent Right leg fracture * Patient was seen and evaluated at [facility] for initial encounter in the ED, leg was casted in the ED and he was told follow up on October 04 with ortho at [facility] * Patient reports he was told not to walk, which he has except when he needs to go to the bathroom * Right lower extremity Xray: Question cortical irregularity at the lateral proximal tibial plateau of the right tibia, nonspecific. If there is concern for osseous injury at this level, correlation with dedicated plain films of the right knee is recommended. Question cortical irregularity along the posterior cortex of the distal tibia on the lateral view. If there is concern for osseous injury at this level, consider further evaluation with dedicated plain films of the ankle and distal tibia. Plantar and dorsal calcaneal spurring. Productive change at level of the syndesmosis at the level of the distal tibia and fibula. Enthesopathic change at the superior bony patella. * Venous dopplers: no DVT * Podiatry consult, help appreciated 4) CAD with Stent * ASA 81mg PO QDaily * Plavix 75mg PO QDaily * Crestor 20mg PO HS 5) History of DM2 * Had a hypoglycemic episode 09/24/17 (due to decreased appetite) -> blood sugar 23 -> adjusted short acting and long acting insulin and started on glucerna shake * Levemir 40u SC BID -> 20u SC BID (due to hypoglycemic episode)-> 30u SC BID * Lispro 24 u SQ TIDAC -> 12u SQ TIDAC (due to hypoglycemic episode) * Accucheck ACHS * hypoglycemic protocol * a1c ELEVATED 10.8 * lipid panel - LDL 136, Cholesterol 202, otherwise normal 6) History of Hypertension * Hydralazine 10mg PO QID * HCTZ 12.5mg PO QDaily * Amlodipine 10mg PO QDaily * Valsartan 320mg PO QDaily not available on hospital formulary (giving Losartan 100mg PO QD as substitute) 7) Hx hyperlipidemia * Welchol 625mg PO QD, not available in pharmacy * Rosuvastatin Calcium 20mg PO QHS 8) Hx asthma * duoneb 2 puff IH Q4H scheduled * Claritin 10mg PO QD 9) Hx of BPH and Prostate CA * Flomax 0.4mg PO QD 10) Hx of low Vitamin D * Outpatient management 11) Prophylaxis * Pepcid 20mg BID * Heparin 5000 u SC Q8H * Heart Healthy Diet Low Carb diet * Fever: Tylenol * Bedside commode * PT/OT eval - recommend IVIS Arita, Melinda Hawkins DO, PGY-1
--- NOTE | 2017-09-29 15:19 | CP.PCM.PN ---
Subjective - Date & Time of Evaluation Date of Evaluation: 09/29/17 Time of Evaluation: 11:20 - Subjective Subjective: clinically same Objective - Vital Signs/Intake and Output Vital Signs (last 24 hours): Temp Pulse Resp BP Pulse Ox 97.6 F 73 20 143/80 99 09/29/17 07:00 09/29/17 08:00 09/29/17 07:00 09/29/17 10:30 09/29/17 07:00 Intake and Output: 09/29/17 09/29/17 06:59 18:59 Intake Total 150 200 Output Total 950 2 Balance -800 198 - Medications Medications: Current Medications Acetaminophen (Tylenol 325mg Tab) 650 mg PO Q6 PRN PRN Reason: Fever >100.4 F Last Admin: 09/24/17 00:31 Dose: 650 mg Albuterol/Ipratropium (Duoneb 3 Mg/0.5 Mg (3 Ml) Ud) 3 ml INH RQ4 [facility] Last Admin: 09/29/17 11:30 Dose: 3 ml Amlodipine Besylate (Norvasc) 10 mg PO DAILY [facility] Last Admin: 09/29/17 10:27 Dose: 10 mg Aspirin (Ecotrin) 81 mg PO DAILY [facility] Last Admin: 09/29/17 10:29 Dose: 81 mg Benzonatate (Tessalon Perles) 100 mg PO TID [facility] Last Admin: 09/29/17 14:19 Dose: 100 mg Clopidogrel Bisulfate (Plavix) 75 mg PO DAILY [facility] Last Admin: 09/29/17 10:29 Dose: 75 mg Dextrose (Dextrose 50% Inj) 0 ml IV STAT PRN; Protocol PRN Reason: Hypoglycemia Protocol Dextrose (Glutose 15) 0 gm PO ONCE PRN; Protocol PRN Reason: Hypoglycemia Protocol Famotidine (Pepcid) 20 mg PO BID [facility] Last Admin: 09/29/17 10:27 Dose: 20 mg Glucagon (Glucagen Diagnostic Kit) 0 mg IM STAT PRN; Protocol PRN Reason: Hypoglycemia Protocol Guaifenesin (Mucinex La) 600 mg PO BID [facility] Last Admin: 09/29/17 10:27 Dose: 600 mg Heparin Sodium (Porcine) (Heparin) 5,000 units SC Q8 [facility] Last Admin: 09/29/17 14:19 Dose: 5,000 units Hydralazine HCl (Apresoline) 10 mg PO QID [facility] Last Admin: 09/29/17 14:19 Dose: 10 mg Hydrochlorothiazide (Microzide) 12.5 mg PO DAILY [facility] Last Admin: 09/29/17 10:29 Dose: 12.5 mg Piperacillin Sod/Tazobactam Sod (Zosyn 3.375 Gm Iv Premix) 3.375 gm in 50 mls @ 100 mls/hr IVPB Q6H [facility] PRN Reason: Protocol Stop: 09/29/17 16:01 Last Admin: 09/29/17 10:31 Dose: 100 mls/hr Dextrose (Dextrose 5% In Water 1000 Ml) 1,000 mls @ 0 mls/hr IV .Q0M PRN; Protocol; Per Protocol PRN Reason: Hypoglycemia Protocol Insulin Aspart (Novolog) 12 unit SC TIDAC [facility] Last Admin: 09/29/17 12:33 Dose: 12 unit Insulin Detemir (Levemir) 30 unit SC Q12 [facility] Last Admin: 09/29/17 10:28 Dose: 30 unit Insulin Human Regular (Novolin R) 0 unit SC ACHS [facility] PRN Reason: Protocol Last Admin: 09/29/17 12:34 Dose: Not Given Loratadine (Claritin) 10 mg PO DAILY [facility] Last Admin: 09/29/17 10:29 Dose: 10 mg Losartan Potassium (Cozaar) 100 mg PO DAILY [facility] Last Admin: 09/29/17 10:27 Dose: 100 mg Rosuvastatin Calcium (Crestor) 20 mg PO HS [facility] Last Admin: 09/28/17 21:49 Dose: 20 mg Saccharomyces Boulardii (Florastor) 250 mg PO BID [facility] Last Admin: 09/29/17 10:27 Dose: 250 mg Tamsulosin HCl (Flomax) 0.4 mg PO DAILY [facility] Last Admin: 09/29/17 10:27 Dose: 0.4 mg - Labs Labs: 09/29/17 07:47 09/29/17 07:47 PT 12.6 SECONDS (9.7-12.2) H 09/22/17 10:28 INR 1.1 09/22/17 10:28 APTT 33 SECONDS (21-34) 09/22/17 10:28 - Constitutional Appears: Well - Head Exam Head Exam: ATRAUMATIC, NORMAL INSPECTION, NORMOCEPHALIC - Eye Exam Eye Exam: EOMI, Normal appearance, PERRL Pupil Exam: NORMAL ACCOMODATION, PERRL - ENT Exam ENT Exam: Mucous Membranes Moist, Normal Exam - Neck Exam Neck Exam: Full ROM, Normal Inspection. absent: Lymphadenopathy - Respiratory Exam Respiratory Exam: Decreased Breath Sounds - Cardiovascular Exam Cardiovascular Exam: REGULAR RHYTHM, +S1, +S2 - GI/Abdominal Exam GI & Abdominal Exam: Soft, Diminished Bowel Sounds - Rectal Exam Rectal Exam: Deferred
--- NOTE | 2017-09-29 15:48 | CP.PCM.PN ---
Subjective - Date & Time of Evaluation Date of Evaluation: 09/29/17 Time of Evaluation: 07:00 - Subjective Subjective: STILL WEAK, BED BOUND AND CONGESTED DENIES FEVER AFB NEG X 2 Objective - Vital Signs/Intake and Output Vital Signs (last 24 hours): Temp Pulse Resp BP Pulse Ox 97.6 F 73 20 143/80 99 09/29/17 07:00 09/29/17 08:00 09/29/17 07:00 09/29/17 10:30 09/29/17 07:00 Intake and Output: 09/29/17 09/29/17 06:59 18:59 Intake Total 150 200 Output Total 950 2 Balance -800 198 - Medications Medications: Current Medications Acetaminophen (Tylenol 325mg Tab) 650 mg PO Q6 PRN PRN Reason: Fever >100.4 F Last Admin: 09/24/17 00:31 Dose: 650 mg Albuterol/Ipratropium (Duoneb 3 Mg/0.5 Mg (3 Ml) Ud) 3 ml INH RQ4 [facility] Last Admin: 09/29/17 11:30 Dose: 3 ml Amlodipine Besylate (Norvasc) 10 mg PO DAILY [facility] Last Admin: 09/29/17 10:27 Dose: 10 mg Aspirin (Ecotrin) 81 mg PO DAILY [facility] Last Admin: 09/29/17 10:29 Dose: 81 mg Benzonatate (Tessalon Perles) 100 mg PO TID [facility] Last Admin: 09/29/17 14:19 Dose: 100 mg Clopidogrel Bisulfate (Plavix) 75 mg PO DAILY [facility] Last Admin: 09/29/17 10:29 Dose: 75 mg Dextrose (Dextrose 50% Inj) 0 ml IV STAT PRN; Protocol PRN Reason: Hypoglycemia Protocol Dextrose (Glutose 15) 0 gm PO ONCE PRN; Protocol PRN Reason: Hypoglycemia Protocol Famotidine (Pepcid) 20 mg PO BID [facility] Last Admin: 09/29/17 10:27 Dose: 20 mg Glucagon (Glucagen Diagnostic Kit) 0 mg IM STAT PRN; Protocol PRN Reason: Hypoglycemia Protocol Guaifenesin (Mucinex La) 600 mg PO BID [facility] Last Admin: 09/29/17 10:27 Dose: 600 mg Heparin Sodium (Porcine) (Heparin) 5,000 units SC Q8 [facility] Last Admin: 09/29/17 14:19 Dose: 5,000 units Hydralazine HCl (Apresoline) 10 mg PO QID [facility] Last Admin: 09/29/17 14:19 Dose: 10 mg Hydrochlorothiazide (Microzide) 12.5 mg PO DAILY [facility] Last Admin: 09/29/17 10:29 Dose: 12.5 mg Piperacillin Sod/Tazobactam Sod (Zosyn 3.375 Gm Iv Premix) 3.375 gm in 50 mls @ 100 mls/hr IVPB Q6H [facility] PRN Reason: Protocol Stop: 09/29/17 16:01 Last Admin: 09/29/17 10:31 Dose: 100 mls/hr Dextrose (Dextrose 5% In Water 1000 Ml) 1,000 mls @ 0 mls/hr IV .Q0M PRN; Protocol; Per Protocol PRN Reason: Hypoglycemia Protocol Insulin Aspart (Novolog) 12 unit SC TIDAC [facility] Last Admin: 09/29/17 12:33 Dose: 12 unit Insulin Detemir (Levemir) 30 unit SC Q12 [facility] Last Admin: 09/29/17 10:28 Dose: 30 unit Insulin Human Regular (Novolin R) 0 unit SC ACHS [facility] PRN Reason: Protocol Last Admin: 09/29/17 12:34 Dose: Not Given Loratadine (Claritin) 10 mg PO DAILY [facility] Last Admin: 09/29/17 10:29 Dose: 10 mg Losartan Potassium (Cozaar) 100 mg PO DAILY [facility] Last Admin: 09/29/17 10:27 Dose: 100 mg Rosuvastatin Calcium (Crestor) 20 mg PO HS [facility] Last Admin: 09/28/17 21:49 Dose: 20 mg Saccharomyces Boulardii (Florastor) 250 mg PO BID [facility] Last Admin: 09/29/17 10:27 Dose: 250 mg Tamsulosin HCl (Flomax) 0.4 mg PO DAILY [facility] Last Admin: 09/29/17 10:27 Dose: 0.4 mg - Labs Labs: 09/29/17 07:47 09/29/17 07:47 PT 12.6 SECONDS (9.7-12.2) H 09/22/17 10:28 INR 1.1 09/22/17 10:28 APTT 33 SECONDS (21-34) 09/22/17 10:28 - Constitutional Appears: Non-toxic, Chronically Ill - Head Exam Head Exam: NORMOCEPHALIC - Eye Exam Eye Exam: PERRL - ENT Exam ENT Exam: Normal External Ear Exam - Neck Exam Neck Exam: absent: Normal Inspection - Respiratory Exam Respiratory Exam: Decreased Breath Sounds - Cardiovascular Exam Cardiovascular Exam: REGULAR RHYTHM - GI/Abdominal Exam GI & Abdominal Exam: Distended Assessment and Plan (1) Pneumonia Status: Acute (2) Bronchitis Status: Acute (3) Heart block atrioventricular Status: Acute - Assessment and Plan (Free Text) Assessment: WILL NEED INH PROPHYLAXIS CONT ANTIBACTERIALS FOR NOW
--- NOTE | 2017-09-29 23:14 | CP.PCM.PN ---
Subjective - Date & Time of Evaluation Date of Evaluation: 09/28/17 Time of Evaluation: 08:10 - Subjective Subjective: Patient seen and evaluated Denies chest pain and dyspnea Objective - Vital Signs/Intake and Output Vital Signs (last 24 hours): Temp Pulse Resp BP Pulse Ox 98.0 F 93 H 20 121/72 97 09/29/17 15:00 09/29/17 15:00 09/29/17 15:00 09/29/17 15:00 09/29/17 15:00 Intake and Output: 09/29/17 09/30/17 18:59 06:59 Intake Total 200 Output Total 2 Balance 198 - Medications Medications: Current Medications Acetaminophen (Tylenol 325mg Tab) 650 mg PO Q6 PRN PRN Reason: Fever >100.4 F Last Admin: 09/24/17 00:31 Dose: 650 mg Albuterol/Ipratropium (Duoneb 3 Mg/0.5 Mg (3 Ml) Ud) 3 ml INH RQ4 [facility] Last Admin: 09/29/17 20:13 Dose: 3 ml Amlodipine Besylate (Norvasc) 10 mg PO DAILY [facility] Last Admin: 09/29/17 10:27 Dose: 10 mg Aspirin (Ecotrin) 81 mg PO DAILY [facility] Last Admin: 09/29/17 10:29 Dose: 81 mg Benzonatate (Tessalon Perles) 100 mg PO TID [facility] Last Admin: 09/29/17 17:50 Dose: 100 mg Clopidogrel Bisulfate (Plavix) 75 mg PO DAILY [facility] Last Admin: 09/29/17 10:29 Dose: 75 mg Dextrose (Dextrose 50% Inj) 0 ml IV STAT PRN; Protocol PRN Reason: Hypoglycemia Protocol Dextrose (Glutose 15) 0 gm PO ONCE PRN; Protocol PRN Reason: Hypoglycemia Protocol Famotidine (Pepcid) 20 mg PO BID [facility] Last Admin: 09/29/17 17:49 Dose: 20 mg Glucagon (Glucagen Diagnostic Kit) 0 mg IM STAT PRN; Protocol PRN Reason: Hypoglycemia Protocol Guaifenesin (Mucinex La) 600 mg PO BID [facility] Last Admin: 09/29/17 17:49 Dose: 600 mg Heparin Sodium (Porcine) (Heparin) 5,000 units SC Q8 [facility] Last Admin: 09/29/17 22:41 Dose: 5,000 units Hydralazine HCl (Apresoline) 10 mg PO QID [facility] Last Admin: 09/29/17 22:41 Dose: 10 mg Hydrochlorothiazide (Microzide) 12.5 mg PO DAILY [facility] Last Admin: 09/29/17 10:29 Dose: 12.5 mg Dextrose (Dextrose 5% In Water 1000 Ml) 1,000 mls @ 0 mls/hr IV .Q0M PRN; Protocol; Per Protocol PRN Reason: Hypoglycemia Protocol Piperacillin Sod/Tazobactam Sod (Zosyn 3.375 Gm Iv Premix) 3.375 gm in 50 mls @ 100 mls/hr IVPB Q6H [facility] PRN Reason: Protocol Last Admin: 09/29/17 22:42 Dose: 100 mls/hr Insulin Aspart (Novolog) 12 unit SC TIDAC [facility] Last Admin: 09/29/17 17:49 Dose: 12 unit Insulin Detemir (Levemir) 30 unit SC Q12 [facility] Last Admin: 09/29/17 22:41 Dose: 30 unit Insulin Human Regular (Novolin R) 0 unit SC ACHS [facility] PRN Reason: Protocol Last Admin: 09/29/17 22:42 Dose: Not Given Loratadine (Claritin) 10 mg PO DAILY [facility] Last Admin: 09/29/17 10:29 Dose: 10 mg Losartan Potassium (Cozaar) 100 mg PO DAILY [facility] Last Admin: 09/29/17 10:27 Dose: 100 mg Rosuvastatin Calcium (Crestor) 20 mg PO HS [facility] Last Admin: 09/29/17 22:41 Dose: 20 mg Saccharomyces Boulardii (Florastor) 250 mg PO BID [facility] Last Admin: 09/29/17 17:49 Dose: 250 mg Tamsulosin HCl (Flomax) 0.4 mg PO DAILY [facility] Last Admin: 09/29/17 10:27 Dose: 0.4 mg - Labs Labs: 09/29/17 07:47 09/29/17 07:47 PT 12.6 SECONDS (9.7-12.2) H 09/22/17 10:28 INR 1.1 09/22/17 10:28 APTT 33 SECONDS (21-34) 09/22/17 10:28
--- NOTE | 2017-09-29 23:15 | CP.PCM.PN ---
Subjective - Date & Time of Evaluation Date of Evaluation: 09/29/17 Time of Evaluation: 15:25 - Subjective Subjective: Patient seen and evaluated Denies chest pain and dyspnea Objective - Vital Signs/Intake and Output Vital Signs (last 24 hours): Temp Pulse Resp BP Pulse Ox 98.0 F 93 H 20 121/72 97 09/29/17 15:00 09/29/17 15:00 09/29/17 15:00 09/29/17 15:00 09/29/17 15:00 Intake and Output: 09/29/17 09/30/17 18:59 06:59 Intake Total 200 Output Total 2 Balance 198 - Medications Medications: Current Medications Acetaminophen (Tylenol 325mg Tab) 650 mg PO Q6 PRN PRN Reason: Fever >100.4 F Last Admin: 09/24/17 00:31 Dose: 650 mg Albuterol/Ipratropium (Duoneb 3 Mg/0.5 Mg (3 Ml) Ud) 3 ml INH RQ4 [facility] Last Admin: 09/29/17 20:13 Dose: 3 ml Amlodipine Besylate (Norvasc) 10 mg PO DAILY [facility] Last Admin: 09/29/17 10:27 Dose: 10 mg Aspirin (Ecotrin) 81 mg PO DAILY [facility] Last Admin: 09/29/17 10:29 Dose: 81 mg Benzonatate (Tessalon Perles) 100 mg PO TID [facility] Last Admin: 09/29/17 17:50 Dose: 100 mg Clopidogrel Bisulfate (Plavix) 75 mg PO DAILY [facility] Last Admin: 09/29/17 10:29 Dose: 75 mg Dextrose (Dextrose 50% Inj) 0 ml IV STAT PRN; Protocol PRN Reason: Hypoglycemia Protocol Dextrose (Glutose 15) 0 gm PO ONCE PRN; Protocol PRN Reason: Hypoglycemia Protocol Famotidine (Pepcid) 20 mg PO BID [facility] Last Admin: 09/29/17 17:49 Dose: 20 mg Glucagon (Glucagen Diagnostic Kit) 0 mg IM STAT PRN; Protocol PRN Reason: Hypoglycemia Protocol Guaifenesin (Mucinex La) 600 mg PO BID [facility] Last Admin: 09/29/17 17:49 Dose: 600 mg Heparin Sodium (Porcine) (Heparin) 5,000 units SC Q8 [facility] Last Admin: 09/29/17 22:41 Dose: 5,000 units Hydralazine HCl (Apresoline) 10 mg PO QID [facility] Last Admin: 09/29/17 22:41 Dose: 10 mg Hydrochlorothiazide (Microzide) 12.5 mg PO DAILY [facility] Last Admin: 09/29/17 10:29 Dose: 12.5 mg Dextrose (Dextrose 5% In Water 1000 Ml) 1,000 mls @ 0 mls/hr IV .Q0M PRN; Protocol; Per Protocol PRN Reason: Hypoglycemia Protocol Piperacillin Sod/Tazobactam Sod (Zosyn 3.375 Gm Iv Premix) 3.375 gm in 50 mls @ 100 mls/hr IVPB Q6H [facility] PRN Reason: Protocol Last Admin: 09/29/17 22:42 Dose: 100 mls/hr Insulin Aspart (Novolog) 12 unit SC TIDAC [facility] Last Admin: 09/29/17 17:49 Dose: 12 unit Insulin Detemir (Levemir) 30 unit SC Q12 [facility] Last Admin: 09/29/17 22:41 Dose: 30 unit Insulin Human Regular (Novolin R) 0 unit SC ACHS [facility] PRN Reason: Protocol Last Admin: 09/29/17 22:42 Dose: Not Given Loratadine (Claritin) 10 mg PO DAILY [facility] Last Admin: 09/29/17 10:29 Dose: 10 mg Losartan Potassium (Cozaar) 100 mg PO DAILY [facility] Last Admin: 09/29/17 10:27 Dose: 100 mg Rosuvastatin Calcium (Crestor) 20 mg PO HS [facility] Last Admin: 09/29/17 22:41 Dose: 20 mg Saccharomyces Boulardii (Florastor) 250 mg PO BID [facility] Last Admin: 09/29/17 17:49 Dose: 250 mg Tamsulosin HCl (Flomax) 0.4 mg PO DAILY [facility] Last Admin: 09/29/17 10:27 Dose: 0.4 mg - Labs Labs: 09/29/17 07:47 09/29/17 07:47 PT 12.6 SECONDS (9.7-12.2) H 09/22/17 10:28 INR 1.1 09/22/17 10:28 APTT 33 SECONDS (21-34) 09/22/17 10:28
[2017-09-30] MEDS: Albuterol-Ipratrop 3 mg / 0.5 (3 ml) UD INH SCH ×4 (00:54→11:02)
[2017-09-30] MEDS: Piperacill/Tazo 3.375gm in Dex 3.375 GM/50 ML BAG IVPB SCH ×2 (03:55→10:17)
[2017-09-30 07:52] VITALS: BP 156/80; TEMP 97.3; O2SAT 97
[2017-09-30 08:14] LABS: BASO % 0.5 % (0.0-2.0); EOS # 0.6 K/uL (0.0-0.7); EOS % 6.3 % (0.0-4.0); HEMOGLOBIN 12.5 g/dL (12.0-18.0); LYMPH # 2.3 K/uL (1.0-4.3); LYMPH % 24.4 % (20.0-40.0); MEAN CORPUSCULAR HEMOGLOBIN 27.9 pg (27.0-31.0); MEAN CORPUSCULAR HGB CONC 32.8 g/dL (33.0-37.0); MEAN PLATELET VOLUME 8.6 fL (7.2-11.7); NEUT # 5.7 K/uL (1.8-7.0); NEUT % 58.8 % (50.0-75.0); NRBC % 0.1 % (0.0-2.0); RBC 4.49 Mil/uL (4.40-5.90); RED CELL DISTRIBUTION WIDTH 13.6 % (11.5-14.5); WHITE BLOOD COUNT 9.6 K/uL (4.8-10.8)
--- NOTE | 2017-09-30 08:36 | CP.PCM.PN ---
Subjective - Date & Time of Evaluation Date of Evaluation: 09/30/17 Time of Evaluation: 08:32 - Subjective Subjective: Patient seen and examined at bedside. No complaints at this time3. Denies any chest pain or SOB. No coughing,. States he is feeling much better. Understand plan is to wait for his cultures. All questions answered. Objective - Vital Signs/Intake and Output Vital Signs (last 24 hours): Temp Pulse Resp BP Pulse Ox 97.3 F L 70 20 156/80 H 97 09/30/17 07:00 09/30/17 07:00 09/30/17 07:00 09/30/17 07:00 09/30/17 07:00 Intake and Output: 09/30/17 09/30/17 06:59 18:59 Intake Total 290 Output Total 600 Balance -310 - Medications Medications: Current Medications Acetaminophen (Tylenol 325mg Tab) 650 mg PO Q6 PRN PRN Reason: Fever >100.4 F Last Admin: 09/24/17 00:31 Dose: 650 mg Albuterol/Ipratropium (Duoneb 3 Mg/0.5 Mg (3 Ml) Ud) 3 ml INH RQ4 [facility] Last Admin: 09/30/17 07:23 Dose: Not Given Amlodipine Besylate (Norvasc) 10 mg PO DAILY [facility] Last Admin: 09/29/17 10:27 Dose: 10 mg Aspirin (Ecotrin) 81 mg PO DAILY [facility] Last Admin: 09/29/17 10:29 Dose: 81 mg Benzonatate (Tessalon Perles) 100 mg PO TID [facility] Last Admin: 09/29/17 17:50 Dose: 100 mg Clopidogrel Bisulfate (Plavix) 75 mg PO DAILY [facility] Last Admin: 09/29/17 10:29 Dose: 75 mg Dextrose (Dextrose 50% Inj) 0 ml IV STAT PRN; Protocol PRN Reason: Hypoglycemia Protocol Dextrose (Glutose 15) 0 gm PO ONCE PRN; Protocol PRN Reason: Hypoglycemia Protocol Famotidine (Pepcid) 20 mg PO BID [facility] Last Admin: 09/29/17 17:49 Dose: 20 mg Glucagon (Glucagen Diagnostic Kit) 0 mg IM STAT PRN; Protocol PRN Reason: Hypoglycemia Protocol Guaifenesin (Mucinex La) 600 mg PO BID [facility] Last Admin: 09/29/17 17:49 Dose: 600 mg Heparin Sodium (Porcine) (Heparin) 5,000 units SC Q8 [facility] Last Admin: 09/30/17 05:09 Dose: 5,000 units Hydralazine HCl (Apresoline) 10 mg PO QID [facility] Last Admin: 09/29/17 22:41 Dose: 10 mg Hydrochlorothiazide (Microzide) 12.5 mg PO DAILY [facility] Last Admin: 09/29/17 10:29 Dose: 12.5 mg Dextrose (Dextrose 5% In Water 1000 Ml) 1,000 mls @ 0 mls/hr IV .Q0M PRN; Protocol; Per Protocol PRN Reason: Hypoglycemia Protocol Piperacillin Sod/Tazobactam Sod (Zosyn 3.375 Gm Iv Premix) 3.375 gm in 50 mls @ 100 mls/hr IVPB Q6H [facility] PRN Reason: Protocol Last Admin: 09/30/17 03:55 Dose: 100 mls/hr Insulin Aspart (Novolog) 12 unit SC TIDAC [facility] Last Admin: 09/29/17 17:49 Dose: 12 unit Insulin Detemir (Levemir) 30 unit SC Q12 [facility] Last Admin: 09/29/17 22:41 Dose: 30 unit Insulin Human Regular (Novolin R) 0 unit SC ACHS [facility] PRN Reason: Protocol Last Admin: 09/29/17 22:42 Dose: Not Given Loratadine (Claritin) 10 mg PO DAILY [facility] Last Admin: 09/29/17 10:29 Dose: 10 mg Losartan Potassium (Cozaar) 100 mg PO DAILY [facility] Last Admin: 09/29/17 10:27 Dose: 100 mg Rosuvastatin Calcium (Crestor) 20 mg PO HS [facility] Last Admin: 09/29/17 22:41 Dose: 20 mg Saccharomyces Boulardii (Florastor) 250 mg PO BID [facility] Last Admin: 09/29/17 17:49 Dose: 250 mg Tamsulosin HCl (Flomax) 0.4 mg PO DAILY [facility] Last Admin: 09/29/17 10:27 Dose: 0.4 mg - Labs Labs: 09/30/17 08:06 09/29/17 07:47 PT 12.6 SECONDS (9.7-12.2) H 09/22/17 10:28 INR 1.1 09/22/17 10:28 APTT 33 SECONDS (21-34) 09/22/17 10:28 - Constitutional Appears: Well - Head Exam Head Exam: ATRAUMATIC, NORMAL INSPECTION, NORMOCEPHALIC - Eye Exam Eye Exam: EOMI, Normal appearance, PERRL Pupil Exam: NORMAL ACCOMODATION, PERRL - ENT Exam ENT Exam: Mucous Membranes Moist, Normal Exam - Neck Exam Neck Exam: Full ROM, Normal Inspection. absent: Lymphadenopathy - Respiratory Exam Respiratory Exam: Clear to Ausculation Bilateral, NORMAL BREATHING PATTERN - Cardiovascular Exam Cardiovascular Exam: REGULAR RHYTHM, +S1, +S2. absent: Murmur - GI/Abdominal Exam GI & Abdominal Exam: Soft, Normal Bowel Sounds. absent: Tenderness - Rectal Exam Rectal Exam: NORMAL INSPECTION - Extremities Exam Extremities Exam: Full ROM, Normal Capillary Refill, Normal Inspection. absent : Joint Swelling, Pedal Edema - Back Exam Back Exam: NORMAL INSPECTION - Neurological Exam Neurological Exam: Alert, Awake, CN II-XII Intact, Normal Gait, Oriented x3 - Psychiatric Exam Psychiatric exam: Normal Affect, Normal Mood - Skin Skin Exam: Dry, Intact, Normal Color, Warm Assessment and Plan - Assessment and Plan (Free Text) Assessment: 1) Pneumonia, healthcare associated pneumonia * Pulmonary consult, Dr Beach * Likely bronchitits. Normal pro calcitonin level and chest x-ray consistent with bibasilar small effusions and atelectasis. Continue Zosyn. Discontinued vancomycin 09/24/17 * Quantiferon Gold Positive * Isolation * 1st AFB negative, pending the following two * Duoneb 2 puff IH Q4H scheduled * Tessalon 100mg PO TID * CT Chest (09/22/17): No PE. Nodular opacities seen throughout the upper lobes bilaterally as well as right middle lobe. * Incentive spirometry 2) Diastolic Heart Failure Pulmonary Hypertension History of Third Degree AV Block s/p pacemaker placement * 09/10/[address] Rogers, Dr. Keenan saw patient last visit * Echocardiogram (02/11/17):Moderate pulmonary hypertension. Normal EF * Will recheck echo, pending official read * probnp [id number] * continue HCTZ and lasix 3) Recent Right leg fracture * Patient was seen and [place] [facility] [place], leg was casted in the ED and he was told follow up on October 04 with ortho at [facility] * Venous dopplers: no DVT * Podiatry consult, help appreciated 4) CAD with Stent * ASA 81mg PO QDaily * Plavix 75mg PO QDaily * Crestor 20mg PO HS 5) History of DM2 * Levemir 40u SC BID -> 20u SC BID (due to hypoglycemic episode)-> 30u SC BID * Lispro 24 u SQ TIDAC -> 12u SQ TIDAC (due to hypoglycemic episode) * Accucheck ACHS * a1c ELEVATED 10.8 * lipid panel - LDL 136, Cholesterol 202, otherwise normal 6) History of Hypertension * Hydralazine 10mg PO QID * HCTZ 12.5mg PO QDaily * Amlodipine 10mg PO QDaily * Valsartan 320mg PO QDaily not available on hospital formulary (giving Losartan 100mg PO QD as substitute) 7) Hx hyperlipidemia * Welchol 625mg PO QD, not available in pharmacy * Rosuvastatin Calcium 20mg PO QHS 8) Hx asthma * duoneb 2 puff IH Q4H scheduled * Claritin 10mg PO QD 9) Hx of BPH and Prostate CA * Flomax 0.4mg PO QD 10) Prophylaxis * Lovenox 30 SC Q12 * Heart Healthy Diet Low Carb diet * PT/OT eval - recommend IVIS
[2017-09-30] MEDS: (Novolog) Insulin Aspart, Recombinant 100 u/ml 10 ml vial SC SCH ×2 (08:46→12:52)
[2017-09-30] MEDS: (Novolin R) Insulin Human Regular 100 units/ml vial SC SCH ×2 (08:47→12:52)
[2017-09-30 08:48] LABS: ALB/GLOB RATIO 0.9 (1.0-2.1); ALBUMIN 3.4 g/dL (3.5-5.0); CALCIUM 9.9 mg/dl (8.6-10.4)
[2017-09-30] MEDS ORDERED: Enoxaparin 30 mg Syringe SC SCH (10:00)
[2017-09-30] MEDS: Insulin Detemir 100 units/ml Vial (Levemir) SC SCH (10:13)
[2017-09-30] MEDS: guaiFENesin 600 mg ER Tab PO SCH (10:15)
[2017-09-30] MEDS: Saccharomyces Boulardi 250 mg Cap PO SCH (10:15)
--- NOTE | 2017-09-30 11:35 | CP.PCM.PN ---
Subjective - Date & Time of Evaluation Date of Evaluation: 09/30/17 Time of Evaluation: 08:00 - Subjective Subjective: discussed on rounds Objective - Vital Signs/Intake and Output Vital Signs (last 24 hours): Temp Pulse Resp BP Pulse Ox 97.3 F L 70 20 156/80 H 97 09/30/17 07:00 09/30/17 07:00 09/30/17 07:00 09/30/17 07:00 09/30/17 07:00 Intake and Output: 09/30/17 09/30/17 06:59 18:59 Intake Total 290 Output Total 600 Balance -310 - Medications Medications: Current Medications Albuterol/Ipratropium (Duoneb 3 Mg/0.5 Mg (3 Ml) Ud) 3 ml INH RQ4 [facility] Last Admin: 09/30/17 11:02 Dose: 3 ml Amlodipine Besylate (Norvasc) 10 mg PO DAILY [facility] Last Admin: 09/30/17 10:15 Dose: 10 mg Aspirin (Ecotrin) 81 mg PO DAILY [facility] Last Admin: 09/30/17 10:15 Dose: 81 mg Clopidogrel Bisulfate (Plavix) 75 mg PO DAILY [facility] Last Admin: 09/30/17 10:15 Dose: 75 mg Dextrose (Dextrose 50% Inj) 0 ml IV STAT PRN; Protocol PRN Reason: Hypoglycemia Protocol Dextrose (Glutose 15) 0 gm PO ONCE PRN; Protocol PRN Reason: Hypoglycemia Protocol Enoxaparin Sodium (Lovenox) 30 mg SC Q12 [facility] Last Admin: 09/30/17 10:14 Dose: 30 mg Furosemide (Lasix) 20 mg IVP DAILY [facility] Glucagon (Glucagen Diagnostic Kit) 0 mg IM STAT PRN; Protocol PRN Reason: Hypoglycemia Protocol Guaifenesin (Mucinex La) 600 mg PO BID [facility] Last Admin: 09/30/17 10:15 Dose: 600 mg Hydralazine HCl (Apresoline) 10 mg PO QID [facility] Last Admin: 09/30/17 10:16 Dose: 10 mg Hydrochlorothiazide (Microzide) 12.5 mg PO DAILY [facility] Last Admin: 09/30/17 10:14 Dose: 12.5 mg Dextrose (Dextrose 5% In Water 1000 Ml) 1,000 mls @ 0 mls/hr IV .Q0M PRN; Protocol; Per Protocol PRN Reason: Hypoglycemia Protocol Piperacillin Sod/Tazobactam Sod (Zosyn 3.375 Gm Iv Premix) 3.375 gm in 50 mls @ 100 mls/hr IVPB Q6H [facility] PRN Reason: Protocol Last Admin: 09/30/17 10:17 Dose: 100 mls/hr Insulin Aspart (Novolog) 12 unit SC TIDAC [facility] Last Admin: 09/30/17 08:46 Dose: 12 unit Insulin Detemir (Levemir) 30 unit SC Q12 [facility] Last Admin: 09/30/17 10:13 Dose: 30 unit Insulin Human Regular (Novolin R) 0 unit SC ACHS [facility] PRN Reason: Protocol Last Admin: 09/30/17 08:47 Dose: 3 unit Loratadine (Claritin) 10 mg PO DAILY [facility] Last Admin: 09/30/17 10:15 Dose: 10 mg Losartan Potassium (Cozaar) 100 mg PO DAILY [facility] Last Admin: 09/30/17 10:15 Dose: 100 mg Rosuvastatin Calcium (Crestor) 20 mg PO HS [facility] Last Admin: 09/29/17 22:41 Dose: 20 mg Saccharomyces Boulardii (Florastor) 250 mg PO BID [facility] Last Admin: 09/30/17 10:15 Dose: 250 mg Tamsulosin HCl (Flomax) 0.4 mg PO DAILY [facility] Last Admin: 09/30/17 10:15 Dose: 0.4 mg - Labs Labs: 09/30/17 08:06 09/30/17 08:06 PT 12.6 SECONDS (9.7-12.2) H 09/22/17 10:28 INR 1.1 09/22/17 10:28 APTT 33 SECONDS (21-34) 09/22/17 10:28 Assessment and Plan (1) Pneumonia Status: Acute (2) Bronchitis Status: Acute (3) Heart block atrioventricular Status: Acute
[2017-09-30 11:38] VITALS: PULSE 78
--- NOTE | 2017-09-30 12:12 | CP.PCM.DIS ---
Provider - Provider Date of Admission: 09/22/17 10:28 Attending physician: Nitesh Arita Jr, MD Primary care physician: Thien Consults: Cards: Shlomo Cervantesm: Yong ID: [id number] Time Spent in preparation of Discharge (in minutes): 45 Hospital Course - Lab Results Lab Results: Micro Results 09/28/17 07:46 Other: Please Indicate Mycobacterial Culture - Preliminary 09/27/17 06:00 Other: Please Indicate Mycobacterial Culture - Preliminary 09/22/17 10:15 Blood Blood Culture - Final NO GROWTH AFTER 5 DAYS 09/22/17 10:15 Blood Gram Stain - Final TEST NOT PERFORMED 09/22/17 09:45 Blood Blood Culture - Final NO GROWTH AFTER 5 DAYS 09/22/17 09:45 Blood Gram Stain - Final TEST NOT PERFORMED 09/22/17 17:36 Throat Group A Strep Throat Culture - Final NO BETA STREP GROUP A ISOLATED. Most Recent Lab Values WBC 9.6 K/uL (4.8-10.8) 09/30/17 08:06 RBC 4.49 Mil/uL (4.40-5.90) 09/30/17 08:06 Hgb 12.5 g/dL (12.0-18.0) 09/30/17 08:06 Hct 38.1 % (35.0-51.0) 09/30/17 08:06 MCV 85.0 fL (80.0-94.0) 09/30/17 08:06 MCH 27.9 pg (27.0-31.0) 09/30/17 08:06 MCHC 32.8 g/dL (33.0-37.0) L 09/30/17 08:06 RDW 13.6 % (11.5-14.5) 09/30/17 08:06 Plt Count 418 K/uL (130-400) H 09/30/17 08:06 MPV 8.6 fL (7.2-11.7) 09/30/17 08:06 Neut % (Auto) 58.8 % (50.0-75.0) 09/30/17 08:06 Lymph % (Auto) 24.4 % (20.0-40.0) 09/30/17 08:06 Divide % (Auto) 10.0 % (0.0-10.0) 09/30/17 08:06 Eos % (Auto) 6.3 % (0.0-4.0) H 09/30/17 08:06 Baso % (Auto) 0.5 % (0.0-2.0) 09/30/17 08:06 Neut # (Auto) 5.7 K/uL (1.8-7.0) 09/30/17 08:06 Lymph # (Auto) 2.3 K/uL (1.0-4.3) 09/30/17 08:06 Divide # (Auto) 1.0 K/uL (0.0-0.8) H 09/30/17 08:06 Eos # (Auto) 0.6 K/uL (0.0-0.7) 09/30/17 08:06 Baso # (Auto) 0.0 K/uL (0.0-0.2) 09/30/17 08:06 Neutrophils % (Manual) 87 % (50-75) H 09/23/17 08:13 Band Neutrophils % 5 % (0-2) H 09/23/17 08:13 Lymphocytes % (Manual) 7 % (20-40) L 09/23/17 08:13 Monocytes % (Manual) 1 % (0-10) 09/23/17 08:13 Eosinophils % (Manual) 1 % (0-4) 09/22/17 09:04 Platelet Estimate Normal (NORMAL) 09/23/17 08:13 RBC Morphology Normal 09/22/17 09:04 Ovalocytes Slight 09/23/17 08:13 PT 12.6 SECONDS (9.7-12.2) H 09/22/17 10:28 INR 1.1 09/22/17 10:28 APTT 33 SECONDS (21-34) 09/22/17 10:28 D-Dimer, Quantitative 504 ng/mlDDU (0-243) H 09/22/17 10:28 pCO2 34 mm/Hg (35-45) L 09/22/17 10:40 pO2 75 mm/Hg (80-100) L 09/22/17 10:40 HCO3 24.4 mmol/L (21-28) 09/22/17 10:40 ABG pH 7.44 (7.35-7.45) 09/22/17 10:40 ABG Total CO2 24.1 mmol/L (22-28) 09/22/17 10:40 ABG O2 Saturation 97.6 % (95-98) 09/22/17 10:40 ABG Base Excess -0.6 mmol/L (-2.0-3.0) 09/22/17 10:40 ABG Hemoglobin 12.1 g/dL (11.7-17.4) 09/22/17 10:40 ABG Carboxyhemoglobin 2.0 % (0.5-1.5) H 09/22/17 10:40 Robert Test Pos 09/22/17 10:40 Hgb O2 Saturation 97.6 % (95.0-98.0) 09/22/17 10:40 FiO2 28 % 09/22/17 10:40 Crit Value Called To Gillian burnett 09/22/17 10:40 Crit Value Called By Jonas cm [employer] [employer] 09/22/17 10:40 Crit Value Read Back Gillian burnett 09/22/17 10:40 Blood Gas Notified Time 1042 09/22/17 10:40 Sodium 137 mmol/L (132-148) 09/30/17 08:06 Potassium 4.0 mmol/L (3.6-5.2) 09/30/17 08:06 Chloride 102 mmol/L (98-107) 09/30/17 08:06 Carbon Dioxide 24 mmol/L (22-30) 09/30/17 08:06 Anion Gap 15 (10-20) 09/30/17 08:06 BUN 20 mg/dL (9-20) 09/30/17 08:06 Creatinine 1.5 mg/dL (0.8-1.5) 09/30/17 08:06 Est GFR ( Amer) 57 09/30/17 08:06 Est GFR (Non-Af Amer) 47 09/30/17 08:06 POC Glucose (mg/dL) 183 mg/dL (65-110) H 09/30/17 11:08 Random Glucose 209 mg/dL (75-110) H 09/30/17 08:06 Calcium 9.9 mg/dl (8.6-10.4) 09/30/17 08:06 Phosphorus 3.9 mg/dL (2.5-4.5) 09/29/17 07:47 Magnesium 2.2 mg/dL (1.6-2.3) 09/29/17 07:47 Total Bilirubin 0.5 mg/dL (0.2-1.3) 09/30/17 08:06 AST 51 U/L (17-59) 09/30/17 08:06 ALT 60 U/L (21-72) 09/30/17 08:06 Alkaline Phosphatase 83 U/L (38-126) 09/30/17 08:06 Total Creatine Kinase 254 U/L (55-170) H 09/22/17 22:53 CK-MB (Mass) 0.95 ng/mL (0.0-3.38) 09/22/17 22:53 Troponin I 0.1410 ng/mL (0.00-0.120) H* 09/22/17 22:53 NT-Pro-B Natriuret Pep 2710 pg/mL (0-900) H 09/22/17 09:04 Total Protein 7.1 g/dL (6.3-8.3) 09/30/17 08:06 Albumin 3.4 g/dL (3.5-5.0) L 09/30/17 08:06 Globulin 3.6 gm/dL (2.2-3.9) 09/30/17 08:06 Albumin/Globulin Ratio 0.9 (1.0-2.1) L 09/30/17 08:06 Triglycerides 69 mg/dL (0-149) D 09/23/17 07:47 Cholesterol 202 mg/dL (0-199) H 09/23/17 07:47 LDL Cholesterol Direct 136 mg/dL (0-129) H 09/23/17 07:47 HDL Cholesterol 38 mg/dL (30-70) 09/23/17 07:47 Procalcitonin 0.10 NG/ML (0.19-0.49) L 09/24/17 06:58 Vancomycin Trough < 5.0 ug/mL (5.0-10.0) L 09/29/17 16:36 HIV 1&2 Antibody Screen Negative (NEGATIVE) 09/24/17 13:54 Influenza Typ A,B (EIA) Negative for flu a/b (NEGATIVE) 09/22/17 10:16 Ur L.pneumophila Ag Negative (NEGATIVE) 09/22/17 16:43 Mycoplasma pneumon IgM Negative (NEGATIVE) 09/22/17 16:43 Grp A Beta Strep Ag Negative (NEGATIVE) 09/22/17 17:36 Ur Strep pneumoniae Ag Not detected 09/22/17 16:41 TB Test (QFT) Nil 0.31 IU/mL 09/24/17 13:54 TB Test Mitogen - Nil 6.53 IU/mL 09/24/17 13:54 TB Test TB - Nil 0.41 IU/mL 09/24/17 13:54 TB Test (QFT) Positive (Negative) H 09/24/17 13:54 - Hospital Course Hospital Course: Patient presents to ED for productive cough x3 days and fever x 1 day. Per Daughter at bedside, patient hasn't been walking around because he has a broken right leg which he is to follow up with Ortho 10/04. Patient was admitted 09/10 for pacemaker placement because of third degree heart block. Patient had no issues after leaving the hospital until 3 days ago. Patient also states he feels shortness of breath when he tries to move around (Patient remains non- weightbearing but has to maneuver to go to the bathroom). Patient denies sick contacts. Patient admits to dizziness, sinus pressure, headache, SOB. Patient denies sore throat, hemoptysis, hearing changes, tinnitus, ear pain, chest pain , diarrhea, constipation, numbness, weakness. Dr. Keenan was consulted due to the patients PPM. No issues here. Dr. Beach was consulted 2/ to the suspicion of pneumonia. He was started on antibiotics and given nebulizer treatments. Pneumonia is unlikely according to pulm. ID consulted for + quantiferon. TB very unlikely. AFBs negative x2. Will take 6 weeks for cultures to come back. Patient is doing much better today. No complaints at this time. Was able to ambulate very well for me unassisted. He does not need any IVIS at this time. Patient was written for a cane if he did need help in the future. He was instructed to follow up with his primary care doctor upon discharge. Discharge Exam - Head Exam Head Exam: ATRAUMATIC, NORMAL INSPECTION, NORMOCEPHALIC - Eye Exam Eye Exam: EOMI, Normal appearance, PERRL Pupil Exam: NORMAL ACCOMODATION, PERRL - GI/Abdominal Exam GI & Abdominal Exam: Normal Bowel Sounds - Rectal Exam Rectal Exam: NORMAL INSPECTION - Neurological Exam Neurological exam: Alert, CN II-XII Intact, Normal Gait, Oriented x3, Reflexes Normal - Psychiatric Exam Psychiatric exam: Normal Affect, Normal Mood - Skin Skin Exam: Dry, Intact, Normal Color, Warm Discharge Plan - Discharge Medications Prescriptions: Albuterol Sulfate [Proair Hfa] 2 puff IH Q4 PRN #1 inh PRN Reason: Shortness Of Breath Amlodipine/Valsartan [Amlodipine-Valsartan 10-320 mg] 1 tab PO DAILY #30 tablet Aspirin [Ecotrin] 81 mg PO DAILY #30 tabec Atorvastatin [Lipitor] 40 mg PO DAILY #30 tab Clopidogrel [Plavix] 75 mg PO DAILY #30 tab Colesevelam HCl [Welchol] 625 mg PO DAILY #180 tablet hydrALAZINE [Apresoline] 10 mg PO QID #120 tab Hydrochlorothiazide [Microzide] 12.5 mg PO DAILY 30 Days capsule Insulin Detemir [Levemir] 40 unit SC BID #1 vial Insulin Lispro [Humalog (Insulin Lispro)] 24 unit SQ TIDAC #1 vial Nut.tx.gluc.intoler,Lac-Fr,Soy [Glucerna Therapeutic Nutrition] 237 ml PO DAILY #3 liquid Tamsulosin [Flomax] 0.4 mg PO DAILY 30 Days cap - Follow Up Plan Condition: STABLE Disposition: HOME/ ROUTINE Instructions: Heart Healthy Diet, Acute Bronchitis, Adult (DC), Heart Failure, Adult (DC), Carbohydrate Counting Diet, Pneumonia, Adult (DC), Diabetes Diet Additional Instructions: Please follow up with Primary doctor in 7-10 days. Please continue to take all home medications Please come back to the ED if symptoms worsen Referrals: Nitesh Arita Jr., MD [Medical Doctor] - Clinical Quality Measures - CQM - Heart Failure Ejection Fraction: 40 % or Greater LETI Inhibitor Prescribed: No Contraindication/Reason for not providing: ARB Beta-Nato Prescribed: None Contraindication/Reason for not providing: cant tolerate Angiotensin II Receptor Nato Prescribed: Yes AnticoagulationTherapy for Atrial Fibrillation/Atrialflutter: No Contraindication/Reason for not providing: no afib Aldosterone Antagonist Prescribed: No Contraindication/Reason for not providing: not indicated Hydralazine Nitrate Prescribed: Yes Implantable Cardioverter Defibrillator Therapy: Yes Cardiac Resynchronization Therapy Prescribed: No Contraindication/Reason for not providing: not indicated Will be discharged to: Home Follow Up Date (must be within 7 days from discharge): 10/07/17 Follow Up Time: 09:00
--- NOTE | 2017-09-30 14:12 | CP.PCM.PN ---
Subjective - Date & Time of Evaluation Date of Evaluation: 09/30/17 Time of Evaluation: 12:20 - Subjective Subjective: clinically Objective - Vital Signs/Intake and Output Vital Signs (last 24 hours): Temp Pulse Resp BP Pulse Ox 97.3 F L 78 20 156/80 H 97 09/30/17 07:00 09/30/17 08:59 09/30/17 07:00 09/30/17 07:00 09/30/17 07:00 Intake and Output: 09/30/17 09/30/17 06:59 18:59 Intake Total 290 Output Total 600 Balance -310 - Labs Labs: 09/30/17 08:06 09/30/17 08:06 PT 12.6 SECONDS (9.7-12.2) H 09/22/17 10:28 INR 1.1 09/22/17 10:28 APTT 33 SECONDS (21-34) 09/22/17 10:28 - Constitutional Appears: Well - Head Exam Head Exam: ATRAUMATIC, NORMAL INSPECTION, NORMOCEPHALIC - Eye Exam Eye Exam: EOMI, Normal appearance, PERRL Pupil Exam: NORMAL ACCOMODATION, PERRL - ENT Exam ENT Exam: Mucous Membranes Moist, Normal Exam - Neck Exam Neck Exam: Full ROM, Normal Inspection. absent: Lymphadenopathy - Respiratory Exam Respiratory Exam: Decreased Breath Sounds - Cardiovascular Exam Cardiovascular Exam: REGULAR RHYTHM, +S1, +S2 - GI/Abdominal Exam GI & Abdominal Exam: Soft, Diminished Bowel Sounds - Rectal Exam Rectal Exam: Deferred
--- NOTE | 2017-09-30 18:00 | CP.PCM.PN ---
Subjective - Date & Time of Evaluation Date of Evaluation: 09/30/17 Time of Evaluation: 09:40 - Subjective Subjective: Patient seen and examined at bedside. Shortness of breath is improved, patient denies coughing, chest pain. Wheezing is improved. Afebrile. Assessment and Plan: 1. Bronchitis - CXR consistent with bibasilar small effusions and atelectasis - 09/24 QFT: positive - 09/28 mycobacterial culture: no acid fast bacilli preliminary - ok to be off isolation - negative group A strep, flu, legionella, mycoplasma or HIV - blood cultures prelim no growth - pro-calcitonin 09/24: not elevated - claritin - continue empiric zosyn - vancomycin discontinued 2. CHF - HCTZ - Lasix Objective - Vital Signs/Intake and Output Vital Signs (last 24 hours): Temp Pulse Resp BP Pulse Ox 97.3 F L 78 20 156/80 H 97 09/30/17 07:00 09/30/17 08:59 09/30/17 07:00 09/30/17 07:00 09/30/17 07:00 Intake and Output: 09/30/17 09/30/17 06:59 18:59 Intake Total 290 Output Total 600 Balance -310 - Labs Labs: 09/30/17 08:06 09/30/17 08:06 PT 12.6 SECONDS (9.7-12.2) H 09/22/17 10:28 INR 1.1 09/22/17 10:28 APTT 33 SECONDS (21-34) 09/22/17 10:28 Assessment and Plan (1) Bronchitis Status: Acute (2) Congestive heart failure Status: Suspected
== END 2017-09-30 13:38 | disposition home or self-care (01) | DRG 202 ==
LOC: C.ER 08:01 → C.9E 10:28 → C.6T 11:09
PROVIDERS: ADMIT Internal Medicine; ATTEND Internal Medicine
DX: J20.9 Acute bronchitis, unspecified (principal); I50.30 Unspecified diastolic (congestive) heart failure; J98.11 Atelectasis; E78.00 Pure hypercholesterolemia, unspecified; I11.0 Hypertensive heart disease with heart failure; I25.10 Atherosclerotic heart disease of native coronary artery without angina pectoris; E78.5 Hyperlipidemia, unspecified; E11.9 Type 2 diabetes mellitus without complications; J45.909 Unspecified asthma, uncomplicated; I27.20 Pulmonary hypertension, unspecified; N40.0 Benign prostatic hyperplasia without lower urinary tract symptoms; Z85.46 Personal history of malignant neoplasm of prostate; Z95.0 Presence of cardiac pacemaker; Z95.5 Presence of coronary angioplasty implant and graft

== ENCOUNTER 2018-02-07 22:05 | Inpatient (IN) | payer MEDICARE, OTHER ==
[2018-02-07 22:05] VITALS: BMI 29.2
--- NOTE | 2018-02-07 23:20 | C.PDOC ---
History Of Present Illness <Giorgio Mills - Last Filed: 02/08/18 00:43> <Anna Saldivar - Last Filed: 02/08/18 05:27> 67 year old male presents to the ED c/o right leg weakness for the past 6 weeks. Patient states that he has not been able to walk on his right leg. Patient is not able to sustain his weight. Patient reports he broke his right foot 3 months ago and had a cast place on it for an extensive time. Patient denies new trauma, injury, fall, weakness, numbness. (Giorgio Mills) History Per: Patient History/Exam Limitations: no limitations Onset/Duration Of Symptoms: Days Current Symptoms Are (Timing): Still Present Recent travel outside of the [place]: No Additional History Per: Patient - Ankle/Foot Description Of Injury: Other Currently Unable To: Bear Weight <Giorgio Mills - Last Filed: 02/08/18 00:43> <Anna Saldivar - Last Filed: 02/08/18 05:27> Time Seen by Provider: 02/07/18 22:41 Chief Complaint (Nursing): Lower Extremity Problem/Injury Past Medical History Reviewed: Historical Data, Nursing Documentation, Vital Signs - Medical History PMH: Asthma, Fractures, HTN, Hypercholesterolemia Denies: Chronic Kidney Disease Surgical History: Coronary Stent (x4), Pacemaker Family History: States: Unknown Family Hx - Social History Hx Alcohol Use: No Hx Substance Use: No - Immunization History Hx Tetanus Toxoid Vaccination: No Hx Influenza Vaccination: Yes Hx Pneumococcal Vaccination: No <Giorgio Mills - Last Filed: 02/08/18 00:43> Vital Signs: Last Vital Signs Temp 98.1 F 02/07/18 22:14 Pulse 64 02/08/18 00:40 Resp 18 02/08/18 00:40 BP 197/100 H 02/08/18 00:40 Pulse Ox 98 02/08/18 00:45 Review Of Systems Constitutional: Negative for: Fever, Chills Cardiovascular: Negative for: Chest Pain, Palpitations Respiratory: Negative for: Cough, Shortness of Breath Gastrointestinal: Negative for: Nausea, Vomiting, Abdominal Pain Musculoskeletal: Positive for: Leg Pain, Foot Pain Skin: Negative for: Rash Neurological: Positive for: Weakness. Negative for: Numbness <Gene,Shayan - Last Filed: 02/08/18 00:43> Physical Exam - Physical Exam Appears: Non-toxic, No Acute Distress, Other (thin, elderly) Skin: Normal Color, Warm, Dry Head: Atraumatic, Normacephalic Eye(s): bilateral: Normal Inspection Oral Mucosa: Moist Neck: Normal ROM, Supple Chest: Symmetrical Cardiovascular: Rhythm Regular Respiratory: Normal Breath Sounds, No Rales, No Rhonchi, No Wheezing Gastrointestinal/Abdominal: Soft, No Tenderness, No Guarding, No Rebound, Other (protuberant ) Extremity: Normal ROM, No Tenderness, Capillary Refill (< 2 seconds), No Swelling Pulses: Left Dorsalis Pedis: Normal, Right Dorsalis Pedis: Normal Neurological/Psych: Oriented x3, Normal Speech, Normal Motor, Normal Sensation Gait: Steady <Giorgio Mills - Last Filed: 02/08/18 00:43> ED Course And Treatment - Laboratory Results Result Diagrams: 02/08/18 00:22 ECG: Interpreted By Me ECG Rhythm: AV Paced ECG Interpretation: Normal Rate From EC O2 Sat by Pulse Oximetry: 98 (ON RA) Pulse Ox Interpretation: Normal - Radiology CXR: Interpreted by Me CXR Interpretation: Yes: No Acute Disease - Other Rad R knee X-Ray: Interpreted by Me (normal) Reevaluation Time: 01:00 Reassessment Condition: Unchanged <Giorgio Mills - Last Filed: 02/08/18 00:43> - Laboratory Results Result Diagrams: 02/08/18 00:22 02/08/18 01:02 Pulse Ox Interpretation: Normal Progress Note: 1:30 AM went to re-examine the pt, and pt states that round 2 pm yesterday he started having difficulty walking and losing his balance. No slurred speech, no visual changes. has difficulty standing and ambualting unassisted. he also had leg surgery 3 months ago. <Anna Saldivar - Last Filed: 02/08/18 05:27> NIHSS Stroke Scale - Date/Time Evaluation Performed Date Performed: 02/08/18 Time Performed: 01:28 When Was NIHSS Performed: Baseline - How Severe is the Stoke Level of Consciousness: 0=Alert LOC to Questions: 0=Both comments correct LOC to commands: 0=Obeys both correctly Best Gaze: 0=Normal Visual: 0=No visual loss Facial: 0=Normal Motor Arm - Left: 0=No drift Motor Arm - Right: 0=No drift Motor Leg - Left: 0=No drift Motor Leg - Right: 1=Drift before 5 sec Limb Ataxia: 0=Absent Sensory: 0=Normal Best Language: 0=No aphasia Dysarthia: 0=Normal articulation Extinction & Inattention (Neglect): 0=Normal, no object Score: 1 Severity Of Stroke: 1-4= Minor Stroke <Anna Saldivar - Last Filed: 02/08/18 05:27> Medical Decision Making <Giorgio Mills - Last Filed: 02/08/18 00:43> <YarielValdi - Last Filed: 02/08/18 05:27> Medical Decision Making: Plan: * EKG * Labs * CXR * Right knee X-Ray * Apresoline 10 mg PO * UA * 0100: pending labs signed over to overnight MD (Giorgio Mills) Disposition - Disposition Disposition Time: 01:00 <Giorgio Mills - Last Filed: 02/08/18 00:43> Discussed With : Hansel Li Comment: accepted the pt on his service and took over the care at 5:25 AM Doctor Will See Patient In The: ED Counseled Patient/Family Regarding: Studies Performed, Diagnosis - POA Present On Arrival: Poor Glycemic Control <YarielYuridiadi - Last Filed: 02/08/18 05:27> - Disposition Disposition: HOSPITALIZED Condition: FAIR Forms: [facility] ([place]yan) - Clinical Impression Clinical Impression: Right leg weakness, TIA (transient ischemic attack) - Scribe Statement The provider has reviewed the documentation as recorded by the Scribe <Giorgio Mills - Last Filed: 02/08/18 00:43> <Yuridia Saldivardi - Last Filed: 02/08/18 05:27> - Scribe Statement Ritchie Nelson All medical record entries made by the Scribe were at my direction and personally dictated by me. I have reviewed the chart and agree that the record accurately reflects my personal performance of the history, physical exam, medical decision making, and the department course for this patient. I have also personally directed, reviewed, and agree with the discharge instructions and disposition. (Giorgio Mills) Physician Patient Turnover Patient Signed Over To: Anna Saldivar Handoff Comments: f/u labs and dispo to Dr. Arita <Giorgio Mills - Last Filed: 02/08/18 00:43> Decision To Admit <Giorgio Mills - Last Filed: 02/08/18 00:43> - Pt Status Changed To: Hospital Disposition Of: Inpatient - Admit Certification Admit to Inpatient:: After my assessment, the patient will require hospitalization for at least two midnights. This is because of the severity of symptoms shown, intensity of services needed, and/or the medical risk in this patient being treated as an outpatient. - InPatient: Physician Admission Certification: I certify that this patient requires 2 or more midnights of care for the following reason:: After my assessment, the patient will require hospitalization for at least two midnights. This is because of the severity of symptoms shown, intensity of services needed, and/or the medical risk in this patient being treated as an outpatient. - . Bed Request Type: Telemetry Admitting Physician: Hansel Li <Anna Saldivar - Last Filed: 02/08/18 05:27> - . Patient Diagnosis: Right leg weakness, TIA (transient ischemic attack)
[2018-02-08 00:25] LABS: BASO % 0.5 % (0.0-2.0); EOS # 0.3 K/uL (0.0-0.7); EOS % 3.7 % (0.0-4.0); HEMOGLOBIN 14.1 g/dL (12.0-18.0); LYMPH # 2.8 K/uL (1.0-4.3); LYMPH % 38.6 % (20.0-40.0); MEAN CELL VOLUME 83.6 fL (80.0-94.0); MEAN CORPUSCULAR HEMOGLOBIN 28.4 pg (27.0-31.0); MEAN PLATELET VOLUME 8.6 fL (7.2-11.7); MONO # 0.6 K/uL (0.0-0.8); MONO % 8.8 % (0.0-10.0); NEUT # 3.5 K/uL (1.8-7.0); NEUT % 48.4 % (50.0-75.0); RBC 4.98 Mil/uL (4.40-5.90); RED CELL DISTRIBUTION WIDTH 13.2 % (11.5-14.5); WHITE BLOOD COUNT 7.2 K/uL (4.8-10.8)
[2018-02-08 00:33] LABS: URINE BILIRUBIN NEGATIVE (NEGATIVE); URINE BLOOD NEGATIVE (NEGATIVE); URINE CLARITY Clear (Clear); URINE COLOR Yellow (YELLOW); URINE GLUCOSE (UA) 3+ mg/dL (Normal); URINE LEUKOCYTE ESTERASE NEG Leu/uL (Negative); URINE PROTEIN 2+ mg/dL (NEGATIVE); URINE UROBILINOGEN NORMAL mg/dL (0.2-1.0)
[2018-02-08 01:22] LABS: ALB/GLOB RATIO 1.4 (1.0-2.1); ALBUMIN 4.1 g/dL (3.5-5.0); ALT/SGPT 38 U/L (21-72); AST/SGOT 27 U/L (17-59); BLOOD UREA NITROGEN 16 mg/dL (9-20); GFR AFRICAN-AMERICAN > 60; GFR NON-AFRICAN AMERICAN > 60
[2018-02-08 01:33] LABS: B-TYPE NATRIURETIC PEPTIDE 819 pg/mL (0-900)
[2018-02-08] MEDS ORDERED: Aspirin 325 mg EC Tablets PO ONE (05:43)
--- NOTE | 2018-02-08 05:47 | CP.PCM.HP ---
History of Present Illness - History of Present Illness History of Present Illness: Resident History & Physical for Hospitalist Service Patient is a 67 year old male with past medical history HTN, IDDM, diastolic CHF , CAD s/p stent placement presenting with chief complaint of bilateral leg pain and right lower extremity weakness that began about 3 days prior. Patient states that the pain is located below the patella bilaterally and cramping in nature. He also admits to a headache as well as back pain. Patient denies any trauma or inciting event. Patient states that he went to [facility] several months prior for right leg fracture and had his leg casted at that time. Denies dizziness, chest pain, shortness of breath, abdominal pain, nausea, vomiting, changes in bowel movements, dysuria. Past medical history: asthma, HTN, IDDM, CAD, 3rd degree AV block Past surgical: coronary stent (x4), pacemaker Social history: Denies alcohol, tobacco, recreational drug use FHx: None Allergies: NKDA PMD: Dr. Neumann Present on Admission - Present on Admission Any Indicators Present on Admission: No Review of Systems - Constitutional Constitutional: Headache. absent: Fever - EENT Eyes: absent: Change in Vision Nose/Mouth/Throat: absent: Sore Throat - Cardiovascular Cardiovascular: absent: Chest Pain, Dyspnea - Respiratory Respiratory: absent: Cough - Gastrointestinal Gastrointestinal: absent: Change in Bowel Habits, Constipation, Diarrhea - Genitourinary Genitourinary: absent: Dysuria - Musculoskeletal Musculoskeletal: Abnormal Gait, Back Pain - Neurological Neurological: Headaches, Weakness. absent: Abnormal Hearing, Abnormal Speech, Dizziness Past Patient History - Infectious Disease Hx of Infectious Diseases: None - Past Medical History & Family History Past Medical History?: Yes - Past Social History Smoking Status: Never Smoked - CARDIAC Hx Hypercholesterolemia: Yes Hx Hypertension: Yes Hx Pacemaker: Yes - PULMONARY Hx Asthma: Yes - NEUROLOGICAL Hx Neurological Disorder: No - HEENT Hx HEENT Problems: Yes Hx Cataracts: Yes Hx Glaucoma: Yes - RENAL Hx Chronic Kidney Disease: No - ENDOCRINE/METABOLIC Hx Diabetes Mellitus Type 2: Yes - HEMATOLOGICAL/ONCOLOGICAL Hx Blood Disorders: No - INTEGUMENTARY Hx Dermatological Problems: No - MUSCULOSKELETAL/RHEUMATOLOGICAL Hx Fractures: Yes - GASTROINTESTINAL Hx Gastrointestinal Disorders: No - GENITOURINARY/GYNECOLOGICAL Hx Genitourinary Disorders: Yes Hx Prostate Cancer: Yes - PSYCHIATRIC Hx Substance Use: No - SURGICAL HISTORY Hx Coronary Stent: Yes (x4) - ANESTHESIA Hx Anesthesia: Yes Hx Anesthesia Reactions: No Meds Allergies/Adverse Reactions: Allergies Allergy/AdvReac Type Severity Reaction Status Date / Time No Known Allergies Allergy Verified 02/07/18 22:18 Physical Exam - Constitutional Appears: Non-toxic, No Acute Distress - Head Exam Head Exam: ATRAUMATIC, NORMOCEPHALIC - Eye Exam Eye Exam: EOMI, Normal appearance, PERRL - ENT Exam ENT Exam: Mucous Membranes Moist, Normal Exam - Neck Exam Neck exam: Positive for: Normal Inspection - Respiratory Exam Respiratory Exam: Clear to Auscultation Bilateral, NORMAL BREATHING PATTERN - Cardiovascular Exam Cardiovascular Exam: REGULAR RHYTHM, +S1, +S2 - GI/Abdominal Exam GI & Abdominal Exam: Normal Bowel Sounds, Soft. absent: Tenderness - Extremities Exam Extremities exam: Positive for: pedal pulses present. Negative for: tenderness - Back Exam Back exam: NORMAL INSPECTION - Neurological Exam Neurological exam: Alert, CN II-XII Intact, Oriented x3 - Expanded Neurological Exam Expanded Patient oriented to: person, place, time Speech: Fluid Speech Cranial nerves: EOM's Intact: Normal Neuro motor strength exam: Left Upper Extremity: 5, Right Upper Extremity: 5, Left Lower Extremity: 5, Right Lower Extremity: 5 Coma Scale Eye Opening: SPONTANEOUS Coma Scale Motor Response: OBEYS COMMANDS Coma Scale Verbal: Oriented Coma Scale Total: 15 - Psychiatric Exam Psychiatric exam: Normal Affect, Normal Mood - Skin Skin Exam: Dry, Intact, Normal Color Results - Vital Signs Recent Vital Signs: Last Vital Signs Temp 98.1 F 02/07/18 22:14 Pulse 61 02/08/18 05:43 Resp 18 02/08/18 05:43 BP 165/79 H 02/08/18 05:43 Pulse Ox 99 02/08/18 05:43 - Labs Result Diagrams: 02/08/18 00:22 02/08/18 01:02 Labs: Laboratory Results - last 24 hr 02/08/18 02/08/18 02/08/18 00:22 00:22 01:02 WBC 7.2 RBC 4.98 Hgb 14.1 Hct 41.6 MCV 83.6 MCH 28.4 MCHC 34.0 RDW 13.2 Plt Count 248 D MPV 8.6 Neut % (Auto) 48.4 L Lymph % (Auto) 38.6 [place] % (Auto) 8.8 Eos % (Auto) 3.7 Baso % (Auto) 0.5 Neut # (Auto) 3.5 Lymph # (Auto) 2.8 [place] # (Auto) 0.6 Eos # (Auto) 0.3 Baso # (Auto) 0.0 Sodium 136 Potassium 3.8 Chloride 97 L Carbon Dioxide 29 Anion Gap 14 BUN 16 Creatinine 1.1 Est GFR ( Amer) > 60 Est GFR (Non-Af Amer) > 60 Random Glucose 351 H Calcium 10.0 Total Bilirubin 0.8 AST 27 ALT 38 Alkaline Phosphatase 91 Troponin I 0.0700 NT-Pro-B Natriuret Pep 819 Total Protein 6.9 Albumin 4.1 Globulin 2.9 Albumin/Globulin Ratio 1.4 Urine Color Yellow Urine Clarity Clear Urine pH 6.0 Ur Specific [place] 1.016 Urine Protein 2+ H Urine Glucose (UA) 3+ H Urine Ketones Negative Urine Blood Negative Urine Nitrate Negative Urine Bilirubin Negative Urine Urobilinogen Normal Ur Leukocyte Esterase Neg Urine WBC (Auto) < 1 Urine RBC (Auto) 1 Assessment & Plan - Assessment and Plan (Free Text) Plan: Lower extremity weakness - Likely secondary to recent fracture with neuropathy - Head CT shows chronic microvascular ischemic change. Punctate right basal ganglia calcification. Punctate hypodensity in the right basal ganglia may represnet a lacunar infarct. - MRI unable to be obtained as patient has pacemaker - Knee x-ray shows degenerative changes. No evidence for acute displaced fracture or dislocation. - PT/OT consulted Back pain - Followup lumboscral spine x-ray Diastolic Heart Failure - History of Third Degree AV Block s/p pacemaker placement - Echocardiogram (10/09) shows moderate concentric left ventricular hypertrophy. Left atrium mildly dilated. Right atrium mild dilated. Mild MR. LVEF 65% - Nebivolol 20 mg PO BID CAD s/p stent - ASA 81mg PO daily - Plavix 75mg PO daily - Crestor 20mg PO HS IDDM with neuropthy - Glucose on admission 351 - Trulicity 1.5 mg PO QWK - Levemir 40 units SC Q12 - Gabapentin 300 mg PO BID - Accucheck ACHS Hypertension - Hydralazine 10mg PO QID - HCTZ 12.5mg PO daily - Amlodipine/valsartan 10 mg PO daily Asthma - Albuterol 2 puff IH Q4 PRN - Spiriva BPH and Prostate CA - Flomax 0.4mg PO QD - Followup PSA level Vitamin D deficiency - Ergocalciferol 1 cap PO QWK PPX - Pepcid 20 mg BID - Heparin 5000 u SC Q8H Iva Orr PGY-1 - Date & Time Date: 02/08/18 Time: 06:00
--- NOTE | 2018-02-08 06:43 | CT ---
Date of service: 02/08/2018 PROCEDURE: CT HEAD WITHOUT CONTRAST. HISTORY: unsteady COMPARISON: None available. TECHNIQUE: Axial computed tomography images were obtained through the head/brain without intravenous contrast. Radiation dose: Total exam DLP = 806 mGy-cm. This CT exam was performed using one or more of the following dose reduction techniques: Automated exposure control, adjustment of the mA and/or kV according to patient size, and/or use of iterative reconstruction technique. FINDINGS: HEMORRHAGE: No intracranial hemorrhage. BRAIN: No mass effect or edema. Scattered focal lucencies in the subcortical and periventricular white matter suggestive for chronic microvascular ischemic change. Punctate right basal ganglia calcification. Punctate hypodensity in the right basal ganglia may represent a lacunar infarct. VENTRICLES: Unremarkable. No hydrocephalus. CALVARIUM: Unremarkable. PARANASAL SINUSES: Unremarkable as visualized. No significant inflammatory changes. MASTOID AIR CELLS: Unremarkable as visualized. No inflammatory changes. OTHER FINDINGS: None. IMPRESSION: Chronic microvascular ischemic changes. If there is concern for acute ischemic change, consider correlation with MRI. These findings were preliminarily reported at 3:21 a.m. on 02/08/[address] Dejon Stubbs from [facility].
[2018-02-08] MEDS ORDERED: Albuterol HFA 90 mcg/actuation (8 g) IH PRN (06:55)
[2018-02-08] MEDS ORDERED: (Novolog) Insulin Aspart, Recombinant 100 u/ml 10 ml vial SC SCH (07:30)
[2018-02-08] MEDS ORDERED: (Novolog) Insulin Aspart, Recombinant 100 u/ml 10 ml vial ONE (07:47)
--- NOTE | 2018-02-08 07:59 | RAD ---
Right knee three views History: Injury. Comparison: None available. Findings: Moderate lateral and patellofemoral compartment joint space narrowing. Mild medial compartment joint space narrowing. Enthesopathic change at the superior and inferior bony patella anteriorly. Productive change at the posterior lateral proximal tibia. Productive change at the anterior tibial tubercle. Productive change at the level of the tibial spines. No significant suprapatellar joint effusion. No evidence for acute displaced fracture or dislocation. Vascular calcifications. Technically limited study. Impression: Degenerative changes. If pain persists, consider MRI.
--- NOTE | 2018-02-08 09:13 | RAD ---
Lumbar spine three views History: Pain. Comparison: None available. Findings: Multilevel paravertebral osteophytosis within the lower thoracic and upper lumbar spine. Multilevel anterior osteophytosis throughout the lower thoracic and lumbar spine. Lower level facet hypertrophy and sclerosis. Mild inferior endplate concavity of the inferior endplate of the L5 vertebral body. Vascular calcifications. Impression: Multilevel paravertebral osteophytosis within the lower thoracic and upper lumbar spine. Multilevel anterior osteophytosis throughout the lower thoracic and lumbar spine. Lower level facet hypertrophy and sclerosis. Mild inferior endplate concavity of the inferior endplate of the L5 vertebral body. Vascular calcifications. If pain persists, consider MRI.
--- NOTE | 2018-02-08 09:49 | RAD ---
Chest x-ray single frontal view History: Shortness of breath. Comparison: 09/22/2017 Findings: Left-sided pacemaker. Tortuous ectatic aorta. Mild cardiomegaly. Mild venous congestion. Right paratracheal opacity may represent prominent vasculature. Mild increased right infrahilar consolidative changes. Degenerative changes in the spine. Impression: Left-sided pacemaker. Tortuous ectatic aorta. Mild cardiomegaly. Mild venous congestion. Right paratracheal opacity may represent prominent vasculature. Mild increased right infrahilar consolidative changes.
[2018-02-08] MEDS: AMLODIPINE 10MG PO SCH (09:55)
[2018-02-08] MEDS ORDERED: Tiotropium 18 mcg Cap For Inhalation IH SCH (10:00)
[2018-02-08] MEDS ORDERED: Insulin Detemir 100 units/ml Vial (Levemir) SC SCH ×3 (10:00→22:00)
[2018-02-08] MEDS ORDERED: Ergocalciferol 50,000 Intl Units Cap PO SCH (10:00)
[2018-02-08] MEDS ORDERED: Home Med 1 UNIT (Dulaglutide [Trulicity] 1.5 MG) SC SCH (10:00)
[2018-02-08 12:04] LABS: BASO % 0.7 % (0.0-2.0); EOS # 0.2 K/uL (0.0-0.7); EOS % 2.9 % (0.0-4.0); HEMOGLOBIN 14.6 g/dL (12.0-18.0); LYMPH # 2.3 K/uL (1.0-4.3); LYMPH % 31.1 % (20.0-40.0); MEAN CELL VOLUME 84.6 fL (80.0-94.0); MEAN CORPUSCULAR HEMOGLOBIN 28.2 pg (27.0-31.0); MEAN CORPUSCULAR HGB CONC 33.4 g/dL (33.0-37.0); MEAN PLATELET VOLUME 9.7 fL (7.2-11.7); MONO # 0.5 K/uL (0.0-0.8); MONO % 6.9 % (0.0-10.0); NEUT # 4.3 K/uL (1.8-7.0); NEUT % 58.4 % (50.0-75.0); RBC 5.17 Mil/uL (4.40-5.90); RED CELL DISTRIBUTION WIDTH 13.4 % (11.5-14.5); WHITE BLOOD COUNT 7.3 K/uL (4.8-10.8)
[2018-02-08 12:35] LABS: ALB/GLOB RATIO 1.2 (1.0-2.1); ALBUMIN 3.8 g/dL (3.5-5.0); ALT/SGPT 35 U/L (21-72); AST/SGOT 23 U/L (17-59); BLOOD UREA NITROGEN 13 mg/dL (9-20); CALCIUM 10.1 mg/dl (8.6-10.4); GFR AFRICAN-AMERICAN > 60; GFR NON-AFRICAN AMERICAN > 60
[2018-02-08] MEDS ORDERED: Dextrose 50% SYRINGE Inj (50 ml) IV PRN (13:22)
[2018-02-08] MEDS ORDERED: Glucagon Recombinant 1 mg Inj IM PRN (13:22)
--- NOTE | 2018-02-08 13:49 | CP.PCM.PN ---
Subjective - Date & Time of Evaluation Date of Evaluation: 02/08/18 Time of Evaluation: 10:00 - Subjective Subjective: Medicine progress note for Dr. Arita's service Patient is a 67 year old male who presents to the hospital with complaint of right leg weakness for past three days. Patient states that he does have a cane at home but uses it infrequently as he does not normally need it. He denies numbness to any part of his body. Patient had right ankle fracture in September and had cast. Patient denies chest pain or shortness of breath. Patient denies other concerns or complaints at this time. [facility] called to verify medication list. Pharmacy had additional medication of Humalog 24units TIDAC listed that was not previously reported by patient. Objective - Vital Signs/Intake and Output Vital Signs (last 24 hours): Temp Pulse Resp BP Pulse Ox 97.4 F L 60 16 188/100 H 97 02/08/18 09:54 02/08/18 09:54 02/08/18 09:54 02/08/18 09:54 02/08/18 09:54 Intake and Output: 02/08/18 02/08/18 06:59 18:59 Output Total 200 Balance -200 - Medications Medications: Current Medications Acetaminophen (Tylenol 325mg Tab) 650 mg PO Q6 PRN PRN Reason: Pain, moderate (4-7) Albuterol (Ventolin Hfa 90 Mcg/Actuation (8 G)) 2 puff IH Q4 PRN PRN Reason: Shortness of Breath Amlodipine Besylate (Norvasc) 10 mg PO DAILY [facility] Last Admin: 02/08/18 09:55 Dose: 10 mg Aspirin (Ecotrin) 81 mg PO DAILY [facility] Last Admin: 02/08/18 09:56 Dose: 81 mg Clopidogrel Bisulfate (Plavix) 75 mg PO DAILY [facility] Last Admin: 02/08/18 09:56 Dose: 75 mg Dextrose (Glutose 15) 0 gm PO ONCE PRN; Protocol PRN Reason: Hypoglycemia Protocol Dextrose (Dextrose 50% Inj) 0 ml IV STAT PRN; Protocol PRN Reason: Hypoglycemia Protocol Docusate Sodium (Colace) 100 mg PO TID [facility] Last Admin: 02/08/18 09:55 Dose: 100 mg Donepezil HCl (Aricept) 5 mg PO [facility] Famotidine (Pepcid) 20 mg PO BID [facility] Last Admin: 02/08/18 09:56 Dose: 20 mg Gabapentin (Neurontin) 300 mg PO BID [facility] Last Admin: 02/08/18 09:56 Dose: 300 mg Glucagon (Glucagen Diagnostic Kit) 0 mg IM STAT PRN; Protocol PRN Reason: Hypoglycemia Protocol Hydralazine HCl (Apresoline) 10 mg PO 0700,1200,1700,2200 [facility] Last Admin: 02/08/18 12:57 Dose: 10 mg Hydrochlorothiazide (Microzide) 12.5 mg PO DAILY [facility] Last Admin: 02/08/18 09:55 Dose: 12.5 mg Dextrose (Dextrose 5% In Water 1000 Ml) 1,000 mls @ 0 mls/hr IV .Q0M PRN; Protocol; Per Protocol PRN Reason: Hypoglycemia Protocol Insulin Aspart (Novolog) 0 unit SC ACHS [facility] PRN Reason: Protocol Insulin Aspart (Novolog) 24 unit SC TIDAC [facility] Insulin Detemir (Levemir) 40 unit SC Q12 [facility] Losartan Potassium (Cozaar) 100 mg PO DAILY [facility] Last Admin: 02/08/18 09:55 Dose: 100 mg Nebivolol (Bystolic) 20 mg PO BID [facility] Last Admin: 02/08/18 12:56 Dose: 20 mg Rosuvastatin Calcium (Crestor) 20 mg PO [facility] Tamsulosin HCl (Flomax) 0.4 mg PO DAILY [facility] Last Admin: 02/08/18 09:56 Dose: 0.4 mg Tiotropium [place] (Spiriva) 18 mcg IH DAILY [facility] - Labs Labs: 02/08/18 11:37 02/08/18 11:37 - Constitutional Appears: No Acute Distress - Head Exam Head Exam: ATRAUMATIC, NORMOCEPHALIC - Eye Exam Eye Exam: EOMI - ENT Exam ENT Exam: Mucous Membranes Moist - Respiratory Exam Respiratory Exam: Clear to Ausculation Bilateral - Cardiovascular Exam Cardiovascular Exam: +S1, +S2 - GI/Abdominal Exam GI & Abdominal Exam: Soft, Normal Bowel Sounds. absent: Tenderness - Extremities Exam Extremities Exam: Normal Inspection. absent: Calf Tenderness, Pedal Edema - Neurological Exam Neurological Exam: Alert, Awake, CN II-XII Intact Neuro motor strength exam: Left Lower Extremity: 5, Right Lower Extremity: 4 Additional comments: intact and equal sensation bilateral upper and lower extremities right lower extremity with resistance against gravity but decreased resistance against physician force as compared to left - Psychiatric Exam Psychiatric exam: Normal Affect - Skin Skin Exam: Warm Assessment and Plan - Assessment and Plan (Free Text) Assessment: Lower extremity weakness - Head CT shows chronic microvascular ischemic change. Punctate right basal ganglia calcification. Punctate hypodensity in the right basal ganglia may represent a lacunar infarct. - MRI unable to be obtained as patient has pacemaker - Knee x-ray shows degenerative changes. No evidence for acute displaced fracture or dislocation. - PT/OT/ST consulted - Dr. Milligan, neurology, consulted- help appreciated - will check CTA head and neck - repeat CT head ordered - echo ordered IDDM with neuropthy - Glucose on admission 351 - Home med: Trulicity 1.5 mg PO QWK - HELD - Levemir 40 units SC Q12 - Home med Humalog 24units TIDAC (humalog non-formulary, Novolog ordered) - Gabapentin 300 mg PO BID - Accucheck ACHS - ISS - hypoglycemia protocol Hypertension - Home med Hydralazine 10mg PO QID- increased to 25mg as patient's blood pressure not controlled - HCTZ 12.5mg PO daily - Home med Amlodipine/valsartan non-formulary, equivalent dosing: amlodipine 10mg/ losartan 100mg Back pain -lumboscral spine x-ray: multilevel paravertebral osteophytosis within lower thoracic and upper lumbar spine. Multilevel anterior osteophytosis throughout the lower thoracic and lumbar spine. lower level facet hypertrophy and sclerosis. Mild inferior endplate concavity of the inferior endplate of the L5 vertebral body. Diastolic Heart Failure - History of Third Degree AV Block s/p pacemaker placement - Echocardiogram (10/09) shows moderate concentric left ventricular hypertrophy. Left atrium mildly dilated. Right atrium mild dilated. Mild MR. LVEF 65% - Nebivolol 20 mg PO BID CAD s/p stent - ASA 81mg PO daily - Plavix 75mg PO daily - Crestor 20mg PO HS Asthma - Albuterol 2 puff IH Q4 PRN - Spiriva daily BPH and Prostate CA - Flomax 0.4mg PO QD - Followup PSA level Vitamin D deficiency - Ergocalciferol 1 cap PO QWK- taken earlier this week PPX - Pepcid 20 mg BID - Heparin 5000 u SC Q8H - ST/PT/ OT
[2018-02-08 16:22] VITALS: RESP 20; O2SAT 97
[2018-02-08] MEDS: (Novolog) Insulin Aspart, Recombinant 100 u/ml 10 ml vial SC SCH ×3 (17:15→22:36)
[2018-02-08 17:53] LABS: FREE T4 1.11 ng/dL (0.78-2.19)
[2018-02-08 18:06] LABS: T3 1.58 nmol/L (1.49-2.60)
[2018-02-08] MEDS: Insulin Detemir 100 units/ml Vial (Levemir) SC SCH (21:06)
[2018-02-09 07:59] VITALS: PULSE 59; TEMP 97.7
[2018-02-09] MEDS ORDERED: Tiotropium 18 mcg Cap For Inhalation IH SCH (08:00)
[2018-02-09 08:35] LABS: BASO % 0.6 % (0.0-2.0); EOS # 0.3 K/uL (0.0-0.7); EOS % 3.3 % (0.0-4.0); HEMOGLOBIN 15.3 g/dL (12.0-18.0); LYMPH # 2.2 K/uL (1.0-4.3); LYMPH % 27.8 % (20.0-40.0); MEAN CELL VOLUME 83.2 fL (80.0-94.0); MEAN CORPUSCULAR HEMOGLOBIN 28.7 pg (27.0-31.0); MEAN CORPUSCULAR HGB CONC 34.5 g/dL (33.0-37.0); MEAN PLATELET VOLUME 9.4 fL (7.2-11.7); MONO # 0.6 K/uL (0.0-0.8); MONO % 7.5 % (0.0-10.0); NEUT # 4.7 K/uL (1.8-7.0); NEUT % 60.8 % (50.0-75.0); NRBC % 0.1 % (0.0-2.0); RBC 5.31 Mil/uL (4.40-5.90); WHITE BLOOD COUNT 7.7 K/uL (4.8-10.8)
[2018-02-09 09:06] LABS: ALB/GLOB RATIO 1.2 (1.0-2.1); ALBUMIN 3.6 g/dL (3.5-5.0); ALT/SGPT 27 U/L (21-72); AST/SGOT 22 U/L (17-59); BLOOD UREA NITROGEN 19 mg/dL (9-20); CALCIUM 9.9 mg/dl (8.6-10.4); GFR AFRICAN-AMERICAN > 60; GFR NON-AFRICAN AMERICAN > 60; HDL CHOLESTEROL 27 mg/dL (30-70)
[2018-02-09] MEDS ORDERED: Potassium Chloride 20 mEq ER Tab PO STA (09:10)
[2018-02-09 09:15] LABS: LDL CHOLESTEROL 125 mg/dL (0-129)
[2018-02-09] MEDS: (Novolog) Insulin Aspart, Recombinant 100 u/ml 10 ml vial SC SCH ×4 (09:40→12:32)
[2018-02-09] MEDS: AMLODIPINE 10MG PO SCH (10:02)
[2018-02-09] MEDS ORDERED: Iodixanol 320 MG/ML 100 ML BOTTLE IV ONE (10:02)
[2018-02-09] MEDS: Insulin Detemir 100 units/ml Vial (Levemir) SC SCH (10:07)
--- NOTE | 2018-02-09 12:00 | CT ---
Date of service: 02/09/2018 PROCEDURE: CT HEAD WITHOUT CONTRAST. HISTORY: Repeat head CT, right leg weakness COMPARISON: Comparison made with CT scan brain dated 02/08/18 TECHNIQUE: Axial computed tomography images were obtained through the head/brain without intravenous contrast. Radiation dose: Total exam DLP = 852.26 mGy-cm. This CT exam was performed using one or more of the following dose reduction techniques: Automated exposure control, adjustment of the mA and/or kV according to patient size, and/or use of iterative reconstruction technique. FINDINGS: HEMORRHAGE: No acute parenchymal, subarachnoid nor extra-axial hemorrhage. BRAIN: Mild chronic periventricular white matter ischemic changes are again seen extending peripherally into the deep and subcortical white matter both cerebral hemispheres. . Bilateral basal nuclei lacunar type infarcts are also present larger on the left than right. The infarct change on the left side appears slightly larger compared the prior exam though this could be due to slice placement and differences in patient positioning. Note that the possibility of a small hyperacute infarct cannot be excluded based on this Mild moderate generalized volume loss exam. Clinical correlation recommended. Vascular calcifications both carotid siphons. VENTRICLES: No obstructive hydrocephalus. CALVARIUM: There are no acute calvarial fracture seen. PARANASAL SINUSES: Unremarkable as visualized. No significant inflammatory changes. MASTOID AIR CELLS: Unremarkable as visualized. No inflammatory changes. OTHER FINDINGS: None. IMPRESSION: No acute intracranial hemorrhage. Chronic white matter and bilateral basal nuclei ischemic changes as above. Note that the possibility of a small hyperacute infarct cannot be excluded on this study.
--- NOTE | 2018-02-09 12:39 | CT ---
Date of service: 02/09/2018 PROCEDURE: CT Angiography of the neck and brain with contrast HISTORY: rule out CVA, right leg weakness COMPARISON: None. TECHNIQUE: Contiguous axial images of the neck and brain were obtained from the level of the vertex to the superior mediastinum in the arteriographic phase of enhancement. Coronal and sagittal reformats or also generated. IV contrast dose: 100 cc Visipaque 320 Radiation Dose - DLP: 550.06 mGy-cm This CT exam was performed using one or more of the following dose reduction techniques: Automated exposure control, adjustment of the mA and/or kV according to patient size, and/or use of iterative reconstruction technique. FINDINGS: RIGHT CAROTID ARTERIES: Mild intimal thickening seen along the right common carotid artery extending into the bifurcation and proximal right internal carotid artery. No evidence of occlusion significant stenosis or dissection. The distal right internal carotid artery including the petrous cavernous and supraclinoid segments patent though there with minor narrowing of the left cavernous segment due to a calcified atherosclerotic plaque changes. LEFT CAROTID ARTERIES: Mild intimal thickening seen along the right common carotid artery extending into the bifurcation and proximal right internal carotid artery. No evidence of occlusion significant stenosis or dissection. The distal left internal carotid artery including the petrous cavernous and supraclinoid segments patent though there moderate two significant stenosis of the left cavernous segment due to a calcified atherosclerotic plaque changes. VERTEBRAL ARTERIES: Right Vertebral Artery: Normal. Left Vertebral Artery: Normal. OTHER FINDINGS: The visualized major branches of the [place] are patent. The proximal and distal branches of the anterior middle and posterior cerebral arteries are also patent. No evidence of large aneurysm nor vascular malformation. IMPRESSION: Mild intimal thickening both common carotid artery is somewhat and bifurcations. No evidence of occlusion or significant stenosis. There is however calcified atherosclerotic plaque seen at the level of both cavernous carotid segments with moderate to fairly significant narrowing left cavernous segment.
[2018-02-09 12:44] VITALS: BP 160/81
--- NOTE | 2018-02-09 13:42 | CP.PCM.DIS ---
Provider - Provider Date of Admission: 02/08/18 05:24 Attending physician: Nitesh Arita Jr, MD Primary care physician: Dr. Arita Consults: Dr. Milligan Time Spent in preparation of Discharge (in minutes): 40 Diagnosis - Discharge Diagnosis (1) Right leg weakness Status: Acute Comment: Patient was evaluated with CT Head and CTA Head and neck. MRI could not be done due to pacemaker. Patient's medication regimen was changed from Plavix to Aggrenox. (2) HTN (hypertension) Status: Chronic Priority: Medium Comment: Patient's medication regimen changed for discharge to aid in compliance. Patient to stop hydralazine and start increased dose of HCTZ. (3) IDDM (insulin dependent diabetes mellitus) Status: Chronic Priority: Medium Comment: Patient was maintained on home medications of Levemir 40u Q12h and Novolog 24u TIDAC. Hospital Course - Lab Results Lab Results: Most Recent Lab Values WBC 7.7 K/uL (4.8-10.8) 02/09/18 08:21 RBC 5.31 Mil/uL (4.40-5.90) 02/09/18 08:21 Hgb 15.3 g/dL (12.0-18.0) 02/09/18 08:21 Hct 44.2 % (35.0-51.0) 02/09/18 08:21 MCV 83.2 fL (80.0-94.0) 02/09/18 08:21 MCH 28.7 pg (27.0-31.0) 02/09/18 08:21 MCHC 34.5 g/dL (33.0-37.0) 02/09/18 08:21 RDW 13.0 % (11.5-14.5) 02/09/18 08:21 Plt Count 276 K/uL (130-400) 02/09/18 08:21 MPV 9.4 fL (7.2-11.7) 02/09/18 08:21 Neut % (Auto) 60.8 % (50.0-75.0) 02/09/18 08:21 Lymph % (Auto) 27.8 % (20.0-40.0) 02/09/18 08:21 [place] % (Auto) 7.5 % (0.0-10.0) 02/09/18 08:21 Eos % (Auto) 3.3 % (0.0-4.0) 02/09/18 08:21 Baso % (Auto) 0.6 % (0.0-2.0) 02/09/18 08:21 Neut # (Auto) 4.7 K/uL (1.8-7.0) 02/09/18 08:21 Lymph # (Auto) 2.2 K/uL (1.0-4.3) 02/09/18 08:21 [place] # (Auto) 0.6 K/uL (0.0-0.8) 02/09/18 08:21 Eos # (Auto) 0.3 K/uL (0.0-0.7) 02/09/18 08:21 Baso # (Auto) 0.0 K/uL (0.0-0.2) 02/09/18 08:21 ESR 20 mm/hr (0-15) H 02/08/18 17:14 Sodium 137 mmol/L (132-148) 02/09/18 08:21 Potassium 3.2 mmol/L (3.6-5.2) L 02/09/18 08:21 Chloride 99 mmol/L (98-107) 02/09/18 08:21 Carbon Dioxide 29 mmol/L (22-30) 02/09/18 08:21 Anion Gap 12 (10-20) 02/09/18 08:21 BUN 19 mg/dL (9-20) 02/09/18 08:21 Creatinine 1.0 mg/dL (0.8-1.5) 02/09/18 08:21 Est GFR ( Amer) > 60 02/09/18 08:21 Est GFR (Non-Af Amer) > 60 02/09/18 08:21 Random Glucose 124 mg/dL (75-110) H 02/09/18 08:21 Hemoglobin A1c 11.8 % (4.2-6.5) H 02/09/18 08:21 Calcium 9.9 mg/dl (8.6-10.4) 02/09/18 08:21 Phosphorus 3.9 mg/dL (2.5-4.5) 02/09/18 08:21 Magnesium 2.1 mg/dL (1.6-2.3) 02/09/18 08:21 Total Bilirubin 0.8 mg/dL (0.2-1.3) 02/09/18 08:21 AST 22 U/L (17-59) 02/09/18 08:21 ALT 27 U/L (21-72) 02/09/18 08:21 Alkaline Phosphatase 91 U/L (38-126) 02/09/18 08:21 Troponin I 0.0700 ng/mL (0.00-0.120) 02/08/18 01:02 C-React Prot High Sens 4.67 mg/L (1.00-3.00) H 02/08/18 17:14 NT-Pro-B Natriuret Pep 559 pg/mL (0-900) 02/08/18 17:14 Total Protein 6.7 g/dL (6.3-8.3) 02/09/18 08:21 Albumin 3.6 g/dL (3.5-5.0) 02/09/18 08:21 Globulin 3.0 gm/dL (2.2-3.9) 02/09/18 08:21 Albumin/Globulin Ratio 1.2 (1.0-2.1) 02/09/18 08:21 Triglycerides 434 mg/dL (0-149) H D 02/09/18 08:21 Cholesterol 257 mg/dL (0-199) H 02/09/18 08:21 LDL Cholesterol Direct 125 mg/dL (0-129) 02/09/18 08:21 HDL Cholesterol 27 mg/dL (30-70) L 02/09/18 08:21 Vitamin B12 287 pg/mL (239-931) 02/08/18 17:14 Free T4 1.11 ng/dL (0.78-2.19) 02/08/18 17:14 Total T3 1.58 nmol/L (1.49-2.60) 02/08/18 17:14 TSH 3rd Generation 1.44 mIU/L (0.46-4.68) 02/08/18 17:14 Urine Color Yellow (YELLOW) 02/08/18 00:22 Urine Clarity Clear (Clear) 02/08/18 00:22 Urine pH 6.0 (5.0-8.0) 02/08/18 00:22 Ur Specific [place] 1.016 (1.003-1.030) 02/08/18 00:22 Urine Protein 2+ mg/dL (NEGATIVE) H 02/08/18 00:22 Urine Glucose (UA) 3+ mg/dL (Normal) H 02/08/18 00:22 Urine Ketones Negative mg/dL (NEGATIVE) 02/08/18 00:22 Urine Blood Negative (NEGATIVE) 02/08/18 00:22 Urine Nitrate Negative (NEGATIVE) 02/08/18 00: Urine Bilirubin Negative (NEGATIVE) 02/08/18 00: Urine Urobilinogen Normal mg/dL (0.2-1.0) 02/08/18 00:22 Ur Leukocyte Esterase Neg Meryl/uL (Negative) 02/08/18 00:22 Urine WBC (Auto) < 1 /hpf (0-5) 02/08/18 00:22 Urine RBC (Auto) 1 /hpf (0-3) 02/08/18 00:22 - Hospital Course Hospital Course: On Admission: Patient is a 67 year old male with past medical history HTN, IDDM, diastolic CHF , CAD s/p stent placement presenting with chief complaint of bilateral leg pain and right lower extremity weakness that began about 3 days prior. Patient states that the pain is located below the patella bilaterally and cramping in nature. He also admits to a headache as well as back pain. Patient denies any trauma or inciting event. Patient states that he went to [facility] several months prior for right leg fracture and had his leg casted at that time. Denies dizziness, chest pain, shortness of breath, abdominal pain, nausea, vomiting, changes in bowel movements, dysuria. During hospitalization: Patient had the following imaging studies: Head CT shows chronic microvascular ischemic change. Punctate right basal ganglia calcification. Punctate hypodensity in the right basal ganglia may represent a lacunar infarct. lumboscral spine x-ray: multilevel paravertebral osteophytosis within lower thoracic and upper lumbar spine. Multilevel anterior osteophytosis throughout the lower thoracic and lumbar spine. lower level facet hypertrophy and sclerosis. Mild inferior endplate concavity of the inferior endplate of the L5 vertebral body. Knee x-ray shows degenerative changes. No evidence for acute displaced fracture or dislocation Patient was evaluated by neurology team. Patient had repeat CT head which did not show change from prior study. CTA of head and neck showed: Mild intimal thickening both common carotid artery is somewhat and bifurcations. No evidence of occlusion or significant stenosis. There is however calcified atherosclerotic plaque seen at the level of both cavernous carotid segments with moderate to fairly significant narrowing left cavernous segment. Due to pacemaker, patient could not have MRI to confirm CT head findings. Patient was evaluated by physical therapy who recommend home PT 3-5x per week. Patient's medication regimen was changed from Plavix to Aggrenox due to possibility of failed Plavix therapy given patient's symptoms of persistent right lower leg weakness. It was also discussed with patient that leg weakness could be due to peripheral nerve issue given his recent ankle fracture. On Discharge: Patient is stable for discharge home per Dr. Arita. Patient is to see Dr. Arita in the office tomorrow morning for follow up appointment. Dr. Arita will give patient prescription for physical therapy tomorrow in the office. Patient is to stop taking Plavix and start new medication Aggrenox. If patient develops headache, it may be side effect of Aggrenox. Patient can take Tylenol for headache if necessary. Patient is to stop taking Hydralazine. The patient is to return to the ER if symptoms reoccur or worsen. This was explained to the patient who understands and agrees. The following is a list of medications the patient should be taking: Amlodipine 10mg by mouth daily (pressure) Losartan 100mg by mouth daily (pressure) Hydrochlorothiazide (HCTZ) 25mg daily (pressure) Bystolic 20mg by mouth twice a day (pressure) Aspirin 81mg by mouth daily Aggrenox 25-200mg by mouth twice a day Colace 100mg by mouth three times daily as needed Donepezil (Aricept) 5mg by mouth at night Pepcid 20mg by mouth twice a day Gabapentin 300mg by mouth twice a day Levemir 40 units Twice a day (diabetes) Humalog 24 units Three times a day with meals (diabetes) Crestor 20mg by mouth at night (cholesterol) Flomax 0.4mg by mouth daily (prostate) Spiriva inhaled daily El paciente est estable para el duke a domicilio por Dr. Arita. El paciente debe shaheed al Dr. Arita en la oficina maana por la maana para john kavin de seguimiento. El Dr. Arita kenisha la prescripcin del paciente para terapia fsica maana en la oficina. El paciente debe dejar de sky Plavix y comenzar la nueva medicacin Aggrenox. Si el paciente desarrolla dolor de jeanie, puede ser un efecto secundario de Aggrenox. El paciente puede sky Tylenol para el dolor de jeanie si es necesario. El paciente debe dejar de sky Hydralazine. El paciente debe regresar a la eric de urgencias si los sntomas reaparecen o empeoran. [place] se le explic al paciente que entiende y acepta. La siguiente es john lista de medicamentos que el paciente debera sky: Amlodipine 10 mg por va oral al da (presin) Losartan 100 mg por va oral al da (presin) Hidroclorotiazida (HCTZ) 25 mg al da (presin) Bystolic 20mg por va oral dos veces al da (presin) Aspirina, 81 mg por va oral al da Aggrenox 25-200 mg por va oral dos veces al da Colace 100 mg por va oral erich veces al da segn sea necesario Donepezil (Aricept) 5 mg por la boca por la noche Pepcid 20mg por va oral dos veces al da Gabapentina 300 mg por va oral dos veces al da Levemir 40 unidades Dos veces al da (diabetes) Humalog 24 unidades Erich veces al da con las comidas (diabetes) Crestor 20 mg por la boca por la noche (colesterol) Flomax 0.4mg por va oral al da (prstata) Spiriva inhalado a diario Discharge Exam - Head Exam Head Exam: ATRAUMATIC, NORMOCEPHALIC - Eye Exam Eye Exam: EOMI - ENT Exam ENT Exam: Mucous Membranes Moist - Respiratory Exam Respiratory Exam: Clear to PA & Lateral, NORMAL BREATHING PATTERN - Cardiovascular Exam Cardiovascular Exam: +S1, +S2 - GI/Abdominal Exam GI & Abdominal Exam: Normal Bowel Sounds, Soft. absent: Tenderness - Extremities Exam Extremities exam: normal inspection - Neurological Exam Neurological exam: Alert, CN II-XII Intact, Oriented x3 Additional comments: right lower extremity weaker as compared to left - Psychiatric Exam Psychiatric exam: Normal Affect - Skin Skin Exam: Warm Discharge Plan - Discharge Medications Prescriptions: amLODIPine [Norvasc] 10 mg PO DAILY #30 tab Aspirin/Dipyridamole [Aggrenox 25 MG-200 MG] 1 cer PO BID #60 cer Hydrochlorothiazide [Microzide] 25 mg PO DAILY 30 Days capsule Losartan [Cozaar] 100 mg PO DAILY #30 tab Rosuvastatin Calcium [Crestor] 20 mg PO HS #30 tab - Follow Up Plan Condition: FAIR Disposition: HOME/ ROUTINE Additional Instructions: Patient is stable for discharge home per Dr. Arita. Patient is to see Dr. Arita in the office tomorrow morning for follow up appointment. Dr. Arita will give patient prescription for physical therapy tomorrow in the office. Patient is to stop taking Plavix and start new medication Aggrenox. If patient develops headache, it may be side effect of Aggrenox. Patient can take Tylenol for headache if necessary. Patient is to stop taking Hydralazine. The patient is to return to the ER if symptoms reoccur or worsen. This was explained to the patient who understands and agrees. The following is a list of medications the patient should be taking: Amlodipine 10mg by mouth daily (pressure) Losartan 100mg by mouth daily (pressure) Hydrochlorothiazide (HCTZ) 25mg daily (pressure) Bystolic 20mg by mouth twice a day (pressure) Aspirin 81mg by mouth daily Aggrenox 25-200mg by mouth twice a day Colace 100mg by mouth three times daily as needed Donepezil (Aricept) 5mg by mouth at night Pepcid 20mg by mouth twice a day Gabapentin 300mg by mouth twice a day Levemir 40 units Twice a day (diabetes) Humalog 24 units Three times a day with meals (diabetes) Crestor 20mg by mouth at night (cholesterol) Flomax 0.4mg by mouth daily (prostate) Spiriva inhaled daily El paciente est estable para el duke a domicilio por Dr. Arita. El paciente debe shaheed al Dr. Arita en la oficina maana por la maana para john kavin de seguimiento. El Dr. Arita kenisha la prescripcin del paciente para terapia fsica maana en la oficina. El paciente debe dejar de sky Plavix y comenzar la nueva medicacin Aggrenox. Si el paciente desarrolla dolor de jeanie, puede ser un efecto secundario de Aggrenox. El paciente puede sky Tylenol para el dolor de jeanie si es necesario. El paciente debe dejar de sky Hydralazine. El paciente debe regresar a la eric de urgencias si los sntomas reaparecen o empeoran. [place] se le explic al paciente que entiende y acepta. La siguiente es john lista de medicamentos que el paciente debera sky: Amlodipine 10 mg por va oral al da (presin) Losartan 100 mg por va oral al da (presin) Hidroclorotiazida (HCTZ) 25 mg al da (presin) Bystolic 20mg por va oral dos veces al da (presin) Aspirina, 81 mg por va oral al da Aggrenox 25-200 mg por va oral dos veces al da Colace 100 mg por va oral erich veces al da segn sea necesario Donepezil (Aricept) 5 mg por la boca por la noche Pepcid 20mg por va oral dos veces al da Gabapentina 300 mg por va oral dos veces al da Levemir 40 unidades Dos veces al da (diabetes) Humalog 24 unidades Erich veces al da con las comidas (diabetes) Crestor 20 mg por la boca por la noche (colesterol) Flomax 0.4mg por va oral al da (prstata) Spiriva inhalado a diario Referrals: Nitesh Arita Jr., MD [Medical Doctor] - 1 Day Clinical Quality Measures - CQM - Stroke Antithrombotic Prescribed: Yes Anticoagulation Prescribed for Atrial Flutter, Atrial Fibrillation and History of:: Not Applicable Statin prescribed: Yes
[2018-02-10 11:27] LABS: TOTAL PSA 0.1 ng/mL (< or = 4.0)
--- NOTE | 2018-02-11 16:57 | CARD ---
APPROVED REPORT Date of service: 02/08/2018 EKG Measurement Heart [id number] [id number] <Conclusion> AV dual-paced rhythm Abnormal ECG
== END 2018-02-09 14:48 | disposition home or self-care (01) | DRG 948 ==
LOC: C.ER 22:05 → C.9E 02-08 05:24 → C.6T 02-08 08:57
PROVIDERS: ADMIT Internal Medicine; ATTEND Internal Medicine
DX: R53.1 Weakness (principal); I50.30 Unspecified diastolic (congestive) heart failure; I48.92 Unspecified atrial flutter; E10.42 Type 1 diabetes mellitus with diabetic polyneuropathy; C61 Malignant neoplasm of prostate; E55.9 Vitamin D deficiency, unspecified; E78.00 Pure hypercholesterolemia, unspecified; I11.0 Hypertensive heart disease with heart failure; I25.10 Atherosclerotic heart disease of native coronary artery without angina pectoris; J45.909 Unspecified asthma, uncomplicated; Z95.0 Presence of cardiac pacemaker; Z95.5 Presence of coronary angioplasty implant and graft; N40.0 Benign prostatic hyperplasia without lower urinary tract symptoms; Z79.01 Long term (current) use of anticoagulants; I48.91 Unspecified atrial fibrillation; M54.9 Dorsalgia, unspecified

== ENCOUNTER 2018-02-11 21:13 | Emergency (ER) | payer MEDICARE, OTHER ==
[2018-02-11 21:13] VITALS: BMI 29.2
[2018-02-11] MEDS ORDERED: Sodium Chloride 0.9% 1,000 ML IV ONE (21:45)
[2018-02-11 21:54] LABS: BASO % 0.5 % (0.0-2.0); EOS # 0.1 K/uL (0.0-0.7); EOS % 1.4 % (0.0-4.0); LYMPH # 1.7 K/uL (1.0-4.3); LYMPH % 15.8 % (20.0-40.0); MEAN CORPUSCULAR HEMOGLOBIN 28.1 pg (27.0-31.0); MEAN CORPUSCULAR HGB CONC 33.5 g/dL (33.0-37.0); MEAN PLATELET VOLUME 8.3 fL (7.2-11.7); MONO # 0.7 K/uL (0.0-0.8); MONO % 6.8 % (0.0-10.0); NEUT # 8.2 K/uL (1.8-7.0); NEUT % 75.5 % (50.0-75.0); NRBC % 0.1 % (0.0-2.0); RBC 5.35 Mil/uL (4.40-5.90); RED CELL DISTRIBUTION WIDTH 13.3 % (11.5-14.5); WHITE BLOOD COUNT 10.8 K/uL (4.8-10.8)
--- NOTE | 2018-02-11 22:02 | C.PDOC ---
History Of Present Illness Patient comes in complaining of vomiting and decreased PO intake since yesterday. Patient denies any associated fever, chills, chest pain or shortness of breath. No other complaints. Time Seen by Provider: 02/11/18 22:01 Chief Complaint (Nursing): GI Problem History Per: Patient History/Exam Limitations: no limitations Onset/Duration Of Symptoms: Days Current Symptoms Are (Timing): Still Present Location Of Pain/Discomfort: Diffuse Quality Of Discomfort: "Pain" Past Medical History Reviewed: Historical Data, Nursing Documentation, Vital Signs Vital Signs: Last Vital Signs Temp 98.0 F 02/11/18 23:47 Pulse 82 02/11/18 23:47 Resp 16 02/11/18 23:47 BP 168/85 H 02/11/18 23:47 Pulse Ox 99 02/12/18 03:05 - Medical History PMH: Asthma, Fractures, HTN, Hypercholesterolemia Denies: Chronic Kidney Disease Surgical History: Coronary Stent (x4), Pacemaker Family History: States: Unknown Family Hx - Social History Hx Alcohol Use: No Hx Substance Use: No - Immunization History Hx Tetanus Toxoid Vaccination: No Hx Influenza Vaccination: Yes Hx Pneumococcal Vaccination: No Review Of Systems Constitutional: Negative for: Fever, Chills Cardiovascular: Negative for: Chest Pain Respiratory: Negative for: Shortness of Breath Gastrointestinal: Positive for: Vomiting, Abdominal Pain, Other (decreased PO intake) Physical Exam - Physical Exam Appears: Non-toxic Skin: Warm Head: Atraumatic Eye(s): bilateral: Normal Inspection Oral Mucosa: Moist Neck: Supple Chest: Symmetrical, Other (pacer left chest wall) Cardiovascular: Rhythm Regular Respiratory: No Rales, No Rhonchi, No Wheezing Gastrointestinal/Abdominal: Soft, Tenderness (mild mid epigastric tenderness), No Guarding, No Rebound Back: No CVA Tenderness, No Vertebral Tenderness, No Paraspinal Tenderness Extremity: Normal ROM, No Pedal Edema Neurological/Psych: Oriented x3 ED Course And Treatment - Laboratory Results Result Diagrams: 02/11/18 21:50 02/11/18 21:50 O2 Sat by Pulse Oximetry: 99 (RA) Pulse Ox Interpretation: Normal - CT Scan/US CT Abdomen/Pelvis Other Rad Studies (CT/US): Radiology Report Reviewed CT/US Interpretation: FINDINGS: Lower thorax: There is bibasilar atelectasis. Cardiomegaly. There are cardiac leads from a cardiac. rhythm maintenance device. ABDOMEN: Liver: Fatty liver. Gallbladder and bile ducts: Partial distention of the gallbladder. Pancreas: Normal. No ductal dilation. Spleen: Normal. No splenomegaly. Adrenals: Normal. No mass. Kidneys and ureters: Small right renal cyst. Unremarkable. Stomach and bowel: Duodenal diverticulum. Diverticulosis. Moderate amount of stool in the colon. Appendix: Normal appendix. PELVIS: Bladder: Partially decompressed bladder with bladder wall thickening. Correlation with urinalysis is. recommended only if clinical cystitis is suspected. Reproductive: Mild prominence of the prostate gland with calcification. ABDOMEN and PELVIS: Intraperitoneal space: Normal. No free air. No significant fluid collection. Bones/joints: Unremarkable. Soft tissues: Bilateral gynecomastia. Left inguinal herniation of fat. Vasculature: Normal. No abdominal aortic aneurysm. Lymph nodes: Normal. No enlarged lymph nodes. IMPRESSION: 1.No evidence of an acute abnormality. Progress Note: Labs and UA ordered. Patient given IV fluids, Protonix and Zofran. Reevaluation Time: 03:24 Reassessment Condition: Improved Disposition Counseled Patient/Family Regarding: Studies Performed, Diagnosis, Need For Followup, Rx Given - Disposition Referrals: Nitesh Arita Jr., MD [Medical Doctor] - Disposition: HOME/ ROUTINE Disposition Time: 22:02 Condition: FAIR Additional Instructions: Please return if symptoms recur Prescriptions: Pantoprazole Sodium [Protonix] 40 mg PO DAILY #15 ect Instructions: Gastritis (DC) Forms: [facility] (Icelandic) Print Language: GREEK - Clinical Impression Clinical Impression: Gastritis - Scribe Statement The provider has reviewed the documentation as recorded by the Kylee Bajwa Provider Attestation: All medical record entries made by the Kylee were at my direction and personally dictated by me. I have reviewed the chart and agree that the record accurately reflects my personal performance of the history, physical exam, medical decision making, and the department course for this patient. I have also personally directed, reviewed, and agree with the discharge instructions and disposition.
[2018-02-11 22:15] LABS: ALB/GLOB RATIO 1.2 (1.0-2.1); ALBUMIN 4.1 g/dL (3.5-5.0); ALT/SGPT 38 U/L (21-72); AST/SGOT 31 U/L (17-59); BLOOD UREA NITROGEN 14 mg/dL (9-20); CALCIUM 10.2 mg/dl (8.6-10.4); GFR NON-AFRICAN AMERICAN > 60; LIPASE 27 U/L (23-300)
[2018-02-11 22:38] LABS: PROTHROMBIN TIME 11.4 SECONDS (9.7-12.2)
[2018-02-11 23:43] LABS: URINE BILIRUBIN NEGATIVE (NEGATIVE); URINE BLOOD NEGATIVE (NEGATIVE); URINE CLARITY Clear (Clear); URINE COLOR Yellow (YELLOW); URINE GLUCOSE (UA) 1+ mg/dL (Normal); URINE LEUKOCYTE ESTERASE NEG Leu/uL (Negative); URINE PROTEIN 2+ mg/dL (NEGATIVE); URINE UROBILINOGEN NORMAL mg/dL (0.2-1.0)
[2018-02-12] MEDS ORDERED: Iodixanol 320 MG/ML 100 ML BOTTLE IV ONE (01:20)
[2018-02-12 04:10] VITALS: BP 149/81; PULSE 81; RESP 17; TEMP 98.1; O2SAT 98
--- NOTE | 2018-02-12 09:24 | CT ---
Date of service: 02/12/2018 PROCEDURE: CT Abdomen and Pelvis with intravenous contrast HISTORY: Abdominal pain. Epigastric pain. COMPARISON: None. TECHNIQUE: Multiple contiguous axial images were performed through the abdomen and pelvis with intravenous contrast. Subsequently, sagittal and coronal reformatted images were obtained. Radiation dose: Total exam DLP = 443 mGy-cm. This CT exam was performed using one or more of the following dose reduction techniques: Automated exposure control, adjustment of the mA and/or kV according to patient size, and/or use of iterative reconstruction technique. FINDINGS: LOWER THORAX: Bibasilar atelectasis. Cardiomegaly. Cardiac leads from a cardiac rhythm maintenance device. LIVER: Fatty infiltration of the liver. Punctate calcification within the right hepatic lobe superiorly. GALLBLADDER AND BILE DUCTS: Partial distention of the gallbladder. PANCREAS: Unremarkable. No gross lesion or ductal dilatation. SPLEEN: Unremarkable. ADRENALS: Unremarkable. No mass. KIDNEYS AND URETERS: Small right renal cyst. VASCULATURE: Unremarkable. No aortic aneurysm. BOWEL: Duodenal diverticulum. Diverticulosis. Moderate amount of stool in the colon. APPENDIX: Unremarkable. Normal appendix. PERITONEUM: Unremarkable. No free fluid. No free air. LYMPH NODES: Unremarkable. No enlarged lymph nodes. BLADDER: Partially decompressed urinary bladder with bladder wall thickening. Correlation with urinalysis is recommended only if clinical cystitis is suspected. REPRODUCTIVE: Mild prominence of the prostate gland with calcification. BONES: No acute fracture. OTHER FINDINGS: Bilateral gynecomastia. Left inguinal herniation of fat. IMPRESSION: Negative acute. Additional findings as above. These findings were preliminarily reported at 2:55 a.m. on 02/12/[address] Leia Stock from [employer].
== END 2018-02-12 04:31 | disposition home or self-care (01) ==
LOC: C.ER 21:13
DX: K29.70 Gastritis, unspecified, without bleeding (principal); I10 Essential (primary) hypertension; E78.00 Pure hypercholesterolemia, unspecified; Z95.0 Presence of cardiac pacemaker
CPT/HCPCS: 74177; 80053; 81001; 83690; 85025; 85610; 85730; 96361; 96374; 96375; 99284; C9113; J2405; J2765; J7030; Q9967

== ENCOUNTER 2018-08-24 13:02 | Inpatient (IN) | payer MEDICARE, OTHER | END 2018-09-01 17:30 | DRG 299 | LOC: C.3T 08-26 11:26 → C.ER 13:02 → C.9E 15:04 → C.3T 16:04 | PROC: 0HBNXZZ Excision of Left Foot Skin, External Approach (ICD-10-PCS; principal; 2018-08-26 10:00) | DX: E11.52 Type 2 diabetes mellitus with diabetic peripheral angiopathy with gangrene (principal); A48.0 Gas gangrene; I50.32 Chronic diastolic (congestive) heart failure; M86.172 Other acute osteomyelitis, left ankle and foot; E11.621 Type 2 diabetes mellitus with foot ulcer; I25.10 Atherosclerotic heart disease of native coronary artery without angina pectoris; L97.529 Non-pressure chronic ulcer of other part of left foot with unspecified severity; E11.69 Type 2 diabetes mellitus with other specified complication; Z95.5 Presence of coronary angioplasty implant and graft; I11.0 Hypertensive heart disease with heart failure; Z95.0 Presence of cardiac pacemaker; E78.00 Pure hypercholesterolemia, unspecified; J45.909 Unspecified asthma, uncomplicated; Z85.46 Personal history of malignant neoplasm of prostate; I27.20 Pulmonary hypertension, unspecified; B95.62 Methicillin resistant Staphylococcus aureus infection as the cause of diseases classified elsewhere; Z79.4 Long term (current) use of insulin ==